=== PATIENT | male | born 1945 | race Two or more races ===

== ENCOUNTER 2020-02-05 08:21 | Outpatient (REF) | payer MEDICARE, OTHER, SELFPAY ==
[2020-02-05 09:44] LABS: Hematocrit 40.6 % (42-52); Hemoglobin 13.6 g/dl (14.0-18.0); Mean Corpuscular HGB Conc 33.5 g/dl (31.0-36.0); Mean Corpuscular Hemoglobin 31.3 pg (27.0-33.0); Mean Corpuscular Volume 93.5 fL (80-98); Mean Platelet Volume 10.9 fL (9.4-12.4); Platelet Count 282 X10*3/uL (160-400); Red Blood Count 4.34 X10*6/uL (4.60-5.80); Red Cell Distribution Width 12.1 % (11.0-16.0); White Blood Count 7.9 X10*3/uL (4.8-10.8)
[2020-02-05 09:47] LABS: INTERNATIONAL NORM RATIO 1.2 (0.9-1.1); Prothrombin Time 14.8 SEC (10.8-13.0)
[2020-02-05 11:02] LABS: Anion Gap 13 (12-20); Blood Urea Nitrogen 17 mg/dL (9-16); Carbon Dioxide 27 mmol/L (22-29); Chloride 103 mmol/L (96-108); Estimated Glomerular Filt Rate > 60; Potassium 4.9 mmol/l (3.3-5.1); Sodium 138 mmol/L (135-145)
== END 2020-02-05 08:22 | disposition home or self-care (01) ==
LOC: HO.10HDL 08:21
PROVIDERS: PCP Physician Assistant; Visit Provider Surgery Vascular Surgery
DX: I73.9 Peripheral vascular disease, unspecified (principal)
CPT/HCPCS: 36415; 80051; 82565; 84520; 85027; 85610

== ENCOUNTER 2020-02-16 11:01 | Inpatient (IN) | payer OTHER, SELFPAY ==
[2020-02-16] VITALS (10 sets, daily range): BP systolic 92–145; BP diastolic 54–69; PULSE 69–94; RESP 18–20; TEMP 36.4–36.8; O2SAT 97–98; BMI 23.3
--- NOTE | 2020-02-16 11:37 | ECG_ITS ---
Test Reason : EKGCHANGES Blood Pressure : / mmHG Vent. Rate : 099 BPM Atrial Rate : 129 BPM P-R Int : 000 ms QRS Dur : 112 ms QT Int : 324 ms P-R-T Axes : 000 076 049 degrees QTc Int : 415 ms Atrial fibrillation Abnormal ECG When compared with ECG of 09-APR-2019 13:49, No significant change was found Referred By: Rama Schmid Electronically Signed By:AMANDA CALI MD
--- NOTE | 2020-02-16 11:37 | XR_ITS ---
EXAMINATION: XR CHEST CLINICAL INFORMATION: Dizziness, low blood pressure COMPARISON: 09/20/2017 TECHNIQUE: 2 frontal and 2 lateral views of the chest were obtained. FINDINGS: The cardiomediastinal silhouette is within normal limits. The lungs are well expanded. There is no focal consolidation, edema, or effusion. No pneumothorax. Degenerative spine disease with the appearance of DISH. IMPRESSION: No evidence of acute pulmonary process..
--- NOTE | 2020-02-16 11:38 | XR_ITS ---
EXAMINATION: XR FOOT, RIGHT CLINICAL INFORMATION: Wound great toe. Evaluate for osteomyelitis. COMPARISON: MRI 01/22/2020 TECHNIQUE: AP, lateral, and oblique views of the right foot. FINDINGS: There is cortical irregularity of the tuft of the 1st distal phalanx. This raises concern for osteomyelitis. 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 Arthritis at the hallux sesamoid articulation. Mild degenerative changes in the midfoot, as seen on the lateral projection. Moderate plantar calcaneal spur. Small Achilles tendon insertional spurring. IMPRESSION: Cortical irregularity of the tuft of the 1st distal phalanx raises concern for possible osteomyelitis. This can be further evaluated with MRI as clinically warranted.
--- NOTE | 2020-02-16 11:41 | ED_ITS ---
HPI - General Adult General Chief complaint: General Medical Stated complaint: low blood pressure Time Seen by Provider: 02/16/20 11:36 Source: patient Mode of arrival: ambulatory Limitations: no limitations History of Present Illness HPI narrative: 74-year-old male with a past medical history of insulin- dependent diabetes, AFib on Eliquis, hypertension, high cholesterol, GERD, Parkinson's, right great toe wound here with episodes of low blood pressure. Per the patient had some lightheadedness this morning. She checked his blood pressure and was noted to be 80 systolic. She re-checked it a few addit ional times and continued to be low. He tells me he feels lightheaded when he changes positions. He denies any other associated chest pain, shortness of breath, abdominal pain, headache. no recent changes in medication. Of note, he has a wound on the right great toe and is currently on doxycycline for presumed infection. He has an appointment with vascular and [facility] and a few weeks for an RLE angiogram. He had an MRI 1 month ago (01/21) which ruled out osteomyelitis with admission with IV antibiotics for RLE cellulitis at that time. He does have acute on chronic pain in the right foot and in the calf which is worsened within the dependent position and he is taking gabapentin for this. Onset (ago): day(s) ( Today) Related Data Allergies Allergy/AdvReac Type Severity Reaction Status Date / Time No Known Drug Allergies Allergy Unknown UNKNOWN Verified 02/16/20 11:21 grass, weeds, dirt, dust Allergy Unknown Unknown Uncoded 02/16/20 11:21 mites Review of Systems Review of Systems: Yes all other systems are reviewed and are negative Constitutional: Constitutional: Reports no additional constitutional com plaints, Denies body ache(s), Denies chills, Denies fever(s), Denies headache(s) and Denies weakness Eyes: Eyes: Reports no additional eye complaints and Denies change in vision ENT: Reports system reviewed and no additional complaints, except as documented, Reports dizziness ( lightheaded), Denies headache(s), Denies nasal congestion, Denies nasal discharge and Denies neck pain Cardiovascular: Cardiovascular: Reports no additional cardiovascular complaints, Denies chest pain, Denies leg edema and Denies dyspnea Respiratory: Respiratory: Reports no additional respiratory complaints, Denies cough and Denies dyspnea Gastrointestinal: Gastrointestinal: Reports no additional gastrointestinal complaints, Denies abdominal pain, Denies diarrhea, Denies nausea and Denies vomiting Genitourinary: Genitourinary: Denies urinary incontinence Musculoskeletal: Musculoskeletal: Reports no additional musculoskeletal complaints, Denies back pain, Reports arthralgias, Denies joint swelling, Denies neck pain, Denies numbness and Denies tingling Integumentary/Breasts: Skin/Breast: Reports system reviewed and no additional complaints, except as docu and Denies rash Comments: wound right great toe. Neurologic: Reports system reviewed and no additional complaints, except as documented, Denies Abnormal speech present, Reports dizziness ( lightheaded), Denies headache(s), Denies numbness, Denies tingling and Denies weakness PMFSH Past Medical History Attestation statement: The following information was validated with the patient. Source: obtained from family Medical History A-fib Diabetes GERD (gastroesophageal reflux disease) High cholesterol Hypertension Parkinson disease Toe avulsion Vocal cord anomaly Social History Social History Alcohol intake: current Alcohol intake frequency: 0-2 drinks per day Alcohol type: hard liquor Smoking Status: Current some day smoker Smoked in Last 30 Days: Yes Use of substances other than those prescribed or required for medical reasons: No Advance Directives: No Advance Directives Information Provided: Yes Physical Exam Vital Signs: Vital Signs: Vital Signs Temp Pulse Pulse Resp BP Pulse Ox 02/16/20 12:45 85 02/16/20 12:40 94 94/54 L 02/16/20 12:36 85 92/58 L 02/16/20 12:34 83 110/69 02/16/20 12:33 79 99/57 L 98 02/16/20 12:07 85 18 105/61 97 02/16/20 11:44 91 18 109/58 L 97 02/16/20 11:28 97.6 F 91 18 114/60 98 Body Mass Index 23.3 Const: General: cooperative, healthy appearing, comfortable and no acute distress Orientation/consciousness: patient oriented x3 Limitations: no limitations HENMT: Head: Yes normal to inspection Ears: hearing grossly normal bilaterally General nose exam: Normal external nose present Face and sinus: Yes normal facial exam Mouth: Normal oral and palatal mucosa present Throat: Yes posterior oropharynx normal Eyes: General: appearance normal, both eyes and all related structures Pupils: Equal, round and reactive pupils present Neck: Neck: Yes normal visual inspection Chest: Chest palpation & inspection: normal inspection of the chest Resp: Effort & Inspection: normal respiratory effort Auscultation: clear to auscultation bilaterally Cardio: Rate: regular rate Rhythm: regular rhythm Peripheral pulses: Peripheral pulses 2+ throughout GI: Inspection: Yes normal to inspection Palpation (GI): Soft to palpation and nontender Auscultation: normal bowel sounds Back/Spine/Pelvis: Thoracic/Lumbar Spine: thoracic and lumbar spine normal to inspection Skin: General skin exam: no rashes or lesions noted Neuro: General: patient oriented x3, no focal motor deficits and normal sensation to monofilament Cranial nerves: Yes CN's II-XII intact bilaterally and Yes Equal, round and reactive pupils present Cognition (Neuro): normal cognition Speech: No Abnormal speech present Gait exam (Neuro): Normal gait present Motor exam (neuro): 5/5 motor strength present throughout Sensory Exam: Normal double simultaneous stimulation for sensation Coordination: [id number] test normal Extrem: Other: To the dorsal aspect of the distal right great toe there is a wound involving the nail bed. There is some mild erythema extending to the base of the toe with some tenderness. The wound bed is covered in eschar and is unable to visualize will need this. Posterior tibial pulse is present on palpation. Right foot is normal in color. There is some mild coolness noted. Sensation intact. Patient is able to plantar and dorsiflex the foot. General: Yes normal to inspection Course Course Course Narrative: 74-year-old male with a past medical history of insulin- dependent diabetes, AFib on Eliquis, hypertension, high cholesterol, GERD, Parkinson's, chronic right great toe wound here with episodes of dizziness/weakness this morning with episode of hypotension this morning noted by family. On arrival normotensive, alert and oriented with no focal neurologic deficits. Also has known right diabetic ulcer on great toe and is currently on doxycyline. Some increase in pain since, recent MRI negative for osteo. On exam mild erythema around site with no circumferential cellulitis s/s sepsis. Will need labs including troponin, EKG, CXR, orthostatics, foot x-ray. 1300- foot x-ray today is concerning for osteomyelitis. Labs are unremarkable with the exception of a mildly elevated troponin. No chest pain or EKG changes. Plan for repeat 3 hour troponin. Magnesium slightly low will be repleted. Positive orthostatics. Patient given 1 L normal saline bolus with improvement. Blood cultures and lactic acid ordered as at this time infection is suspected. Antibiotics ordered. Discussed with hospitalist Ester XIAO who accepted admission of patient. Medical Decision Making MDM Narrative Medical decision making narrative: Considered ACS, orthostatic hypotension, electrolyte abnormality, anemia, dehydration, right foot diabetic ulcer versus osteomyelitis versus cellulitis versus arterial disease. Less likely ACS with indeterminate and troponin with no complaints of chest pain or EKG changes. Plan for repeat 3 hour troponin. +orthostasis which is likely contributing to patient's symptoms. Foot x-ray consistent with osteomyelitis. Low concern for arterial occlusion with palpable PT pulses. Lab Data Result diagrams: 02/16/20 11:43 02/16/20 11:43 Labs: Lab Results 02/16/20 02/16/20 02/16/20 Range/Units 11:43 11:43 11:43 WBC 10.1 (4.8-10.8) X10*3/uL RBC 4.56 L (4.60-5.80) X10*6/uL Hgb 14.5 (14.0-18.0) g/dl Hct 43.4 (42-52) % MCV 95.2 (80-98) fL MCH 31.8 (27.0-33.0) pg MCHC 33.4 (31.0-36.0) g/dl RDW 12.2 (11.0-16.0) % Plt Count 286 (160-400) X10*3/uL MPV 10.6 (9.4-12.4) fL Immature Gran % (Auto) 0.3 (0.0-0.4) % Neut % (Auto) 69.7 (45-73) % Lymph % (Auto) 21.3 (20-40) % [place] % (Auto) 7.0 (2-11) % Eos % (Auto) 1.2 (0-4) % Baso % (Auto) 0.5 (0-2) % Lymph # (Auto) 2.2 (1.2-4.9) X10*3/uL [place] # (Auto) 0.7 (0.1-1.2) X10*3/uL Eos # (Auto) 0.1 (0.0-0.4) X10*3/uL Baso # (Auto) 0.1 (0.0-0.2) X10*3/uL Abs Immat Gran (auto) 0.03 (0.00-0.03) X10*3/uL Absolute Neuts (auto) 7.0 (2.0-8.3) X10*3/uL Absolute Nucleated RBC 0.000 (0.0-0.012) X10*3/uL Nucleated RBC % (auto) 0.0 (0.0-0.2) /100WBC PT 17.4 H (10.8-13.0) SEC INR 1.5 H (0.9-1.1) Hold Blue Top SEE NOTE Sodium 140 (135-145) mmol/L Potassium 5.5 H (3.3-5.1) mmol/l Chloride 103 (96-108) mmol/L Carbon Dioxide 27 (22-29) mmol/L Anion Gap 16 (12-20) BUN 23 H (9-16) mg/dL Creatinine 1.29 (0.5-1.4) mg/dL Estim Creat Clear Calc 62.6 Estimated GFR 55 POC Glucose (60-115) mg/dL Random Glucose 181 H (60-115) mg/dL Calcium 9.7 (8.4-10.2) mg/dL Magnesium 1.5 L (1.6-2.6) mg/dL Total Bilirubin 0.6 (0.0-1.0) mg/dL Direct Bilirubin 0.3 (0.0-0.5) mg/dL AST 18 (5-37) U/L ALT 7 (0-40) U/L Alkaline Phosphatase 107 (39-117) U/L Troponin I High Sens (<3.5-35.0) ng/L Total Protein 7.2 (6.5-8.0) g/dL Albumin 4.4 (3.5-5.0) g/dL 02/16/20 02/16/20 Range/Units 11:43 12:26 WBC (4.8-10.8) X10*3/uL RBC (4.60-5.80) X10*6/uL Hgb (14.0-18.0) g/dl Hct (42-52) % MCV (80-98) fL MCH (27.0-33.0) pg MCHC (31.0-36.0) g/dl RDW (11.0-16.0) % Plt Count (160-400) X10*3/uL MPV (9.4-12.4) fL Immature Gran % (Auto) (0.0-0.4) % Neut % (Auto) (45-73) % Lymph % (Auto) (20-40) % [place] % (Auto) (2-11) % Eos % (Auto) (0-4) % Baso % (Auto) (0-2) % Lymph # (Auto) (1.2-4.9) X10*3/uL [place] # (Auto) (0.1-1.2) X10*3/uL Eos # (Auto) (0.0-0.4) X10*3/uL Baso # (Auto) (0.0-0.2) X10*3/uL Abs Immat Gran (auto) (0.00-0.03) X10*3/uL Absolute Neuts (auto) (2.0-8.3) X10*3/uL Absolute Nucleated RBC (0.0-0.012) X10*3/uL Nucleated RBC % (auto) (0.0-0.2) /100WBC PT (10.8-13.0) SEC INR (0.9-1.1) Hold Blue Top Sodium (135-145) mmol/L Potassium (3.3-5.1) mmol/l Chloride (96-108) mmol/L Carbon Dioxide (22-29) mmol/L Anion Gap (12-20) BUN (9-16) mg/dL Creatinine (0.5-1.4) mg/dL Estim Creat Clear Calc Estimated GFR POC Glucose 138 H (60-115) mg/dL Random Glucose (60-115) mg/dL Calcium (8.4-10.2) mg/dL Magnesium (1.6-2.6) mg/dL Total Bilirubin (0.0-1.0) mg/dL Direct Bilirubin (0.0-0.5) mg/dL AST (5-37) U/L ALT (0-40) U/L Alkaline Phosphatase (39-117) U/L Troponin I High Sens 6.7 (<3.5-35.0) ng/L Total Protein (6.5-8.0) g/dL Albumin (3.5-5.0) g/dL ECG Data Attestation: I personally reviewed and interpreted this ECG as follows: Prior ECG tracings: available for review Interpretation: AFib with a rate of 99. Normal QRS. Normal QT. No ST changes. Discharge Plan Discharge Clinical Impression: Orthostatic hypotension Osteomyelitis Qualifiers: Osteomyelitis location: foot Laterality: right Patient Disposition: Admitted As Inpatient
[2020-02-16 11:52] LABS: MANUAL DIFF FLAG NO
[2020-02-16 11:57] LABS: Basophils Absolute Auto 0.1 X10*3/uL (0.0-0.2); Basophils Percent Auto 0.5 % (0-2); Eosinophils Absolute Auto 0.1 X10*3/uL (0.0-0.4); Eosinophils Percent Auto 1.2 % (0-4); Hematocrit 43.4 % (42-52); Hemoglobin 14.5 g/dl (14.0-18.0); Imm Gran Abs Auto 0.03 X10*3/uL (0.00-0.03); Imm Gran Pct Auto 0.3 % (0.0-0.4); Lymphocytes Absolute Auto 2.2 X10*3/uL (1.2-4.9); Lymphocytes Percent Auto 21.3 % (20-40); Mean Corpuscular HGB Conc 33.4 g/dl (31.0-36.0); Mean Corpuscular Hemoglobin 31.8 pg (27.0-33.0); Mean Corpuscular Volume 95.2 fL (80-98); Mean Platelet Volume 10.6 fL (9.4-12.4); Monocytes Absolute Auto 0.7 X10*3/uL (0.1-1.2); Neutrophils Percent Auto 69.7 % (45-73); Platelet Count 286 X10*3/uL (160-400); Red Blood Count 4.56 X10*6/uL (4.60-5.80); Red Cell Distribution Width 12.2 % (11.0-16.0); White Blood Count 10.1 X10*3/uL (4.8-10.8)
[2020-02-16 11:59] LABS: INTERNATIONAL NORM RATIO 1.5 (0.9-1.1); Prothrombin Time 17.4 SEC (10.8-13.0)
[2020-02-16 12:20] LABS: Alanine Aminotransferase 7 U/L (0-40); Albumin Level 4.4 g/dL (3.5-5.0); Alkaline Phosphatase 107 U/L (39-117); Anion Gap 16 (12-20); Aspartate Amino Transferase 18 U/L (5-37); Bilirubin Direct 0.3 mg/dL (0.0-0.5); Bilirubin Total 0.6 mg/dL (0.0-1.0); Blood Urea Nitrogen 23 mg/dL (9-16); Calcium 9.7 mg/dL (8.4-10.2); Carbon Dioxide 27 mmol/L (22-29); Chloride 103 mmol/L (96-108); Creatinine Clr Calc Pharmacy 62.6; Estimated Glomerular Filt Rate 55; Glucose Random 181 mg/dL (60-115); Magnesium 1.5 mg/dL (1.6-2.6); Potassium 5.5 mmol/l (3.3-5.1); Sodium 140 mmol/L (135-145); Total Protein 7.2 g/dL (6.5-8.0)
[2020-02-16 12:24] LABS: Troponin-I High Sensitivity 6.7 ng/L (<3.5-35.0)
[2020-02-16 12:31] LABS: Glucose, Whole Blood 138 mg/dL (60-115)
[2020-02-16] MEDS: Magnesium Sulfate/D5W 1 GM/100 ML PIGGYBACK IV (14:29)
[2020-02-16] MEDS: vancomycin HCL 1,000 MG in 0.9 % Sodium Chloride 250 ML 270 MG IV (14:39)
--- NOTE | 2020-02-16 14:51 | PC.NURSE ---
unable to scan in 1l bolus. spoke with hoisting engine operator, states she wants 1l ns. hung at this time.
--- NOTE | 2020-02-16 14:52 | PC.NURSE ---
called to s3 for report
[2020-02-16 15:07] LABS: Lactic Acid 1.4 mmol/L (0.5-2.0)
[2020-02-16 15:16] LABS: Troponin-I High Sensitivity 4.5 ng/L (<3.5-35.0)
[2020-02-16 15:56] LABS: Glucose Urine UA NEG (NEG); Leukocyte Esterase Urine NEG (NEG); Nitrite Urine NEG (NEG); Specific Gravity - Urine 1.015 (1.005-1.025); Urine Blood NEG (NEG); Urine Ketones NEG (NEG); Urine Protein NEG (NEG-TRACE)
--- NOTE | 2020-02-16 15:59 | HP_ITS ---
DATE OF SERVICE: 02/16/2020 CHIEF COMPLAINT: Toe pain. HISTORY OF PRESENT ILLNESS: A 74-year-old man, presenting to the ER with right great toe pain. He was last admitted in January of 2020 with a diabetic foot wound. At that time, he was noted to have a cellulitis with concern for osteomyelitis to the right great toe. He was started on vancomycin and Zosyn. MRI was obtained, which showed no osteomyelitis. The wound made a marked improvement over 48 hours and he was discharged on oral Augmentin and doxycycline. According to the patient's , they had recently cut his toenails and that seemed to be getting worse. The top of the right great toe was black and dry and he had increased pain to the plantar aspect of his foot. In the ER, the foot x-ray showed irregularities concerning for possible osteomyelitis. He was not noted to have fever or leukocytosis; however, his reported that his blood pressure at home was 70 systolic and he had some dizziness. She decided to bring him in to be evaluated. He had no other signs of infection and chest x-ray was negative. The patient denied any fever, chills, nausea, vomiting, or diarrhea. He was given a dose of vancomycin in the ER. He will be admitted for further management and treatment of possible osteomyelitis to right great toe. PAST MEDICAL HISTORY: 1. Atrial fibrillation, on Eliquis. 2. Diabetes mellitus. 3. GERD. 4. Hyperlipidemia. 5. Hypertension. 6. Parkinson disease. 7. Diabetic foot ulcer. 8. Vocal cord anomaly. PAST SURGICAL HISTORY: Trigger finger release. SOCIAL HISTORY: Lives with his . Denies any alcohol, tobacco, or illicit drug use. Uses a cane for ambulation. FAMILY HISTORY: Mother of a fatal [place]. She also had a stroke. His father at age of 79 of myocardial infarction. Sister had breast cancer at age of 30. REVIEW OF SYSTEMS: CONSTITUTIONAL: Denies any recent fever, chills, or decrease in appetite. RESPIRATORY: Denies any shortness of breath, cough, or sputum production. CARDIOVASCULAR: Denies any chest pain, orthopnea, PND, or edema. GASTROINTESTINAL: Denies any dysphagia, abdominal pain, nausea, vomiting, or diarrhea. GENITOURINARY: Denies any dysuria, frequency, or hematuria. MUSCULOSKELETAL: Denies any joint pain or swelling. NEUROPSYCH: Denies any weakness or seizures. All other systems are reviewed and are negative. PHYSICAL EXAMINATION: CONSTITUTIONAL: Resting in bed, appearing in no acute distress. VITAL SIGNS: 97.6, 91, 18, 114/60, 98% on room air. SKIN: Right great toe with large area of black eschar. No drainage. HEENT: Head is normocephalic, atraumatic. Eyes, pupils are PERRLA. Sclerae are anicteric. Mouth and throat: Mucous membranes are intact and moist. NECK: Supple. No lymphadenopathy. No JVD noted. CHEST: Clear to auscultation without wheezes, rhonchi, or rales. HEART: Regular rate and rhythm. Clear S1, S2. No murmurs, rubs, or gallops. ABDOMEN: Positive bowel sounds. Abdomen is soft, nontender. No hepatomegaly or splenomegaly noted. NEURO: The patient is alert and oriented x3. Cranial nerves II through XII are grossly intact without focal deficits. LABORATORY DATA: WBC 10.1, hemoglobin 14.5, hematocrit 42.4, and platelets 286. Sodium is 140, potassium is 5.5, chloride is 103, bicarb is 27, BUN is 22, creatinine is 1.29, glucose is 138, magnesium is 1.5. ASSESSMENT AND PLAN: A 74-year-old man, who is being admitted with right diabetic toe infection, possibly with osteomyelitis. 1. Diabetic toe infection/osteomyelitis. We will continue vancomycin and Zosyn, ID consultation, General Surgery for debridement, MRI, pain medication as needed. 2. Hyperkalemia. We will give 1 dose of Kayexalate. 3. Hypomagnesemia. Received 1 dose of magnesium in the ER. Recheck magnesium tomorrow. 4. Atrial fibrillation. Regular rhythm. Continue Eliquis and metoprolol. 5. Hypotension. Seems to have resolved. Follow blood pressure closely. We will give gentle IV fluid hydration, may be related to mild dehydration. Hold enalapril. 6. Diabetes. Sliding scale, lantus and metformin. 7. Parkinsons disease. Continue Sinemet. 8. Deep vein thrombosis prophylaxis with Eliquis. Case discussed with Dr. Alexis. Full code. JESSICA Viramontes MD JR/VAISHNAVI / [id number] ARMANDO
[2020-02-16 16:00] LABS: Appearance Urine CLEAR; Color Urine YELLOW
--- NOTE | 2020-02-16 16:08 | PM.EVENT ---
Event Note Event Note: Date of Service: February 16, 2020 Addendum to H and by Mid level Provider I saw and examined the patient and participated in the [place] portion of the E/M service. I agree with the history and exam as documented by KILN SETTER. He presents with pain in the left foot, low blood pressure. Xray raise concern for osteo. BP is now better, I don't think he is septic. Exam: dry gangrene of left big toe. Patient likely has med related low BP, and will rule out osteomylitis. Will admit for Empiric Abx and work up with repeat MRI of the foot. Otherwise, I agree with assessment and plan as outlined in the H and P.
--- NOTE | 2020-02-16 16:22 | MR_ITS ---
EXAMINATION: MRI RIGHT FOOT WITHOUT AND WITH CONTRAST CLINICAL INFORMATION: Infection of right great toe. Possible osteomyelitis. COMPARISON: Radiographs of the foot from 02/16/2020. MRI of the foot from 01/22/2020. TECHNIQUE: MR imaging of the right foot was performed using standard sequences on a high-field 1.5 [place] magnet without and with intravenous administration of 10 mL of Gadavist. FINDINGS: Bones have normal alignment throughout the visualized foot, including the Lisfranc joint. 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 Bones of the forefoot are intact. There is no evidence of fracture, focal cortical bone erosion or periostitis. On the fat-suppressed fluid sensitive sequences, there is minimal periarticular marrow edema at several joints, including second and fifth metatarsophalangeal joints. Also, these images demonstrate minimal edema-like signal within the distal phalanx of the fifth toe and distal phalanx of the first toe. On the T1-weighted images, the fatty marrow signal of these bones is well-preserved, which strongly argues against presence of osteomyelitis. On the fat-suppressed T1-weighted images acquired after intravenous contrast, there is no significant bone marrow enhancement to suggest osteomyelitis. No soft tissue abscess. There is diffuse edema-like signal and atrophy of muscles of the foot, consistent with diabetic neuropathy. No evidence of tendon tear or tenosynovitis. The visualized plantar aponeurosis is intact. IMPRESSION: * The T1-weighted images and contrast enhanced images show no evidence of osteomyelitis within the right forefoot. * Minimal bone marrow edema is noted in several locations, including around some of the metatarsophalangeal joints and within distal phalanges of the first and fifth toes. The bone marrow edema is likely reactive in nature. * The chronic atrophy and edema-like signal intensity of muscles is consistent with diabetic associated neuropathic changes affecting muscles. 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
[2020-02-16 16:49] LABS: Glucose, Whole Blood 105 mg/dL (60-115)
--- NOTE | 2020-02-16 17:30 | P.CONGS_ITS ---
History of Present Illness Consult details Consult date: 02/16/20 Reason for consult: wound care Requesting physician: Ester Abbott Narrative: This is a 74 y/o Male who presented to the emergency department today with complaints of dizziness and lightheadedness. Systolic pressure had been low at home. He recently was admitted to [facility] for treatment of cellulitis involving the right great toe. The problem began after he had his toenails trimmed at the [facility]. he improved and was discharged on oral ant ibiotics. He reports that he developed dark spot at the tip of his toe. He has been evaluated by a vascular surgeon at [facility] and is scheduled to have a dye study performed at [facility] next week. Review of Systems Constitutional: Constitutional: Denies headache(s) and Denies weakness ENT: Reports dizziness ( lightheaded) and Denies headache(s) Musculoskeletal: Musculoskeletal: Denies numbness and Denies tingling Comments: Reports cramping right thigh after walking about 40 yd and while climbing stairs Neurologic: Reports system reviewed and no additional complaints, except as documented, Denies Abnormal speech present, Reports dizziness ( lightheaded), Denies headache(s), Denies numbness, Denies tingling and Denies weakness PMFSH Past Medical History Medical History A-fib Diabetes GERD (gastroesophageal reflux disease) High cholesterol Hypertension Parkinson disease Toe avulsion Vocal cord anomaly Social History Social History Household Members: Spouse Housing: House Do you presently have visiting nurse or other home services: No Alcohol intake: current Alcohol intake frequency: 0-2 drinks per day Alcohol type: hard liquor Smoking Status: Current some day smoker Tobacco Type: Cigar Years Smoked: 8 Smoked in Last 30 Days: Yes Patient Interested in Nicotine Replacement: No Patient Given Instructions on How to Stop Smoking: No Second Hand Smoke Exposure: No Use of substances other than those prescribed or required for medical reasons: No Currently Displaying Signs/Symptoms of Drug Intoxication Withdrawal: No Any prior treatment program specific to substance use: No Have you been hit, kicked, punched, or otherwise hurt by someone within the past year? If so, by whom?: No Do you feel safe in your current relationship?: No Is there a partner from a previous relationship who is making you feel unsafe now?: No Are you made to feel afraid or neglected: No Advance Directives: Yes Advance Directives Information Provided: Yes Advance Directives on File: No Advance Directives Date on File: 02/16/20 Do you have thoughts of harming others: None Do you have a plan to hurt others: No Plan Recently lost weight without trying: Yes service: No Current occupational status: retired Meds Allergies Allergy/AdvReac Type Severity Reaction Status Date / Time No Known Drug Allergies Allergy Unknown UNKNOWN Verified 02/16/20 11:21 grass, weeds, dirt, dust Allergy Unknown Unknown Uncoded 02/16/20 11:21 mites Home Medications Medication Instructions Recorded Confirmed Type apixaban [Eliquis] 5 mg PO BID 02/16/20 02/16/20 History carbidopa-levodopa 1 tab PO TID 02/16/20 02/16/20 History enalapril maleate 20 mg PO DAILY 02/16/20 02/16/20 History gabapentin 900 mg PO TID 02/16/20 02/16/20 History insulin glargine [Lantus U-100 14 unit SUBCUT QAM 02/16/20 02/16/20 History Insulin] insulin lispro [Humalog U-100 6 unit SUBCUT QPM 02/16/20 02/16/20 History Insulin] magnesium oxide 420 mg PO DAILY 02/16/20 02/16/20 History metformin 500 mg PO QPM 02/16/20 02/16/20 History metoprolol succinate 25 mg PO DAILY 02/16/20 02/16/20 History omeprazole 20 mg PO DAILY 02/16/20 02/16/20 History simvastatin 20 mg PO BEDTIME 02/16/20 02/16/20 History tamsulosin 0.4 mg PO DAILY 02/16/20 02/16/20 History Physical Exam Vital Signs: Vital Signs: Vital Signs Temp Pulse Pulse Resp BP Pulse Ox 02/16/20 15:35 80 18 145/66 H 02/16/20 12:45 85 02/16/20 12:40 94 94/54 L 02/16/20 12:36 85 92/58 L 02/16/20 12:34 83 110/69 02/16/20 12:33 79 99/57 L 98 02/16/20 12:07 85 18 105/61 97 02/16/20 11:44 91 18 109/58 L 97 02/16/20 11:28 97.6 F 91 18 114/60 98 Body Mass Index 23.3 Const: Other: Alert, healthy appearing elderly male in no apparent distress HENMT: Head: Yes normal to inspection Ears: hearing grossly normal bilaterally Eyes: Conjunctivae: conjunctivae normal EOM: EOMs intact bilaterally Neck: Neck: Yes normal visual inspection Resp: Other: clear to auscultation Cardio: Other: regular rate and rhythm Neuro: Speech: No Abnormal speech present Extrem: Other: the right foot demonstrates dependent rubor. There is an eschar present along the medial aspect of the tip of the right great toe. Dorsalis pedis, posterior tibial and popliteal pulses are not palpable on the right. Posterior tibial pulses palpable on the left Psych: Affect: normal affect Insight: Good insight present (Psych) Judgement: Good judgement present (Psych) Results Labs Result diagrams: 02/17/20 06:01 02/17/20 06:01 Labs: Abnormal lab results 02/16/20 02/16/20 02/16/20 Range/Units 11:43 11:43 11:43 RBC 4.56 L (4.60-5.80) X10*6/uL PT 17.4 H (10.8-13.0) SEC INR 1.5 H (0.9-1.1) Potassium 5.5 H (3.3-5.1) mmol/l BUN 23 H (9-16) mg/dL POC Glucose (60-115) mg/dL Random Glucose 181 H (60-115) mg/dL Magnesium 1.5 L (1.6-2.6) mg/dL 02/16/20 Range/Units 12:26 RBC (4.60-5.80) X10*6/uL PT (10.8-13.0) SEC INR (0.9-1.1) Potassium (3.3-5.1) mmol/l BUN (9-16) mg/dL POC Glucose 138 H (60-115) mg/dL Random Glucose (60-115) mg/dL Magnesium (1.6-2.6) mg/dL Short CBC 02/16/20 Range/Units 11:43 WBC 10.1 (4.8-10.8) X10*3/uL Hgb 14.5 (14.0-18.0) g/dl Hct 43.4 (42-52) % Plt Count 286 (160-400) X10*3/uL BMP 02/16/20 11:43 Sodium 140 Potassium 5.5 H Chloride 103 Carbon Dioxide 27 BUN 23 H Creatinine 1.29 Calcium 9.7 Liver Function 02/16/20 Range/Units 11:43 Total Bilirubin 0.6 (0.0-1.0) mg/dL Direct Bilirubin 0.3 (0.0-0.5) mg/dL AST 18 (5-37) U/L ALT 7 (0-40) U/L Alkaline Phosphatase 107 (39-117) U/L Albumin 4.4 (3.5-5.0) g/dL Urine 02/16/20 Range/Units 15:38 Urine Color YELLOW Urine Appearance CLEAR Urine pH 6.0 (5.0-8.0) Ur Specific [place] 1.015 (1.005-1.025) Urine Protein NEG (NEG-TRACE) MG/DL Urine Glucose (UA) NEG (NEG) MG/DL All other labs normal. Assessment and Plan (1) Peripheral arterial disease: Problem details: This is a 74-year-old gentleman with peripheral arterial disease and significant ischemia involving the right lower extremity. He has small eschars involving the medial aspect of the tip of his right 1st toe and also all along the plantar aspect of the 1st metatarsal head. He has been seen by a vascular surgeon at [facility] and is scheduled for Arteriography and possible stenting on 02/23/2020. Would hold off on any debridement until revascularization is complete. There is no evidence of osteomyelitis by MRI and no suggestion of active cellulitis at this time. It does not appear that continued antibiotic therapy is needed. Thank for the courtesy of this consultation. Status: Acute Proceed with planned arteriography and vascular stenting as scheduled at [facility] next week. Once this is completed, local treatment for as scars right foot can be undertaken. Would limit ambulation until intervention is complete based upon presence of eschar on plantar aspect of right foot.
[2020-02-16] MEDS: metFORMIN HCl 500 MG TABLET PO (18:28)
[2020-02-16] MEDS: Carbidopa/Levodopa 25/100 TABLET 1 TAB PO ×2 (18:28→21:45)
[2020-02-16] MEDS: Sodium Polystyrene Sulfon/Sorb 15 GM/60 ML ORAL.SUSP PO (18:28)
[2020-02-16] MEDS: Piperacillin Sodium/Tazobactam 3.375 GM in 0.9 % Sodium Chloride 50 ML IV (18:29)
[2020-02-16] MEDS: 0.9 % Sodium Chloride 1,000 ML 75 ML IVCONT (18:29)
[2020-02-16] MEDS: Acetaminophen 325 MG TABLET 650 MG PO (18:35)
[2020-02-16 21:20] LABS: Glucose, Whole Blood 200 mg/dL (60-115)
[2020-02-16] MEDS: Docusate Sodium 100 MG CAPSULE PO (21:45)
[2020-02-16] MEDS: Gabapentin 300 MG CAPSULE 900 MG PO (21:45)
[2020-02-16] MEDS: Atorvastatin Calcium 10 MG TABLET PO (21:45)
[2020-02-16] MEDS: Insulin Lispro 100 UNIT/ML 3 ML VIAL SUBCUT (21:45)
[2020-02-16] MEDS: Apixaban 5 MG TABLET PO (21:45)
[2020-02-16] MEDS: Flu Vacc QS2020-21(6mos up)/PF 0.5 ML SYRINGE IM (21:46)
[2020-02-17] MEDS: vancomycin HCL 1,000 MG in 0.9 % Sodium Chloride 250 ML 180 MG IV (00:41)
[2020-02-17] MEDS: Piperacillin Sodium/Tazobactam 3.375 GM in 0.9 % Sodium Chloride 50 ML IV ×2 (02:02→08:57)
[2020-02-17] MEDS: oxyCODONE HCl Immed Release 5 MG TABLET PO ×2 (03:13→13:45)
[2020-02-17 03:51] VITALS: BP 143/64; PULSE 70; RESP 20; TEMP 36.7; O2SAT 98
[2020-02-17] MEDS: Omeprazole 20 MG CAPSULE.DR PO (05:16)
[2020-02-17 07:00] LABS: MANUAL DIFF FLAG NO
[2020-02-17 07:09] LABS: Basophils Absolute Auto 0.1 X10*3/uL (0.0-0.2); Basophils Percent Auto 0.6 % (0-2); Eosinophils Absolute Auto 0.3 X10*3/uL (0.0-0.4); Eosinophils Percent Auto 3.8 % (0-4); Hematocrit 40.3 % (42-52); Hemoglobin 13.7 g/dl (14.0-18.0); Imm Gran Abs Auto 0.02 X10*3/uL (0.00-0.03); Imm Gran Pct Auto 0.2 % (0.0-0.4); Lymphocytes Absolute Auto 2.4 X10*3/uL (1.2-4.9); Lymphocytes Percent Auto 29.5 % (20-40); Mean Corpuscular Hemoglobin 32.2 pg (27.0-33.0); Mean Corpuscular Volume 94.6 fL (80-98); Mean Platelet Volume 10.9 fL (9.4-12.4); Monocytes Absolute Auto 0.7 X10*3/uL (0.1-1.2); Monocytes Percent Auto 8.3 % (2-11); Neutrophils Absolute Auto 4.7 X10*3/uL (2.0-8.3); Neutrophils Percent Auto 57.6 % (45-73); Platelet Count 265 X10*3/uL (160-400); Red Blood Count 4.26 X10*6/uL (4.60-5.80); Red Cell Distribution Width 12.3 % (11.0-16.0); White Blood Count 8.2 X10*3/uL (4.8-10.8)
[2020-02-17 07:34] LABS: Anion Gap 12 (12-20); Blood Urea Nitrogen 14 mg/dL (9-16); Calcium 8.9 mg/dL (8.4-10.2); Carbon Dioxide 30 mmol/L (22-29); Chloride 104 mmol/L (96-108); Creatinine Clr Calc Pharmacy 89.7; Estimated Glomerular Filt Rate > 60; Glucose Random 102 mg/dL (60-115); Magnesium 1.5 mg/dL (1.6-2.6); Potassium 4.9 mmol/l (3.3-5.1); Sodium 141 mmol/L (135-145)
[2020-02-17 07:41] VITALS: BP 138/71; PULSE 78; RESP 18; TEMP 36; O2SAT 98
[2020-02-17 08:06] LABS: Glucose, Whole Blood 86 mg/dL (60-115)
[2020-02-17] MEDS: Apixaban 5 MG TABLET PO (08:58)
[2020-02-17] MEDS: Carbidopa/Levodopa 25/100 TABLET 1 TAB PO ×2 (08:58→13:45)
[2020-02-17] MEDS: Metoprolol Succinate ER 25 MG TAB.ER.24H PO (08:58)
[2020-02-17] MEDS: Magnesium Oxide 400 MG TABLET PO (08:58)
[2020-02-17] MEDS: Insulin Glargine,Hum.rec.anlog 100 UNIT/ML 10 ML VIAL 14 UNIT SUBCUT (08:59)
[2020-02-17] MEDS: Docusate Sodium 100 MG CAPSULE PO (08:59)
[2020-02-17] MEDS: 0.9 % Sodium Chloride 1,000 ML 75 ML IVCONT (08:59)
[2020-02-17] MEDS: Tamsulosin HCL 0.4 MG CAPSULE PO (08:59)
[2020-02-17] MEDS: Gabapentin 300 MG CAPSULE 900 MG PO ×2 (08:59→13:45)
--- NOTE | 2020-02-17 09:08 | MHC.CM.PN ---
PATIENT IS FULLY INDEPENDENT HE HAS A CANE THAT HE SUES ON OCCASION. LIVES WITH . NO VNA OR ELDER SERVICES. HE WOULD LIKE TO RETURN HOME WITH NO SERVICES. CASE MANAGEMENT FOLLOWING FOR DISCHARGE PLAN. IMM 02/16 IN CHART.
--- NOTE | 2020-02-17 10:21 | PM.DS ---
DS: Providers Provider Date of admission: 02/16/20 14:11 Primary care physician: CALEB Tapia Consults: 02/16/20 16:22 Consult to Physician Routine Consulting Provider: [facility] [place] [place] General Surgeons Reason for consultation: right great toe diabetic foot infection vs dry gangrene. needs debridement Has provider been notified: yes DS: Diagnosis Discharge Diagnosis (1) Peripheral arterial disease: Status: Acute Problem details: (2) Orthostatic hypotension: Status: Acute (3) Diabetes mellitus with foot ulcer: Status: Acute Problem details: foot scabbing Area clean and dry,nonhealing (4) A-fib: Status: Acute DS: Summary Hospital Course Hospital Course: Patient was brought to ED by who has noted low blood pressure and foot pain from a previous diabetic foot ulcer. Even though the ulcer looked better an Xray was done and reported as possible osteomylitis and he was given IV Vancomycin and admitted. There was no evidence sepsis. Low BP unclear etiology but definately not due to sepsis, probably dehydration and possible too much BP meds. Was given IVF and BP meds on hold. Will reduce Enalapril to 10 from 20 and continue Metoprolol for AFIB. BP has been within normal overnight. Diabetic foot ulcer--he has recently completed outpatient antibitics. MRI shows no evidence of osteomylitis. Will dc IV Vanco. ID to comment on this. He was seen by Dr. Marques from general surgery and note that he has a Proceed with planned arteriography and vascular stenting as scheduled at [facility] next week. Once this is completed, local treatment for as scars right foot can be undertaken. Would limit ambulation until intervention is complete based upon presence of eschar on plantar aspect of right foot AFIB rate controlled. Continue Eliquis and Metoprolol Time Spent with Patient Time attestation: Total time spent providing and/or coordinating discharge services: Physical Exam Vital Signs: Vital Signs: Vital Signs Temp Pulse Pulse Resp BP Pulse Ox 02/17/20 07:41 96.8 F 78 18 138/71 98 02/17/20 03:51 98.0 F 70 20 143/64 H 98 02/16/20 23:23 98.2 F 69 20 133/60 98 02/16/20 15:35 80 18 145/66 H 02/16/20 12:45 85 02/16/20 12:40 94 94/54 L 02/16/20 12:36 85 92/58 L 02/16/20 12:34 83 110/69 02/16/20 12:33 79 99/57 L 98 02/16/20 12:07 85 18 105/61 97 02/16/20 11:44 91 18 109/58 L 97 02/16/20 11:28 97.6 F 91 18 114/60 98 Body Mass Index 23.3 Constitutional Awake and Alert, No apparent distress Neck Supple, No lymphadenopathy Cardiovascular RRR, No M/R/G, S1 S2, No S3 S4, No pedal edema Respiratory Lungs clear, No respiratory distress Gastrointestinal Non tender, Non-distended Skin No rash, he right foot demonstrates dependent rubor. There is an eschar present along the medial aspect of the tip of the right great toe. Dorsalis pedis, posterior tibial and popliteal pulses are not palpable on the right. Posterior tibial pulses palpable on the left Neurological Alert & oriented x3 Psychological Appropriate affect Discharge Plan Discharge Patient Disposition: Home, Self-Care Referrals: Calvin Keen PA [Primary Care Provider] - 1 Week (Please call and schedule a follow up appointment within 1 week.) Discharge Medications: Continued metformin 500 mg Tablet 500 mg PO QPM RF: 0 magnesium oxide 420 mg Tablet 420 mg PO DAILY RF: 0 Lantus U-100 Insulin 100 unit/mL Solution 14 unit SUBCUT QAM RF: 0 tamsulosin 0.4 mg Capsule 0.4 mg PO DAILY RF: 0 simvastatin 20 mg Tablet 20 mg PO BEDTIME RF: 0 omeprazole 20 mg Capsule,Delayed Release(Dr/Ec) 20 mg PO DAILY RF: 0 metoprolol succinate 25 mg Tablet Extended Release 24 Hr 25 mg PO DAILY RF: 0 insulin lispro [Humalog U-100 Insulin] 100 unit/mL Solution 6 unit SUBCUT QPM RF: 0 carbidopa-levodopa 25-100 mg Tablet 1 tab PO TID RF: 0 gabapentin 300 mg Tablet 900 mg PO TID RF: 0 Eliquis 5 mg Tablet 5 mg PO BID RF: 0 Changed enalapril maleate 20 mg Tablet 10 mg PO DAILY Qty: 0 RF: 0 Discharge Orders: Discharge Order (Routine); Ordered 02/17/20 Ordered By: Toby Alexis Activity on Discharge: see below Discharge Date/Time: 02/17/20 15:23 Visit Report Forms: Patient Portal Discharge page Care Plan Goals: Proceed with arteriogram as scheduled at [facility], Limit ambulation on the foot for now Health Concerns: Peripheral vascular disease with diabetic foot ulcer, Low blood pressure Plan of Treatment: Arteriogram as above. Note that your blood pressure medication Enalapril has been reduced to 10 from 20 due to low blood pressure
--- NOTE | 2020-02-17 11:26 | MHC.CM.PN ---
PATIENT IS DISCHARGED HOME WITH NO NEED FOR SERVICES. RN AWARE OF PLAN
[2020-02-17 11:56] LABS: Glucose, Whole Blood 263 mg/dL (60-115)
[2020-02-17] MEDS: Insulin Lispro 100 UNIT/ML 3 ML VIAL SUBCUT (12:38)
--- NOTE | 2020-02-17 14:06 | W.PM.IDCN ---
History of Present Illness Data of Consult Service Date: 02/17/20 Requesting physician: Toby Alexis Primary Care Provider: CALEB Tapia Reason for consult: right great toe possible diabetic infection He presents with some weakness,hypotension He has dry ulcer right great toe,no purulence He has no fever or chills MRI no osteomyelitis Review of Systems Constitutional: Constitutional: Denies headache(s) and Denies weakness ENT: Reports dizziness ( lightheaded) and Denies headache(s) Musculoskeletal: Musculoskeletal: Denies numbness and Denies tingling Neurologic: Reports system reviewed and no additional complaints, except as documented, Denies Abnormal speech present, Reports dizziness ( lightheaded), Denies headache(s), Denies numbness, Denies tingling and Denies weakness PMFSH Past Medical History Medical History A-fib Diabetes GERD (gastroesophageal reflux disease) High cholesterol Hypertension Parkinson disease Peripheral arterial disease Toe avulsion Vocal cord anomaly Social History Social History Household Members: Spouse Housing: House Do you presently have visiting nurse or other home services: No Alcohol intake: current Alcohol intake frequency: 0-2 drinks per day Alcohol type: hard liquor Smoking Status: Current some day smoker Tobacco Type: Cigar Years Smoked: 8 Smoked in Last 30 Days: Yes Patient Interested in Nicotine Replacement: No Patient Given Instructions on How to Stop Smoking: No Second Hand Smoke Exposure: No Use of substances other than those prescribed or required for medical reasons: No Currently Displaying Signs/Symptoms of Drug Intoxication Withdrawal: No Any prior treatment program specific to substance use: No Have you been hit, kicked, punched, or otherwise hurt by someone within the past year? If so, by whom?: No Do you feel safe in your current relationship?: No Is there a partner from a previous relationship who is making you feel unsafe now?: No Are you made to feel afraid or neglected: No Advance Directives: Yes Advance Directives Information Provided: Yes Advance Directives on File: No Advance Directives Date on File: 02/16/20 Do you have thoughts of harming others: None Do you have a plan to hurt others: No Plan Recently lost weight without trying: Yes service: No Current occupational status: retired Meds Allergies Allergy/AdvReac Type Severity Reaction Status Date / Time No Known Drug Allergies Allergy Unknown UNKNOWN Verified 02/16/20 11:21 grass, weeds, dirt, dust Allergy Unknown Unknown Uncoded 02/16/20 11:21 mites Home Medications Medication Instructions Recorded Confirmed Type apixaban [Eliquis] 5 mg PO BID 02/16/20 02/16/20 History carbidopa-levodopa 1 tab PO TID 02/16/20 02/16/20 History enalapril maleate 20 mg PO DAILY 02/16/20 02/16/20 History gabapentin 900 mg PO TID 02/16/20 02/16/20 History insulin glargine [Lantus U-100 14 unit SUBCUT QAM 02/16/20 02/16/20 History Insulin] insulin lispro [Humalog U-100 6 unit SUBCUT QPM 02/16/20 02/16/20 History Insulin] magnesium oxide 420 mg PO DAILY 02/16/20 02/16/20 History metformin 500 mg PO QPM 02/16/20 02/16/20 History metoprolol succinate 25 mg PO DAILY 02/16/20 02/16/20 History omeprazole 20 mg PO DAILY 02/16/20 02/16/20 History simvastatin 20 mg PO BEDTIME 02/16/20 02/16/20 History tamsulosin 0.4 mg PO DAILY 02/16/20 02/16/20 History Physical Exam Vital Signs: Vital Signs: Vital Signs Temp Pulse Resp BP Pulse Ox 02/17/20 07:41 96.8 F 78 18 138/71 98 02/17/20 03:51 98.0 F 70 20 143/64 H 98 02/16/20 23:23 98.2 F 69 20 133/60 98 02/16/20 15:35 80 18 145/66 H Body Mass Index 23.3 Const: General: no acute distress HENMT: Head: Yes normal to inspection Resp: Effort & Inspection: normal respiratory effort Cardio: Rate: regular rate Rhythm: regular rhythm GI: Inspection: Yes normal to inspection Skin: General skin exam: no rashes or lesions noted Neuro: Speech: No Abnormal speech present Extrem: Other: right great toe scab,dry,tiny pinpoint scab under right toe and between 4/5 toes Assessment and Plan (1) Diabetes mellitus with foot ulcer: Start date: 11/04/19 Problem details: foot scabbing Area clean and dry,nonhealing Status: Acute No osteomyelitis on MRI No further antibiotics F/U Vascular (2) A-fib: Status: Acute (3) Peripheral arterial disease: Problem details: Status: Acute (4) Orthostatic hypotension: Status: Acute Results Labs CBC & Chem 7: 02/17/20 06:01 02/17/20 06:01 Labs: Short CBC 02/17/20 Range/Units 06:01 WBC 8.2 (4.8-10.8) X10*3/uL Hgb 13.7 L (14.0-18.0) g/dl Hct 40.3 L (42-52) % Plt Count 265 (160-400) X10*3/uL BMP 02/17/20 06:01 Sodium 141 Potassium 4.9 Chloride 104 Carbon Dioxide 30 H BUN 14 Creatinine 0.90 Calcium 8.9 Urine 02/16/20 Range/Units 15:38 Urine Color YELLOW Urine Appearance CLEAR Urine pH 6.0 (5.0-8.0) Ur Specific [place] 1.015 (1.005-1.025) Urine Protein NEG (NEG-TRACE) MG/DL Urine Glucose (UA) NEG (NEG) MG/DL
== END 2020-02-17 15:23 | disposition home or self-care (01) | DRG 639 ==
LOC: HO.ED 13:40 → HO.S3 14:32
PROVIDERS: Nurse Practitioner Acute Care; Nurse Practitioner Family; Admitting Provider Internal Medicine; Emergency Provider Emergency Medicine; PCP Physician Assistant; Visit Provider Internal Medicine
DX: E11.621 Type 2 diabetes mellitus with foot ulcer (principal); I48.91 Unspecified atrial fibrillation; E78.5 Hyperlipidemia, unspecified; K21.9 Gastro-esophageal reflux disease without esophagitis; G20 Parkinson's disease; L97.519 Non-pressure chronic ulcer of other part of right foot with unspecified severity; E87.5 Hyperkalemia; E11.51 Type 2 diabetes mellitus with diabetic peripheral angiopathy without gangrene; E83.42 Hypomagnesemia; I95.9 Hypotension, unspecified; F17.210 Nicotine dependence, cigarettes, uncomplicated; Z71.6 Tobacco abuse counseling; Z79.4 Long term (current) use of insulin; Z79.01 Long term (current) use of anticoagulants; Z79.899 Other long term (current) drug therapy
CPT/HCPCS: 36415; 71046; 73630; 73720; 80048; 80076; 81003; 82947; 83605; 83735; 84484; 85025; 85610; 87040; 90686; 93005; 96361; 96365; 96375; 99284; J3475

== ENCOUNTER 2020-11-03 06:38 | Emergency (ER) | payer OTHER, MEDICARE, SELFPAY ==
--- NOTE | ~2020-11-03 | CT_ITS ---
EXAMINATION: CT HEAD WITHOUT CONTRAST CLINICAL INFORMATION: Headaches. On Eliquis COMPARISON: None TECHNIQUE: Contiguous axial imaging was performed from the skull base to vertex without intravenous administration of contrast. This CT examination was performed using dose optimization techniques as appropriate, variously including the following: *Automated exposure control *Adjustment of mA and/or kV according to patient size (this includes techniques or standardized protocols for targeted exams where dose is matched to indication/reason for exam; i.e. extremities or head) *Use of iterative reconstruction technique DLP: 809 mGy-cm FINDINGS: There is no evidence of acute intracranial hemorrhage or territorial infarction. No abnormal mass effect or midline shift is seen. Garcia to white matter differentiation is well preserved. No extra-axial fluid collections are identified. The lateral ventricles are symmetrical and enlarged. There is diffuse periventricular hypodensity suggestive of chronic small vessel ischemic changes. There is no edema. The osseous structures and soft tissues are normal. The mastoid air cells and visualized portions of the paranasal sinuses are well aerated. CT/CT head/brain wo con IMPRESSION: No acute intracranial process seen. Age-related cerebral volume loss. No change from CT brain 06/28/2019.
[2020-11-03 07:04] VITALS: BP 142/83; PULSE 67; RESP 22; TEMP 36.9; O2SAT 97; BMI 25.3
--- NOTE | 2020-11-03 08:50 | ECG_ITS ---
Test Reason : AFIB Blood Pressure : / mmHG Vent. Rate : 072 BPM Atrial Rate : 071 BPM P-R Int : 000 ms QRS Dur : 106 ms QT Int : 392 ms P-R-T Axes : 000 091 065 degrees QTc Int : 429 ms Atrial fibrillation Rightward axis Nonspecific ST abnormality Abnormal ECG No previous ECGs available Referred By: Wilman Lauren Electronically Signed By:ADRI STARK MD
--- NOTE | 2020-11-03 08:52 | ED.GENADULT ---
HPI - General Adult General Chief complaint: Nausea/Vomiting/Diarrhea Stated complaint: HBP/dizzy Time Seen by Provider: 11/03/20 08:37 Source: patient and family ( ,[place]) Mode of arrival: ambulatory Limitations: no limitations History of Present Illness HPI narrative: 75-year-old male who presents emergency department for evaluation of headache, nausea and dry heaves. Patient states the woke up at 5:00 a.m. with a headache. He states that the pain was located in his catholic areas bilaterally, the pain is a constant, dull throbbing sensation which was 6/10 at its worst. He did feel lightheaded. The patient states that he gets headaches occasionally however this headache was more severe more persistent than his usual headaches. Patient states he did have some nausea yesterday with no other symptoms. He denied numbness, weakness, chest pain, shortness of breath, dyspnea on exertion, abdominal pain. The patient's took the patient's blood pressure and was elevated at 160 7/101. She states that he has had a TIA in the past and she was concerned that he may be having a stroke therefore she brought him to the emergency department for evaluation. Related Data Home Medications Medication Instructions Recorded Confirmed Eliquis 5 mg PO BID 02/16/20 02/16/20 Lantus U-100 Insulin 14 unit SUBCUT QAM 02/16/20 02/16/20 carbidopa-levodopa 1 tab PO TID 02/16/20 02/16/20 gabapentin 900 mg PO TID 02/16/20 02/16/20 insulin lispro [Humalog U-100 6 unit SUBCUT QPM 02/16/20 02/16/20 Insulin] magnesium oxide 420 mg PO DAILY 02/16/20 02/16/20 metformin 500 mg PO QPM 02/16/20 02/16/20 metoprolol succinate 25 mg PO DAILY 02/16/20 02/16/20 omeprazole 20 mg PO DAILY 02/16/20 02/16/20 simvastatin 20 mg PO BEDTIME 02/16/20 02/16/20 Previous Rx's Medication Instructions Recorded enalapril maleate 10 mg PO DAILY #0 tab 02/17/20 tamsulosin 0.4 mg capsule 0.4 mg PO DAILY #30 cap 05/24/20 Allergies Allergy/AdvReac Type Severity Reaction Status Date / Time No Known Drug Allergies Allergy Unknown UNKNOWN Verified 02/16/20 11:21 grass, weeds, dirt, dust Allergy Unknown Unknown Uncoded 02/16/20 11:21 mites Review of Systems Review of Systems: Yes all other systems are reviewed and are negative COUNT INCLUDES THE [facility] Past Medical History COUNT INCLUDES THE [facility] Narrative: Social history: The patient smokes 3 cigarettes per day for 3 years. He drinks 3 times a week. He denies drug use. Medical History A-fib Diabetes GERD (gastroesophageal reflux disease) High cholesterol Hypertension Parkinson disease Peripheral arterial disease Toe avulsion Vocal cord anomaly Social History Social History Household Members: Spouse Housing: House Do you presently have visiting nurse or other home services: No Alcohol intake: current Alcohol intake frequency: 0-2 drinks per day Alcohol type: hard liquor Years Smoked: 8 Second Hand Smoke Exposure: No Advance Directives: Yes Advance Directives on File: Yes Advance Directives Date on File: 02/16/20 service: No Current occupational status: retired Physical Exam Vital Signs: Vital Signs: Last Vital Signs Temp 98.6 F 11/03/20 09:52 Pulse 68 11/03/20 09:52 Resp 18 11/03/20 09:52 BP 152/80 H 11/03/20 09:52 Pulse Ox 97 11/03/20 09:52 Body Mass Index 25.3 Const: General: cooperative and healthy appearing Orientation/consciousness: oriented to person and oriented to place Limitations: no limitations HENMT: Head: Yes normal to inspection, Yes normocephalic and Yes atraumatic Ears: external ears normal General nose exam: Normal external nose present Face and sinus: Yes normal facial exam Mouth: Normal oral and palatal mucosa present Throat: Yes posterior oropharynx normal Eyes: Periorbital: periorbital findings normal Eyelids: Yes eyelids normal Conjunctivae: conjunctivae normal Sclerae: sclerae normal Corneas: corneas normal Pupils: Equal, round and reactive pupils present Direct Ophthalmoscopy: normal light reflex Neck: Neck: Yes full ROM, Yes no lymphadenopathy, Yes no meningeal signs, Yes trachea midline and Yes supple Chest: Chest palpation & inspection: normal inspection of the chest and normal palpation of entire chest wall Resp: Effort & Inspection: normal respiratory effort and able to speak in complete sentences Auscultation: clear to auscultation bilaterally Cardio: Rate: regular rate Rhythm: regular rhythm Heart sounds: S1 normal heart sound present, S2 normal heart sound present and no murmurs GI: Inspection: Yes normal to inspection Palpation (GI): Soft to palpation, nontender, no guarding, not rigid and No hepatosplenomegaly present : General: Yes no CVA tenderness Back/Spine/Pelvis: Back: no CVA tenderness Cervical Spine: normal cervical lordosis Thoracic/Lumbar Spine: thoracic and lumbar spine normal to inspection Skin: Lesions: no lesions Rashes: no rashes Wounds: no wounds Neuro: General: oriented to person, oriented to place and no meningeal signs Cranial nerves: Yes Equal, round and reactive pupils present Cognition (Neuro): normal cognition Motor exam (neuro): 5/5 motor strength present throughout Extrem: General: Yes normal to inspection and Yes full ROM Psych: Appearance: well kempt Mental Status: mental status grossly normal Speech and movement: Normal speech and movement present Affect: normal affect Attitude: cooperative Thought process: Normal thought process present Thought content: Normal thought content present Course Course Course Narrative: 75-year-old male who presents emergency department for evaluation of headache, nausea and dry heaves which began this morning at 5:00 a.m. when he woke up. He had some similar nausea yesterday without the headache. The patient's did take his blood pressure at home and it was elevated at 160 7/101. The patient states that this headache was unusual for him since it was 6/10 which is more severe than headaches that he has had in the past. Patient does have a history of atrial fibrillation and is on Eliquis. The patient's headache resolved by the time I saw him in the emergency department. Vital signs revealed a slight elevation is blood pressure of 142/83 and tachypnea with a respiratory rate of 22. Physical examination was unremarkable. The differential includes but is not limited to acute coronary syndrome, cerebral bleed, stroke, TIA. I did order laboratory evaluation to include sedimentation rate, EKG and CT scan of the head. 1056: The patient's CT scan of the brain revealed no acute process, no evidence of bleed. Laboratory evaluation did reveal an elevation in his BUN of 28 which could suggest that the patient is dehydrated, lab work was otherwise unremarkable. The patient is feeling significantly better. The patient was given verbal and printed instructions prior to discharge. The patient was advised to follow-up with their PCP in 2 days and to return to the emergency department if their symptoms get worse or if they develop any new symptoms that are concerning to them . Medical Decision Making Lab Data Result diagrams: 11/03/20 08:30 11/03/20 08:30 Labs: Lab Results 11/03/20 11/03/20 11/03/20 Range/Units 08:30 08:30 08:30 WBC 8.0 (4.8-10.8) X10*3/uL RBC 4.97 (4.60-5.80) X10*6/uL Hgb 15.8 (14.0-18.0) g/dl Hct 47.8 (42-52) % MCV 96.2 (80-98) fL MCH 31.8 (27.0-33.0) pg MCHC 33.1 (31.0-36.0) g/dl RDW 13.3 (11.0-16.0) % Plt Count 228 (160-400) X10*3/uL MPV 10.9 (9.4-12.4) fL Immature Gran % (Auto) 0.4 (0.0-0.4) % Neut % (Auto) 69.8 (45-73) % Lymph % (Auto) 20.1 (20-40) % [place] % (Auto) 7.6 (2-11) % Eos % (Auto) 1.6 (0-4) % Baso % (Auto) 0.5 (0-2) % Lymph # (Auto) 1.6 (1.2-4.9) X10*3/uL [place] # (Auto) 0.6 (0.1-1.2) X10*3/uL Eos # (Auto) 0.1 (0.0-0.4) X10*3/uL Baso # (Auto) 0.0 (0.0-0.2) X10*3/uL Abs Immat Gran (auto) 0.03 (0.00-0.03) X10*3/uL Absolute Neuts (auto) 5.6 (2.0-8.3) X10*3/uL Absolute Nucleated RBC 0.000 (0.0-0.012) X10*3/uL Nucleated RBC % (auto) 0.0 (0.0-0.2) /100WBC ESR (0-15) MM/HR PT 11.7 D (10.8-13.0) SEC INR 1.0 (0.9-1.1) APTT 44.1 H (24.1-38.0) SEC Sodium 140 (135-145) mmol/L Potassium 4.7 (3.3-5.1) mmol/L Chloride 106 (96-108) mmol/L Carbon Dioxide 27 (22-29) mmol/L Anion Gap 12 (12-20) BUN 28 H D (9-16) mg/dL Creatinine 1.08 (0.5-1.4) mg/dL Estim Creat Clear Calc 71.7 Estimated GFR > 60 Random Glucose 134 H (60-115) mg/dL Calcium 9.5 D (8.4-10.2) mg/dL Total Bilirubin 0.4 (0.0-1.0) mg/dL AST 20 (5-37) U/L ALT 23 (0-40) U/L Alkaline Phosphatase 122 H (39-117) U/L Troponin I High Sens (<3.5-35.0) ng/L Total Protein 7.0 (6.5-8.0) g/dL Albumin 4.2 (3.5-5.0) g/dL 11/03/20 11/03/20 Range/Units 08:30 08:30 WBC (4.8-10.8) X10*3/uL RBC (4.60-5.80) X10*6/uL Hgb (14.0-18.0) g/dl Hct (42-52) % MCV (80-98) fL MCH (27.0-33.0) pg MCHC (31.0-36.0) g/dl RDW (11.0-16.0) % Plt Count (160-400) X10*3/uL MPV (9.4-12.4) fL Immature Gran % (Auto) (0.0-0.4) % Neut % (Auto) (45-73) % Lymph % (Auto) (20-40) % [place] % (Auto) (2-11) % Eos % (Auto) (0-4) % Baso % (Auto) (0-2) % Lymph # (Auto) (1.2-4.9) X10*3/uL [place] # (Auto) (0.1-1.2) X10*3/uL Eos # (Auto) (0.0-0.4) X10*3/uL Baso # (Auto) (0.0-0.2) X10*3/uL Abs Immat Gran (auto) (0.00-0.03) X10*3/uL Absolute Neuts (auto) (2.0-8.3) X10*3/uL Absolute Nucleated RBC (0.0-0.012) X10*3/uL Nucleated RBC % (auto) (0.0-0.2) /100WBC ESR 9 (0-15) MM/HR PT (10.8-13.0) SEC INR (0.9-1.1) APTT (24.1-38.0) SEC Sodium (135-145) mmol/L Potassium (3.3-5.1) mmol/L Chloride (96-108) mmol/L Carbon Dioxide (22-29) mmol/L Anion Gap (12-20) BUN (9-16) mg/dL Creatinine (0.5-1.4) mg/dL Estim Creat Clear Calc Estimated GFR Random Glucose (60-115) mg/dL Calcium (8.4-10.2) mg/dL Total Bilirubin (0.0-1.0) mg/dL AST (5-37) U/L ALT (0-40) U/L Alkaline Phosphatase (39-117) U/L Troponin I High Sens 6.1 (<3.5-35.0) ng/L Total Protein (6.5-8.0) g/dL Albumin (3.5-5.0) g/dL ECG Data Attestation: I personally reviewed and interpreted this ECG as follows: Interpretation: 0717: Atrial fibrillation with rate of 72, normal QRS duration of 106 milliseconds, normal QTC interval of 429 milliseconds, no ST segment elevation, no ST segment depression, inverted Q-wave in V1, no old EKG for comparison. Discharge Plan Discharge Clinical Impression: Headache, Nausea, Vomiting Patient Disposition: Home, Self-Care Instructions: Acute Headache (ED) Additional Instructions: Your CT scan of your brain revealed no bleeding in the brain, no stroke and no tumors, this is very reassuring. Your blood work was unremarkable except for slight elevation in your BUN which did suggest that your dehydrated. Please go home, stay indoors in the air conditioning and rest and make sure you increase the amount of fluid that you drink today to prevent dehydration.Take Tylenol (acetaminophen) 500 mg pills, 2 pills every 4 to 6 hours as needed for pain. Follow-up with your doctor in 2 days. Please return to the emergency department if your symptoms get worse or if you develop any symptoms that are concerning to you. Prescriptions: No Action tamsulosin 0.4 mg capsule 0.4 mg PO DAILY Qty: 30 RF: 6 metformin 500 mg Tablet 500 mg PO QPM RF: 0 magnesium oxide 420 mg Tablet 420 mg PO DAILY RF: 0 Lantus U-100 Insulin 100 unit/mL Solution 14 unit SUBCUT QAM RF: 0 simvastatin 20 mg Tablet 20 mg PO BEDTIME RF: 0 omeprazole 20 mg Capsule,Delayed Release(Dr/Ec) 20 mg PO DAILY RF: 0 metoprolol succinate 25 mg Tablet Extended Release 24 Hr 25 mg PO DAILY RF: 0 insulin lispro [Humalog U-100 Insulin] 100 unit/mL Solution 6 unit SUBCUT QPM RF: 0 carbidopa-levodopa 25-100 mg Tablet 1 tab PO TID RF: 0 gabapentin 300 mg Tablet 900 mg PO TID RF: 0 Eliquis 5 mg Tablet 5 mg PO BID RF: 0 enalapril maleate 20 mg Tablet 10 mg PO DAILY Qty: 0 RF: 0
[2020-11-03 08:57] LABS: MANUAL DIFF FLAG NO
[2020-11-03 08:59] LABS: Basophils Percent Auto 0.5 % (0-2); Eosinophils Absolute Auto 0.1 X10*3/uL (0.0-0.4); Eosinophils Percent Auto 1.6 % (0-4); Hematocrit 47.8 % (42-52); Hemoglobin 15.8 g/dl (14.0-18.0); Imm Gran Abs Auto 0.03 X10*3/uL (0.00-0.03); Imm Gran Pct Auto 0.4 % (0.0-0.4); Lymphocytes Absolute Auto 1.6 X10*3/uL (1.2-4.9); Lymphocytes Percent Auto 20.1 % (20-40); Mean Corpuscular HGB Conc 33.1 g/dl (31.0-36.0); Mean Corpuscular Hemoglobin 31.8 pg (27.0-33.0); Mean Corpuscular Volume 96.2 fL (80-98); Mean Platelet Volume 10.9 fL (9.4-12.4); Monocytes Absolute Auto 0.6 X10*3/uL (0.1-1.2); Monocytes Percent Auto 7.6 % (2-11); Neutrophils Absolute Auto 5.6 X10*3/uL (2.0-8.3); Neutrophils Percent Auto 69.8 % (45-73); Platelet Count 228 X10*3/uL (160-400); Prothrombin Time 11.7 SEC (10.8-13.0); Red Blood Count 4.97 X10*6/uL (4.60-5.80); Red Cell Distribution Width 13.3 % (11.0-16.0)
[2020-11-03 09:02] LABS: Partial Thromboplastin Time 44.1 SEC (24.1-38.0)
[2020-11-03 09:09] LABS: Alanine Aminotransferase 23 U/L (0-40); Albumin Level 4.2 g/dL (3.5-5.0); Alkaline Phosphatase 122 U/L (39-117); Anion Gap 12 (12-20); Aspartate Amino Transferase 20 U/L (5-37); Bilirubin Total 0.4 mg/dL (0.0-1.0); Blood Urea Nitrogen 28 mg/dL (9-16); Calcium 9.5 mg/dL (8.4-10.2); Carbon Dioxide 27 mmol/L (22-29); Chloride 106 mmol/L (96-108); Creatinine Clr Calc Pharmacy 71.7; Estimated Glomerular Filt Rate > 60; Glucose Random 134 mg/dL (60-115); Potassium 4.7 mmol/L (3.3-5.1); Sodium 140 mmol/L (135-145)
[2020-11-03 09:40] LABS: Troponin-I High Sensitivity 6.1 ng/L (<3.5-35.0)
[2020-11-03 09:52] VITALS: BP 152/80; PULSE 68; RESP 18; TEMP 37; O2SAT 97
[2020-11-03 10:39] LABS: Erythrocyte Sedimentation Rate 9 MM/HR (0-15)
== END 2020-11-03 11:20 | disposition home or self-care (01) ==
PROVIDERS: Emergency Provider Emergency Medicine Emergency Medical Services; PCP Physician Assistant
DX: R51.9 Headache, unspecified (principal); R11.2 Nausea with vomiting, unspecified; I48.91 Unspecified atrial fibrillation; E11.9 Type 2 diabetes mellitus without complications; I10 Essential (primary) hypertension; G20 Parkinson's disease; Z79.01 Long term (current) use of anticoagulants; Z79.4 Long term (current) use of insulin; Z79.899 Other long term (current) drug therapy
CPT/HCPCS: 36415; 70450; 80053; 84484; 85025; 85610; 85652; 85730; 93005; 99284; 99285

== ENCOUNTER → 2020-12-22 09:56 | Outpatient (BNVA) | payer MEDICARE, SELFPAY | PROVIDERS: PCP Physician Assistant; Visit Provider Urology | DX: N40.1 Benign prostatic hyperplasia with lower urinary tract symptoms (principal); R33.9 Retention of urine, unspecified; E11.40 Type 2 diabetes mellitus with diabetic neuropathy, unspecified | CPT/HCPCS: 51798; 99212 ==

== ENCOUNTER 2021-01-10 10:09 | Emergency (ER) | payer OTHER, MEDICARE, SELFPAY ==
--- NOTE | ~2021-01-10 | US_ITS ---
EXAMINATION: US VENOUS ULTRASOUND WITH DOPPLER LOWER EXTREMITY, RIGHT CLINICAL INFORMATION: Swelling COMPARISON: None TECHNIQUE: Ultrasound of the deep veins is performed from the hip to the calf with compression sonography and color and pulse Doppler assessment. Spectral analysis with color-flow imaging is performed. FINDINGS: There is normal venous compression and respiratory variation and augmented flow. The visualized common femoral vein, superficial femoral vein, profunda femoral vein, popliteal vein, and posterior tibial vein no evidence of deep venous thrombosis. The peroneal vein is not well visualized. There is no significant popliteal fossa cyst. US/US venous duplex LE RT IMPRESSION: No DVT demonstrated in the right lower extremity. The peroneal vein is not well visualized.
--- NOTE | ~2021-01-10 | CT_ITS ---
EXAMINATION: CT RIGHT LOWER LEG. CLINICAL INFORMATION: Rule out expanding hematoma. Right lower leg pain. COMPARISON: None TECHNIQUE: 3 mm thin axial and reformatted 1 mm thin sagittal and coronal images of right lower leg were obtained. DLP 346 mGy/cm. FINDINGS: There is mild haziness in the subcutaneous soft tissues anterior patellar likely soft tissue contusion or edema. Similar haziness is seen in the lateral proximal leg subcutaneous the soft tissues but no evidence of hematoma. Minimal posterior medial subcutaneous soft tissue edema seen as well. The superficial and deep muscular compartments in the calf region as well as the anterior lower leg appears unremarkable. There is no suggestion for hematoma. Bone windows reveal no cortical abnormality. No fracture no lytic process seen. CT/CT lower leg RT w con IMPRESSION: Subcutaneous soft tissue edema or contusion along the proximal anterior and lateral aspects of the lower leg and minimal soft tissue edema superficial posterior medial aspect of the calf region. There is no visualization of hematoma or mass in muscular compartments of the calf or the anterior lower leg area.
[2021-01-10 11:30] VITALS: BP 104/60; PULSE 69; RESP 16; TEMP 36.4; O2SAT 95; BMI 33.7
[2021-01-10 13:33] VITALS: BP 113/64; PULSE 87; RESP 18; O2SAT 97
[2021-01-10 13:38] LABS: MANUAL DIFF FLAG NO
[2021-01-10 13:39] LABS: Basophils Percent Auto 0.4 % (0-2); Eosinophils Absolute Auto 0.4 X10*3/uL (0.0-0.4); Eosinophils Percent Auto 3.3 % (0-4); Hematocrit 42.8 % (42-52); Hemoglobin 14.3 g/dl (14.0-18.0); Imm Gran Abs Auto 0.05 X10*3/uL (0.00-0.03); Imm Gran Pct Auto 0.5 % (0.0-0.4); Lymphocytes Absolute Auto 1.6 X10*3/uL (1.2-4.9); Lymphocytes Percent Auto 14.9 % (20-40); Mean Corpuscular HGB Conc 33.4 g/dl (31.0-36.0); Mean Corpuscular Hemoglobin 31.4 pg (27.0-33.0); Mean Corpuscular Volume 94.1 fL (80-98); Monocytes Absolute Auto 0.7 X10*3/uL (0.1-1.2); Monocytes Percent Auto 6.4 % (2-11); Neutrophils Percent Auto 74.5 % (45-73); Platelet Count 304 X10*3/uL (160-400); Red Blood Count 4.55 X10*6/uL (4.60-5.80); Red Cell Distribution Width 13.3 % (11.0-16.0); White Blood Count 10.7 X10*3/uL (4.8-10.8)
[2021-01-10 13:50] LABS: INTERNATIONAL NORM RATIO 1.4 (0.9-1.1); Prothrombin Time 16.1 SEC (9.9-13.0)
[2021-01-10 13:53] LABS: Partial Thromboplastin Time 47.3 SEC (24.1-38.0)
[2021-01-10 13:54] LABS: Anion Gap 13 (12-20); Blood Urea Nitrogen 21 mg/dL (9-16); Calcium 9.1 mg/dL (8.4-10.2); Carbon Dioxide 23 mmol/L (22-29); Chloride 108 mmol/L (96-108); Creatinine Clr Calc Pharmacy 71.3; Estimated Glomerular Filt Rate 55; Glucose Random 148 mg/dL (60-115); Potassium 4.4 mmol/L (3.3-5.1); Sodium 140 mmol/L (135-145)
--- NOTE | 2021-01-10 14:51 | ED.LOWEXIN ---
HPI - Extremity Injury (Lower) General Chief Complaint: Extremity Injury, Lower <CALEB Martin - Last Filed: 01/10/21 18:43> Stated Complaint: calf pain <CALEB Martin Last Filed: 01/10/21 18:43> Time Seen by Provider: 01/10/21 10:33 <CALEB Martin - Last Filed: 01/10/21 18:43> Source: patient <CALEB Martin - Last Filed: 01/10/21 18:43> Mode of arrival: ambulatory <CALEB Martin - Last Filed: 01/10/21 18:43> History of Present Illness HPI Narrative: 75-year-old male with a past medical history of AFib, diabetes, GERD, HLD, HTN, Parkinson's, PAD s/p peripheral stent placement in RLE, urinary incontinence, on Eliquis and ASA, presenting to the ED complaining of RLE/cap increasing pain, swelling, ecchymosis times 12 days s/p falling forward into cement retaining wall. Denies head trauma or LOC. Initially thought injured knee however now with increasing swelling to calf/ankle with ecchymosis. Reports pain ambulation. Denies fever, chills, numbness, tingling, SOB <CALEB Martin - Last Filed: 01/10/21 18:43> Related Data Home Medications: Home Medications Medication Instructions Recorded Confirmed apixaban 5 mg tablet (Eliquis) 5 mg PO BID 02/16/20 02/16/20 carbidopa 25 mg-levodopa 100 mg 1 tab PO TID 02/16/20 02/16/20 tablet gabapentin 300 mg tablet 900 mg PO TID 02/16/20 02/16/20 insulin glargine 100 unit/mL 14 unit SUBCUT QAM 02/16/20 02/16/20 subcutaneous solution (Lantus U-100 Insulin) insulin lispro 100 unit/mL 6 unit SUBCUT QPM 02/16/20 02/16/20 subcutaneous solution (Humalog U-100 Insulin) magnesium oxide 420 mg tablet 420 mg PO DAILY 02/16/20 02/16/20 metformin 500 mg tablet 500 mg PO QPM 02/16/20 02/16/20 metoprolol succinate 25 mg 25 mg PO DAILY 02/16/20 02/16/20 tablet,extended release 24 hr omeprazole 20 mg capsule,delayed 20 mg PO DAILY 02/16/20 02/16/20 release simvastatin 20 mg tablet 20 mg PO BEDTIME 02/16/20 02/16/20 Previous Rx's Medication Instructions Recorded enalapril maleate 20 mg tablet 10 mg PO DAILY #0 tab 02/17/20 tamsulosin 0.4 mg capsule 0.4 mg PO DAILY #30 cap 05/24/20 bethanechol chloride 50 mg tablet 50 mg PO BID 90 Days #180 tab 12/22/20 oxycodone-acetaminophen 5 mg-325 1 tab PO Q8H PRN 3 Days #9 tab 01/10/21 mg tablet (Percocet) <CALEB Martin Last Filed: 01/10/21 18:43> Allergies/Adverse Reactions: Allergies Allergy/AdvReac Type Severity Reaction Status Date / Time No Known Drug Allergies Allergy Unknown UNKNOWN Verified 12/22/20 10:16 grass, weeds, dirt, dust Allergy Unknown Unknown Uncoded 02/16/20 11:21 mites <CALEB Martin Last Filed: 01/10/21 18:43> Review of Systems Review of Systems: Constitutional: No Fever, No Chills, No Fatigue, No Malaise ENT/Mouth: No Ear Pain, No Nasal Congestion, No sore throat, No Rhinorrhea, No Swallowing Difficulty Eyes: No Eye Pain, No Swelling, No Redness, No Vision Changes Cardiovascular: No Chest Pain, No SOB, +Edema, No Palpitations Respiratory: No Cough, No Sputum, No Dyspnea Gastrointestinal: No Nausea, No Vomiting, No Diarrhea, No Constipation, No Abdominal pain Genitourinary: No Dysuria, No Urinary Frequency, No Hematuria Musculoskeletal: + joint pain, No Myalgias, + Joint Swelling Skin: + Skin Lesions, No rash Neuro: No Weakness, No Numbness, No Paresthesias, No Loss of Consciousness, No Dizziness, No Headache <CALEB Martin Last Filed: 01/10/21 18:43> Yes all other systems are reviewed and are negative <CALEB Martin Last Filed: 01/10/21 18:43> Neurologic: Denies Sensory deficit (Neuro) <CALEB Martin Last Filed: 01/10/21 18:43> [facility] Past Medical History Attestation statement: The following information was validated with the patient. <CALEB Martin - Last Filed: 01/10/21 18:43> Medical History: Medical History (Updated 01/10/21 @ 16:34 by CALEB Martin) A-fib Diabetes GERD (gastroesophageal reflux disease) High cholesterol Hypertension Male erectile dysfunction, unspecified Parkinson disease Peripheral arterial disease Toe avulsion Urge incontinence Vocal cord anomaly <CALEB Martin - Last Filed: 01/10/21 18:43> Social History Social History: Social History Household Members: Spouse Housing: House Do you presently have visiting nurse or other home services: No Alcohol intake: current Alcohol intake frequency: 0-2 drinks per day Alcohol type: hard liquor Years Smoked: 8 Second Hand Smoke Exposure: No Advance Directives: Yes Advance Directives on File: Yes Advance Directives Date on File: 02/16/20 service: No Current occupational status: retired <CALEB Martin - Last Filed: 01/10/21 18:43> Physical Exam Vital Signs: Vital Signs: Last Vital Signs Temp 97.5 F 01/10/21 11:30 Pulse 87 01/10/21 13:33 Resp 18 01/10/21 13:33 BP 113/64 01/10/21 13:33 Pulse Ox 97 01/10/21 13:33 Body Mass Index 33.7 <CALEB Martin - Last Filed: 01/10/21 18:43> Vital Signs: Last Vital Signs Temp 97.5 F 01/10/21 11:30 Pulse 87 01/10/21 13:33 Resp 18 01/10/21 13:33 BP 113/64 01/10/21 13:33 Pulse Ox 97 01/10/21 13:33 Body Mass Index 33.7 <Gian Weaver MD - Last Filed: 01/10/21 16:44> Const: General: cooperative, healthy appearing and no acute distress <CALEB Martin - Last Filed: 01/10/21 18:43> Orientation/consciousness: patient oriented x3 <CALEB Martin - Last Filed: 01/10/21 18:43> Limitations: no limitations <Georgia Iman [facility] Last Filed: 01/10/21 18:43> HENMT: Head: Yes normal to inspection <Georgiacecile Valerio MA - Last Filed: 01/10/21 18:43> Ears: hearing grossly normal bilaterally <Georgia Iman MA - Last Filed: 01/10/21 18:43> General nose exam: Normal external nose present <Georgia Valerio MA - Last Filed: 01/10/21 18:43> Face and sinus: Yes normal facial exam <Georgia Valerio MA - Last Filed: 01/10/21 18:43> Eyes: General: appearance normal, both eyes and all related structures <Georgia Valerio MA - Last Filed: 01/10/21 18:43> EOM: EOMs intact bilaterally <Georgia Iman MA - Last Filed: 01/10/21 18:43> Neck: Neck: Yes normal visual inspection and Yes no meningeal signs <Georgia Valerio MA - Last Filed: 01/10/21 18:43> Resp: Effort & Inspection: normal respiratory effort and no respiratory distress <Georgia Iman MA - Last Filed: 01/10/21 18:43> Cardio: Rate: regular rate <Georgia Valerio MA - Last Filed: 01/10/21 18:43> Peripheral pulses: dorsalis pedis present <Georgia Iman [facility] Last Filed: 01/10/21 18:43> Skin: Rashes: no rashes <Georgia Valerio MA - Last Filed: 01/10/21 18:43> Wounds: no wounds <Georgia Iman MA - Last Filed: 01/10/21 18:43> Neuro: General: patient oriented x3, tone normal and no meningeal signs <Georgia Valerio MA - Last Filed: 01/10/21 18:43> Sensory Exam: No Sensory deficit (Neuro) <Georgia Valerio MA - Last Filed: 01/10/21 18:43> Extrem: Other: Right knee with notable swelling mild tenderness. RLE with + swelling/edema and healing ecchymosis. Diffusely tender to palpation, +calf ttp, compartments soft. Achilles tendon nontender. NV intact distally Ankle swollen with minimal ttp & ecchymosis to heel. R foot nontender <CALEB Martin - Last Filed: 01/10/21 18:43> Course Course Course Narrative: US venous duplex LE RT IMPRESSION: No DVT demonstrated in the right lower extremity. The peroneal vein is not well visualized. -1509--no leukocytosis. H&H is stable. Labs otherwise unremarkable. CPK WNL 1632--CT lower leg RT w con IMPRESSION: Subcutaneous soft tissue edema or contusion along the proximal anterior and lateral aspects of the lower leg and minimal soft tissue edema superficial posterior medial aspect of the calf region. There is no visualization of hematoma or mass in muscular compartments of the calf or the anterior lower leg area.? > case discussed with Dr. Weaver who also evaluated patient, suspicion for plantaris muscle rupture. Will have patient follow-up with Orthopedics <CALEB Martin - Last Filed: 01/10/21 18:43> Reevaluation(s) Reevaluation #1: history and physical most consistent with plantaris rupture <Gian Weaver MD - Last Filed: 01/10/21 16:44> Time: 16:44 <Gian Weaver MD - Last Filed: 01/10/21 16:44> MDM - Extremity Injury (Lower) MDM Narrative Medical decision making narrative: 75-year-old male with a past medical history of AFib, diabetes, GERD, HLD, HTN, Parkinson's, PAD s/p peripheral stent placement in RLE, urinary incontinence, on Eliquis and ASA, presenting to the ED complaining of RLE/cap increasing pain, swelling, ecchymosis times 12 days s/p falling forward into cement retaining wall. On exam VSS, NAD, physical exam as above. Concern for DVT vs expanding hematoma vs tendon/ligamental injury/tear. Low suspicion for Achilles tendon rupture. Lower concern for compartment syndrome as compartments are soft. No evidence of active cellulitis. Plan: Previous duplex ultrasound, labs, CT with contrast <CALEB Martin - Last Filed: 01/10/21 18:43> Medical Records Attestation: I reviewed the patient's medical records. <CALEB Martin - Last Filed: 01/10/21 18:43> Lab Data Attestation: I reviewed the patient's lab results. <CALEB Martin - Last Filed: 01/10/21 18:43> Result diagrams: : 01/10/21 13:31 01/10/21 13:31 <CALEB Martin - Last Filed: 01/10/21 18:43> Labs: Lab Results 01/10/21 01/10/21 01/10/21 Range/Units 13:31 13:31 13:31 WBC 10.7 (4.8-10.8) X10*3/uL RBC 4.55 L (4.60-5.80) X10*6/uL Hgb 14.3 (14.0-18.0) g/dl Hct 42.8 (42-52) % MCV 94.1 (80-98) fL MCH 31.4 (27.0-33.0) pg MCHC 33.4 (31.0-36.0) g/dl RDW 13.3 (11.0-16.0) % Plt Count 304 D (160-400) X10*3/uL MPV 10.0 (9.4-12.4) fL Immature Gran % (Auto) 0.5 H (0.0-0.4) % Neut % (Auto) 74.5 H (45-73) % Lymph % (Auto) 14.9 L (20-40) % Dickey % (Auto) 6.4 (2-11) % Eos % (Auto) 3.3 (0-4) % Baso % (Auto) 0.4 (0-2) % Lymph # (Auto) 1.6 (1.2-4.9) X10*3/uL Dickey # (Auto) 0.7 (0.1-1.2) X10*3/uL Eos # (Auto) 0.4 (0.0-0.4) X10*3/uL Baso # (Auto) 0.0 (0.0-0.2) X10*3/uL Abs Immat Gran (auto) 0.05 H (0.00-0.03) X10*3/uL Absolute Neuts (auto) 8.0 (2.0-8.3) X10*3/uL Absolute Nucleated RBC 0.000 (0.0-0.012) X10*3/uL Nucleated RBC % (auto) 0.0 (0.0-0.2) /100WBC PT 16.1 H (9.9-13.0) SEC INR 1.4 H (0.9-1.1) APTT (24.1-38.0) SEC Sodium 140 (135-145) mmol/L Potassium 4.4 (3.3-5.1) mmol/L Chloride 108 (96-108) mmol/L Carbon Dioxide 23 (22-29) mmol/L Anion Gap 13 (12-20) BUN 21 H (9-16) mg/dL Creatinine 1.28 (0.5-1.4) mg/dL Estim Creat Clear Calc 71.3 Estimated GFR 55 Random Glucose 148 H (60-115) mg/dL Calcium 9.1 (8.4-10.2) mg/dL Total Creatine Kinase (38-174) U/L 01/10/21 01/10/21 Range/Units 13:31 13:32 WBC (4.8-10.8) X10*3/uL RBC (4.60-5.80) X10*6/uL Hgb (14.0-18.0) g/dl Hct (42-52) % MCV (80-98) fL MCH (27.0-33.0) pg MCHC (31.0-36.0) g/dl RDW (11.0-16.0) % Plt Count (160-400) X10*3/uL MPV (9.4-12.4) fL Immature Gran % (Auto) (0.0-0.4) % Neut % (Auto) (45-73) % Lymph % (Auto) (20-40) % Dickey % (Auto) (2-11) % Eos % (Auto) (0-4) % Baso % (Auto) (0-2) % Lymph # (Auto) (1.2-4.9) X10*3/uL Dickey # (Auto) (0.1-1.2) X10*3/uL Eos # (Auto) (0.0-0.4) X10*3/uL Baso # (Auto) (0.0-0.2) X10*3/uL Abs Immat Gran (auto) (0.00-0.03) X10*3/uL Absolute Neuts (auto) (2.0-8.3) X10*3/uL Absolute Nucleated RBC (0.0-0.012) X10*3/uL Nucleated RBC % (auto) (0.0-0.2) /100WBC PT (9.9-13.0) SEC INR (0.9-1.1) APTT 47.3 H (24.1-38.0) SEC Sodium (135-145) mmol/L Potassium (3.3-5.1) mmol/L Chloride (96-108) mmol/L Carbon Dioxide (22-29) mmol/L Anion Gap (12-20) BUN (9-16) mg/dL Creatinine (0.5-1.4) mg/dL Estim Creat Clear Calc Estimated GFR Random Glucose (60-115) mg/dL Calcium (8.4-10.2) mg/dL Total Creatine Kinase 42 (38-174) U/L <CALEB Martin - Last Filed: 01/10/21 18:43> Lab Results 01/10/21 01/10/21 01/10/21 Range/Units 13:31 13:31 13:31 WBC 10.7 (4.8-10.8) X10*3/uL RBC 4.55 L (4.60-5.80) X10*6/uL Hgb 14.3 (14.0-18.0) g/dl Hct 42.8 (42-52) % MCV 94.1 (80-98) fL MCH 31.4 (27.0-33.0) pg MCHC 33.4 (31.0-36.0) g/dl RDW 13.3 (11.0-16.0) % Plt Count 304 D (160-400) X10*3/uL MPV 10.0 (9.4-12.4) fL Immature Gran % (Auto) 0.5 H (0.0-0.4) % Neut % (Auto) 74.5 H (45-73) % Lymph % (Auto) 14.9 L (20-40) % Dickey % (Auto) 6.4 (2-11) % Eos % (Auto) 3.3 (0-4) % Baso % (Auto) 0.4 (0-2) % Lymph # (Auto) 1.6 (1.2-4.9) X10*3/uL Dickey # (Auto) 0.7 (0.1-1.2) X10*3/uL Eos # (Auto) 0.4 (0.0-0.4) X10*3/uL Baso # (Auto) 0.0 (0.0-0.2) X10*3/uL Abs Immat Gran (auto) 0.05 H (0.00-0.03) X10*3/uL Absolute Neuts (auto) 8.0 (2.0-8.3) X10*3/uL Absolute Nucleated RBC 0.000 (0.0-0.012) X10*3/uL Nucleated RBC % (auto) 0.0 (0.0-0.2) /100WBC PT 16.1 H (9.9-13.0) SEC INR 1.4 H (0.9-1.1) APTT (24.1-38.0) SEC Sodium 140 (135-145) mmol/L Potassium 4.4 (3.3-5.1) mmol/L Chloride 108 (96-108) mmol/L Carbon Dioxide 23 (22-29) mmol/L Anion Gap 13 (12-20) BUN 21 H (9-16) mg/dL Creatinine 1.28 (0.5-1.4) mg/dL Estim Creat Clear Calc 71.3 Estimated GFR 55 Random Glucose 148 H (60-115) mg/dL Calcium 9.1 (8.4-10.2) mg/dL Total Creatine Kinase (38-174) U/L 01/10/21 01/10/21 Range/Units 13:31 13:32 WBC (4.8-10.8) X10*3/uL RBC (4.60-5.80) X10*6/uL Hgb (14.0-18.0) g/dl Hct (42-52) % MCV (80-98) fL MCH (27.0-33.0) pg MCHC (31.0-36.0) g/dl RDW (11.0-16.0) % Plt Count (160-400) X10*3/uL MPV (9.4-12.4) fL Immature Gran % (Auto) (0.0-0.4) % Neut % (Auto) (45-73) % Lymph % (Auto) (20-40) % Dickey % (Auto) (2-11) % Eos % (Auto) (0-4) % Baso % (Auto) (0-2) % Lymph # (Auto) (1.2-4.9) X10*3/uL Dickey # (Auto) (0.1-1.2) X10*3/uL Eos # (Auto) (0.0-0.4) X10*3/uL Baso # (Auto) (0.0-0.2) X10*3/uL Abs Immat Gran (auto) (0.00-0.03) X10*3/uL Absolute Neuts (auto) (2.0-8.3) X10*3/uL Absolute Nucleated RBC (0.0-0.012) X10*3/uL Nucleated RBC % (auto) (0.0-0.2) /100WBC PT (9.9-13.0) SEC INR (0.9-1.1) APTT 47.3 H (24.1-38.0) SEC Sodium (135-145) mmol/L Potassium (3.3-5.1) mmol/L Chloride (96-108) mmol/L Carbon Dioxide (22-29) mmol/L Anion Gap (12-20) BUN (9-16) mg/dL Creatinine (0.5-1.4) mg/dL Estim Creat Clear Calc Estimated GFR Random Glucose (60-115) mg/dL Calcium (8.4-10.2) mg/dL Total Creatine Kinase 42 (38-174) U/L <Gian Weaver MD - Last Filed: 01/10/21 16:44> Discharge Plan Discharge Clinical Impression: Traumatic rupture of right plantaris muscle Qualifiers: Encounter type: initial encounter Qualified Code(s): S86.111A - Strain of other muscle(s) and tendon(s) of posterior muscle group at lower leg level, right leg, initial encounter <CALEB Martin - Last Filed: 01/10/21 18:43> Patient Disposition: Home, Self-Care <CALEB Martin - Last Filed: 01/10/21 18:43> Instructions: Muscle Strain (ED), R.I.C.E. Treatment (ED) <CALEB Martin - Last Filed: 01/10/21 18:43> Additional Instructions: You likely tore your plantaris muscle. Your ultrasound was negative for any blood clot A lot of soft tissue swelling/bruising however no evidence of hematoma/blood or mass Rest, elevate your leg, take Tylenol, ice, stay off your right leg as much as possible Percocet is an opiate pain medication, take only when pain is severe for the next 3 days please follow-up with orthopedics If pain persist or worsen/becomes unbearable, you have shortness of breath, or leg begins to look infected please return to the ED <CALEB Martin - Last Filed: 01/10/21 18:43> Prescriptions: New oxycodone-acetaminophen [Percocet] 5-325 mg tablet 1 tab PO Q8H PRN (Reason: pain, severe) 3 Days Qty: 9 RF: 0 No Action tamsulosin 0.4 mg capsule 0.4 mg PO DAILY Qty: 30 RF: 6 metformin 500 mg Tablet 500 mg PO QPM RF: 0 magnesium oxide 420 mg Tablet 420 mg PO DAILY RF: 0 Lantus U-100 Insulin 100 unit/mL Solution 14 unit SUBCUT QAM RF: 0 simvastatin 20 mg Tablet 20 mg PO BEDTIME RF: 0 omeprazole 20 mg Capsule,Delayed Release(Dr/Ec) 20 mg PO DAILY RF: 0 metoprolol succinate 25 mg Tablet Extended Release 24 Hr 25 mg PO DAILY RF: 0 insulin lispro [Humalog U-100 Insulin] 100 unit/mL Solution 6 unit SUBCUT QPM RF: 0 carbidopa-levodopa 25-100 mg Tablet 1 tab PO TID RF: 0 gabapentin 300 mg Tablet 900 mg PO TID RF: 0 Eliquis 5 mg Tablet 5 mg PO BID RF: 0 enalapril maleate 20 mg Tablet 10 mg PO DAILY Qty: 0 RF: 0 bethanechol chloride 50 mg tablet 50 mg PO BID 90 Days Qty: 180 RF: 1 <CALEB Martin - Last Filed: 01/10/21 18:43> Referrals: Justin Mendez MD [Physician] - 5 days <CALEB Martin - Last Filed: 01/10/21 18:43> Interventions: ED Discharge Assessment Last Done: 01/10/21 16:51 <CALEB Martin - Last Filed: 01/10/21 18:43> Discharge Date/Time: 01/10/21 16:51 <CALEB Martin - Last Filed: 01/10/21 18:43>
[2021-01-10] MEDS: iohexoL 350 MG/ML 100 ML INFUS..BTL IV (15:12)
[2021-01-10] MEDS: oxyCODONE HCl Immed Release 5 MG TABLET PO (16:47)
== END 2021-01-10 16:51 | disposition home or self-care (01) ==
PROVIDERS: Physician Assistant; Emergency Provider Emergency Medicine; PCP Physician Assistant
DX: S86.111A Strain of other muscle(s) and tendon(s) of posterior muscle group at lower leg level, right leg, initial encounter (principal); W17.89XA Other fall from one level to another, initial encounter; M79.89 Other specified soft tissue disorders; M79.661 Pain in right lower leg; E11.9 Type 2 diabetes mellitus without complications; I10 Essential (primary) hypertension; I48.91 Unspecified atrial fibrillation; E78.5 Hyperlipidemia, unspecified; G20 Parkinson's disease; Z79.01 Long term (current) use of anticoagulants; Z79.4 Long term (current) use of insulin; Z79.02 Long term (current) use of antithrombotics/antiplatelets; Z79.899 Other long term (current) drug therapy; Y93.9 Activity, unspecified; Y92.9 Unspecified place or not applicable; Y99.9 Unspecified external cause status
CPT/HCPCS: 36415; 73701; 80048; 82550; 85025; 85610; 85730; 93971; 99284; Q9967

== ENCOUNTER → 2021-01-12 09:34 | Outpatient (BNVA) | payer OTHER, MEDICARE, SELFPAY | PROVIDERS: PCP Physician Assistant; Visit Provider Physician Assistant | DX: S86.111A Strain of other muscle(s) and tendon(s) of posterior muscle group at lower leg level, right leg, initial encounter (principal) | CPT/HCPCS: 99202 ==

== ENCOUNTER → 2021-02-17 12:49 | Outpatient (BNVA) | payer MEDICARE, SELFPAY | PROVIDERS: Visit Provider Physician Assistant | DX: S85.1 Injury of tibial artery (principal) | CPT/HCPCS: 99212 ==

== ENCOUNTER → 2021-06-16 08:09 | Outpatient (BNVA) | payer MEDICARE, SELFPAY | PROVIDERS: Visit Provider Urology | DX: N40.1 Benign prostatic hyperplasia with lower urinary tract symptoms (principal); R33.9 Retention of urine, unspecified | CPT/HCPCS: 51798; 99212 ==

== ENCOUNTER 2021-08-02 09:15 | Outpatient (REF) | payer MEDICARE, SELFPAY ==
--- NOTE | ~2021-08-02 | XR_ITS ---
EXAMINATION: XR TOES, RIGHT CLINICAL INFORMATION: Pain right 2nd toe. COMPARISON: MRI foot 02/16/2020 TECHNIQUE: 3 views of the right toes were obtained. FINDINGS: There is partial amputation of the distal 1st digit beyond the proximal end proximal phalanx. The stump appears unremarkable. There is mild loss of the PIP and DIP joint spaces of the 2nd through 5th digits but no bony erosive changes or loose bodies. There is minimal soft tissue swelling of the distal 2nd digit but no gas visualized. There is no bony erosive changes. Mild atherosclerotic calcifications of the arteries of the right foot are seen. XR/XR toe RT min 2V IMPRESSION: Partial amputation of the 1st digit with unremarkable stump. Minimal degenerative changes of the PIP and DIP joints. No visible acute fracture or dislocation seen.
== END 2021-08-02 09:16 | disposition home or self-care (01) ==
LOC: HO.XRAY 09:15
PROVIDERS: PCP Physician Assistant; Visit Provider Nurse Practitioner Adult Health
DX: M79.674 Pain in right toe(s) (principal)
CPT/HCPCS: 73660

== ENCOUNTER 2021-09-08 07:37 | Outpatient (REF) | payer MEDICARE, SELFPAY ==
[2021-09-08 08:19] LABS: Hematocrit 48.9 % (42.0-52.0); Hemoglobin 16.3 g/dl (14.0-18.0); Mean Corpuscular HGB Conc 33.3 g/dl (31.0-36.0); Mean Corpuscular Hemoglobin 32.3 pg (27.0-33.0); Mean Platelet Volume 10.5 fL (9.4-12.4); Platelet Count 225 X10*3/uL (160-400); Red Blood Count 5.04 X10*6/uL (4.60-5.80); Red Cell Distribution Width 14.2 % (11.0-16.0); White Blood Count 6.5 X10*3/uL (4.8-10.8)
[2021-09-08 08:23] LABS: INTERNATIONAL NORM RATIO 1.1 (0.9-1.1); Prothrombin Time 12.9 SEC (9.9-13.0)
[2021-09-08 08:35] LABS: Anion Gap 17 (12-20); Blood Urea Nitrogen 17 mg/dL (9-16); Carbon Dioxide 22 mmol/L (22-29); Chloride 106 mmol/L (96-108); Estimated Glomerular Filt Rate > 60; Potassium 4.9 mmol/L (3.3-5.1); Sodium 140 mmol/L (135-145)
== END 2021-09-08 07:38 | disposition home or self-care (01) ==
LOC: HO.LAB 07:37
PROVIDERS: PCP Physician Assistant; Visit Provider Surgery Vascular Surgery
DX: I70.611 Atherosclerosis of nonbiological bypass graft(s) of the extremities with intermittent claudication, right leg (principal)
CPT/HCPCS: 36415; 80051; 82565; 84520; 85027; 85610

== ENCOUNTER 2021-11-30 12:39 | Emergency (ER) | payer MEDICARE, SELFPAY ==
--- NOTE | ~2021-11-30 | XR_ITS ---
EXAMINATION: XR CHEST CLINICAL INFORMATION: Chest pain. COMPARISON: 02/16/2020 chest radiographs. TECHNIQUE: Frontal view of the chest was obtained. FINDINGS: No significant abnormality is noted involving the heart, lungs, mediastinum, bony thorax or soft tissues. XR/XR chest 1V IMPRESSION: No acute cardiopulmonary process.
[2021-11-30 12:42] VITALS: BP 98/51; PULSE 87; RESP 17; TEMP 36.2; O2SAT 99; BMI 23.1
--- NOTE | 2021-11-30 12:42 | ECG_ITS ---
Test Reason : CHEST PAIN Blood Pressure : / mmHG Vent. Rate : 087 BPM Atrial Rate : 000 BPM P-R Int : 000 ms QRS Dur : 102 ms QT Int : 360 ms P-R-T Axes : 000 004 036 degrees QTc Int : 433 ms Atrial fibrillation with premature ventricular or aberrantly conducted complexes Low voltage QRS Cannot rule out Inferior infarct , age undetermined Abnormal ECG When compared with ECG of 03-NOV-2020 07:17, Minimal criteria for Inferior infarct are now Present Referred By: Generic ED Physician Electronically Signed By:THUAN ALLEN
[2021-11-30 13:07] VITALS: BP 148/83; PULSE 96; RESP 13; TEMP 36.6; O2SAT 94
[2021-11-30 13:10] LABS: Basophils Absolute Auto 0.1 X10*3/uL (0.0-0.2); Basophils Percent Auto 0.6 % (0-2); Eosinophils Absolute Auto 0.2 X10*3/uL (0.0-0.4); Hematocrit 46.2 % (42.0-52.0); Hemoglobin 15.3 g/dl (14.0-18.0); Imm Gran Abs Auto 0.02 X10*3/uL (0.00-0.03); Imm Gran Pct Auto 0.3 % (0.0-0.4); Lymphocytes Absolute Auto 1.8 X10*3/uL (1.2-4.9); Lymphocytes Percent Auto 22.9 % (20-40); MANUAL DIFF FLAG SCAN; Mean Corpuscular HGB Conc 33.1 g/dl (31.0-36.0); Mean Corpuscular Hemoglobin 31.6 pg (27.0-33.0); Mean Corpuscular Volume 95.5 fL (80.0-98.0); Mean Platelet Volume 10.4 fL (9.4-12.4); Monocytes Absolute Auto 0.6 X10*3/uL (0.1-1.2); Monocytes Percent Auto 6.9 % (2-11); Neutrophils Absolute Auto 5.4 x10*3/uL (2.0-8.3); Neutrophils Percent Auto 67.3 % (45-73); PLT CLUMP 1; Red Blood Count 4.84 X10*6/uL (4.60-5.80); Red Cell Distribution Width 13.7 % (11.0-16.0); SCAN SMEAR FLAG 1
[2021-11-30 13:26] LABS: Anion Gap 16 (12-20); Blood Urea Nitrogen 18 mg/dL (9-16); Calcium 9.2 mg/dL (8.4-10.2); Carbon Dioxide 23 mmol/L (22-29); Chloride 101 mmol/L (96-108); Estimated Glomerular Filt Rate > 60; Glucose Random 231 mg/dL (60-115); Platelet Count 215 X10*3/uL (160-400); Potassium 5.2 mmol/L (3.3-5.1); Sodium 135 mmol/L (135-145)
[2021-11-30 13:27] LABS: SLIDE REVIEW VERIFIED
--- NOTE | 2021-11-30 13:28 | ED.CHESTPAIN ---
HPI - Chest Pain General Chief Complaint: Chest Pain Stated Complaint: chest pain Time Seen by Provider: 11/30/21 13:13 Source: patient Mode of arrival: ambulatory History of Present Illness HPI narrative: 76-year-old male with a past medical history of AFib on Eliquis, diabetes, GERD, HLD, HTN, Parkinson's disease, presenting to the ED complaining sudden onset substernal chest tightness while on the table receiving CT chest/abdomen/ pelvis with p.o. and IV contrast at the OR around 10:00. Admits symptoms resolved, patient was home eating lunch when symptoms recurred with substernal chest tightness radiating to back. denies fever, chills, cough, SOB, abdominal pain, nausea/vomiting, headache, lightheadedness, pedal edema of note family at bedside reports patient was obtaining CTs due to unexplained 40 lb weight loss over the past 11 months. MD complaint: chest pain Onset (ago): hour(s) Related Data Home Medications Medication Instructions Recorded Confirmed apixaban 5 mg tablet (Eliquis) 5 mg PO BID 02/16/20 02/16/20 carbidopa 25 mg-levodopa 100 mg 1 tab PO TID 02/16/20 02/16/20 tablet gabapentin 300 mg tablet 900 mg PO TID 02/16/20 02/16/20 insulin glargine 100 unit/mL 14 unit subcut QAM 02/16/20 02/16/20 subcutaneous solution (Lantus U-100 Insulin) insulin lispro 100 unit/mL 6 unit subcut QPM 02/16/20 02/16/20 subcutaneous solution (Humalog U-100 Insulin) magnesium oxide 420 mg tablet 420 mg PO DAILY 02/16/20 02/16/20 metformin 500 mg tablet 500 mg PO QPM 02/16/20 02/16/20 metoprolol succinate 25 mg 25 mg PO DAILY 02/16/20 02/16/20 tablet,extended release 24 hr omeprazole 20 mg capsule,delayed 20 mg PO DAILY 02/16/20 02/16/20 release simvastatin 20 mg tablet 20 mg PO BEDTIME 02/16/20 02/16/20 Previous Rx's Medication Instructions Recorded enalapril maleate 20 mg tablet 10 mg PO DAILY #0 tabs 02/17/20 tamsulosin 0.4 mg capsule 0.4 mg PO DAILY #30 caps 05/24/20 bethanechol chloride 50 mg tablet 50 mg PO BID 90 days #180 tabs 12/22/20 oxycodone-acetaminophen 5 mg-325 1 tab PO Q8H PRN pain, severe 3 01/10/21 mg tablet (Percocet) days #9 tabs finasteride 5 mg tablet 5 mg PO DAILY 90 days #90 tabs 06/16/21 lidocaine 5 % topical patch 1 patch topical DAILY PRN pain #30 11/30/21 (Lidoderm) ea Allergies Allergy/AdvReac Type Severity Reaction Status Date / Time No Known Drug Allergies Allergy Unknown UNKNOWN Verified 06/16/21 08:36 grass, weeds, dirt, dust Allergy Unknown Unknown Uncoded 02/16/20 11:21 mites Review of Systems Review of Systems: Constitutional: No Fever, No Chills, + Weight loss, No Fatigue, No Malaise ENT/Mouth: No Ear Pain, No Nasal Congestion, No Hoarseness, No sore throat, No Rhinorrhea, No Swallowing Difficulty Eyes: No Eye Pain, No Swelling, No Redness, No Vision Changes Cardiovascular: + Chest Pain, No SOB, No Dyspnea on Exertion, No Orthopnea, No Edema, No Palpitations Respiratory: No Cough, No Sputum, No Wheezing, No Dyspnea Gastrointestinal: No Nausea, No Vomiting, No Diarrhea, No Constipation, No Abdominal pain Genitourinary: No Dysuria, No Urinary Frequency, No Hematuria, No Flank Pain Musculoskeletal: No joint pain, No Myalgias, No Joint Swelling Skin: No Skin Lesions, No rash Neuro: No Weakness, No Numbness, No Paresthesias, No Loss of Consciousness, No Dizziness, No Headache Yes all other systems are reviewed and are negative Constitutional: Constitutional: Reports as per [facility] Past Medical History Attestation statement: The following information was validated with the patient. Medical History A-fib Diabetes GERD (gastroesophageal reflux disease) High cholesterol Hypertension Male erectile dysfunction, unspecified Parkinson disease Peripheral arterial disease Toe avulsion Urge incontinence Vocal cord anomaly Social History Social History Household Members: Spouse Housing: House Do you presently have visiting nurse or other home services: No Alcohol intake: never Patient Tobacco Use Status: Current everyday Tobacco user Years Smoked: 8 Second Hand Smoke Exposure: No Use of substances other than those prescribed or required for medical reasons: No Advance Directives: Yes Advance Directives on File: Yes Advance Directives Date on File: 02/16/20 service: No Current occupational status: retired Physical Exam Vital Signs: Vital Signs: Last Vital Signs Temp 97.7 F 11/30/21 14:20 Pulse 83 11/30/21 15:30 Resp 18 11/30/21 15:30 BP 130/69 11/30/21 15:30 Pulse Ox 98 11/30/21 15:30 O2 Del Method 11/30/21 15:30 BMI result Body Mass Index 23.1 Const: Other: In pain General: cooperative Orientation/consciousness: patient oriented x3 Limitations: no limitations HEENT: Head: Yes normal to inspection and Yes atraumatic Ears: hearing grossly normal bilaterally General nose exam: Normal external nose present Face and sinus: Yes normal facial exam Eyes: General: appearance normal, both eyes and all related structures EOM: EOMs intact bilaterally Neck: Neck: Yes normal visual inspection and Yes no meningeal signs Chest: Other: + reproducible substernal chest pain Chest palpation & inspection: no crepitus Resp: Effort & Inspection: normal respiratory effort and no respiratory distress Auscultation: clear to auscultation bilaterally, no crackles, no rales, no rhonchi and no wheezes Cardio: Rate: regular rate Heart sounds: S1 normal heart sound present and S2 normal heart sound present GI: Inspection: Yes normal to inspection Palpation (GI): Soft to palpation, nontender, no guarding and not rigid Skin: Rashes: no rashes Wounds: no wounds Neuro: General: patient oriented x3, tone normal and no meningeal signs Extrem: General: Yes normal to inspection and Yes no pedal edema Course Course Course Narrative: -1600-- no leukocytosis. Potassium mildly elevated to 5.2, BUN chronically elevated. initial troponin 7.7 > will obtain 3 hour repeat XR chest 1V IMPRESSION: No acute cardiopulmonary process. 1625-- [facility], abdomen and pelvis with contrast from today showed no acute intrathoracic or intra-abdominal process on re-evaluation patient reports symptomatic improvement -1658-- repeat troponin without 50% rise, mi unlikely. Results were discussed with patient and at bedside including worrisome signs and symptoms and strict return precautions and need close follow-up with his doctor. They verbalized understanding of feel safe for discharge home at this time MDM - Chest Pain MDM Narrative Medical decision making narrative: 76-year-old male with a past medical history of AFib on Eliquis, diabetes, GERD, HLD, HTN, Parkinson's disease, presenting to the ED complaining sudden onset substernal chest tightness while on the table receiving CT chest/abdomen/ pelvis with p.o. and IV contrast at the OR around 10:00. Admits symptoms resolved, patient was home eating lunch when symptoms recurred with substernal chest tightness radiating to back. on exam initially hypotensive on arrival, vital signs stable at present, appears in pain, chest pain is reproducible, CTA, no pedal edema. Concern for ACS vs esophagitis/gastritis or GERD vs allergic reaction although lower suspicion. Dissection lower on differential due to intermittent symptoms. Unlikely PE as patient is anticoagulated plan: EKG, labs, CXR, ASA, morphine, GI cocktail, re-evaluation Differential Diagnosis Differential diagnosis: Likely unstable angina pectoris, atypical chest pain, st elevation myocardial infarction, costochondritis and chest pain Medical Records Data Attestation: I reviewed the patient's medical records. Lab Data Attestation: I reviewed the patient's lab results. Result diagrams: 11/30/21 12:59 11/30/21 12:59 Labs: Lab Results 11/30/21 11/30/21 11/30/21 Range/Units 12:59 12:59 12:59 WBC 8.0 (4.8-10.8) X10*3/uL RBC 4.84 (4.60-5.80) X10*6/uL Hgb 15.3 (14.0-18.0) g/dl Hct 46.2 (42.0-52.0) % MCV 95.5 (80.0-98.0) fL MCH 31.6 (27.0-33.0) pg MCHC 33.1 (31.0-36.0) g/dl RDW 13.7 (11.0-16.0) % Plt Count 215 (160-400) X10*3/uL MPV 10.4 (9.4-12.4) fL Immature Gran % (Auto) 0.3 (0.0-0.4) % Neut % (Auto) 67.3 (45-73) % Lymph % (Auto) 22.9 (20-40) % [place] % (Auto) 6.9 (2-11) % Eos % (Auto) 2.0 (0-4) % Baso % (Auto) 0.6 (0-2) % Lymph # (Auto) 1.8 (1.2-4.9) X10*3/uL [place] # (Auto) 0.6 (0.1-1.2) X10*3/uL Eos # (Auto) 0.2 (0.0-0.4) X10*3/uL Baso # (Auto) 0.1 (0.0-0.2) X10*3/uL Abs Immat Gran (auto) 0.02 (0.00-0.03) X10*3/uL Absolute Neuts (auto) 5.4 (2.0-8.3) x10*3/uL Absolute Nucleated RBC 0.000 (0.0-0.012) X10*3/uL Nucleated RBC % (auto) 0.0 (0.0-0.2) /100WBC Smear Tech's Comments VERIFIED PT (10.0-13.1) SEC INR (0.9-1.1) Sodium 135 (135-145) mmol/L Potassium 5.2 H (3.3-5.1) mmol/L Chloride 101 (96-108) mmol/L Carbon Dioxide 23 (22-29) mmol/L Anion Gap 16 (12-20) BUN 18 H (9-16) mg/dL Creatinine 1.01 (0.5-1.4) mg/dL Estim Creat Clear Calc 75.0 Estimated GFR > 60 Random Glucose 231 H D (60-115) mg/dL Calcium 9.2 (8.4-10.2) mg/dL Magnesium 1.9 (1.6-2.6) mg/dL Total Bilirubin 0.5 (0.0-1.0) mg/dL Direct Bilirubin 0.2 (0.0-0.5) mg/dL AST 13 (5-37) U/L ALT 6 (0-40) U/L Alkaline Phosphatase 111 (39-117) U/L Troponin I High Sens 7.7 (<3.5-35.0) ng/L B-Natriuretic Peptide 97 (<100) pg/mL Total Protein 7.3 (6.5-8.0) g/dL Albumin 4.2 (3.5-5.0) g/dL Lipase 46 (8-78) U/L 11/30/21 11/30/21 Range/Units 13:37 16:20 WBC (4.8-10.8) X10*3/uL RBC (4.60-5.80) X10*6/uL Hgb (14.0-18.0) g/dl Hct (42.0-52.0) % MCV (80.0-98.0) fL MCH (27.0-33.0) pg MCHC (31.0-36.0) g/dl RDW (11.0-16.0) % Plt Count (160-400) X10*3/uL MPV (9.4-12.4) fL Immature Gran % (Auto) (0.0-0.4) % Neut % (Auto) (45-73) % Lymph % (Auto) (20-40) % [place] % (Auto) (2-11) % Eos % (Auto) (0-4) % Baso % (Auto) (0-2) % Lymph # (Auto) (1.2-4.9) X10*3/uL [place] # (Auto) (0.1-1.2) X10*3/uL Eos # (Auto) (0.0-0.4) X10*3/uL Baso # (Auto) (0.0-0.2) X10*3/uL Abs Immat Gran (auto) (0.00-0.03) X10*3/uL Absolute Neuts (auto) (2.0-8.3) x10*3/uL Absolute Nucleated RBC (0.0-0.012) X10*3/uL Nucleated RBC % (auto) (0.0-0.2) /100WBC Smear Tech's Comments PT 13.6 H (10.0-13.1) SEC INR 1.2 H (0.9-1.1) Sodium (135-145) mmol/L Potassium (3.3-5.1) mmol/L Chloride (96-108) mmol/L Carbon Dioxide (22-29) mmol/L Anion Gap (12-20) BUN (9-16) mg/dL Creatinine (0.5-1.4) mg/dL Estim Creat Clear Calc Estimated GFR Random Glucose (60-115) mg/dL Calcium (8.4-10.2) mg/dL Magnesium (1.6-2.6) mg/dL Total Bilirubin (0.0-1.0) mg/dL Direct Bilirubin (0.0-0.5) mg/dL AST (5-37) U/L ALT (0-40) U/L Alkaline Phosphatase (39-117) U/L Troponin I High Sens 8.6 (<3.5-35.0) ng/L B-Natriuretic Peptide (<100) pg/mL Total Protein (6.5-8.0) g/dL Albumin (3.5-5.0) g/dL Lipase (8-78) U/L ECG Data ECG #1: Attestation: I personally reviewed and interpreted this ECG as follows: ECG interpretation date: 11/30/21 ECG interpretation time: 12:44 Interpretation: EKG showing AFib with premature ventricular complexes at a rate of 87. QTC 433. When compared to prior EKGs minimal criteria for inferior infarct is now present. No STEMI. Discharge Plan Discharge Clinical Impression: Atypical chest pain Patient Disposition: Home, Self-Care Instructions: Chest Pain (ED) Additional Instructions: your blood work and chest x-ray were reassuring today in the emergency department. [facility]remarkable today. It is very important to follow-up with her doctors closely, call tomorrow to make an appointment. Take Tylenol and use Lidoderm patches as needed. If symptoms persist or worsen, chest pain becomes constant you have shortness breath or fever please return to the emergency department Prescriptions: New lidocaine [Lidoderm] 5 % adhesive patch,medicated 1 patch topical DAILY MDD remove after 12 hours PRN (Reason: pain) Qty: 30 0RF Rx Instructions: leave on most painful area for up to 12 hrs No Action tamsulosin 0.4 mg capsule 0.4 mg PO DAILY Qty: 30 6RF metformin 500 mg Tablet 500 mg PO QPM magnesium oxide 420 mg Tablet 420 mg PO DAILY Lantus U-100 Insulin 100 unit/mL Solution 14 unit SUBCUT QAM simvastatin 20 mg Tablet 20 mg PO BEDTIME omeprazole 20 mg Capsule,Delayed Release(Dr/Ec) 20 mg PO DAILY metoprolol succinate 25 mg Tablet Extended Release 24 Hr 25 mg PO DAILY insulin lispro [Humalog U-100 Insulin] 100 unit/mL Solution 6 unit SUBCUT QPM carbidopa-levodopa 25-100 mg Tablet 1 tab PO TID gabapentin 300 mg Tablet 900 mg PO TID Eliquis 5 mg Tablet 5 mg PO BID enalapril maleate 20 mg Tablet 10 mg PO DAILY Qty: 0 0RF oxycodone-acetaminophen [Percocet] 5-325 mg tablet 1 tab PO Q8H PRN (Reason: pain, severe) 3 Days Qty: 9 0RF bethanechol chloride 50 mg tablet 50 mg PO BID 90 Days Qty: 180 1RF finasteride 5 mg tablet 5 mg PO DAILY 90 Days Qty: 90 1RF Referrals: Calvin Keen PA [Primary Care Provider] - 2 days
[2021-11-30 13:34] LABS: Troponin-I High Sensitivity 7.7 ng/L (<3.5-35.0)
[2021-11-30 13:46] LABS: Alanine Aminotransferase 6 U/L (0-40); Albumin Level 4.2 g/dL (3.5-5.0); Alkaline Phosphatase 111 U/L (39-117); Aspartate Amino Transferase 13 U/L (5-37); Bilirubin Direct 0.2 mg/dL (0.0-0.5); Bilirubin Total 0.5 mg/dL (0.0-1.0); Lipase 46 U/L (8-78); Magnesium 1.9 mg/dL (1.6-2.6); Total Protein 7.3 g/dL (6.5-8.0)
[2021-11-30 13:49] VITALS: BP 119/56; PULSE 78; RESP 14; O2SAT 98
[2021-11-30 13:51] LABS: INTERNATIONAL NORM RATIO 1.2 (0.9-1.1); Prothrombin Time 13.6 SEC (10.0-13.1)
--- NOTE | 2021-11-30 13:51 | PC.NURSE ---
Provider made awar of patients fluctuation in respirations. Decreased dose of morphine.
[2021-11-30] MEDS: Morphine Sulfate 2 MG/ML CARTRIDGE 1 MG IVPUSH (13:52)
[2021-11-30] MEDS: Magnesium Hydrox/Alum Hydrox 30 ML ORAL.SUSP PO (13:53)
[2021-11-30] MEDS: Aspirin Enteric Coated 325 MG TABLET.DR PO (13:53)
[2021-11-30] MEDS: Famotidine/PF 20 MG/2 ML VIAL IVPUSH (13:53)
[2021-11-30 14:02] LABS: B Type Natriuretic Peptide 97 pg/mL (<100)
[2021-11-30 14:20] VITALS: BP 135/70; PULSE 77; RESP 18; TEMP 36.5; O2SAT 96
[2021-11-30 15:30] VITALS: BP 130/69; PULSE 83; RESP 18; O2SAT 98
[2021-11-30] MEDS: Acetaminophen 325 MG TABLET 650 MG PO (15:45)
[2021-11-30 16:56] LABS: Troponin-I High Sensitivity 8.6 ng/L (<3.5-35.0)
[2021-11-30 17:13] VITALS: BP 134/74; PULSE 87; RESP 17; O2SAT 98
[2021-11-30] MEDS: Sodium Polystyrene Sulfon/Sorb 15 GM/60 ML ORAL.SUSP PO (17:14)
== END 2021-11-30 17:52 | disposition home or self-care (01) ==
PROVIDERS: Physician Assistant; Emergency Provider Student in an Organized Health Care Education/Training Program; PCP Physician Assistant
DX: R07.89 Other chest pain (principal); R06.02 Shortness of breath; F17.200 Nicotine dependence, unspecified, uncomplicated; Z79.899 Other long term (current) drug therapy; Z79.4 Long term (current) use of insulin; Z71.6 Tobacco abuse counseling
CPT/HCPCS: 36415; 71045; 80048; 80076; 83690; 83735; 83880; 84484; 85025; 85610; 93005; 96374; 96375; 99284; 99285; J2270

== ENCOUNTER → 2021-12-15 13:47 | Outpatient (BNVA) | payer MEDICARE, SELFPAY | PROVIDERS: PCP Physician Assistant; Visit Provider Urology | DX: R33.9 Retention of urine, unspecified (principal); N40.1 Benign prostatic hyperplasia with lower urinary tract symptoms | CPT/HCPCS: 51798; 99212 ==

== ENCOUNTER → 2022-04-05 10:56 | Outpatient (BNVA) | payer MEDICARE, SELFPAY | PROVIDERS: PCP Physician Assistant; Visit Provider Urology | DX: R33.9 Retention of urine, unspecified (principal); E11.40 Type 2 diabetes mellitus with diabetic neuropathy, unspecified; E11.49 Type 2 diabetes mellitus with other diabetic neurological complication | CPT/HCPCS: 99212 ==

== ENCOUNTER → 2022-08-03 20:30 | Outpatient (REF) | payer OTHER, MEDICARE, SELFPAY | LOC: HO.SL 20:30 | PROVIDERS: PCP Physician Assistant; Visit Provider Physician Assistant | DX: G47.30 Sleep apnea, unspecified (principal) | CPT/HCPCS: 95811 ==

== ENCOUNTER → 2022-10-12 11:39 | Outpatient (BNVA) | payer MEDICARE, SELFPAY | PROVIDERS: PCP Physician Assistant; Visit Provider Urology | DX: N40.1 Benign prostatic hyperplasia with lower urinary tract symptoms (principal); R33.9 Retention of urine, unspecified; N39.41 Urge incontinence | CPT/HCPCS: 51798; 99212 ==

== ENCOUNTER 2023-04-09 10:19 | Outpatient (AMB) | payer MEDICARE, SELFPAY ==
--- NOTE | 2023-04-09 10:37 | MHC.OFFVIS ---
Intake Intake Visit Reasons: 6M PVR Intake Note: Patient is Present for Follow Up Urology Medication: Finasteride, Methenamine Antibiotic Allergies: None Blood Thinners: Eliquis PVR: 338ml Allergies No Known Drug Allergies Allergy (Unknown, Verified 10/12/22 11:47) UNKNOWN grass, weeds, dirt, dust mites Allergy (Unknown, Uncoded 10/12/22 11:47) Unknown Medication List - Last Reconciled 04/09/23 by Martin Silva MD apixaban (Eliquis) 5 mg PO BID ascorbic acid (vitamin C) 1 g PO DAILY 90 days carbidopa-levodopa 25-100 mg 1 tab PO TID enalapril maleate 10 mg (1/2 x 20 mg) PO DAILY finasteride 5 mg PO DAILY 90 days gabapentin 900 mg PO TID insulin glargine (Lantus U-100 Insulin) 14 units subcut QAM insulin lispro (Humalog U-100 Insulin) 6 units subcut QPM lidocaine 5% (Lidoderm) 1 patch topical DAILY PRN MDD remove after 12 hours magnesium oxide 420 mg PO DAILY metformin 500 mg PO QPM methenamine hippurate 1 g PO DAILY 90 days metoprolol succinate ER 25 mg PO DAILY omeprazole 20 mg PO DAILY simvastatin 20 mg PO BEDTIME HPI HPI Comments History of Present Illness Details Denilson is a pleasant male. He is seen for the following urologic condition - lower urinary tract symptoms - neurogenic bladder diabetic - insulin-dependent Has overflow incontinence Were unable to increase CIC from 2 to 4 times a day Has been in diaper with overflow incontinence Reinstate CIC 2 times a day We expect this to continue to be ongoing into the foreseeable future. Remain on finasteride, bethanechol, methenamine and vitamin-C UA today with 3+ glucose known diabetes - averaging over 200 Lower urinary tract symptoms - detrusor hyperactivity impaired contractility Persistent high postvoid residual Mild urge incontinence Background of diabetes with Parkinson's - levodopa carbidopa Current medications alpha-brenton - tamsulosin High PVR in range approximately 200 cc PSA - 11/22 1.0 6 month follow-up PVR Erectile dysfunction - secondary to diabetes No longer a priority for treatment PFSH Medical History Urge incontinence Male erectile dysfunction, unspecified Peripheral arterial disease GERD (gastroesophageal reflux disease) Parkinson disease Hypertension Toe avulsion Vocal cord anomaly A-fib High cholesterol Diabetes Social History Household Members: Spouse Housing: House Do you presently have visiting nurse or other home services: No Alcohol intake: never Comment: sleeping Patient Tobacco Use Status: Current everyday Tobacco user Years Smoked: 8 Second Hand Smoke Exposure: No Advance Directives Date on File: 02/16/20 service: No Current occupational status: retired Review of Systems Const Denies chills and Denies fever(s) Card Reports no additional complaints and Denies syncope Resp Denies cough GI Denies abdominal pain and Denies heartburn Reports as per HPI and Denies change in libido Neuro Denies syncope Psych Denies change in libido Endo Denies change in libido Physical Exam Const General: cooperative, healthy appearing, comfortable and no acute distress Orientation/consciousness: patient oriented x3 HEENT Face and sinus: Yes normal facial exam Mouth: moist mucous membranes Neck Neck: Yes normal visual inspection, Yes full ROM and Yes trachea midline Chest Chest palpation & inspection: normal inspection of the chest Resp Effort & Inspection: normal respiratory effort, able to speak in complete sentences and no respiratory distress GI Inspection: Yes normal to inspection Back/Spine/Pelvis Cervical Spine: normal cervical lordosis Thoracic/Lumbar Spine: thoracic and lumbar spine normal to inspection Skin General skin exam: no rashes or lesions noted Neuro General: patient oriented x3, gait normal, tone normal and moves all extremities Extrem General: Yes normal to inspection and Yes capillary refill normal Office Procedures Post Void Residual Post Residual Void Post Void Residual (PVR): 338 [id number] Void Residual by ultrasound Results AMB Urinalysis, Automated UA Leukoctes 0 Claribel/uL Last Edit by MARISSA Mathews on 04/09/23 10:47 UA Nitrite Negative Last Edit by MARISSA Mathews on 04/09/23 10:47 UA Urobilinogen 0.2 mg/dL Last Edit by MARISSA Mathews on 04/09/23 10:47 UA Protein 0 mg/dL Last Edit by MARISSA Mathews on 04/09/23 10:47 UA pH 5.5 Last Edit by MARISSA Mathews on 04/09/23 10:47 UA Blood 0 Yash/uL Last Edit by Jennifer Hodge A on 04/09/23 10:47 UA Specific [place] 1.010 Last Edit by Jennifer Hodge A on 04/09/23 10:47 UA Ketone Negative Last Edit by Jennifer Hodge A on 04/09/23 10:47 UA Bilirubin 0 mg/dL Last Edit by Jennifer Hodge A on 04/09/23 10:47 UA Glucose 1000 mg/dL Last Edit by Jennifer Hodge A on 04/09/23 10:47 Results Reviewed Results Reviewed: Laboratory Last Values Urine pH (Auto) 5.5 04/09/23 10:40 Specific [place] (Auto) 1.010 04/09/23 10:40 Urine Protein (Auto) 0 mg/dL 04/09/23 10:40 Glucose (UA)(Auto) 1000 mg/dL 04/09/23 10:40 Urine Ketones (Auto) Negative 04/09/23 10:40 Urine Blood (Auto) 0 Yash/uL 04/09/23 10:40 Urine Nitrite (Auto) Negative 04/09/23 10:40 Urine Bilirubin (Auto) 0 mg/dL 04/09/23 10:40 Urine Urobilinogen (Auto) 0.2 mg/dL 04/09/23 10:40 Leukocyte Esterase (Auto) 0 Claribel/uL 04/09/23 10:40 Assessment & Plan Assessment & Plan (1) Urinary retention: Code(s): R33.9 - Retention of urine, unspecified (2) Diabetic neuropathy with neurologic complication: Code(s): E11.40 - Type 2 diabetes mellitus with diabetic neuropathy, unspecified; E11.49 - Type 2 diabetes mellitus with other diabetic neurological complication Plan Six month follow-up PVR Orders: Orders AMB Urinalysis Automated Today Z13.9 - Encounter for screening, unspecified AMB Post Void Residual by ultrasound Today R33.9 - Retention of urine, unspecified Medications: Refilled ascorbic acid (vitamin C) 1 g PO DAILY 90 caps 1RF 90 days finasteride 5 mg PO DAILY 90 tabs 1RF 90 days N13.8 - Other obstructive and reflux uropathy, N40.1 - Benign prostatic hyperplasia with lower urinary tract symptoms, R33.9 - Retention of urine, unspecified methenamine hippurate 1 g PO DAILY 90 tabs 1RF 90 days Patient Instructions: Imaging studies, laboratory and physical exam results were discussed and reviewed in detail. No major barriers to patient understanding were identified. An opportunity to ask questions regarding the treatment plan was provided. All questions were answered. The patient expressed understanding and agreement with the above treatment plan. The patient is aware they should contact our office by phone for worsening of their current condition or the appearance of new urologic symptoms. Compliance is encouraged with any medications and followup testing that is ordered. It is a privilege to participate in the urologic care of your patient. If you have any questions or concerns regarding treatment for the above conditions, or other urologic issues, please do not hesitate to contact me. The office telephone contact is [phone]. This note is constructed using voice recognition software. While every effort has been made to ensure accuracy direct mail coordinator errors may have been included. Yours sincerely, Dr Martin Silva MD, DINO [facility] - Urology Providers of Expert, Compassionate Care for the Genitourinary System Coding Level of Care Code Est Pt Level 3 (79736) Diagnoses Urinary retention R33.9 Diabetic neuropathy with neurologic complication E11.40; E11.49 CPT Codes Post Residual Void - PVR CPT Code: 13572-Doog Void Residual by ultrasound ([id number])
== END 2023-04-09 11:24 | disposition home or self-care (01) ==
PROVIDERS: PCP Physician Assistant; Visit Provider Urology
DX: R33.9 Retention of urine, unspecified (principal); E11.40 Type 2 diabetes mellitus with diabetic neuropathy, unspecified; E11.49 Type 2 diabetes mellitus with other diabetic neurological complication; Z13.9 Encounter for screening, unspecified
CPT/HCPCS: 99213

== ENCOUNTER → 2023-04-09 10:19 | Outpatient (BNVA) | payer MEDICARE, SELFPAY | PROVIDERS: PCP Physician Assistant; Visit Provider Urology | DX: N40.1 Benign prostatic hyperplasia with lower urinary tract symptoms (principal); R33.9 Retention of urine, unspecified; N13.8 Other obstructive and reflux uropathy; E11.40 Type 2 diabetes mellitus with diabetic neuropathy, unspecified; E11.49 Type 2 diabetes mellitus with other diabetic neurological complication; Z79.4 Long term (current) use of insulin; Z79.84 Long term (current) use of oral hypoglycemic drugs | CPT/HCPCS: 51798; 81003; 99212 ==

== ENCOUNTER 2023-07-07 16:11 | Emergency (ER) | payer MEDICARE, SELFPAY ==
--- NOTE | ~2023-07-07 | CT_ITS ---
EXAMINATION: CT HEAD WITHOUT CONTRAST CLINICAL INFORMATION: Weakness COMPARISON: CT head 11/03/2020 TECHNIQUE: Contiguous axial imaging was performed from the skull base to vertex without intravenous administration of contrast. This CT examination was performed using dose optimization techniques as appropriate, variously including the following: *Automated exposure control *Adjustment of mA and/or kV according to patient size (this includes techniques or standardized protocols for targeted exams where dose is matched to indication/reason for exam; i.e. extremities or head) *Use of iterative reconstruction technique DLP: 916 mGy-cm FINDINGS: There is no evidence of acute intracranial hemorrhage or edematous territorial infarction. No abnormal mass effect or midline shift is seen. Garcia to white matter differentiation is well preserved. No abnormal extra-axial fluid collections are identified. Commensurate prominence of the ventricles and sulci is compatible with generalized parenchymal volume loss. Moderate periventricular and subcortical white matter hypoattenuation, most likely representing microangiopathic disease. No acute calvarial fracture.. Bilateral lens extraction. Paranasal sinuses and mastoid air cells are well-aerated. CT/CT head/brain wo IV con IMPRESSION: No CT evidence of acute intracranial hemorrhage or edematous territorial infarction. Chronic changes as above.
[2023-07-07 16:17] VITALS: BP 95/62; PULSE 80; RESP 20; O2SAT 96; BMI 23.1
--- NOTE | 2023-07-07 16:26 | ECG_ITS ---
Test Reason : AMS Blood Pressure : / mmHG Vent. Rate : 073 BPM Atrial Rate : 000 BPM P-R Int : 000 ms QRS Dur : 154 ms QT Int : 434 ms P-R-T Axes : 000 -83 -09 degrees QTc Int : 478 ms Atrial fibrillation with premature ventricular or aberrantly conducted complexes Right bundle branch block Left anterior fascicular block Bifascicular block Inferior infarct (cited on or before 30-NOV-2021) Abnormal ECG When compared with ECG of 30-NOV-2021 12:44, (RBBB and left anterior fascicular block) is now Present Referred By: Sean Jonas Electronically Signed By:Leonel Reese
--- NOTE | 2023-07-07 16:28 | ED_ITS ---
HPI - General Adult General Chief complaint: Altered Mental Status Stated complaint: change in med status, unable to walk- 2 hrs ago Time Seen by Provider: 07/07/23 16:31 Source: patient and family Mode of arrival: ambulatory Limitations: no limitations History of Present Illness HPI narrative: Patient diabetic Parkinson's disease AFib on Eliquis with recent left toe amputation for diabetic 3 days ago was doing get his usual health earlier today dropped him to his sister's house in a.m. at 13:30 family noted that patient is very weak unable to ambulate without any focal deficit patient did not have glucometer at home but was given p.o. glucose fruits patient improved slightly a little bit confused no seizures no focal weakness noticed left facial droop also patient complaining of headache who which he does not get usually localized to the left side of the head no fever no cough on arrival patient's glucose was 168 Related Data Home Medications Medication Instructions Recorded Confirmed apixaban 5 mg tablet (Eliquis) 5 mg PO BID 02/16/20 04/09/23 carbidopa 25 mg-levodopa 100 mg 1 tab PO TID 02/16/20 04/09/23 tablet gabapentin 300 mg tablet 900 mg PO TID 02/16/20 04/09/23 insulin glargine 100 unit/mL 14 unit subcut QAM 02/16/20 04/09/23 subcutaneous solution (Lantus U-100 Insulin) insulin lispro 100 unit/mL 6 unit subcut QPM 02/16/20 04/09/23 subcutaneous solution (Humalog U-100 Insulin) magnesium oxide 420 mg tablet 420 mg PO DAILY 02/16/20 04/09/23 metformin 500 mg tablet 500 mg PO QPM 02/16/20 04/09/23 metoprolol succinate 25 mg 25 mg PO DAILY 02/16/20 04/09/23 tablet,extended release 24 hr omeprazole 20 mg capsule,delayed 20 mg PO DAILY 02/16/20 04/09/23 release simvastatin 20 mg tablet 20 mg PO BEDTIME 02/16/20 04/09/23 Previous Rx's Medication Instructions Recorded enalapril maleate 20 mg tablet 10 mg (1/2 x 20 mg) PO DAILY #0 02/17/20 tabs lidocaine 5 % topical patch 1 patch topical DAILY PRN pain #30 11/30/21 (Lidoderm) ea ascorbic acid (vitamin C) 1,000 mg 1 g PO DAILY 90 days #90 caps 04/09/23 capsule finasteride 5 mg tablet 5 mg PO DAILY 90 days #90 tabs 04/09/23 methenamine hippurate 1 gram tablet 1 g PO DAILY 90 days #90 tabs 04/09/23 Allergies Allergy/AdvReac Type Severity Reaction Status Date / Time No Known Drug Allergies Allergy Unknown UNKNOWN Verified 10/12/22 11:47 grass, weeds, dirt, dust Allergy Unknown Unknown Uncoded 10/12/22 11:47 mites Review of Systems 2 Review of Systems: Yes all other systems are reviewed and are negative [facility] Past Medical History Medical History Urge incontinence Male erectile dysfunction, unspecified Peripheral arterial disease GERD (gastroesophageal reflux disease) Parkinson disease Hypertension Toe avulsion Vocal cord anomaly A-fib High cholesterol Diabetes Social History Social History Household Members: Spouse Housing: House Do you presently have visiting nurse or other home services: No Alcohol intake: never Comment: sleeping Patient Tobacco Use Status: Current everyday Tobacco user Years Smoked: 8 Second Hand Smoke Exposure: No Advance Directives: Yes Advance Directives Information Provided: No Advance Directives on File: No Advance Directives Date on File: 02/16/20 service: No Current occupational status: retired Physical Exam ED Vital Signs: Vital Signs - 24 hr 07/07/23 16:17 07/07/23 18:32 Temperature 98.7 F Pulse Rate 80 75 Respiratory Rate 20 16 Blood Pressure 95/62 128/84 Pulse Oximetry 96 98 Oxygen Delivery Method Room Air Room Air BMI result Body Mass Index 23.1 Appearance: Alert. Oriented X3. No acute distress. Eyes: PERRLA, No Nystagmus ENT: Pharynx normal. Oral Mucosa moist Neck: Normal inspection. Neck supple. CVS: Normal heart rate and rhythm. Pulses normal. Respiratory: No respiratory distress. Equal air entry bilateral, no wheezing/rales/rhonchi Abdomen: Soft and nontender. Bowel sounds are present, no mass palpable, no CVA tenderness Skin: Skin warm and dry. Normal skin color. Normal skin turgor. Extremities: No lower extremity edema. No calf tenderness Neuro: Oriented X 3. No motor deficit. No sensory deficit.No cerebellar signs , cranial nerves II-XII intact? Left facial droop NIH Stroke Scale Internal: Initial- Upon Arrival Level of Consciousness: Alert Level of Consciousness Questions: Answers both questions correctly Level of Consciousness Commands: Performs both tasks correctly Best Gaze: Normal Visual: No visual loss Facial Palsy: Minor paralyis Motor Arm (Right): No drift Motor Arm (Left): No drift Motor Leg (Right): No drift Motor Leg (Left): No drift Limb Ataxia: Absent Sensory: Normal Best Language: No aphasia Dysarthia: Normal Extinction and Inattention: No abnormality Score: 1 Course Course Course Narrative: RME- 78 year old male presents for evaluation of generalized weakness over the last 2 hours. He was brought back to room 5. Plan for labs, EKG, ct brain. He appears to have generalized weakness, no focal weakness, no asymmetry of the face. No slurred speech Medical Decision Making Medical Decision Making [facility] Narrative: Patient had transient hypoglycemia likely the cause for continued weakness might have subclinical seizure but no witnessed seizures noticed patient's CT scan of the head was negative for any acute patient already on Eliquis no focal deficit at this time patient feel more awake ambulated in the ER discharge patient home Differential Diagnosis Differential Diagnoses: The differential diagnosis associated with the presentation includes CVA/TIA/hypoglycemic seizure/metabolic encephalopathy Admission/Observation Consideration of admission/observation: Escalation of care including admission/observation considered Lab Data [facility] Lab Attestation statement: I reviewed the patient's lab results. 07/07/23 16:42 07/07/23 16:42 Labs: Lab Results 07/07/23 07/07/23 07/07/23 Range/Units 16:42 18:36 18:38 WBC 8.0 (4.8-10.8) X10*3/uL RBC 5.00 (4.60-5.80) X10*6/uL Hgb 15.4 (14.0-18.0) g/dl Hct 47.1 (42.0-52.0) % MCV 94.2 (80.0-98.0) fL MCH 30.8 (27.0-33.0) pg MCHC 32.7 (31.0-36.0) g/dl RDW 13.9 (11.0-16.0) % Plt Count 239 (160-400) X10*3/uL MPV 10.6 (9.4-12.4) fL Immature Gran % (Auto) 0.4 (0.0-0.4) % Neut % (Auto) 60.0 (45-73) % Lymph % (Auto) 27.5 (20-40) % Gem % (Auto) 9.7 (2-11) % Eos % (Auto) 2.0 (0-4) % Baso % (Auto) 0.4 (0-2) % Lymph # (Auto) 2.2 (1.2-4.9) X10*3/uL Gem # (Auto) 0.8 (0.1-1.2) X10*3/uL Eos # (Auto) 0.2 (0.0-0.4) X10*3/uL Baso # (Auto) 0.0 (0.0-0.2) X10*3/uL Abs Immat Gran (auto) 0.03 (0.00-0.03) X10*3/uL Absolute Neuts (auto) 4.8 (2.0-8.3) x10*3/uL Absolute Nucleated RBC 0.000 (0.0-0.012) X10*3/uL Nucleated RBC % (auto) 0.0 (0.0-0.2) /100WBC PT 15.4 H (11.1-13.3) SEC INR 1.3 H (0.9-1.1) Sodium 138 (135-145) mmol/L Potassium 4.9 (3.3-5.1) mmol/L Chloride 106 (96-108) mmol/L Carbon Dioxide 20 L (22-29) mmol/L Anion Gap 17 (12-20) BUN 29 H (9-16) mg/dL Creatinine 1.19 (0.5-1.4) mg/dL Estim Creat Clear Calc 61.7 Estimated GFR 59 Random Glucose 160 H (60-115) mg/dL Calcium 9.5 (8.4-10.2) mg/dL Total Bilirubin 0.3 (0.0-1.0) mg/dL AST 24 (5-37) U/L ALT 8 (0-40) U/L Alkaline Phosphatase 105 (39-117) U/L Troponin I High Sens 16.9 (<3.5-35.0) ng/L Total Protein 7.6 (6.5-8.0) g/dL Albumin 3.8 (3.5-5.0) g/dL Lipase 15 (8-78) U/L Urine Color Yellow Urine Appearance Clear Urine pH 5.5 (5.0-9.0) Ur Specific [place] >= 1.030 H (1.005-1.025) Urine Protein Negative (Neg-Trace) mg/dL Urine Glucose (UA) >=1000 H (Negative) mg/dL Urine Ketones Negative (Negative) mg/dL Urine Blood Negative (Negative) Urine Nitrite Negative (Negative) Ur Leukocyte Esterase Negative (Negative) Urine RBC 0-2 (0-2) /HPF Urine WBC 0-5 (0-5) /HPF Ur Squamous Epith Cells 0-2 (0-2) /HPF Urine Bacteria None Seen (None Seen) Hyaline Casts 0-2 (0-2) /LPF Influenza Type A (PCR) NEGATIVE (Negative) Influenza Type B (PCR) NEGATIVE (Negative) RSV RNA Qual (PCR) NEGATIVE (Negative) SARS-CoV-2 RNA (RT-PCR) NEGATIVE (Negative) Independent Interpretation I performed an independent interpretation of an: EKG and CT Scan Interpretation: Atrial fibrillation with heart rate of 73 beats per minute left anterior fascicular block and bundle-branch block no acute STT wave changes no acute ischemia Radiology Impression Discussion of test interpretation with radiology: I have reviewed the radiologist's reading. Discharge Plan Discharge Clinical Impression: Hypoglycemia, Weakness Patient Disposition: Home, Self-Care Instructions: Hypoglycemia in a Person with Diabetes (ED), Weakness (ED) Additional Instructions: Drink plenty of fluid Do not miss your meals Follow-up with your PCP weakness is likely from transient hypoglycemia Your CT scan and labs are stable Prescriptions: No Action metformin 500 mg Tablet 500 mg PO QPM magnesium oxide 420 mg Tablet 420 mg PO DAILY Lantus U-100 Insulin 100 unit/mL Solution 14 unit SUBCUT QAM simvastatin 20 mg Tablet 20 mg PO BEDTIME omeprazole 20 mg Capsule,Delayed Release(Dr/Ec) 20 mg PO DAILY metoprolol succinate 25 mg Tablet Extended Release 24 Hr 25 mg PO DAILY insulin lispro [Humalog U-100 Insulin] 100 unit/mL Solution 6 unit SUBCUT QPM carbidopa-levodopa 25-100 mg Tablet 1 tab PO TID gabapentin 300 mg Tablet 900 mg PO TID Eliquis 5 mg Tablet 5 mg PO BID enalapril maleate 20 mg Tablet 10 mg PO DAILY Qty: 0 0RF lidocaine [Lidoderm] 5 % adhesive patch,medicated 1 patch topical DAILY MDD remove after 12 hours PRN (Reason: pain) Qty: 30 0RF Rx Instructions: leave on most painful area for up to 12 hrs methenamine hippurate 1 gram tablet 1 g PO DAILY 90 Days Qty: 90 1RF ascorbic acid (vitamin C) 1,000 mg capsule 1 g PO DAILY 90 Days Qty: 90 1RF finasteride 5 mg tablet 5 mg PO DAILY 90 Days Qty: 90 1RF
[2023-07-07 16:46] LABS: MANUAL DIFF FLAG NO
[2023-07-07 16:47] LABS: Basophils Percent Auto 0.4 % (0-2); Eosinophils Absolute Auto 0.2 X10*3/uL (0.0-0.4); Hematocrit 47.1 % (42.0-52.0); Hemoglobin 15.4 g/dl (14.0-18.0); Imm Gran Abs Auto 0.03 X10*3/uL (0.00-0.03); Imm Gran Pct Auto 0.4 % (0.0-0.4); Lymphocytes Absolute Auto 2.2 X10*3/uL (1.2-4.9); Lymphocytes Percent Auto 27.5 % (20-40); Mean Corpuscular HGB Conc 32.7 g/dl (31.0-36.0); Mean Corpuscular Hemoglobin 30.8 pg (27.0-33.0); Mean Corpuscular Volume 94.2 fL (80.0-98.0); Mean Platelet Volume 10.6 fL (9.4-12.4); Monocytes Absolute Auto 0.8 X10*3/uL (0.1-1.2); Monocytes Percent Auto 9.7 % (2-11); Neutrophils Absolute Auto 4.8 x10*3/uL (2.0-8.3); Platelet Count 239 X10*3/uL (160-400); Red Cell Distribution Width 13.9 % (11.0-16.0)
[2023-07-07 16:52] LABS: INTERNATIONAL NORM RATIO 1.3 (0.9-1.1); Prothrombin Time 15.4 SEC (11.1-13.3)
[2023-07-07 17:32] LABS: Troponin-I High Sensitivity 16.9 ng/L (<3.5-35.0)
[2023-07-07 17:41] LABS: Alanine Aminotransferase 8 U/L (0-40); Albumin Level 3.8 g/dL (3.5-5.0); Alkaline Phosphatase 105 U/L (39-117); Anion Gap 17 (12-20); Aspartate Amino Transferase 24 U/L (5-37); Bilirubin Total 0.3 mg/dL (0.0-1.0); Blood Urea Nitrogen 29 mg/dL (9-16); Calcium 9.5 mg/dL (8.4-10.2); Carbon Dioxide 20 mmol/L (22-29); Chloride 106 mmol/L (96-108); Creatinine Clr Calc Pharmacy 61.7; Estimated Glomerular Filt Rate 59; Glucose Random 160 mg/dL (60-115); Lipase 15 U/L (8-78); Potassium 4.9 mmol/L (3.3-5.1); Sodium 138 mmol/L (135-145); Total Protein 7.6 g/dL (6.5-8.0)
[2023-07-07 18:32] VITALS: BP 128/84; PULSE 75; RESP 16; TEMP 37.1; O2SAT 98
[2023-07-07 18:44] LABS: Appearance Urine Clear; Color Urine Yellow; Glucose Urine UA >=1000 mg/dL (Negative); Leukocyte Esterase Urine Negative (Negative); Nitrite Urine Negative (Negative); PH 5.5 (5.0-9.0); Specific Gravity - Urine >= 1.030 (1.005-1.025); UMIC TRIGGER UACC YES; Urine Blood Negative (Negative); Urine Ketones Negative (Negative); Urine Protein Negative (Neg-Trace)
[2023-07-07 18:49] LABS: Bacteria Urine None Seen (None Seen); Hyaline Casts Urine 0-2 /LPF (0-2); RBC Urine 0-2 /HPF (0-2); Squamous Epithelial Cell Urine 0-2 /HPF (0-2); WBC Urine 0-5 /HPF (0-5)
[2023-07-07 19:18] LABS: Influenza A PCR NEGATIVE (Negative); Influenza B PCR NEGATIVE (Negative); Resp Syncy Virus RNA Qual PCR NEGATIVE (Negative); SARS COV2 PCR INHOUSE NEGATIVE (Negative)
--- NOTE | 2023-07-07 20:14 | PC.NURSE ---
Dressing change provided as pt has amputation of left great toe. Stitches in place. Wound is clean, dry, and intact. No drainage or dehiscence noted. Pt took 15-20 feet at the bedside requiring assistance as pts gait is unsteady. Denies feeling dizzy. at bedside report he is almost at his baseline . Reports pt ambulates independently at home. made aware.
[2023-07-07 20:22] VITALS: BP 126/74; PULSE 90; RESP 14; TEMP 36.6; O2SAT 98
[2023-07-07 22:46] LABS: Glucose, Whole Blood 168 mg/dL (60-115)
== END 2023-07-07 20:31 | disposition home or self-care (01) ==
PROVIDERS: Physician Assistant; Emergency Provider Internal Medicine; PCP Physician Assistant
DX: E11.649 Type 2 diabetes mellitus with hypoglycemia without coma (principal); R41.82 Altered mental status, unspecified; I48.91 Unspecified atrial fibrillation; I45.10 Unspecified right bundle-branch block; R94.31 Abnormal electrocardiogram [ECG] [EKG]; E11.9 Type 2 diabetes mellitus without complications; R53.1 Weakness; R26.2 Difficulty in walking, not elsewhere classified; Z79.899 Other long term (current) drug therapy; Z79.01 Long term (current) use of anticoagulants; Z79.4 Long term (current) use of insulin; Z11.52 Encounter for screening for COVID-19; Z20.828 Contact with and (suspected) exposure to other viral communicable diseases
CPT/HCPCS: 0241U; 36415; 70450; 80053; 81001; 82947; 83690; 84484; 85025; 85610; 93005; 99283; 99284; 99285

== ENCOUNTER → 2023-07-07 16:26 | Outpatient (BNV) | payer MEDICARE, SELFPAY | PROVIDERS: Emergency Provider Internal Medicine; PCP Physician Assistant; Visit Provider Internal Medicine Cardiovascular Disease | DX: I45.2 Bifascicular block (principal); I48.91 Unspecified atrial fibrillation; R94.31 Abnormal electrocardiogram [ECG] [EKG] | CPT/HCPCS: 93010 ==

== ENCOUNTER 2023-10-11 11:14 | Outpatient (AMB) | payer MEDICARE, SELFPAY ==
--- NOTE | 2023-10-11 11:18 | A.OFFVIS_ITS ---
Intake Visit Reasons: 6m/PVR Intake Note: Patient is Present for PVR/ Urology Med: Finasteride, Methenamine,Vitamin C Antibiotic Allergy: None Blood Thinner:Eliquis Last PVR: 338ml Todays PVR: 108 Allergies No Known Drug Allergies Allergy (Unknown, Verified 10/11/23 11:19) UNKNOWN grass, weeds, dirt, dust mites Allergy (Unknown, Uncoded 10/11/23 11:19) Unknown HPI Comments Details: Denilson is a pleasant male. He is seen for the following urologic condition - lower urinary tract symptoms - neurogenic bladder diabetic - insulin-dependent CIC 2 times a day for overflow incontinence Bladder stabilization We expect this to continue to be ongoing into the foreseeable future. 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 Persistent high postvoid residual Mild urge incontinence Background of diabetes with Parkinson's - levodopa carbidopa Current medications alpha-brenton - tamsulosin High PVR in range approximately 200 cc PSA - 11/22 1.0 6 month follow-up PVR Erectile dysfunction - secondary to diabetes No longer a priority for treatment PFS Medical History Urge incontinence Male erectile dysfunction, unspecified Peripheral arterial disease GERD (gastroesophageal reflux disease) Parkinson disease Hypertension Toe avulsion Vocal cord anomaly A-fib High cholesterol Diabetes Social History Household Members: Spouse Housing: House Do you presently have visiting nurse or other home services: No Alcohol intake: never Comment: sleeping Patient Tobacco Use Status: Current everyday Tobacco user Years Smoked: 8 Second Hand Smoke Exposure: No Advance Directives Date on File: 02/16/20 service: No Current occupational status: retired Office Procedures Post Void Residual Post Residual Void Post Void Residual (PVR): [id number] Void Residual by ultrasound Assessment & Plan Assessment & Plan (1) Urinary retention: Code(s): R33.9 - Retention of urine, unspecified Category: Medical (2) Urge incontinence: Code(s): N39.41 - Urge incontinence Category: Medical (3) Incomplete emptying of bladder due to benign prostatic hyperplasia: Code(s): N40.1 - Benign prostatic hyperplasia with lower urinary tract symptoms; R33.9 - Retention of urine, unspecified Category: Medical Plan Refill medications Six-month follow-up Orders: Orders AMB Post Void Residual by ultrasound Today R33.9 - Retention of urine, unspecified Medications: Refilled methenamine hippurate 1 g PO DAILY 90 days 90 tabs 1RF finasteride 5 mg PO DAILY 90 days 90 tabs 1RF N13.8 - Other obstructive and reflux uropathy, N40.1 - Benign prostatic hyperplasia with lower urinary tract symptoms, R33.9 - Retention of urine, unspecified ascorbic acid (vitamin C) 1 g PO DAILY 90 days 90 caps 1RF Patient Instructions: Imaging studies, laboratory and physical exam results were discussed and reviewed in detail. No major barriers to patient understanding were identified. An opportunity to ask questions regarding the treatment plan was provided. All questions were answered. The patient expressed understanding and agreement with the above treatment plan. The patient is aware they should contact our office by phone for worsening of their current condition or the appearance of new urologic symptoms. Compliance is encouraged with any medications and followup testing that is ordered. It is a privilege to participate in the urologic care of your patient. If you have any questions or concerns regarding treatment for the above conditions, or other urologic issues, please do not hesitate to contact me. The office telephone contact is [phone]. This note is constructed using voice recognition software. While every effort has been made to ensure accuracy banking paralegal errors may have been included. Yours sincerely, Dr Martin Silva MD, DINO [facility] - Urology Providers of Expert, Compassionate Care for the Genitourinary System Coding Level of Care Code Est Pt Level 3 (66378) Complex EM visit Add On G2211 Diagnoses Urinary retention R33.9 Urge incontinence N39.41 Incomplete emptying of bladder due to benign prostatic hyperplasia N40.1; R33.9 CPT Codes Post Residual Void - PVR CPT Code: 67985-[id number] Void Residual by ultrasound ([id number])
== END 2023-10-11 11:43 | disposition home or self-care (01) ==
LOC: HO.HUSH 11:14
PROVIDERS: PCP Physician Assistant; Visit Provider Urology
DX: R33.9 Retention of urine, unspecified (principal); N39.41 Urge incontinence; N40.1 Benign prostatic hyperplasia with lower urinary tract symptoms
CPT/HCPCS: 99213; G2211

== ENCOUNTER → 2023-10-11 11:14 | Outpatient (BNVA) | payer MEDICARE, SELFPAY | PROVIDERS: PCP Physician Assistant; Visit Provider Urology | DX: N40.1 Benign prostatic hyperplasia with lower urinary tract symptoms (principal); N39.41 Urge incontinence; R33.9 Retention of urine, unspecified | CPT/HCPCS: 51798; 99212 ==

== ENCOUNTER 2023-12-14 10:40 | Emergency (ER) | payer MEDICARE, SELFPAY ==
--- NOTE | ~2023-12-14 | XR_ITS ---
EXAMINATION: XR CHEST CLINICAL INFORMATION: Weakness COMPARISON: 11/30/2021 TECHNIQUE: Frontal view of the chest was obtained. FINDINGS: Lungs are clear. No consolidation, pneumothorax, or pleural effusion. Cardiac and mediastinal contours are normal. Degenerative spondylosis is present in the thoracic spine. 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 XR/XR chest 1V IMPRESSION: No acute pulmonary disease.
--- NOTE | ~2023-12-14 | CT_ITS ---
EXAMINATION: CT HEAD WITHOUT CONTRAST CLINICAL INFORMATION: Change in mental status. COMPARISON: 07/07/2023 TECHNIQUE: Multidetector volumetric imaging of the head was performed without intravenous contrast material. This CT examination was performed using dose optimization techniques as appropriate, variously including the following: *Automated exposure control *Adjustment of mA and/or kV according to patient size (this includes techniques or standardized protocols for targeted exams where dose is matched to indication/reason for exam; i.e. extremities or head) *Use of iterative reconstruction technique Dose: 834 mGy-cm FINDINGS: There is no evidence of acute intracranial hemorrhage or territorial infarction. No abnormal mass-effect or midline shift is seen. Garcia to white matter differentiation is well preserved. No extra axial fluid collections. There is commensurate enlargement of the ventricles and extraaxial CSF spaces consistent with mild volume loss. Moderate enlargement of the ventricles, sulci, and extra-axial CSF spaces is indicative of parenchymal volume loss. Chronic lacunar infarction left basal ganglia. Calcific atherosclerosis is present within the cavernous segments of the internal carotid arteries. The soft tissues and osseous structures are normal. The sinuses and mastoid air cells are clear. CT/CT head/brain wo IV con IMPRESSION: No acute intracranial pathology. Cerebral volume loss and chronic microangiopathy and multiple left basal ganglia lacunar infarcts, unchanged.
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
[2023-12-14 10:49] VITALS: BP 113/70; PULSE 60; O2SAT 98
--- NOTE | 2023-12-14 10:53 | ECG_ITS ---
Test Reason : weakness Blood Pressure : / mmHG Vent. Rate : 077 BPM Atrial Rate : 000 BPM P-R Int : 000 ms QRS Dur : 156 ms QT Int : 408 ms P-R-T Axes : 000 189 -46 degrees QTc Int : 461 ms Atrial fibrillation Right bundle branch block T wave abnormality, consider lateral ischemia Abnormal ECG When compared with ECG of 07-JUL-2023 16:58, Questionable change in QRS axis Inverted T waves have replaced nonspecific T wave abnormality in Lateral leads Referred By: Allie Douglas Electronically Signed By:ADRI STARK MD
[2023-12-14 10:57] VITALS: BP 131/65; PULSE 94; RESP 18; TEMP 36.5; O2SAT 95; BMI 22.9
[2023-12-14 11:12] LABS: MANUAL DIFF FLAG NO
[2023-12-14 11:13] LABS: Basophils Percent Auto 0.5 % (0-2); Eosinophils Absolute Auto 0.1 X10*3/uL (0.0-0.4); Eosinophils Percent Auto 1.4 % (0-4); Hematocrit 47.8 % (42.0-52.0); Hemoglobin 16.7 g/dl (14.0-18.0); Imm Gran Abs Auto 0.02 X10*3/uL (0.00-0.03); Imm Gran Pct Auto 0.3 % (0.0-0.4); Lymphocytes Absolute Auto 1.7 X10*3/uL (1.2-4.9); Lymphocytes Percent Auto 22.2 % (20-40); Mean Corpuscular HGB Conc 34.9 g/dl (31.0-36.0); Mean Corpuscular Volume 94.5 fL (80.0-98.0); Mean Platelet Volume 9.9 fL (9.4-12.4); Monocytes Absolute Auto 0.6 X10*3/uL (0.1-1.2); Monocytes Percent Auto 7.2 % (2-11); Neutrophils Absolute Auto 5.4 x10*3/uL (2.0-8.3); Neutrophils Percent Auto 68.4 % (45-73); Platelet Count 238 X10*3/uL (160-400); Red Blood Count 5.06 X10*6/uL (4.60-5.80); Red Cell Distribution Width 13.9 % (11.0-16.0); White Blood Count 7.8 X10*3/uL (4.8-10.8)
[2023-12-14 11:15] LABS: Venous Blood Gas Refer to POC result
[2023-12-14 11:15] LABS: VBG Base Excess 0.2 mmol/L; VBG HCO3 26 mmol/L (22-26); VBG pCO2 45 mmHg; VBG pH 7.36 (7.32-7.43); VBG pO2 39 mmHg
[2023-12-14 11:17] LABS: Glucose, Whole Blood 210 mg/dL (60-115)
[2023-12-14 11:30] LABS: Alanine Aminotransferase < 5 U/L (0-40); Albumin Level 4.1 g/dL (3.5-5.0); Alkaline Phosphatase 85 U/L (39-117); Anion Gap 13 (12-20); Aspartate Amino Transferase 14 U/L (5-37); Bilirubin Direct 0.2 mg/dL (0.0-0.5); Bilirubin Total 0.5 mg/dL (0.0-1.0); Blood Urea Nitrogen 18 mg/dL (9-16); C Reactive Protein 0.23 mg/dL (< or = 0.50); Calcium 9.4 mg/dL (8.4-10.2); Carbon Dioxide 25 mmol/L (22-29); Chloride 105 mmol/L (96-108); Creatinine Clr Calc Pharmacy 80.7; Estimated Glomerular Filt Rate > 60; Glucose Random 202 mg/dL (60-115); Lipase 18 U/L (8-78); Potassium 4.1 mmol/L (3.3-5.1); Sodium 139 mmol/L (135-145); Total Protein 7.1 g/dL (6.5-8.0)
[2023-12-14 11:36] LABS: Troponin-I High Sensitivity 25.6 ng/L (<3.5-35.0)
[2023-12-14 11:48] LABS: TSH reflex Free T4 1.21 uIU/mL (0.32-4.0)
[2023-12-14 11:50] LABS: Influenza A PCR NEGATIVE (Negative); Influenza B PCR NEGATIVE (Negative); Resp Syncy Virus RNA Qual PCR NEGATIVE (Negative); SARS COV2 PCR INHOUSE NEGATIVE (Negative)
[2023-12-14 13:54] LABS: Troponin-I High Sensitivity 27.8 ng/L (<3.5-35.0)
[2023-12-14 14:02] LABS: Appearance Urine Clear; Color Urine Yellow; Glucose Urine UA >=1000 mg/dL (Negative); Leukocyte Esterase Urine Negative (Negative); Nitrite Urine Negative (Negative); Specific Gravity - Urine >= 1.030 (1.005-1.025); UMIC TRIGGER UACC YES; Urine Blood Negative (Negative); Urine Ketones Trace mg/dL (Negative); Urine Protein Negative (Neg-Trace)
[2023-12-14 14:07] LABS: Bacteria Urine None Seen (None Seen); Hyaline Casts Urine 0-2 /LPF (0-2); RBC Urine 0-2 /HPF (0-2); Squamous Epithelial Cell Urine 0-2 /HPF (0-2); WBC Urine 0-5 /HPF (0-5)
[2023-12-14 14:57] VITALS: BP 108/65; PULSE 90; RESP 18; TEMP 36.6; O2SAT 98
== END 2023-12-14 14:57 | disposition home or self-care (01) ==
PROVIDERS: Emergency Provider Emergency Medicine; PCP Physician Assistant
DX: Z04.1 Encounter for examination and observation following transport accident (principal); R41.0 Disorientation, unspecified; Z03.818 Encounter for observation for suspected exposure to other biological agents ruled out; E11.9 Type 2 diabetes mellitus without complications; I10 Essential (primary) hypertension; E78.5 Hyperlipidemia, unspecified; G20.A1 Parkinson's disease without dyskinesia, without mention of fluctuations; I48.91 Unspecified atrial fibrillation; F17.210 Nicotine dependence, cigarettes, uncomplicated; Z79.01 Long term (current) use of anticoagulants; Z79.4 Long term (current) use of insulin; Z79.84 Long term (current) use of oral hypoglycemic drugs; Z79.02 Long term (current) use of antithrombotics/antiplatelets; Z79.899 Other long term (current) drug therapy
CPT/HCPCS: 0241U; 36415; 70450; 71045; 80048; 80076; 81001; 81003; 82803; 82947; 83690; 83735; 84443; 84484; 85025; 86140; 93005; 99284

== ENCOUNTER → 2023-12-14 10:53 | Outpatient (BNV) | payer MEDICARE, SELFPAY | PROVIDERS: Emergency Provider Emergency Medicine; PCP Physician Assistant; Visit Provider Internal Medicine Cardiovascular Disease | DX: R53.1 Weakness (principal); I48.91 Unspecified atrial fibrillation; I45.10 Unspecified right bundle-branch block; R94.31 Abnormal electrocardiogram [ECG] [EKG] | CPT/HCPCS: 93010 ==

== ENCOUNTER 2024-04-14 08:33 | Outpatient (AMB) | payer MEDICARE, SELFPAY ==
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
== END 2024-04-14 09:12 | disposition home or self-care (01) ==
PROVIDERS: PCP Physician Assistant; Visit Provider Urology
DX: N40.1 Benign prostatic hyperplasia with lower urinary tract symptoms (principal); R33.9 Retention of urine, unspecified
CPT/HCPCS: 99213

== ENCOUNTER → 2024-04-14 08:33 | Outpatient (BNVA) | payer MEDICARE, SELFPAY | PROVIDERS: PCP Physician Assistant; Visit Provider Urology | DX: N40.1 Benign prostatic hyperplasia with lower urinary tract symptoms (principal); R33.9 Retention of urine, unspecified | CPT/HCPCS: 51798; 99212 ==

== ENCOUNTER 2024-06-29 11:26 | Day surgery (SDC) | payer OTHER, SELFPAY ==
[2024-06-01 09:53] VITALS: BP 140/62; PULSE 73; RESP 18; O2SAT 100; BMI 21.6
--- NOTE | 2024-06-01 10:16 | P.CONAN_ITS ---
Documented by User: Cindi Garvey NP 06/12/24 14:39 HPI - Anesthesia Eval Consult details Narrative: 79yo M for Upper Endoscopy, 06/29/2024 No recent illness No CP/SOB with minimal activity Vocal cord polyps s/p multiple excision - last ENT eval ~ 5 years ago [facility] cardiology - clearance pending SAVANNA - occasional CPAP use PMFSH Active Problems Active Problems: All Active Problems Urinary retention (Acute) Strain of right gastrocnemius muscle (Acute) Diabetic neuropathy with neurologic complication (Acute) Incomplete emptying of bladder due to benign prostatic hyperplasia (Acute) Diabetes mellitus with foot ulcer (Acute) Urge incontinence (Acute) Male erectile dysfunction, unspecified (Acute) A-fib (Acute) Peripheral arterial disease (Acute) Past Medical History Medical History (Updated 06/01/24 @ 09:36 by Lorrie Downs RN) Skin cancer History of headache History of femoral angiogram Myocardial infarction Vocal cord polyps Hyperlipidemia Tremor Hiatal hernia Diverticulosis Colonic polyp Cataract cortical, senile TIA (transient ischemic attack) Thyroid nodule Lumbar radiculopathy PVD (peripheral vascular disease) On anticoagulant therapy Multinodular non-toxic goiter Moderate protein-calorie malnutrition Peripheral neuropathy Chronic kidney disease (CKD) stage G2/A1, mildly decreased glomerular filtration rate (GFR) between 60-89 mL/min/1.73 square meter and albuminuria creatinine ratio less than 30 mg/g Vascular dementia Exposure to potentially hazardous substance Chronic interstitial cystitis Sleep apnea Urge incontinence Male erectile dysfunction, unspecified Peripheral arterial disease GERD (gastroesophageal reflux disease) Parkinson disease Hypertension Toe avulsion Vocal cord anomaly A-fib High cholesterol Diabetes Family History Family history of problems with anesthesia: No Surgical History Surgical History (Updated 06/01/24 @ 09:39 by Lorrie Downs RN) Hx of exploratory laparotomy S/P thyroid biopsy Hx of cardiac catheterization History of amputation of great toe of both feet History of intravascular stent placement Hx of bilateral cataract extraction History of esophagogastroduodenoscopy (EGD) H/O colonoscopy History of Problems with Anesthesia: No Social History Social History Household Members: Spouse Housing: House Are you a primary healthcare network pricing consultant to a significant other at home: No Do you presently have visiting nurse or other home services: No Alcohol intake: never Comment: sleeping Patient Tobacco Use Status: Current everyday Tobacco user Tobacco use type: Cigar Years Smoked: 8 Second Hand Smoke Exposure: No Use of substances other than those prescribed or required for medical reasons: No Have you been hit, kicked, punched, or otherwise hurt by someone within the past year? If so, by whom?: No Are you DNR?: No Advance Directives: No Advance Directives Information Provided: Yes Advance Directives on File: No Advance Directives Date on File: 02/16/20 How much weight loss: 14-23 pounds Nutrition Risks: Anorexia Poor oral hygiene: Yes (upper partial denture) service: No Current occupational status: retired [employer] Allergies Allergy/AdvReac Type Severity Reaction Status Date / Time No Known Drug Allergies Allergy Unknown UNKNOWN Verified 06/29/24 13:12 grass, weeds, dirt, dust Allergy Unknown Unknown Uncoded 06/29/24 13:12 mites Home Medications ?Medication ?Instructions ?Recorded ?Confirmed ?Last Taken ?Type apixaban 5 mg tablet (Eliquis) 5 mg PO BID 02/16/20 06/01/24 06/26/24 History carbidopa 25 mg-levodopa 100 mg 1 tab PO TID 02/16/20 06/01/24 06/29/24 History tablet insulin glargine 100 unit/mL 4 unit subcut QPM 02/16/20 06/01/24 02/16/20 History subcutaneous solution (Lantus U-100 Insulin) insulin lispro 100 unit/mL 02/16/20 06/01/24 02/15/20 History subcutaneous solution (Humalog U-100 Insulin) magnesium oxide 420 mg tablet 420 mg PO DAILY 02/16/20 06/01/24 02/16/20 History metformin 500 mg tablet 500 mg PO BID 02/16/20 06/01/24 02/15/20 History metoprolol succinate 25 mg 25 mg PO DAILY 02/16/20 06/01/24 06/29/24 History tablet,extended release 24 hr aspirin 81 mg tablet,delayed 81 mg PO DAILY 06/01/24 06/01/24 Unknown History release clotrimazole 1 % topical cream 1 appl topical BID PRN Skin 06/01/24 06/01/24 Unknown History Irritation coenzyme Q10 300 mg capsule (Co 300 mg PO DAILY 06/01/24 06/01/24 Unknown History Q-10) docusate sodium 100 mg capsule 100 mg PO DAILY 06/01/24 06/01/24 Unknown History empagliflozin 25 mg tablet 25 mg PO DAILY 06/01/24 06/01/24 06/26/24 History memantine 5 mg tablet 10 mg PO DAILY 06/01/24 06/01/24 Unknown History thiamine HCl (vitamin B1) 100 mg 200 mg PO DAILY 06/01/24 06/01/24 Unknown History tablet Exam Height,Weight and Vital Signs: Height 6 ft 3 in Weight 78.471 kg Last Vital Signs Pulse 73 06/01/24 09:53 Resp 18 06/01/24 09:53 BP 140/62 H 06/01/24 09:53 Pulse Ox 100 06/01/24 09:53 O2 Del Method Room Air 06/01/24 09:53 Airway Mallampati Class: II TM Dist: >3cm Neck ROM: Full Partial: Upper Heart: RRR Lungs: CTAB Assessment and Plan Assessment Anesthesia Assessment: Anesthesia Plan Discussed and PAT Visit Final Anesthetic Review Family History of Problems with Anesthesia: No History of Problems with Anesthesia: No Documented by User: Aarti Varma MD 06/29/24 14:37 [facility] Past Medical History Medical History (Updated 06/01/24 @ 09:36 by Lorrie Downs RN) Skin cancer History of headache History of femoral angiogram Myocardial infarction Vocal cord polyps Hyperlipidemia Tremor Hiatal hernia Diverticulosis Colonic polyp Cataract cortical, senile TIA (transient ischemic attack) Thyroid nodule Lumbar radiculopathy PVD (peripheral vascular disease) On anticoagulant therapy Multinodular non-toxic goiter Moderate protein-calorie malnutrition Peripheral neuropathy Chronic kidney disease (CKD) stage G2/A1, mildly decreased glomerular filtration rate (GFR) between 60-89 mL/min/1.73 square meter and albuminuria creatinine ratio less than 30 mg/g Vascular dementia Exposure to potentially hazardous substance Chronic interstitial cystitis Sleep apnea Urge incontinence Male erectile dysfunction, unspecified Peripheral arterial disease GERD (gastroesophageal reflux disease) Parkinson disease Hypertension Toe avulsion Vocal cord anomaly A-fib High cholesterol Diabetes Surgical History Surgical History (Updated 06/01/24 @ 09:39 by Lorrie Downs RN) Hx of exploratory laparotomy S/P thyroid biopsy Hx of cardiac catheterization History of amputation of great toe of both feet History of intravascular stent placement Hx of bilateral cataract extraction History of esophagogastroduodenoscopy (EGD) H/O colonoscopy Social History Social History Household Members: Spouse Housing: House Are you a primary healthcare network pricing consultant to a significant other at home: No Do you presently have visiting nurse or other home services: No Alcohol intake: never Comment: sleeping Patient Tobacco Use Status: Current everyday Tobacco user Tobacco use type: Cigar Years Smoked: 8 Second Hand Smoke Exposure: No Use of substances other than those prescribed or required for medical reasons: No Have you been hit, kicked, punched, or otherwise hurt by someone within the past year? If so, by whom?: No Are you DNR?: No Advance Directives: No Advance Directives Information Provided: Yes Advance Directives on File: No Advance Directives Date on File: 02/16/20 How much weight loss: 14-23 pounds Nutrition Risks: Anorexia Poor oral hygiene: Yes (upper partial denture) service: No Current occupational status: retired Meds Allergies Allergy/AdvReac Type Severity Reaction Status Date / Time No Known Drug Allergies Allergy Unknown UNKNOWN Verified 06/29/24 13:12 grass, weeds, dirt, dust Allergy Unknown Unknown Uncoded 06/29/24 13:12 mites Home Medications ?Medication ?Instructions ?Recorded ?Confirmed ?Last Taken ?Type apixaban 5 mg tablet (Eliquis) 5 mg PO BID 02/16/20 06/01/24 06/26/24 History carbidopa 25 mg-levodopa 100 mg 1 tab PO TID 02/16/20 06/01/24 06/29/24 History tablet insulin glargine 100 unit/mL 4 unit subcut QPM 02/16/20 06/01/24 02/16/20 History subcutaneous solution (Lantus U-100 Insulin) insulin lispro 100 unit/mL 02/16/20 06/01/24 02/15/20 History subcutaneous solution (Humalog U-100 Insulin) magnesium oxide 420 mg tablet 420 mg PO DAILY 02/16/20 06/01/24 02/16/20 History metformin 500 mg tablet 500 mg PO BID 02/16/20 06/01/24 02/15/20 History metoprolol succinate 25 mg 25 mg PO DAILY 02/16/20 06/01/24 06/29/24 History tablet,extended release 24 hr aspirin 81 mg tablet,delayed 81 mg PO DAILY 06/01/24 06/01/24 Unknown History release clotrimazole 1 % topical cream 1 appl topical BID PRN Skin 06/01/24 06/01/24 Unknown History Irritation coenzyme Q10 300 mg capsule (Co 300 mg PO DAILY 06/01/24 06/01/24 Unknown History Q-10) docusate sodium 100 mg capsule 100 mg PO DAILY 06/01/24 06/01/24 Unknown History empagliflozin 25 mg tablet 25 mg PO DAILY 06/01/24 06/01/24 06/26/24 History memantine 5 mg tablet 10 mg PO DAILY 06/01/24 06/01/24 Unknown History thiamine HCl (vitamin B1) 100 mg 200 mg PO DAILY 06/01/24 06/01/24 Unknown History tablet Assessment and Plan Final Anesthetic Review NPO: Yes ASA Class: III Final Preanesthetic Review: No Changes in Pt Med Stat, Meds/Allgs Chart Reviewed and Consent Obtained/Reviewed Patient Risk: Intermediate Procedure Risk: Intermediate Anesthetic Plan Anesthetic Plan: MAC: Disposition: Standard PACU
[2024-06-29 13:14] VITALS: BP 127/61; PULSE 54; RESP 16; TEMP 36.4; O2SAT 98
[2024-06-29] MEDS: Lactated Ringers 1,000 ML 100 ML IVCONT (13:26)
[2024-06-29 13:30] LABS: Glucose, Whole Blood 137 mg/dL (60-115)
[2024-06-29 15:05] VITALS: BP 115/56; PULSE 66; RESP 16; TEMP 36.4; O2SAT 99
[2024-06-29 15:20] VITALS: BP 110/71; PULSE 65; RESP 16; O2SAT 98
--- NOTE | 2024-06-29 15:21 | PM.OP ---
Brief Operative Note Date of Service: 06/29/24 Pre-op diagnosis: Anorexia, early satiety Post-op diagnosis: other (Erosive gastritis, GERD) Procedure: EGD with biopsies Surgeon: Víctor Sims MD Anesthesia: MAC Was an Director Operations used for this Procedure?: No Estimated blood loss (mL): 2.0 Pathology: other (A. Gastric antrum B. EG Junction at 42cm) Condition: stable Disposition: PACU
[2024-06-29 15:35] VITALS: BP 113/67; PULSE 65; RESP 16; O2SAT 95
[2024-06-29 15:47] VITALS: BP 128/76; PULSE 65; RESP 16; TEMP 36.5; O2SAT 97
--- NOTE | 2024-06-30 01:36 | OP_ITS ---
DATE OF SERVICE: 06/29/2024 SURGEON: Víctor Sims MD INDICATIONS: The patient presents for evaluation of early satiety, anorexia, and some weight loss. Full consent was obtained from the patient's for this, including risks of bleeding and perforation. PREOPERATIVE DIAGNOSIS: POSTOPERATIVE DIAGNOSIS: PROCEDURE PERFORMED: Esophagogastroduodenoscopy with biopsies. ESTIMATED BLOOD LOSS: COMPLICATIONS: ANESTHESIA: Monitored anesthesia care. ASSISTANTS: SPECIMENS: PREOPERATIVE DIAGNOSES: Anorexia, early satiety, and weight loss. POSTOPERATIVE DIAGNOSES: Anorexia, early satiety, weight loss, reflux esophagitis, rule out Gale esophagus, small hiatal hernia, erosive gastritis. DESCRIPTION OF PROCEDURE: Patient was placed in the left lateral decubitus position. The Olympus video gastroscope was passed in the posterior oropharynx and upper esophagus under direct vision. The scope was passed slowly to the distal esophagus. The gastroesophageal junction appeared at 42 cm. Extending from this were short, less than 1 cm areas of possible Gale's mucosa. There was also some friability, edema, and some nodularity right at the EG junction. There was no stricture and the scope easily entered the stomach. There was a small hiatal hernia. The scope was advanced to the pylorus and the duodenum was cannulated to the descending portion. The duodenum including the bulb appeared normal without mass or ulceration. The scope was withdrawn back in the stomach. The gastric antrum and body had some small, less than 10 mm erosions with surrounding edema. There was erythema, edema, and some friability in the gastric mucosa. There was good peristalsis. There was no ulceration nor mass. The scope was retroflexed, visualizing the proximal stomach carefully, which appeared normal, without any sign of mass or ulceration. The scope was straightened. Biopsies were obtained from the gastric antrum. Scope was withdrawn back in the esophagus. Multiple biopsies were obtained at the EG junction at 42 cm. Again, there was some nodularity right at the EG junction. Proximal to 42 cm, the esophageal mucosa appeared normal. The scope was withdrawn from the patient. He tolerated the procedure well and was returned to the recovery area in stable condition. IMPRESSION: 1. Gastroesophageal reflux, rule out Gale's esophagus. 2. Hiatal hernia. 3. Erosive gastritis, rule out Helicobacter pylori. PLAN: Results of the biopsies will be checked. At this point, he does not appear to be on any medication for acid suppression and I shall send a prescription to start omeprazole 40 mg daily. If H pylori is present in the gastric biopsies, we would want to consider treating that as well. Assuming there is no malignancy at the EG junction, I would then observe him on the omeprazole 40 mg and see if that helps to improve his appetite. He was advised to resume his Eliquis on July 01. He was advised to resume his aspirin tomorrow. He was advised to resume his usual diabetes regimen today. He will be seen in followup. This has been discussed with his . MD JO Bryson/VAISHNAVI / [id number] MTDD
== END 2024-06-29 16:20 | disposition home or self-care (01) ==
PROVIDERS: PCP Physician Assistant; Visit Provider Internal Medicine
PROC: 0DJ08ZZ Inspection of Upper Intestinal Tract, Via Natural or Artificial Opening Endoscopic (ICD-10-PCS; CPT 43235; principal; 2024-06-29 13:20)
DX: R68.81 Early satiety (principal); R63.0 Anorexia; R63.4 Abnormal weight loss; Z68.22 Body mass index [BMI] 22.0-22.9, adult; K29.50 Unspecified chronic gastritis without bleeding; K20.80 Other esophagitis without bleeding; K44.9 Diaphragmatic hernia without obstruction or gangrene; K21.9 Gastro-esophageal reflux disease without esophagitis; G30.9 Alzheimer's disease, unspecified; F02.80 Dementia in other diseases classified elsewhere, unspecified severity, without behavioral disturbance, psychotic disturbance, mood disturbance, and anxiety; G20.A1 Parkinson's disease without dyskinesia, without mention of fluctuations; I10 Essential (primary) hypertension; E78.5 Hyperlipidemia, unspecified; E11.9 Type 2 diabetes mellitus without complications; I73.9 Peripheral vascular disease, unspecified; I48.91 Unspecified atrial fibrillation; I25.2 Old myocardial infarction; Z86.73 Personal history of transient ischemic attack (TIA), and cerebral infarction without residual deficits; Z79.01 Long term (current) use of anticoagulants; Z79.82 Long term (current) use of aspirin; Z79.4 Long term (current) use of insulin; Z79.84 Long term (current) use of oral hypoglycemic drugs; Z79.899 Other long term (current) drug therapy; F17.290 Nicotine dependence, other tobacco product, uncomplicated; Z98.890 Other specified postprocedural states
CPT/HCPCS: 43239; 82947; 88305; 88313; 88342; J2003; J2704

== ENCOUNTER 2024-10-14 08:30 | Outpatient (AMB) | payer MEDICARE, SELFPAY ==
--- OUTSIDE RECORDS SUMMARY | 2024-10-14 08:43 | XMS_ITS | Patient Health Record ---
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 Name Role Phone Calvin Ireland Primary Care Provider Un available Víctor Sims Unavailable [phone] Allergies No Known Allergies Results Component Value Reference Range Notes Glucose, Whole Blood Reviewed date:06/29/2024 05:19:11 PM Interpretation: Performing Lab:[facility], [address] [place] [phone] Notes/Report: Glucose, Whole Blood 137 60-115 mg/dL METER # : [id number] Pathology (Not yet reviewed by provider) Interpretation: Performing Lab:[facility], [address] [place] [phone] Notes/Report: ----- Name: Denilson Laguna Age/Sex: 79/M : 1945 Unit#: [id number] Attend Dr: Víctor Sims MD Re06/29/24 Status : [facility] Location: [facility] Disch: ----- SPEC : [id number] RECD: 06/29/24 STATUS: RICHARD MEYER NUM: [id number] TRIP: 06/29/24-[address] [facility] [address]: Víctor Sims MD ENTERED: 06/29/24- SP TYPE: Surgical OTHR DR: Calvin Keen ORDERED: HE Stain/6, Gross Micro L4/2, IHC, Special st. 2/2, H. pylori, AB/PAS/2 Diagnosis A. Stomach, antrum, biopsy: Antral-type mucosa with mild chronic inactive inflammation; no Helicobacter orga nisms seen. B. EG junction, 42 c m, biopsy: - Cardiac-type mucos a with moderate chronic active/erosive inflammation; no intestinal metaplasia seen. - Active erosive esophagitis. Clinical History Pre-Op Dx: Abnormal weight loss, early satiety Post-Op Dx: Gastriti s, esophagitis Microscopic Description A, B. Microscopic sections examined. No metaplastic changes are seen, supported by AB/PAS stains (A and B); no Helicobacter organisms are seen, supported by H. pylori immunostain (A). Material Received A. Gastric antrum bx's B. EG junction bx's at 42 Gross Description Received in two parts. Part A: Received in formalin labeled ?gastric antrum bx's? are 3 carbone-pink irregular and rectangular tissue fragments ranging from 0.25-0.45 cm, submitted in toto in a cassette labeled A. Part B: Received in formalin labeled ?EG junction bx's at 42? are 5 carbone-pink irregular tissue fragments ran ging 0.25-0.3 cm, submitted in toto in a cassette labeled B. CEDS Special studies orde red and performed: Immunostain for H. pylori on A; AB/PAS stains on A and B CONTINUED ON NEXT PAGE ----- Name: Denilson Laguna Age/Sex: 79/M : 1945 Unit#: [id number] Attend Dr: Víctor Sims MD Re06/29/24 Status : [facility] Location: [facility] Disch: ----- SPEC : [id number] RECD: 06/29/24-1514 STATUS: RICHARD MEYER NUM: [id number] TRIP: 06/29/24-[address] [facility] [address]: Víctor Sims MD ENTERED: 06/29/24 SP TYPE: Surgical OTHR DR: Calvin Keen ORDERED: HE Stain/6, Gross Micro L4/2, IHC, Special st. 2/2, H. pylori, AB/PAS/2 Copies To: Calvin Keen [address] [place] [phone] Víctor Sims MD [address] [place] [address] ----- Signed (signature on file) Wale Valera MD 07/01/24 3249 ----- END OF REPORT Reason For Referral Referring Provider First Name Calvin Referring Provider Last Name Hiam Referring Provider Speciality Internal M edicine Referred Organization [facility] Referred Provider Víctor Sims Referred Address [address] [place] [address],[place] [address],[place], [place],[address], Referred Provider Specialty Gastroentero logy Referral Priority Routine Medications Medication SIG (Take, Route, Frequency, Duration) Notes Start Date End Date Status Omeprazole 40 MG Oral Capsule Delayed Release 07/02/2024 Acti ve Magnesium Active Carbidopa-Levodopa A ctive Memantine HCl 5 MG TAKE 1 TABLET BY CHLOE TH EVERY DAY Oral for 30 Active metFORMIN HCl ER Act manjinder Finasteride 5 MG TAKE 1 TABLET BY CHLOE TH EVERY DAY Oral for 90 Active Insulin Glargine Act manjinder Vitamin C 1000 MG TAKE 1 TABLET BY CHLOE TH EVERY DAY X 90 DAYS Oral for 90 Active Omeprazole 40 MG 1 capsule 1/2 to 1 h our before morning meal Orally Once a day for 90 days 07/12/2024 Active Lantus Active HumaLOG Active Co Q 10 Active Aspirin 81 Active Metoprolol Tartrate Active Vitamin B1 Active Jardiance Active Eliquis Active Problems Problem Type SNOMED Code ICD Code Onset Dates Problem Status W/U Status Risk Notes Problem Anorexia (37462576) Anorexia (R63.0) Active confirmed Problem Early satiety (349055987) Early satiety (R68.81) Active confirmed Problem Erosive esophagitis (73482491) Erosive esophagitis (K22.10) Active confirmed Problem Loss of weight (R63.4) Active confirmed Vital Signs Blood pressure diastolic 00 mm Hg 05/12/2024 Height 73 in 05/12/2024 Blood pressure systolic 00 mm Hg 05/12/2024 Weight 171 lbs 05/12/2024 BMI 22.56 kg/m2 05/12/2024 Encounters Encounter Location Date Provider Diagnosis [facility] Outpatient [address], [place] [phone] 06/29/2024 Víctor Sims Gastro-esophageal reflux disease with esophagitis, without bleeding K21.00 and Hiatal hernia K44.9 [facility] [address] [place] [phone] 05/12/2024 Víctor Sims Early satiety R68.81 ; Loss of weight R63.4 and Anorexia R63.0 [facility] [address] [place] [phone] 05/19/2024 Víctor Sims [facility] [address] [place] [phone] 05/29/2024 Víctor Sims [facility] [address] [place] [phone] 07/02/2024 Víctor Sims Erosive esophagitis K22.10 Assessments Encounter Date Diagnosis (ICD Code) Assessment Notes Treatment Notes Treatment Clinical Notes Section Notes 06/29/2024 Hiatal hernia (ICD-10 - K44.9) 06/29/2024 Gastro-esophage al reflux disease with esophagitis, without bleeding (ICD-10 - K21.00) 05/12/2024 Early satiety (ICD-10 - R68.81) Do not take Jardiance for three days before the endoscopy Do not take Metformin or Aspirin on the morning of the endoscopy Do not take Eliquis for three days before the endoscopy Take only 1/2 the usual Insulin on the morning of the endoscopy Try to get a clearance note from Dr. Carrington Given Danny's clinical history of his upper GI symptoms or early satiety and anorexia with some associated weight loss, I did recommend an upper endoscopy for evaluation to rule out any significant pathology such as peptic ulcer disease or upper GI neoplasm. I did review with Danny and his that his upper GI complaints may also be related to the underlying Parkinson's and Alzheimer's disease, but nonetheless it would be important to exclude any other significant pathology as that would obviously alter his treatment and possibly his prognosis. Full consent was obtained from him and his for the upper endoscopy, including risks of bleeding and perforation. The procedure will be done with monitored anesthesia care. He was given the below instructions regarding adjustment of his medications for the procedure. We did review that while he may theoretically be due for a screening colonoscopy based on his last exam being over 10 years ago, I advised him and his that I do not think he would be a good candidate for a screening colonoscopy given his underlying significant comorbidities, including the reported Alzheimer's disease. Danny and his were both very comfortable with this plan. Thank you again for allowing me to participate in Danny's care. I shall continue to keep you advised of his progress. 05/12/2024 Loss of weight (ICD-10 - R63.4) Given Danny's clinical history of his upper GI symptoms or early satiety and anorexia with some associated weight loss, I did recommend an upper endoscopy for evaluation to rule out any significant pathology such as peptic ulcer disease or upper GI neoplasm. I did review with Danny and his that his upper GI complaints may also be related to the underlying Parkinson's and Alzheimer's disease, but nonetheless it would be important to exclude any other significant pathology as that would obviously alter his treatment and possibly his prognosis. Full consent was obtained from him and his for the upper endoscopy, including risks of bleeding and perforation. The procedure will be done with monitored anesthesia care. He was given the below instructions regarding adjustment of his medications for the procedure. We did review that while he may theoretically be due for a screening colonoscopy based on his last exam being over 10 years ago, I advised him and his that I do not think he would be a good candidate for a screening colonoscopy given his underlying significant comorbidities, including the reported Alzheimer's disease. Danny and his were both very comfortable with this plan. Thank you again for allowing me to participate in Danny's care. I shall continue to keep you advised of his progress. 07/02/2024 Erosive esophagitis (ICD-10 - K22.10) 05/12/2024 Anorexia (ICD-10 - R63.0) Given Danny's clinical history of his upper GI symptoms or early satiety and anorexia with some associated weight loss, I did recommend an upper endoscopy for evaluation to rule out any significant pathology such as peptic ulcer disease or upper GI neoplasm. I did review with Danny and his that his upper GI complaints may also be related to the underlying Parkinson's and Alzheimer's disease, but nonetheless it would be important to exclude any other significant pathology as that would obviously alter his treatment and possibly his prognosis. Full consent was obtained from him and his for the upper endoscopy, including risks of bleeding and perforation. The procedure will be done with monitored anesthesia care. He was given the below instructions regarding adjustment of his medications for the procedure. We did review that while he may theoretically be due for a screening colonoscopy based on his last exam being over 10 years ago, I advised him and his that I do not think he would be a good candidate for a screening colonoscopy given his underlying significant comorbidities, including the reported Alzheimer's disease. Danny and his were both very comfortable with this plan. Thank you again for allowing me to participate in Danny's care. I shall continue to keep you advised of his progress. Plan Of Treatment Pending Test Test Name Order Date Pathology 06/29/2024 Future Test Test Name Order Date COLONOSCOPY 12/15/2013 UPPER GI ENDOSCOPY 05/12/2024 Next Appt Details Provider Name:Víctor Sims , 11/17/2024 10:50:00 AM, [address] [place] [address], [address], [place], [address], Insurance Providers Payer Name Payer Address Payer Phone Subscriber Number Group Number Insured Name Patient Relationship to Insured Coverage Start Date Coverage End Date [facility] [employer] [address] [place] [address] [id number] GEOVANNA DANNY Self - patient is the insured Medical (General) History Medical History History ICD Code Screening Colonoscopy in Oct-hyperplastic polyps, diverticulosis, and internal hemorrhoids IDDM Hypertension Hyperlipidemia Gastroesophageal reflux-uppe r endoscopy in October of 2003 with only a small hiatal hernia-there was no evidence of any esophagitis or Gale's esophagus Denies Lung disease,renal disease TIA Saw Dr. Shikha OCHOA for bladder emptying problem --? urethral stricture-having an office procedure on 12/16/13 Peripheral vascular disease documented on a MRA of his lower extremities in 2010 Parkinson's disease Alzheimers disease [place] --saw Dt. Carrington at [facility] w ith negative w/u Negative screening colonoscopy in 2013 Atrial fibrillation Vascular disease with stent in the RLE Surgical History Surgery Date(Month/Year) Polyp removal from vocal cords Trigger finger Amputations of both great toes [phone]
--- NOTE | 2024-10-14 08:45 | MHC.OFFVIS ---
Intake Visit Reasons: 6M PVR Intake Note: Patient is present for 6M/PVR Urology Medication:VITAMIN C,FINASTERIDE,VITAMIN B1,METHENAMINE HIPPOURATE Antibiotic Allergy:NONE Blood Thinner:ASPIRIN,APIXABAN TODAY'S PVR:480ML'S Pump And Blower Operator Required: No Allergies No Known Drug Allergies Allergy (Unknown, Verified 10/14/24 08:46) UNKNOWN grass, weeds, dirt, dust mites Allergy (Unknown, Uncoded 10/14/24 08:46) Unknown HPI Comments Details: Denilson is a pleasant male. He is seen for the following urologic condition - lower urinary tract symptoms - neurogenic bladder diabetic - insulin-dependent Six-month for review UA high glucose - on 25 mg Jardiance CIC 4 times a day for overflow incontinence - performed by Bladder stabilization medications We expect this to continue to be ongoing into the foreseeable future - 14 [place] straight Remain on finasteride to allow CIC, off bethanechol, methenamine and vitamin-C Gets [facility] Lower urinary tract symptoms - detrusor hyperactivity impaired contractility Persistent high postvoid residual Mild urge incontinence Background of diabetes with Parkinson's - levodopa carbidopa Current medications alpha-brenton - tamsulosin High PVR in range approximately 200 cc PSA - 11/22 1.0 6 month follow-up PVR Erectile dysfunction - secondary to diabetes No longer a priority for treatment [facility] Medical History (Updated 06/01/24 @ 09:36 by Lorrie Downs RN) Skin cancer History of headache History of femoral angiogram Myocardial infarction Vocal cord polyps Hyperlipidemia Tremor Hiatal hernia Diverticulosis Colonic polyp Cataract cortical, senile TIA (transient ischemic attack) Thyroid nodule Lumbar radiculopathy PVD (peripheral vascular disease) On anticoagulant therapy Multinodular non-toxic goiter Moderate protein-calorie malnutrition Peripheral neuropathy Chronic kidney disease (CKD) stage G2/A1, mildly decreased glomerular filtration rate (GFR) between 60-89 mL/min/1.73 square meter and albuminuria creatinine ratio less than 30 mg/g Vascular dementia Exposure to potentially hazardous substance Chronic interstitial cystitis Sleep apnea Urge incontinence Male erectile dysfunction, unspecified Peripheral arterial disease GERD (gastroesophageal reflux disease) Parkinson disease Hypertension Toe avulsion Vocal cord anomaly A-fib High cholesterol Diabetes Surgical History (Updated 06/01/24 @ 09:39 by Lorrie Downs RN) Hx of exploratory laparotomy S/P thyroid biopsy Hx of cardiac catheterization History of amputation of great toe of both feet History of intravascular stent placement Hx of bilateral cataract extraction History of esophagogastroduodenoscopy (EGD) H/O colonoscopy Social History Household Members: Spouse Housing: House Are you a primary critical care unit nurse to a significant other at home: No Do you presently have visiting nurse or other home services: No Alcohol intake: never Comment: sleeping Patient Tobacco Use Status: Current everyday Tobacco user Tobacco use type: Cigar Years Smoked: 8 Second Hand Smoke Exposure: No Advance Directives Date on File: 02/16/20 service: No Current occupational status: retired Review of Systems Const Denies chills and Denies fever(s) Card Reports no additional complaints and Denies syncope Resp Denies cough GI Denies abdominal pain and Denies heartburn Reports as per HPI and Denies change in libido Neuro Denies syncope Psych Denies change in libido Endo Denies change in libido Physical Exam Const General: cooperative, healthy appearing, comfortable and no acute distress Orientation/consciousness: patient oriented x3 HEENT Face and sinus: Yes normal facial exam Mouth: moist mucous membranes Neck Neck: Yes normal visual inspection, Yes full ROM and Yes trachea midline Chest Chest palpation & inspection: normal inspection of the chest Resp Effort & Inspection: normal respiratory effort, able to speak in complete sentences and no respiratory distress GI Inspection: Yes normal to inspection Back/Spine/Pelvis Cervical Spine: normal cervical lordosis Thoracic/Lumbar Spine: thoracic and lumbar spine normal to inspection Skin General skin exam: no rashes or lesions noted Neuro General: patient oriented x3, gait normal, tone normal and moves all extremities Extrem General: Yes normal to inspection and Yes capillary refill normal Office Procedures Post Void Residual Post Residual Void Post Void Residual (PVR): 480 [id number] Void Residual by ultrasound Results AMB Urinalysis, Automated UA Leukoctes 0 Claribel/uL Last Edit by LAUREN Mai on 10/14/24 09:02 UA Nitrite Negative Last Edit by LAUREN Mai on 10/14/24 09:02 UA Urobilinogen 0.2 mg/dL Last Edit by LAUREN Mai on 10/14/24 09:02 UA Protein 0 mg/dL Last Edit by LAUREN Mai on 10/14/24 09:02 UA pH 6.0 Last Edit by LAUREN Mai on 10/14/24 09:02 UA Blood 0 Yash/uL Last Edit by LAUREN Mai on 10/14/24 09:02 UA Specific [place] 1.015 Last Edit by LAUREN Mai on 10/14/24 09:02 UA Ketone Negative Last Edit by LAUREN Mai on 10/14/24 09:02 UA Bilirubin 0 mg/dL Last Edit by LAUREN Mai on 10/14/24 09:02 UA Glucose 1000 mg/dL Last Edit by LAUREN Mai on 10/14/24 09:02 Assessment & Plan Assessment & Plan (1) Male erectile dysfunction, unspecified: Code(s): N52.9 - Male erectile dysfunction, unspecified Category: Medical (2) Urge incontinence: Code(s): N39.41 - Urge incontinence Category: Medical (3) Incomplete emptying of bladder due to benign prostatic hyperplasia: Code(s): N40.1 - Benign prostatic hyperplasia with lower urinary tract symptoms; R33.9 - Retention of urine, unspecified Category: Medical Plan Six-month follow-up office Orders: Orders AMB Urinalysis Automated Today Z13.9 - Encounter for screening, unspecified Patient Instructions: This note is constructed using voice recognition software. While every effort has been made to ensure accuracy financial aid counselor errors may have been included. Imaging studies, laboratory and physical exam results were discussed and reviewed in detail. No major barriers to patient understanding were identified. An opportunity to ask questions regarding the treatment plan was provided. All questions were answered. The patient expressed understanding and agreement with the above treatment plan. The patient is aware they should contact our office by phone for worsening of their current condition or the appearance of new urologic symptoms. Compliance is encouraged with any medications and followup testing that is ordered. It is a privilege to participate in the urologic care of your patient. If you have any questions or concerns regarding treatment for the above conditions, or other urologic issues, please do not hesitate to contact me. The office telephone contact is [phone]. Sincerely, Dr Martin Silva MD, DINO [facility] - Urology Compassionate Specialist Care for the Genitourinary System Coding Level of Care Code Est Pt Level 3 (88856) Complex EM visit Add On G2211 Diagnoses Male erectile dysfunction, unspecified N52.9 Urge incontinence N39.41 Incomplete emptying of bladder due to benign prostatic hyperplasia N40.1; R33.9 CPT Codes Post Residual Void - PVR CPT Code: 78362-[id number] Void Residual by ultrasound ([id number])
== END 2024-10-14 09:18 | disposition home or self-care (01) ==
LOC: HO.HUSH 08:30
PROVIDERS: PCP Physician Assistant; Visit Provider Urology
DX: N52.9 Male erectile dysfunction, unspecified (principal); N39.41 Urge incontinence; N40.1 Benign prostatic hyperplasia with lower urinary tract symptoms; R33.9 Retention of urine, unspecified; Z13.9 Encounter for screening, unspecified
CPT/HCPCS: 99213; G2211

== ENCOUNTER → 2024-10-14 08:30 | Outpatient (BNVA) | payer MEDICARE, SELFPAY | PROVIDERS: PCP Physician Assistant; Visit Provider Urology | DX: N40.1 Benign prostatic hyperplasia with lower urinary tract symptoms (principal); N39.41 Urge incontinence; R33.9 Retention of urine, unspecified; N52.9 Male erectile dysfunction, unspecified | CPT/HCPCS: 51798; 81003; 99212 ==

== ENCOUNTER 2024-11-19 11:26 | Emergency (ER) | payer MEDICARE, SELFPAY ==
--- NOTE | ~2024-11-19 | XR_ITS ---
EXAMINATION: XR CHEST 1 VIEW HISTORY: cp COMPARISON: Comparison is made with the prior examination dated 12/14/2023. FINDINGS: Two AP portable views of the chest performed at 12:20 PM are submitted. The lungs are expanded and clear. There is no pleural effusion, pneumothorax, or pulmonary vascular congestion. The heart is normal in size. There is degenerative disc disease of the spine. XR/XR chest 1V IMPRESSION: No acute cardiopulmonary abnormality. Electronically signed by: Víctor Lara MD 11/19/2024 12:37 PM EDT
--- NOTE | 2024-11-19 11:30 | ECG_ITS ---
Test Reason : CP Blood Pressure : */* mmHG Vent. Rate : 61 BPM Atrial Rate : * BPM P-R Int : * ms QRS Dur : 154 ms QT Int : 472 ms P-R-T Axes : * 269 -67 degrees QTcB Int : 475 ms Atrial fibrillation Right bundle branch block Inferior infarct , age undetermined Cannot rule out Anterior infarct , age undetermined T wave abnormality, consider lateral ischemia Abnormal ECG When compared with ECG of 14-Dec-2023 11:38, No significant changes seen Referred By: Generic ED Physician Electronically Signed By: THUAN ALLEN
[2024-11-19 11:38] VITALS: BP 110/68; BP 133/54; PULSE 58; RESP 14; TEMP 36.6; O2SAT 98; O2SAT 99; BMI 20.2
--- NOTE | 2024-11-19 11:43 | ED.CHESTPAIN ---
HPI - Chest Pain General Chief Complaint: Chest Pain Stated Complaint: CHEST PAIN Time Seen by Provider: 11/19/24 11:40 Source: patient and RN notes reviewed Mode of arrival: ambulatory Limitations: no limitations History of Present Illness ED Provider: Sayra Hodge PA-C HPI narrative: This is a 79-year-old male, with a past medical history of atrial fibrillation on Eliquis, hyperlipidemia, hypertension, diabetes, PID, Parkinson's disease, who presents emergency department accompanied by his , with concerns of an episode of chest pain. reports that while he was at a doctor's appointment, patient was found to be rubbing his chest, had inquired as to what was causing him symptoms, inpatient reported that he was having chest pain. This episode lasted for approximately 3 minutes and resolved on its own. Patient reports that he had an episode of chest pain which was a warming sensation throughout his chest, did not radiate, did not caused him any shortness for breath or palpitations. Patient has not had any episodes of chest pain since. He has been in his usual state of health. No recent illness. He denies any headache, dizziness, palpitations, abdominal pain, nausea, vomiting or diarrhea. No changes in bladder or bowel habits. 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 No other complaints or concerns at this time. MD complaint: chest pain Pertinent past history: coronary artery disease and prior ME Timing of current episode: episodic Prior episodes: No Onset: during rest Pain location: substernal Pain radiation: none Quality: other (Warm sensation) Relieving factors: nothing Exacerbating factors: nothing Treatment prior to arrival: none Risk Factors Coronary artery disease risk factors: hyperlipidemia and hypertension Thoracic aortic dissection risk factors: none Related Data Home Medications ?Medication ?Instructions ?Recorded ?Confirmed apixaban 5 mg tablet (Eliquis) 5 mg PO BID 02/16/20 06/01/24 carbidopa 25 mg-levodopa 100 mg 1 tab PO TID 02/16/20 06/01/24 tablet insulin glargine 100 unit/mL 4 unit subcut QPM 02/16/20 06/01/24 subcutaneous solution (Lantus U-100 Insulin) insulin lispro 100 unit/mL 02/16/20 06/01/24 subcutaneous solution (Humalog U-100 Insulin) magnesium oxide 420 mg tablet 420 mg PO DAILY 02/16/20 06/01/24 metformin 500 mg tablet 500 mg PO BID 02/16/20 06/01/24 metoprolol succinate 25 mg 25 mg PO DAILY 02/16/20 06/01/24 tablet,extended release 24 hr aspirin 81 mg tablet,delayed 81 mg PO DAILY 06/01/24 06/01/24 release clotrimazole 1 % topical cream 1 appl topical BID PRN Skin 06/01/24 06/01/24 Irritation coenzyme Q10 300 mg capsule (Co 300 mg PO DAILY 06/01/24 06/01/24 Q-10) docusate sodium 100 mg capsule 100 mg PO DAILY 06/01/24 06/01/24 empagliflozin 25 mg tablet 25 mg PO DAILY 06/01/24 06/01/24 memantine 5 mg tablet 10 mg PO DAILY 06/01/24 06/01/24 thiamine HCl (vitamin B1) 100 mg 200 mg PO DAILY 06/01/24 06/01/24 tablet Previous Rx's ?Medication ?Instructions ?Recorded ascorbic acid (vitamin C) 1,000 mg 1 g PO DAILY 90 days #90 caps 04/14/24 capsule finasteride 5 mg tablet 5 mg PO DAILY 90 days #90 tabs 04/14/24 methenamine hippurate 1 gram tablet 1 g PO DAILY 90 days #90 tabs 04/14/24 Allergies Allergy/AdvReac Type Severity Reaction Status Date / Time No Known Drug Allergies Allergy Unknown UNKNOWN Verified 11/19/24 11:42 grass, weeds, dirt, dust Allergy Unknown Unknown Uncoded 10/14/24 08:46 mites Review of Systems Review of Systems: Yes all other systems are reviewed and are negative Constitutional: Constitutional: Reports as per [facility] Past Medical History Medical History (Updated 11/19/24 @ 14:55 by CALEB Bates) Skin cancer History of headache History of femoral angiogram Myocardial infarction Vocal cord polyps Hyperlipidemia Tremor Hiatal hernia Diverticulosis Colonic polyp Cataract cortical, senile TIA (transient ischemic attack) Thyroid nodule Lumbar radiculopathy PVD (peripheral vascular disease) On anticoagulant therapy Multinodular non-toxic goiter Moderate protein-calorie malnutrition Peripheral neuropathy Chronic kidney disease (CKD) stage G2/A1, mildly decreased glomerular filtration rate (GFR) between 60-89 mL/min/1.73 square meter and albuminuria creatinine ratio less than 30 mg/g Vascular dementia Exposure to potentially hazardous substance Chronic interstitial cystitis Sleep apnea Urge incontinence Male erectile dysfunction, unspecified Peripheral arterial disease GERD (gastroesophageal reflux disease) Parkinson disease Hypertension Toe avulsion Vocal cord anomaly A-fib High cholesterol Diabetes Surgical History (Updated 06/01/24 @ 09:39 by Lorrie Downs RN) Hx of exploratory laparotomy S/P thyroid biopsy Hx of cardiac catheterization History of amputation of great toe of both feet History of intravascular stent placement Hx of bilateral cataract extraction History of esophagogastroduodenoscopy (EGD) H/O colonoscopy Social History Social History Household Members: Spouse Housing: House Are you a primary healthcare manager to a significant other at home: No Do you presently have visiting nurse or other home services: No Alcohol intake: never Comment: sleeping Patient Tobacco Use Status: Current everyday Tobacco user Tobacco use type: Cigar Years Smoked: 8 Second Hand Smoke Exposure: No Advance Directives: No Advance Directives Information Provided: Yes Advance Directives Date on File: 02/16/20 Do you have a plan to hurt others: No Plan service: No Current occupational status: retired Physical Exam Vital Signs: Vital Signs: Last Vital Signs Temp 97.4 F 11/19/24 15:55 Pulse 48 L 11/19/24 15:55 Resp 15 11/19/24 15:55 BP 164/61 H 11/19/24 15:55 Pulse Ox 98 11/19/24 15:55 O2 Del Method Room Air 11/19/24 15:55 BMI result Body Mass Index 20.2 Const: General: cooperative, comfortable and no acute distress Orientation/consciousness: patient oriented x3 Limitations: no limitations HEENT: Head: Yes normal to inspection, Yes normocephalic and Yes atraumatic Ears: hearing grossly normal bilaterally General nose exam: Normal external nose present Face and sinus: Yes normal facial exam Mouth: Normal oral and palatal mucosa present, oropharynx normal and moist mucous membranes Throat: Yes posterior oropharynx normal Eyes: General: appearance normal, both eyes and all related structures Eyelids: Yes eyelids normal Conjunctivae: conjunctivae normal Sclerae: sclerae normal Pupils: Equal, round and reactive pupils present EOM: EOMs intact bilaterally Neck: Neck: Yes normal visual inspection, Yes full ROM and Yes no lymphadenopathy Lymphatic: no lymphadenopathy noted Chest: Chest palpation & inspection: normal inspection of the chest Resp: Effort & Inspection: normal respiratory effort and able to speak in complete sentences Auscultation: clear to auscultation bilaterally, no crackles, no rales, no rhonchi and no wheezes Cardio: Rate: regular rate Rhythm: regular rhythm Heart sounds: S1 normal heart sound present and S2 normal heart sound present GI: Inspection: Yes normal to inspection Skin: General skin exam: no rashes or lesions noted Trauma: no lacerations or abrasions Wounds: no wounds Neuro: General: patient oriented x3 and moves all extremities Cranial nerves: Yes Equal, round and reactive pupils present Extrem: Other: No lower extremity swelling, no pedal edema General: Yes normal to inspection Right upper extremity: normal to inspection Left upper extremity: normal to inspection Right lower extremity: normal to inspection Left lower extremity: normal to inspection Medical Decision Making Medical Decision Making [facility] Narrative: This is a 79-year-old male, with a past medical history of atrial fibrillation on Eliquis, hyperlipidemia, hypertension, diabetes, PID, Parkinson's disease, who presents emergency department accompanied by his , with concerns of an episode of chest pain. On arrival, patient is well-appearing, is in no current pain. He is alert and oriented x4. primarily doing most of the speaking during the exam as patient does have a history of dementia. Patient is on Eliquis, he has not hypoxic or tachycardic. Given that he does not have any active chest pain, we will continue to monitor on cardiac cath lab manager, will obtain troponin x2, chest x-ray, and basic labs. Plan: Labs, EKG, chest x-ray, further ER evaluation needed. Course: Repeat troponin flat. Overall workup today was reassuring. Patient has been asymptomatic throughout his entire stay here in the emergency department. EKG shows no acute changes. Discussed workup with patient as well as at bedside. Given strict return precautions. Discussed case with Dr. Douglas, patient stable for discharge. Differential Diagnosis Differential Diagnoses: The differential diagnosis associated with the presentation includes ACS, atypical chest pain, arrhythmia, electrolyte derangement Admission/Observation Consideration of admission/observation: Escalation of care including admission/observation considered Lab Data [facility] Lab Attestation statement: I reviewed the patient's lab results. No leukocytosis, H&H stable, creatinine and BUN around his baseline. Troponin x1 is 13.6, will repeat. A very transaminases within normal limits. 11/19/24 11:52 11/19/24 11:52 Labs: Lab Results 11/19/24 11/19/24 Range/Units 11:52 14:38 WBC 8.0 (4.8-10.8) X10*3/uL RBC 4.41 L (4.60-5.80) X10*6/uL Hgb 13.9 L (14.0-18.0) g/dl Hct 42.2 (42.0-52.0) % MCV 95.7 (80.0-98.0) fL MCH 31.5 (27.0-33.0) pg MCHC 32.9 (31.0-36.0) g/dl RDW 12.8 (11.0-16.0) % Plt Count 241 (160-400) X10*3/uL MPV 10.3 (9.4-12.4) fL Immature Gran % (Auto) 0.2 (0.0-0.4) % Neut % (Auto) 71.2 (45-73) % Lymph % (Auto) 19.7 L (20-40) % Isabella % (Auto) 6.9 (2-11) % Eos % (Auto) 1.5 (0-4) % Baso % (Auto) 0.5 (0-2) % Lymph # (Auto) 1.6 (1.2-4.9) X10*3/uL Isabella # (Auto) 0.6 (0.1-1.2) X10*3/uL Eos # (Auto) 0.1 (0.0-0.4) X10*3/uL Baso # (Auto) 0.0 (0.0-0.2) X10*3/uL Abs Immat Gran (auto) 0.02 (0.00-0.03) X10*3/uL Absolute Neuts (auto) 5.7 (2.0-8.3) x10*3/uL Absolute Nucleated RBC 0.000 (0.0-0.012) X10*3/uL Nucleated RBC % (auto) 0.0 (0.0-0.2) /100WBC PT 15.3 H (10.9-12.4) SEC INR 1.3 H (0.9-1.1) Sodium 143 (135-145) mmol/L Potassium 4.0 (3.3-5.1) mmol/L Chloride 109 H (96-108) mmol/L Carbon Dioxide 27 (22-29) mmol/L Anion Gap 11 L (12-20) BUN 24 H (9-16) mg/dL Creatinine 0.97 (0.5-1.4) mg/dL Estim Creat Clear Calc 65.0 Estimated GFR > 60 Random Glucose 203 H (60-115) mg/dL Calcium 8.7 D (8.4-10.2) mg/dL Total Bilirubin 0.4 (0.0-1.0) mg/dL AST 16 (5-37) U/L ALT 15 (0-40) U/L Alkaline Phosphatase 87 (39-117) U/L Troponin I High Sens 13.6 D 11.8 (<3.5-35.0) ng/L Total Protein 6.3 L (6.5-8.0) g/dL Albumin 3.8 (3.5-5.0) g/dL Independent Interpretation I performed an independent interpretation of an: EKG Interpretation: EKG atrial fibrillation at a ventricular rate of 61 beats per minute, there is a right bundle-branch block seen, there is inverted Ts in lead 2, 3, and AVF. Also inverted T seen in V3 through V6. Similar-appearing EKG from previous. Radiology Impression Discussion of test interpretation with radiology: I have reviewed the radiologist's reading. Radiologist Impression: FINDINGS: Two AP portable views of the chest performed at 12:20 PM are submitted. The lungs are expanded and clear. There is no pleural effusion, pneumothorax, or pulmonary vascular congestion. The heart is normal in size. There is degenerative disc disease of the spine. XR/XR chest 1V IMPRESSION: No acute cardiopulmonary abnormality. Electronically signed by: Víctor Lara MD 11/19/2024 12:37 PM EDT RP Dictated By: Víctor Lara MD Independent Historian Clinical information obtained from an independent historian. History obtained from or confirmed by: Spouse Scores Heart Score History: -0- slightly suspicious ECG: -1- non specific repolarization disturbance Age: -2- > or = 65 Risk factory: -2- 3 or more risk factors or treated atherosclerosis Troponin: -0- < or = normal limit Score: 5 Risk: 16.6% Discharge Plan Discharge Clinical Impression: Chest pain Patient Disposition: Home, Self-Care Instructions: Chest Pain (ED) Additional Instructions: Pedro was seen in the emergency department due to an episode of chest pain. His chest x-ray was unremarkable. His troponin testing which is an enzyme that is released into the blood stream when there is damage in the heart. This was normal today. EKG is similar to previous EKGs that we have on file. It is unclear what caused him to have this episode of chest pain however his workup today was reassuring. If any new or worsening symptoms occur including but not limited to return of his chest pain, severe shortness of breath, changes in his behavior, please seek emergent care. Prescriptions: No Action metformin 500 mg Tablet 500 mg PO BID magnesium oxide 420 mg Tablet 420 mg PO DAILY insulin glargine [Lantus U-100 Insulin] 100 unit/mL Solution 4 unit SUBCUT QPM metoprolol succinate 25 mg Tablet Extended Release 24 Hr 25 mg PO DAILY insulin lispro [Humalog U-100 Insulin] 100 unit/mL Solution carbidopa-levodopa 25-100 mg Tablet 1 tab PO TID Eliquis 5 mg Tablet 5 mg PO BID thiamine HCl (vitamin B1) 100 mg Tablet 200 mg PO DAILY aspirin 81 mg Tablet,Delayed Release (Dr/Ec) 81 mg PO DAILY docusate sodium 100 mg Capsule 100 mg PO DAILY clotrimazole 1 % Cream 1 appl TOPICAL BID PRN (Reason: Skin Irritation) memantine 5 mg tablet 10 mg PO DAILY empagliflozin 25 mg Tablet 25 mg PO DAILY Co Q-10 300 mg Capsule 300 mg PO DAILY ascorbic acid (vitamin C) 1,000 mg capsule 1 g PO DAILY 90 Days Qty: 90 1RF finasteride 5 mg tablet 5 mg PO DAILY 90 Days Qty: 90 1RF methenamine hippurate 1 gram tablet 1 g PO DAILY 90 Days Qty: 90 1RF Interventions: ED Discharge Assessment Last Done: 11/19/24 15:55 Discharge Date/Time: 11/19/24 15:56 Print Language: Maori
--- NOTE | 2024-11-19 11:44 | MHC.EDTECH ---
Pt came in via ambulance, pt changed into hospital gown, placed on electronic device monitor, vitals obtained, EKG performed and shown to VICTOR HUGO KIRBY aware.
[2024-11-19 11:59] LABS: MANUAL DIFF FLAG NO
[2024-11-19 12:01] LABS: Hematocrit 42.2 % (42.0-52.0); Hemoglobin 13.9 g/dl (14.0-18.0); Imm Gran Abs Auto 0.02 X10*3/uL (0.00-0.03); Imm Gran Pct Auto 0.2 % (0.0-0.4); Lymphocytes Absolute Auto 1.6 X10*3/uL (1.2-4.9); Mean Corpuscular HGB Conc 32.9 g/dl (31.0-36.0); Mean Corpuscular Hemoglobin 31.5 pg (27.0-33.0); Mean Corpuscular Volume 95.7 fL (80.0-98.0); NRBC Abs Auto 0.000 X10*3/uL (0.0-0.012); NRBC Pct Auto 0.0 /100WBC (0.0-0.2); Platelet Count 241 X10*3/uL (160-400); Red Blood Count 4.41 X10*6/uL (4.60-5.80); White Blood Count 8.0 X10*3/uL (4.8-10.8)
[2024-11-19 12:07] LABS: INTERNATIONAL NORM RATIO 1.3 (0.9-1.1); Prothrombin Time 15.3 SEC (10.9-12.4)
[2024-11-19 12:20] LABS: Alanine Aminotransferase 15 U/L (0-40); Albumin Level 3.8 g/dL (3.5-5.0); Alkaline Phosphatase 87 U/L (39-117); Anion Gap 11 (12-20); Aspartate Amino Transferase 16 U/L (5-37); Blood Urea Nitrogen 24 mg/dL (9-16); Calcium 8.7 mg/dL (8.4-10.2); Carbon Dioxide 27 mmol/L (22-29); Chloride 109 mmol/L (96-108); Creatinine Clr Calc Pharmacy 65.0; Estimated Glomerular Filt Rate > 60; Potassium 4.0 mmol/L (3.3-5.1); Sodium 143 mmol/L (135-145); Total Protein 6.3 g/dL (6.5-8.0)
[2024-11-19 12:27] LABS: Troponin-I High Sensitivity 13.6 ng/L (<3.5-35.0)
--- OUTSIDE RECORDS SUMMARY | 2024-11-19 13:08 | XMS_ITS | Patient Health Record ---
Author Organization [facility] Address [address] [place] [address] Care Team Providers Care Thermal Cutter Hand Name Role Phone Calvin Ireland Primary Care Provider Un available Víctor Sims Unavailable [phone] Allergies No Known Allergies Results Component Value Reference Range Notes Glucose, Whole Blood Reviewed date:06/29/2024 05:19:11 PM Interpretation: Performing Lab:[facility], [address] [place] [id number] Notes/Report: Glucose, Whole Blood 137 60-115 mg/dL METER # : [id number] Pathology Reviewed date:11/17/2024 11:24:56 AM Interpretation: Performing Lab:[facility], [address] [place] [phone] Notes/Report: Reason For Referral Referring Provider First Name Calvin Referring Provider Last Name Haim Referring Provider Speciality Internal M edicine Referred Organization [facility] Referred Provider Víctor Sims Referred Address [address] [place] [address],[address],[place], [place],[address], Referred Provider Specialty Gastroentero logy Referral Priority Routine Medications Medication SIG (Take, Route, Frequency, Duration) Notes Start Date End Date Status Jardiance Active Eliquis Active Omeprazole 40 MG 1 capsule 1/2 to 1 h our before morning meal Orally Once a day for 90 days 07/12/2024 Active metFORMIN HCl ER Act manjinder Omeprazole 40 MG Oral Capsule Delayed Release 07/02/2024 Acti ve Magnesium Active Finasteride 5 MG TAKE 1 TABLET BY EVERY DAY Oral for 90 Active Carbidopa-Levodopa A ctive Memantine HCl 5 MG TAKE 1 TABLET BY CHLOE TH EVERY DAY Oral for 30 Active Omeprazole 20 MG 1 capsule Orally Onc e a day every morning for 90 days 12/15/2013 Active Insulin Glargine Act manjinder Vitamin C 1000 MG TAKE 1 TABLET BY CLHOE TH EVERY DAY X 90 DAYS Oral for 90 Active Lantus Active HumaLOG Active Co Q 10 Active Aspirin 81 Active Metoprolol Tartrate Active Vitamin B1 Active Doxycycline Hyclate 100 MG 1 capsule Ora lly Once a day for 10 day(s) 11/17/2024 Active Immunizations Vaccine Route Administration Date Status Comme nts Influenza Unknown 02/25/2024 Administered Social History Tobacco Use: Social History Observation Description Date Details (start date - stop date) Current Smoker NA - NA Tobacco Control (Standard) Question Answer Notes Tobacco use: Current smoker AUDIT-C (Standard) Question Answer Notes Did you have a drink contain ing alcohol in the past year? Yes How often did you have a dri nk containing alcohol in the past year? 2 to 3 times a week (3 points) How many drinks did you have on a typical day when you were drinking in the past year? 1 or 2 drinks (0 point) How often did you have six o r more drinks on one occasion in the past year? Never (0 point) Points 3 Interpretation Negative Section Notes: 3 cigars daily; occ. beer Occasional cigar; 2 drinks 3 times/week 3 cigars daily; occ. beer Problems Problem Type SNOMED Code ICD Code Onset Dates Problem Status W/U Status Risk Notes Problem Weight loss (239399056) Weight loss (R63.4) Active confirmed Problem Anorexia (R63.0) Active confirmed Problem Early satiety (259613688) Early satiety (R68.81) Active confirmed Problem Erosive esophagitis (14014072) Erosive esophagitis (K22.10) Active confirmed Problem Gastroesophageal reflux disease (790089548) GERD (gastroesophag eal reflux disease) (K21.9) Active confirmed Problem Loss of weight (R63.4) Active confirmed Vital Signs Temperature 98.4 degrees Fahrenheit 11/17/2024 Blood pressure diastolic 01 mm Hg 11/17/2024 Height 73 in 11/17/2024 Blood pressure systolic 001 mm Hg 11/17/2024 Weight 150 lbs 11/17/2024 BMI 19.79 kg/m2 11/17/2024 Encounters Encounter Location Date Provider Diagnosis [facility] [place] [place] Outpatient [address] [place], [place] [id number] 06/29/2024 Víctor Sims Gastro-esophageal reflux disease with esophagitis, without bleeding K21.00 and Hiatal hernia K44.9 [facility] [address] [place] [phone] 11/17/2024 Víctor Sims GERD (gastroesophageal reflux disease) K21.9 and Weight loss R63.4 [facility] [address] [place] [phone] 05/12/2024 Víctor Sims Early satiety R68.81 ; Loss of weight R63.4 and Anorexia R63.0 [facility] [address] [place] [phone] 05/19/2024 Víctor Sims [facility] [address] [place] [phone] 05/29/2024 Víctor Sims [facility] [address] [place] [phone] 07/02/2024 Víctor Sims Erosive esophagitis K22.10 Assessments Encounter Date Diagnosis (ICD Code) Assessment Notes Treatment Notes Treatment Clinical Notes Section Notes 06/29/2024 Hiatal hernia (ICD-10 - K44.9) 06/29/2024 Gastro-esophage al reflux disease with esophagitis, without bleeding (ICD-10 - K21.00) 11/17/2024 Weight loss (ICD-10 - R63.4) Overall, Danny seems to be stable from a GI standpoint in regard to his improved eating. His continued weight loss is of concern but there does not appear to be any active GI issues in that regard. We did review that his underlying Alzheimer's disease, Parkinson's disease, and smoking may be contributing to that. We did review the findings on the upper endoscopy. It does appear that his eating has improved with the use of the PPI. Therefore, I did advise that he should continue that but will lower the dose to 20 mg daily. Hopefully his weight will stabilize. I do not think he needs any further studies from my standpoint given his age and underlying comorbidities. At this point Danny will see me again as needed. I did advise Sneha to certainly call if there are any questions or problems I can be of assistance with. Sneha was comfortable with this plan. Thank you again for allowing me to have participated in Danny's care. I shall continue to keep you advised of his progress as needed. Please do not hesitate to contact me if I can be of any further assistance in the future. 11/17/2024 GERD (gastroesophage al reflux disease) (ICD-10 - K21.9) Continue the omeprazole at 20mg daily Overall, Danny seems to be stable from a GI standpoint in regard to his improved eating. His continued weight loss is of concern but there does not appear to be any active GI issues in that regard. We did review that his underlying Alzheimer's disease, Parkinson's disease, and smoking may be contributing to that. We did review the findings on the upper endoscopy. It does appear that his eating has improved with the use of the PPI. Therefore, I did advise that he should continue that but will lower the dose to 20 mg daily. Hopefully his weight will stabilize. I do not think he needs any further studies from my standpoint given his age and underlying comorbidities. At this point Danny will see me again as needed. I did advise Sneha to certainly call if there are any questions or problems I can be of assistance with. Sneha was comfortable with this plan. Thank you again for allowing me to have participated in Danny's care. I shall continue to keep you advised of his progress as needed. Please do not hesitate to contact me if I can be of any further assistance in the future. 05/12/2024 Early satiety (ICD-10 - R68.81) Do not take Jardiance for three days before the endoscopy Do not take Metformin or Aspirin on the morning of the endoscopy Do not take Eliquis for three days before the endoscopy Take only 1/2 the usual Insulin on the morning of the endoscopy Try to get a clearance note from Dr. Carrington Given Danyn's clinical history of his upper GI symptoms [...] significant comorbidities, including the reported Alzheimer's disease. Dnany and his were both very comfortable with this plan. Thank you again for allowing me to participate in Danny's care. I shall continue to keep you advised of his progress. Plan Of Treatment Future Test Test Name Order Date COLONOSCOPY 12/15/2013 [facility] 05/12/2024 Insurance Providers Payer Name Payer Address Payer Phone Subscriber Number Group Number Insured Name Patient Relationship to Insured Coverage Start Date Coverage End Date [facility] [employer] [address] [place] [address] [id number] DANNY AUSTIN Self - patient is the insured Medical [...] in 2010 Parkinson's disease Alzheimers disease [place] --saw Dt. Carrington at [facility] w ith negative w/u Negative screening colonoscopy in 2013 Atrial fibrillation Vascular disease with stent in the RLE Upper endoscopy in June 2024 revealed a small hiatal hernia, changes of reflux, and some erosive gastritis. Biopsies were negative for Gale's esophagus and H. pylori. He was started on omeprazole at that time. This did seem to help improve his appetite. Surgical History Surgery Date(Month/Year) Amputations of both great toes [phone] Trigger finger Polyp removal from vocal cords
[2024-11-19 15:17] LABS: Troponin-I High Sensitivity 11.8 ng/L (<3.5-35.0)
[2024-11-19 15:35] VITALS: BP 164/61; PULSE 48; RESP 15; TEMP 36.3; O2SAT 98
[2024-11-19 15:55] VITALS: BP 164/61; PULSE 48; RESP 15; TEMP 36.3; O2SAT 98
== END 2024-11-19 15:56 | disposition home or self-care (01) ==
PROVIDERS: Physician Assistant Medical; Emergency Provider Emergency Medicine; PCP Physician Assistant
DX: R07.89 Other chest pain (principal); E78.5 Hyperlipidemia, unspecified; I10 Essential (primary) hypertension; I25.10 Atherosclerotic heart disease of native coronary artery without angina pectoris; E11.9 Type 2 diabetes mellitus without complications; I45.10 Unspecified right bundle-branch block; F17.210 Nicotine dependence, cigarettes, uncomplicated; I48.91 Unspecified atrial fibrillation; Z79.899 Other long term (current) drug therapy; Z79.4 Long term (current) use of insulin; Z79.01 Long term (current) use of anticoagulants
CPT/HCPCS: 36415; 71045; 80053; 84484; 85025; 85610; 93005; 99283; 99285

== ENCOUNTER → 2024-11-19 11:30 | Outpatient (BNV) | payer MEDICARE, SELFPAY | PROVIDERS: Emergency Provider Emergency Medicine; PCP Physician Assistant; Visit Provider Internal Medicine | DX: I45.10 Unspecified right bundle-branch block (principal); I48.91 Unspecified atrial fibrillation | CPT/HCPCS: 93010 ==

== ENCOUNTER → 2024-11-19 12:20 | Outpatient (BNV) | payer MEDICARE, SELFPAY | PROVIDERS: Emergency Provider Emergency Medicine; PCP Physician Assistant; Visit Provider Radiology Diagnostic Radiology | DX: R07.9 Chest pain, unspecified (principal) | CPT/HCPCS: 71045 ==

== ENCOUNTER 2025-03-09 14:14 | Outpatient (AMB) | payer MEDICARE, SELFPAY ==
--- OUTSIDE RECORDS SUMMARY | 2024-06-29 08:20 | XMS_ITS ---
Author Organization [facility] Address [address] [place] [address] Care Team Providers Care Manager Consumer Insights Name Role Phone Calvin Ireland Primary Care Provider Un available Víctor Sims Unavailable [phone] REASON FOR VISIT early satiety, wt loss, Medications Medication SIG (Take, Route, Fr equency, Duration) Notes Start Date End Date Status HumaLOG Active Co Q 10 Active Aspirin 81 Active Metoprolol Tartrate Active Vitamin B1 Active metFORMIN HCl ER Act manjinder Magnesium Active Carbidopa-Levodopa A ctive Jardiance Active Eliquis Active Finasteride 5 MG TAKE 1 TABLET BY CHLOE TH EVERY DAY Oral; Duration: 90 Active Memantine HCl 5 MG TAKE 1 TABLET BY CHLOE TH EVERY DAY Oral; Duration: 30 Active Insulin Glargine Act manjinder Vitamin C 1000 MG TAKE 1 TABLET BY CHLOE TH EVERY DAY X 90 DAYS Oral; Duration: 90 Act manjinder Lantus Active Encounters Encounter Location Date Provider Diagnosis [facility] [address] [place] [address] [id number] 06/29/2024 Víctor Sims Gastro-esophageal reflux disease with esophagitis, without bleeding K21.00 and Hiatal hernia K44.9 Assessments Encounter Date Diagnosis (ICD Code) Assessment Notes Treatment Notes Treatment Clinical Notes Section Notes 06/29/2024 Gastro-esophage al reflux disease with esophagitis, without bleeding (ICD-10 - K21.00) 06/29/2024 Hiatal hernia (ICD-10 - K44.9) Plan Of Treatment No Information Progress Notes * DANNY AUSTINDOB:1944 (80 yo M)Acc No.[id number]:06/29/2024 EGD/MAC Patient: DANNY SHERMAN Provider: Sathya Sims MD :1945 A ge:79 Y S ex:Male Date:06/29/2024 Address:[address] [place] [address] YASMIN JIMENEZ, [id number] Pcp:Patty Thompson Subjective: * Chief Complaints: * 1 . Early satiety, wt loss,. * Medical History: * Medications: T aking Lantus , Taking Insulin Glargine , Taking Carbidopa-Levodopa , Taking Magnesium , Taking metFORMIN HCl ER , Taking Eliquis , Taking Jardiance , Taking Vitamin B1 , Taking Metoprolol Tartrate , Taking Aspirin 81 , Taking Co Q 10 , Taking HumaLOG , Taking Vitamin C 1000 MG Tablet TAKE 1 TABLET BY MOUTH EVERY DAY X 90 DAYS Oral , Taking Memantine HCl 5 MG Tablet TAKE 1 TABLET BY MOUTH EVERY DAY Oral , Taking Finasteride 5 MG Tablet TAKE 1 TABLET BY MOUTH EVERY DAY Oral Objective: * Vitals: Assessment: * Assessment: 1. G zaheer-esophageal reflux disease with esophagitis, without bleeding - K21.00 (Primary) 2 . H iatal hernia - K44.9 Plan: * Treatment: * Procedure Codes: 4 3239 UPPER GI ENDOSCOPY, BIOPSY * * The named appointment provid er may or may not be the originator of this progress note, and it is not deemed complete until electronically signed by the appointment provider. Sign off status: Pending * Provider: Sathya Sims MD Date: 0 06/29/2024 Generated for Maggy schneider/Rajendra/Clsmitting on: 05/09/2024 05:14 PM EST
--- NOTE | 2025-03-09 14:19 | MHC.OFFVIS ---
Intake Visit Reasons: 6 months Allergies No Known Drug Allergies Allergy (Unknown, Verified 11/19/24 11:42) UNKNOWN grass, weeds, dirt, dust mites Allergy (Unknown, Uncoded 10/14/24 08:46) Unknown HPI Comments Details: 80 yo man with HTN, atrial fibb, diabetes mellitus, multifactorial dementia and parkinsonism. He is presenting with cognitive dysfunction and associated hallucinations. His cognitive function is supported with Memantine at a dosage of 10 mg twice daily. The patient experiences periodic hallucinations that involve seeing people over there or in the back seat of the car. These hallucinations have yet to be severe enough to necessitate pharmacological intervention for them directly. The patient's Parkinson?s Disease is managed with Carbidopa-Levodopa, administered three times daily, assisting in maintaining certain levels of mobility. Despite these treatments, his movement is restricted to his home, and while he can walk to the bathroom on his own, his ambulatory limitations are noticeable. The patient is also being treated for Type 2 Diabetes Mellitus and has a scheduled consultation with his manager customer service. He takes a total of 11 medications daily, indicative of a complex medical regimen. [facility] Medical History (Updated 03/09/25 @ 14:32 by Jacqueline Hermosillo MD) History of amputation of great toe of both feet Skin cancer History of headache History of femoral angiogram Myocardial infarction Vocal cord polyps Hyperlipidemia Tremor Hiatal hernia Diverticulosis Colonic polyp Cataract cortical, senile TIA (transient ischemic attack) Thyroid nodule Lumbar radiculopathy PVD (peripheral vascular disease) On anticoagulant therapy Multinodular non-toxic goiter Moderate protein-calorie malnutrition Peripheral neuropathy Chronic kidney disease (CKD) stage G2/A1, mildly decreased glomerular filtration rate (GFR) between 60-89 mL/min/1.73 square meter and albuminuria creatinine ratio less than 30 mg/g Vascular dementia Exposure to potentially hazardous substance Chronic interstitial cystitis Sleep apnea Urge incontinence Male erectile dysfunction, unspecified Peripheral arterial disease GERD (gastroesophageal reflux disease) Parkinson disease Hypertension Toe avulsion Vocal cord anomaly A-fib High cholesterol Diabetes Surgical History (Updated 06/01/24 @ 09:39 by Lorrie Downs RN) Hx of exploratory laparotomy S/P thyroid biopsy Hx of cardiac catheterization History of intravascular stent placement Hx of bilateral cataract extraction History of esophagogastroduodenoscopy (EGD) H/O colonoscopy Social History Household Members: Spouse Housing: House Are you a primary pet caretaker to a significant other at home: No Do you presently have visiting nurse or other home services: No Alcohol intake: never Comment: sleeping Patient Tobacco Use Status: Current everyday Tobacco user Tobacco use type: Cigar Years Smoked: 8 Second Hand Smoke Exposure: No Advance Directives Date on File: 02/16/20 service: No Current occupational status: retired Review of Systems Narrative - Neurologic: Reports inability to walk beyond inside the house; denies season-like episodes. - Psychiatric: Reports hallucinations involving seeing people in certain scenarios. Physical Exam Neuro Other: Mental Status: He is alert and awake able to answer questions if asked. He does not know what year is this. He is not oriented. Cranial Nerves: CN II: Visual niño full to confrontation, visual acuity intact. CN III, IV, : Pupils equal, round, reactive to light and accommodation. Extraocular movements are normal. CN V: Facial sensation is normal. CN VII: Facial movements symmetrical. CN VIII: Hearing intact to bedside conversation is normal. CN IX, X: Palate elevates symmetrically. CN XI: Shoulder shrug and head turn symmetrical. CN XII: Tongue midline without atrophy or fasciculations. Extrapyramidal: Full facial expressions and blinking. No rigidity. Movements are appropriate with no tremor or abnormality. Speech: Normal; no dysarthria or tremor. Assessment & Plan Assessment & Plan (1) Multifactorial dementia: Comment: CT brain WO at [facility] [place] in Jul 2023: Mod to severe diff atrophy, mod to sev MVD. Code(s): F03.90 - Unspecified dementia, unspecified severity, without behavioral disturbance, psychotic disturbance, mood disturbance, and anxiety Category: Medical (2) Parkinsonism: Code(s): G20 - Parkinson's disease Category: Medical Qualifiers: Parkinsonism type: secondary Parkinsonism Secondary Parkinsonism type: vascular Qualified Code(s): G21.4 - Vascular parkinsonism (3) Dementia with Lewy bodies: Code(s): G31.83 - Neurocognitive disorder with Lewy bodies; F02.80 - Dementia in other diseases classified elsewhere, unspecified severity, without behavioral disturbance, psychotic disturbance, mood disturbance, and anxiety Category: Medical Plan 80 years old man with moderately severe dementia affecting him physically and cognitively including mild parkinsonism and behavioral symptoms including hallucinations. This set of features were suggestive of dementia with Lewy body disease. Treatment is symptomatic and conservative. Medications: New memantine 10 mg PO BID 180 tabs 1RF carbidopa-levodopa 25-100 mg 1 tab PO TID 270 tabs 1RF Coding Level of Care Code Est Pt Level 4 (62791) Diagnoses Multifactorial dementia F03.90 Vascular parkinsonism G21.4 Parkinsonism type: secondary Parkinsonism Secondary Parkinsonism type: vascular Dementia with Lewy bodies G31.83; F02.80
--- OUTSIDE RECORDS SUMMARY | 2025-03-09 17:15 | XMS_ITS | Patient Health Record ---
Author Organization [facility] Address [address] [place] [address] Care Team Providers Care Leadlighter Name Role Phone Calvin Ireland Primary Care Provider Un available Víctor Sims Unavailable [phone] Allergies No Known Allergies Results Component Value Reference Range Notes Glucose, Whole Blood Reviewed date:06/29/2024 05:19:11 PM Interpretation: Performing Lab:[facility], [address] [place] [id number] Notes/Report: Glucose, Whole Blood 137 60-115 mg/dL METER # : [id number] Pathology Reviewed date:11/17/2024 11:24:56 AM Interpretation: Performing Lab:[facility], [address] [place] [id number] Notes/Report: Reason For Referral No Information Medications Medication SIG (Take, Route, Frequency, Duration) Notes Start Date End Date Status Jardiance Active Eliquis Active Omeprazole 40 MG 1 capsule 1/2 to 1 h our before morning meal Orally Once a day; Duration: 90 days 07/12/2024 Active metFORMIN HCl ER Act manjinder Omeprazole 40 MG Oral Capsule Delayed Release 07/02/2024 Acti ve Magnesium Active Finasteride 5 MG TAKE 1 TABLET BY CHLOE TH EVERY DAY Oral; Duration: 90 Active Carbidopa-Levodopa A ctive Memantine HCl 5 MG TAKE 1 TABLET BY CHLOE TH EVERY DAY Oral; Duration: 30 Active Omeprazole 20 MG 1 capsule Orally Onc e a day every morning; Duration: 90 days 12/15/2013 Active Insulin Glargine Act manjinder Vitamin C 1000 MG TAKE 1 TABLET BY CHLOE TH EVERY DAY X 90 DAYS Oral; Duration: 90 Active Lantus Active HumaLOG Active Co Q 10 Active Aspirin 81 Active Metoprolol Tartrate Active Vitamin B1 Active Doxycycline Hyclate 100 MG 1 capsule Ora lly Once a day; Duration: 10 day(s) 11/17/2024 Active Immunizations Vaccine Route [...] point) Points 3 Interpretation Negative Section Notes: Occasional cigar; 2 drinks 3 times/week 3 cigars daily; occ. beer 3 cigars daily; occ. beer Problems Problem Type SNOMED Code ICD Code Onset Dates Problem Status W/U Status Risk Notes Problem Weight loss (201628278) Weight loss (R63.4) Active confirmed Problem Anorexia (54993155) Anorexia (R63.0) Active confirmed Problem Early satiety (275946943) Early satiety (R68.81) Active confirmed Problem Erosive esophagitis (58345820) Erosive esophagitis (K22.10) Active confirmed Problem Gastroesophageal reflux disease (508264830) GERD (gastroesophag eal reflux disease) (K21.9) Active confirmed Problem Weight decreased (130071102) Loss of weight (R63.4) Active confirmed Vital Signs Temperature 98.4 degrees Fahrenheit 11/17/2024 Blood pressure diastolic 01 mm Hg 11/17/2024 Height 73 in 11/17/2024 Blood pressure systolic 001 mm Hg 11/17/2024 Weight 150 lbs 11/17/2024 BMI 19.79 kg/m2 11/17/2024 Encounters Encounter Location Date Provider Diagnosis [facility] Outpatient [address] [place] [id number] 06/29/2024 Víctor Sims Gastro-esophageal reflux disease with esophagitis, without bleeding K21.00 and Hiatal hernia K44.9 [facility] [address] [place] [phone] 05/12/2024 Víctor Sims Early satiety R68.81 ; Loss of weight R63.4 and Anorexia R63.0 [facility] [address] [place] [phone] 11/17/2024 Víctor Sims GERD (gastroesophageal reflux disease) K21.9 and Weight loss R63.4 [facility] [address] [place] [phone] 05/19/2024 Víctor Sims [facility] [address] [place] [phone] 05/29/2024 Víctor Sims [facility] [address] [place] [phone] 07/02/2024 Víctor Sims Erosive esophagitis K22.10 [facility] [address] [place] [phone] 11/17/2024 Víctor Sims Assessments Encounter Date Diagnosis (ICD Code) Assessment [...] to keep you advised of his progress. 11/17/2024 Weight loss (ICD-10 - R63.4) Overall, [...] of any further assistance in the future. 07/02/2024 Erosive esophagitis (ICD-10 - K22.10) 05/12/2024 [...] Insured Coverage Start Date Coverage End Date [facility] [employer] [address] [place] [address] [id number] DANNY AUSTIN Self - patient is the [...] in 2010 Parkinson's disease Alzheimers disease [place] --saw [facility] at [facility] w ith negative w/u Negative screening [...] Surgery Date(Month/Year) Amputations of both great toes [phone] Trigger finger Polyp removal from vocal cords
== END 2025-03-09 14:34 | disposition home or self-care (01) ==
LOC: HO.HSM 14:14
PROVIDERS: PCP Physician Assistant; Visit Provider Psychiatry & Neurology Neurology
DX: F03.90 Unspecified dementia, unspecified severity, without behavioral disturbance, psychotic disturbance, mood disturbance, and anxiety (principal); G21.4 Vascular parkinsonism; G31.83 Neurocognitive disorder with Lewy bodies; F02.80 Dementia in other diseases classified elsewhere, unspecified severity, without behavioral disturbance, psychotic disturbance, mood disturbance, and anxiety
CPT/HCPCS: 99214

== ENCOUNTER → 2025-03-09 14:14 | Outpatient (BNVA) | payer MEDICARE, SELFPAY | PROVIDERS: PCP Physician Assistant; Visit Provider Psychiatry & Neurology Neurology | DX: G21.4 Vascular parkinsonism (principal); F02.80 Dementia in other diseases classified elsewhere, unspecified severity, without behavioral disturbance, psychotic disturbance, mood disturbance, and anxiety | CPT/HCPCS: 99212 ==

== ENCOUNTER 2025-04-06 18:44 | Inpatient (IN) | payer MEDICARE, SELFPAY ==
--- NOTE | ~2025-04-06 | CT_ITS ---
CLINICAL HISTORY: syncope CT Brain without contrast Comparison: CT/NH/SR - CT HEAD WITHOUT IV CONTRAST - 12/14/23 11:19 EDT FINDINGS: Cortical sulci: There is diffuse prominence of the cortical sulci compatible with age-related atrophy. Ventricles: Normal for age Brain parenchyma: There is patchy lucency throughout the deep white matter indicating chronic microvascular leukomalacia. Lacunar infarcts of the bilateral basal ganglia. Encephalomalacia of the left frontal lobe and right occipital lobe. Extra axial spaces: Normal Posterior Fossa: Normal Extracranial soft tissues: Normal Additional abnormality: None IMPRESSION: No acute intracranial findings. Encephalomalacia of the left frontal lobe and right occipital lobe is new from prior CT. This document has been electronically signed by: Reinaldo Muñiz MD on 04/06/2025 21:08:47
--- NOTE | ~2025-04-06 | XR_ITS ---
CLINICAL HISTORY: syncope 1 view chest x-ray Comparison: CR/SR - XR CHEST 1 VIEW - 11/19/24 12:20 EDT Findings: No consolidation or effusion. Normal size heart. No acute fracture. IMPRESSION: 1. No acute findings. This document has been electronically signed by: Reinaldo Muñiz MD on 04/06/2025 20:10:24
--- NOTE | ~2025-04-06 | XR_ITS ---
EXAMINATION: XR CERVICAL SPINE CLINICAL INFORMATION: neck pain COMPARISON: Head CT April 06, 2025 TECHNIQUE: AP and lateral views of the cervical spine were obtained. FINDINGS: Limited exam. The C1-C5 vertebral bodies are visualized. The C6 and C7 vertebral bodies are not visualized. The C1 dens articulation is not well assessed on the AP view. There is slight head tilt to the right. Bone alignment is otherwise normal. No fracture or dislocation. Mild degenerative spondylosis from C2-3 to C5-6. Degenerative changes at the C1 dens articulation. Prevertebral soft tissues are normal. There is atherosclerotic disease. XR/XR cervical spine 2V IMPRESSION: Limited exam. Degenerative changes. The C7and C6 vertebral bodies are not visualized and the C1-2 articulation is not visualized on the AP view. Electronically signed by: Joslyn Dugan MD 04/09/2025 01:34 PM JOLEEN
--- NOTE | ~2025-04-06 | US_ITS ---
CLINICAL HISTORY: infected 1st toe amputation revision site Left lower extremity arterial duplex ultrasound Comparison: None Findings: Biphasic and monophasic flow throughout the lower extremity. Waveforms suggest disease in the pelvis. Considerable velocity elevation proximal SFA. This may indicate common femoral artery stenosis. Impression: Proximal SFA velocity elevation Possible CHEMISTRY DEPARTMENT CHAIR stenosis Waveforms suggest disease in pelvis This document has been electronically signed by: Santi Fernandez MD on 04/13/2025 23:20:56
--- NOTE | ~2025-04-06 | CT_ITS ---
CLINICAL HISTORY: let toe amputeted; skin changes CT foot left with IV contrast Comparison: None Findings: There has been a transverse amputation of the distal aspect of the 1st metatarsal and amputation of the great toe. There is a few punctate dots of gas at the amputation site small amount of fluid at the distal amputation site. No lytic bone lesions. Moderate degenerative changes at the 1st tarsometatarsal joint. No ankle effusion. IMPRESSION: Distal transmetatarsal amputation of the 1st metatarsal, without osseous changes to suggest osteomyelitis. There are a few dots of nonspecific gas and a small amount of fluid adjacent to the distal amputation site, which may be postoperative change, but could also represent infection. This document has been electronically signed by: Jeremy Spear MD on 04/10/2025 00:07:56
--- NOTE | 2025-04-06 18:57 | ECG_ITS ---
Test Reason : syncope Blood Pressure : */* mmHG Vent. Rate : 50 BPM Atrial Rate : * BPM P-R Int : * ms QRS Dur : 148 ms QT Int : 484 ms P-R-T Axes : * 269 -12 degrees QTcB Int : 441 ms Atrial fibrillation with slow ventricular response Right bundle branch block Cannot rule out Anterior infarct (cited on or before 19-Nov-2024) Abnormal ECG When compared with ECG of 19-Nov-2024 11:33, Nonspecific T wave abnormality has replaced inverted T waves in Inferior leads T wave inversion no longer evident in Lateral leads Referred By: Generic ED Physician Electronically Signed By: THUAN ALLEN
[2025-04-06 19:05] VITALS: BP 99/57; PULSE 55; RESP 20; TEMP 36.4; O2SAT 97; BMI 22.3
[2025-04-06 19:13] LABS: Hematocrit 39.2 % (42.0-52.0); Hemoglobin 13.3 g/dl (14.0-18.0); Imm Gran Abs Auto 0.05 X10*3/uL (0.00-0.03); Imm Gran Pct Auto 0.3 % (0.0-0.4); Lymphocytes Absolute Auto 2.6 X10*3/uL (1.2-4.9); MANUAL DIFF FLAG SCAN; Mean Corpuscular HGB Conc 33.9 g/dl (31.0-36.0); Mean Corpuscular Hemoglobin 30.9 pg (27.0-33.0); Mean Corpuscular Volume 91.0 fL (80.0-98.0); NRBC Abs Auto 0.000 X10*3/uL (0.0-0.012); NRBC Pct Auto 0.0 /100WBC (0.0-0.2); Platelet Count 219 X10*3/uL (160-400); Red Blood Count 4.31 X10*6/uL (4.60-5.80); SCAN SMEAR FLAG 1; White Blood Count 14.5 X10*3/uL (4.8-10.8)
[2025-04-06 19:25] VITALS: BP 137/76; PULSE 60
--- NOTE | 2025-04-06 19:26 | ED.SYNCOPE ---
HPI - Syncope General Chief Complaint: Syncope Stated Complaint: syncopal & LOC, A&O legarthic L toe amputated 310 Time Seen by Provider: 04/06/25 19:06 Source: patient, family ( spouse, son), EMS and old records reviewed Mode of arrival: EMS Limitations: no limitations History of Present Illness ED Provider: DR. Smith HPI narrative: a 80-year-old male history of complicated diabetes with peripheral vascular disease and multiple toes amputation, s/p left great toe amputation yesterday, brought in by ambulance for evaluation after had a syncopal episode witnessed by his family that the patient has no memory of the events. patient was in the kitchen talking to his niece when suddenly patient lost consciousness and ruled his eyes up was helped by the family from falling and was lower down on the ground, no head injury, no neck injury, patient declined any headache, no blurry vision, no double vision, no CP, no SOB, no abdominal pain. No rectal bleeding, no blood in the urine, no fever, no chills. s/p left great toe amputation yesterday. Related Data Home Medications ?Medication ?Instructions ?Recorded ?Confirmed apixaban 5 mg tablet (Eliquis) 5 mg PO BID 02/16/20 06/01/24 insulin glargine 100 unit/mL 4 unit subcut QPM 02/16/20 06/01/24 subcutaneous solution (Lantus U-100 Insulin) insulin lispro 100 unit/mL 02/16/20 06/01/24 subcutaneous solution (Humalog U-100 Insulin) magnesium oxide 420 mg tablet 420 mg PO DAILY 02/16/20 06/01/24 metformin 500 mg tablet 500 mg PO BID 02/16/20 06/01/24 metoprolol succinate 25 mg 25 mg PO DAILY 02/16/20 06/01/24 tablet,extended release 24 hr aspirin 81 mg tablet,delayed 81 mg PO DAILY 06/01/24 06/01/24 release clotrimazole 1 % topical cream 1 appl topical BID PRN Skin 06/01/24 06/01/24 Irritation coenzyme Q10 300 mg capsule (Co 300 mg PO DAILY 06/01/24 06/01/24 Q-10) docusate sodium 100 mg capsule 100 mg PO DAILY 06/01/24 06/01/24 empagliflozin 25 mg tablet 25 mg PO DAILY 06/01/24 06/01/24 thiamine HCl (vitamin B1) 100 mg 200 mg PO DAILY 06/01/24 06/01/24 tablet Previous Rx's ?Medication ?Instructions ?Recorded ascorbic acid (vitamin C) 1,000 mg 1 g PO DAILY 90 days #90 caps 04/14/24 capsule finasteride 5 mg tablet 5 mg PO DAILY 90 days #90 tabs 04/14/24 methenamine hippurate 1 gram tablet 1 g PO DAILY 90 days #90 tabs 04/14/24 carbidopa 25 mg-levodopa 100 mg 1 tab PO TID #270 tabs 03/09/25 tablet memantine 10 mg tablet 10 mg PO BID #180 tabs 03/09/25 Allergies Allergy/AdvReac Type Severity Reaction Status Date / Time No Known Drug Allergies Allergy Unknown UNKNOWN Verified 04/06/25 19:13 grass, weeds, dirt, dust Allergy Unknown Unknown Uncoded 04/06/25 19:13 mites Review of Systems Review of Systems: All other systems are reviewed and are negative Constitutional: Reports as per HPI and Reports no additional constitutional complaints Eyes: Reports as per HPI and Reports no additional eye complaints Reports system reviewed and no additional complaints, except as documented Cardiovascular: Reports as per HPI and Reports no additional cardiovascular complaints Respiratory: Reports as per HPI and Reports no additional respiratory complaints Gastrointestinal: Reports as per HPI and Reports no additional gastrointestinal complaints Genitourinary: Reports no additional female genitourinary complaints Musculoskeletal: Reports no additional musculoskeletal complaints Skin/Breast: Reports system reviewed and no additional complaints, except as docu Psychiatric: Reports no additional psychiatric complaints Endocrine: Reports no additional endocrine complaints Hematologic/Lymphatic: Reports no additional hematologic/lymphatic complaints Allergic/Immunologic: Reports no additional allergic/immunologic complaints Reports system reviewed and no additional complaints, except as documented and Reports Abnormal speech present REPLACED BY [facility] Past Medical History Medical History Skin cancer History of headache History of femoral angiogram Myocardial infarction Vocal cord polyps Hyperlipidemia Tremor Hiatal hernia Diverticulosis Colonic polyp Cataract cortical, senile TIA (transient ischemic attack) Thyroid nodule Lumbar radiculopathy PVD (peripheral vascular disease) On anticoagulant therapy Multinodular non-toxic goiter Moderate protein-calorie malnutrition Peripheral neuropathy Chronic kidney disease (CKD) stage G2/A1, mildly decreased glomerular filtration rate (GFR) between 60-89 mL/min/1.73 square meter and albuminuria creatinine ratio less than 30 mg/g Vascular dementia Exposure to potentially hazardous substance Chronic interstitial cystitis Sleep apnea Urge incontinence Male erectile dysfunction, unspecified Peripheral arterial disease GERD (gastroesophageal reflux disease) Parkinson disease Hypertension Toe avulsion Vocal cord anomaly A-fib High cholesterol Diabetes Surgical History History of amputation of great toe of both feet Hx of exploratory laparotomy S/P thyroid biopsy Hx of cardiac catheterization History of intravascular stent placement Hx of bilateral cataract extraction History of esophagogastroduodenoscopy (EGD) H/O colonoscopy Social History Social History Household Members: Spouse Housing: House Are you a primary clinical manager home care to a significant other at home: No Do you presently have visiting nurse or other home services: No Alcohol intake: never Comment: sleeping Patient Tobacco Use Status: Current everyday Tobacco user Tobacco use type: Cigar Years Smoked: 8 Second Hand Smoke Exposure: No Advance Directives Date on File: 02/16/20 service: No Current occupational status: retired Physical Exam Vital Signs: Vital Signs: Last Vital Signs Temp 97.6 F 04/06/25 19:05 Pulse 55 04/06/25 19:45 Resp 18 04/06/25 19:45 BP 166/57 H 04/06/25 19:45 Pulse Ox 95 04/06/25 19:45 O2 Del Method Room Air 04/06/25 19:45 BMI result Body Mass Index 22.3 Vital signs have been reviewed and appear to be correct. Blood pressure elevated. Heart rate normal. Respiratory rate normal. Temperature normal. Oxygen saturation normal. Appearance: Alert. Oriented X3. No acute distress. Head: Normal external exam. Normocephalic. Atraumatic. No Terrazas signs noted. No raccoon eyes noted Eyes: PERRLA. EOMI. Conjunctiva and sclera normal. Eyelids normal. ENT: TM's Normal. Pharynx normal. Uvula midline. Moist mucous membranes. No trismus noted. No drooling noted. No muffled voice noted. Neck: Normal inspection. Neck supple. FROM. No adenopathy. Thyroid Normal. No meningeal signs. No neck mass noted. CVS: Normal heart rate and rhythm. Heart sound normal. No murmurs noted. Pulses normal throughout. Respiratory: No respiratory distress. Painless inspiration. Breath sounds normal. No wheezes/rales/rhonchi noted. Chest nontender. No accessory muscle usage noted or decreased air movement noted. Abdomen: Soft and nontender. Bowel sounds normal in all 4 quadrants. No distention noted. No organomegaly noted. No visible injury noted. Back: No CVA tenderness. Full range of motion noted. Skin: Skin warm and dry. Normal skin color. Normal skin turgor. No rashes/lesions/lacerations noted. Extremities: No lower extremity edema. Extremities exhibit normal range of motion. Extremities nontender. Neuro: Oriented X 3. Cranial nerve exam: II-XII are grossly intact No motor deficit. No sensory deficit. Reflexes normal. Course Reevaluation(s) Reevaluation #1: 80-year-old male s/p syncope. Normal neuro exam and negative head CT for acute pathology. Will admit for cardiac monitoring. Hypomagnesemia will replete magnesium Time: 20:30 Medications Administered Generic Name Dose Route Start Last Admin Trade Name Freq PRN Reason Stop Dose Admin Magnesium Sulfate/Dextrose 1 gm in 100 mls @ 100 mls/hr 04/06/25 19:29 04/06/25 19:45 Magnesium Sulfate/D5w IV 04/06/25 20:28 100 mls/hr ONCE ONE Administration Medical Decision Making Differential Diagnosis Differential Diagnoses: The differential diagnosis associated with the presentation includes ( syncope, seizure, dehydration, hypovolemia, electrolyte derangement, severe anemia, dysrhythmia, ACS.) Admission/Observation Consideration of admission/observation: Escalation of care including admission/observation considered Consult Healthcare Provider Management of the patient was discussed with: Hospitalist ( Dr. Lizama) Lab Data MDM Lab Attestation statement: I reviewed the patient's lab results. 04/06/25 19:01 04/06/25 19: Labs: Lab Results 04/06/25 Range/Units 19: WBC 14.5 H (4.8-10.8) X10*3/uL RBC 4.31 L (4.60-5.80) X10*6/uL Hgb 13.3 L (14.0-18.0) g/dl Hct 39.2 L (42.0-52.0) % MCV 91.0 (80.0-98.0) fL MCH 30.9 (27.0-33.0) pg MCHC 33.9 (31.0-36.0) g/dl RDW 11.9 (11.0-16.0) % Plt Count 219 (160-400) X10*3/uL MPV 10.9 (9.4-12.4) fL Immature Gran % (Auto) 0.3 (0.0-0.4) % Neut % (Auto) 68.8 (45-73) % Lymph % (Auto) 17.7 L (20-40) % Sierra % (Auto) 11.7 H (2-11) % Eos % (Auto) 1.0 (0-4) % Baso % (Auto) 0.5 (0-2) % Lymph # (Auto) 2.6 (1.2-4.9) X10*3/uL Sierra # (Auto) 1.7 H (0.1-1.2) X10*3/uL Eos # (Auto) 0.1 (0.0-0.4) X10*3/uL Baso # (Auto) 0.1 (0.0-0.2) X10*3/uL Abs Immat Gran (auto) 0.05 H (0.00-0.03) X10*3/uL Absolute Neuts (auto) 10.0 H (2.0-8.3) x10*3/uL Absolute Nucleated RBC 0.000 (0.0-0.012) X10*3/uL Nucleated RBC % (auto) 0.0 (0.0-0.2) /100WBC Smear Tech's Comments VERIFIED Sodium 137 (135-145) mmol/L Potassium 4.5 (3.3-5.1) mmol/L Chloride 102 (96-108) mmol/L Carbon Dioxide 26 (22-29) mmol/L Anion Gap 14 (12-20) BUN 18 H (9-16) mg/dL Creatinine 0.99 (0.5-1.4) mg/dL Estim Creat Clear Calc 67.5 Estimated GFR > 60 Random Glucose 302 H (60-115) mg/dL Calcium 8.9 (8.4-10.2) mg/dL Magnesium 1.4 L* (1.6-2.6) mg/dL Total Bilirubin 0.6 (0.0-1.0) mg/dL AST 17 (5-37) U/L ALT < 6 (0-40) U/L Alkaline Phosphatase 113 (39-117) U/L Troponin I High Sens 10.4 (<3.5-35.0) ng/L Total Protein 6.5 (6.5-8.0) g/dL Albumin 3.7 (3.5-5.0) g/dL Lipase 23 (8-78) U/L COVID-19 (WILL) Negative (Negative) COVID-19 Clin Com See Note Influenza Type A (SUNDAR) Negative (Negative) Influenza Type B (SUNDAR) Negative (Negative) Influenza A & B Note See Note Independent Interpretation I performed an independent interpretation of an: Plain X-Ray ( Chest: No acute pathology.) and CT Scan ( Head: No acute pathology.) Radiology Impression Discussion of test interpretation with radiology: I have reviewed the radiologist's reading. Discharge Plan Discharge Clinical Impression: Syncope and collapse Prescriptions: No Action metformin 500 mg Tablet 500 mg PO BID magnesium oxide 420 mg Tablet 420 mg PO DAILY insulin glargine [Lantus U-100 Insulin] 100 unit/mL Solution 4 unit SUBCUT QPM metoprolol succinate 25 mg Tablet Extended Release 24 Hr 25 mg PO DAILY insulin lispro [Humalog U-100 Insulin] 100 unit/mL Solution Eliquis 5 mg Tablet 5 mg PO BID thiamine HCl (vitamin B1) 100 mg Tablet 200 mg PO DAILY aspirin 81 mg Tablet,Delayed Release (Dr/Ec) 81 mg PO DAILY docusate sodium 100 mg Capsule 100 mg PO DAILY clotrimazole 1 % Cream 1 appl TOPICAL BID PRN (Reason: Skin Irritation) empagliflozin 25 mg Tablet 25 mg PO DAILY Co Q-10 300 mg Capsule 300 mg PO DAILY ascorbic acid (vitamin C) 1,000 mg capsule 1 g PO DAILY 90 Days Qty: 90 1RF finasteride 5 mg tablet 5 mg PO DAILY 90 Days Qty: 90 1RF methenamine hippurate 1 gram tablet 1 g PO DAILY 90 Days Qty: 90 1RF memantine 10 mg tablet 10 mg PO BID Qty: 180 1RF carbidopa-levodopa 25-100 mg tablet 1 tab PO TID Qty: 270 1RF Print Language: Paraguayan
[2025-04-06 19:29] LABS: Alanine Aminotransferase < 6 U/L (0-40); Albumin Level 3.7 g/dL (3.5-5.0); Alkaline Phosphatase 113 U/L (39-117); Anion Gap 14 (12-20); Aspartate Amino Transferase 17 U/L (5-37); Blood Urea Nitrogen 18 mg/dL (9-16); Calcium 8.9 mg/dL (8.4-10.2); Carbon Dioxide 26 mmol/L (22-29); Chloride 102 mmol/L (96-108); Creatinine Clr Calc Pharmacy 67.5; Estimated Glomerular Filt Rate > 60; Lipase 23 U/L (8-78); Magnesium 1.4 mg/dL (1.6-2.6); Potassium 4.5 mmol/L (3.3-5.1); Sodium 137 mmol/L (135-145); Total Protein 6.5 g/dL (6.5-8.0)
[2025-04-06 19:31] LABS: COVID-19 Test Negative (Negative); IDNOW Serial# 55D5AD1C; IDNOW Serial# 58CA691E; Influenza B2 Negative (Negative)
[2025-04-06 19:34] LABS: Troponin-I High Sensitivity 10.4 ng/L (<3.5-35.0)
[2025-04-06 19:45] VITALS: BP 166/57; PULSE 55; RESP 18; O2SAT 95
[2025-04-06 21:18] VITALS: BP 167/48; PULSE 61; RESP 18; O2SAT 99
[2025-04-06] MEDS: Lactated Ringers 1,000 ML 100 ML IVCONT (21:22)
--- NOTE | 2025-04-06 21:38 | PC.NURSE ---
Unable to complete orthostatic vital signs at this time. Pt is altered and mildly lethargic, high fall risk.
--- NOTE | 2025-04-06 22:57 | P.HPHOSP_ITS ---
History of Present Illness Date of Service: 04/06/25 Chief Complaint: Syncope 80-year-old male with a past medical history of Lewy body dementia, HTN, HLD, dm, diabetic foot infection status post left great toe amputation on 04/05/25; AFib on Eliquis, parkinsonism, peripheral vascular disease presented to the hospital with a chief complaint of syncope. Patient was sitting on the chair with a family member and suddenly patient was not responding; patient family load him to the floor; patient lost consciousness briefly. Denies patient complaining of any chest pain or palpitations. Patient at the time of my interview is alert and awake, denies any complaints. Denies any chest pain palpitations lightheadedness dizziness. Denies any fever chills cough or sputum production. Denies any GI or symptoms. Denies any shortness of breath or dyspnea on exertion. Spoke to the patient's family member at bedside Review of all other systems is negative except mentioned above ER course: Per ER team, patient's exam was benign; left great toe sutures healing. Blood pressure was stable. CT head showed no acute findings. EKG nonischemic. Troponins negative. On labs noted to have mild hypomagnesemia-repleted. [facility] Medical History Skin cancer History of headache History of femoral angiogram Myocardial infarction Vocal cord polyps Hyperlipidemia Tremor Hiatal hernia Diverticulosis Colonic polyp Cataract cortical, senile TIA (transient ischemic attack) Thyroid nodule Lumbar radiculopathy PVD (peripheral vascular disease) On anticoagulant therapy Multinodular non-toxic goiter Moderate protein-calorie malnutrition Peripheral neuropathy Chronic kidney disease (CKD) stage G2/A1, mildly decreased glomerular filtration rate (GFR) between 60-89 mL/min/1.73 square meter and albuminuria creatinine ratio less than 30 mg/g Vascular dementia Exposure to potentially hazardous substance Chronic interstitial cystitis Sleep apnea Urge incontinence Male erectile dysfunction, unspecified Peripheral arterial disease GERD (gastroesophageal reflux disease) Parkinson disease Hypertension Toe avulsion Vocal cord anomaly A-fib High cholesterol Diabetes Surgical History History of amputation of great toe of both feet Hx of exploratory laparotomy S/P thyroid biopsy Hx of cardiac catheterization History of intravascular stent placement Hx of bilateral cataract extraction History of esophagogastroduodenoscopy (EGD) H/O colonoscopy Social History Household Members: Spouse Housing: House Are you a primary menagerie caretaker to a significant other at home: No Do you presently have visiting nurse or other home services: No Alcohol intake: never Comment: sleeping Patient Tobacco Use Status: Current everyday Tobacco user Tobacco use type: Cigar Years Smoked: 8 Second Hand Smoke Exposure: No Advance Directives: No Advance Directives Information Provided: No Advance Directives Date on File: 02/16/20 service: No Current occupational status: retired Meds Allergies Allergy/AdvReac Type Severity Reaction Status Date / Time No Known Drug Allergies Allergy Unknown UNKNOWN Verified 04/06/25 19:13 grass, weeds, dirt, dust Allergy Unknown Unknown Uncoded 04/06/25 19:13 mites Active Medications: Current Medications Acetaminophen (Acetaminophen 325 Mg Tablet) 650 mg PO Q6H PRN PRN Reason: Pain, Mild 1-3,fever,headache Calcium Carbonate (Calcium Carbonate 750 Mg Tab.Chew) 750 mg PO Q4H PRN PRN Reason: Heartburn Lactated Ringer's (Lr) 1,000 mls @ 100 mls/hr IVCONT .Q10H [facility] Last Admin: 04/06/25 21:22 Dose: 100 mls/hr Magnesium Hydroxide (Milk Of Magnesia 30 Ml Oral.Susp) 30 ml PO DAILY PRN PRN Reason: Constipation Melatonin (Melatonin 3 Mg Tablet) 6 mg PO BEDTIME PRN PRN Reason: Insomnia Sodium Chloride (0.9 % Sodium Chloride Flush 3 Ml Syringe) 3 ml IVFLUSH QSHIFT [facility] Last Admin: 04/06/25 21:35 Dose: Not Given Home Medications ?Medication ?Instructions ?Recorded ?Confirmed ?Last Taken ?Type apixaban 5 mg tablet (Eliquis) 5 mg PO BID 02/16/2006/26/24 History insulin glargine 100 unit/mL 4 unit subcut QPM 0 06/01/24 02/16/20 History subcutaneous solution (Lantus U-100 Insulin) insulin lispro 100 unit/mL 02/16/20 06/01/24 02/15/20 History subcutaneous solution (Humalog U-100 Insulin) magnesium oxide 420 mg tablet 420 mg PO DAILY 02/16/20 06/01/24 02/16/20 History metformin 500 mg tablet 500 mg PO BID 02/16/2006/0102/15/20 History metoprolol succinate 25 mg 25 mg PO DAILY 02/16/2006/29/24 History tablet,extended release 24 hr aspirin 81 mg tablet,delayed 81 mg PO DAILY 06/01/24 0 06/01/24 Unknown History release clotrimazole 1 % topical cream 1 appl topical BID PRN Skin 06/01/24 06/01/24 Unknown History Irritation coenzyme Q10 300 mg capsule (Co 300 mg PO DAILY 06/01/24 Unknown History Q-10) docusate sodium 100 mg capsule 100 mg PO DAILY 5 06/01/24 Unknown History empagliflozin 25 mg tablet 25 mg PO DAILY 06/01/2406/26/24 History thiamine HCl (vitamin B1) 100 mg 200 mg PO DAILY 06/0106/01/24 Unknown History tablet Physical Exam 2 Vital Signs and Narrative: Vital Signs: Last Vital Signs Temp 97.6 F 04/06/25 19:05 Pulse 61 04/06/25 21:18 Resp 18 04/06/25 21:18 BP 167/48 H 04/06/25 21:18 Pulse Ox 99 04/06/25 21:18 O2 Del Method Room Air 04/06/25 21:18 BMI result Body Mass Index 22.3 Gen: Appears be in no acute distress HEENT: NCAT, Moist mucosa. Pulmonary: Vesicular breath sounds, fair air entry CVS: Normal S1-S2 Abdomen: BS+, Soft, Nontender Extremities: Warm well perfused; left great toe surgically absent. Wound appears healing. Sutures in place. Neuro: Alert and awake. Results Labs 04/06/25 19:01 04/06/25 19:01 Labs: Laboratory Results - last 24 hr 04/06/25 19:01 MCV 91.0 MCH 30.9 MCHC 33.9 RDW 11.9 Plt Count 219 MPV 10.9 Immature Gran % (Auto) 0.3 Neut % (Auto) 68.8 Lymph % (Auto) 17.7 L Potter % (Auto) 11.7 H Eos % (Auto) 1.0 Baso % (Auto) 0.5 Lymph # (Auto) 2.6 Potter # (Auto) 1.7 H Eos # (Auto) 0.1 Baso # (Auto) 0.1 Abs Immat Gran (auto) 0.05 H Absolute Neuts (auto) 10.0 H Absolute Nucleated RBC 0.000 Nucleated RBC % (auto) 0.0 Smear Tech's Comments VERIFIED Anion Gap 14 Estim Creat Clear Calc 67.5 Estimated GFR > 60 Random Glucose 302 H Calcium 8.9 Magnesium 1.4 L* Total Bilirubin 0.6 AST 17 ALT < 6 Alkaline Phosphatase 113 Troponin I High Sens 10.4 Total Protein 6.5 Albumin 3.7 Lipase 23 COVID-19 (WILL) Negative COVID-19 Clin Com See Note Influenza Type A (SUNDAR) Negative Influenza Type B (SUNDAR) Negative Influenza A & B Note See Note Assessment and Plan (1) Syncope and collapse: Status: Acute Plan 80-year-old male with a past medical history of Lewy body dementia, HTN, HLD, dm, diabetic foot infection status post left great toe amputation on 04/05/25; AFib on Eliquis, parkinsonism, BPH, peripheral vascular disease presented to the hospital with a chief complaint of syncope. Syncope/brief unresponsive episode; EKG nonischemic Troponins negative Orthostatic vitals Telemetry Cardiology consult Echocardiogram PT/OT and ready for discharge Status post left great toe amputation: Sutures in place. Appears healing. Wound consult follow-up. Diabetes: Insulin sliding scale AFib: Rate controlled; continue Eliquis Leukocytosis: Likely reactive. Will monitor Hypomagnesemia: Repleted Dementia: Patient's mental status at baseline at the time of admission. Patient overnight became mildly delirious. Given Zyprexa x1. Delirium precautions Med reconciliation: Resume home medications once med rec completed by pharmacy name DVT prophylaxis: Patient on Eliquis Code status: Full code Quality Stroke Does the patient have a stroke diagnosis?: No VTE Prior VTE?: No VTE Risk Level:: Medical - moderate - high VTE Device Contraindication: Treatment Not Indicated VTE Drug Contraindication: N/A - Med Ordered
--- NOTE | 2025-04-06 23:29 | PC.NURSE ---
pt bed alarm went off, found to be pulling on cardiac leads and had ripped iv out. also incontinent of urine. bed linen changed and tommy care. male purewick replaced. new iv established to L. forearm. bed alarm on. will assess for need for 1:1 sitter if behavior continues.
[2025-04-07] VITALS (12 sets, daily range): BP systolic 139–165; BP diastolic 56–77; PULSE 60–89; RESP 11–20; TEMP 36.3–36.7; O2SAT 94–100
--- NOTE | 2025-04-07 | ECG_ITS ---
Test Reason : TELE CHANGE Blood Pressure : */* mmHG Vent. Rate : 79 BPM Atrial Rate : 326 BPM P-R Int : * ms QRS Dur : 144 ms QT Int : 426 ms P-R-T Axes : * -81 21 degrees QTcB Int : 488 ms Atrial fibrillation Left axis deviation Right bundle branch block Anterior infarct (cited on or before 19-Nov-2024) Abnormal ECG When compared with ECG of 06-Apr-2025 19:18, Nonspecific T wave abnormality, improved in Inferior leads Referred By: Justin Lizama Electronically Signed By: THUAN ALLEN
--- NOTE | 2025-04-07 00:10 | PC.NURSE ---
Late entry: Pt continues to be agitated and ripping at tele leads, IV, and male purewick. Pt is not verbally redirectable. 1:1 sitter at bedside at this time for agitation and redirection when pulling on lines. aware.
--- NOTE | 2025-04-07 00:13 | PC.NURSE ---
Late entry: Pt is extremely agitated, ripping off tele leads, ripped out IV, removed purewick. Pt not verbally redirectable. Provider aware, received new order via [place] for IM Zyprexa 2.5 mg from MD Justin Lizama.
[2025-04-07] MEDS: OLANZapine 10 MG VIAL 2.5 MG IM (00:52)
[2025-04-07 01:15] LABS: Appearance Urine Clear; Glucose Urine UA >=1000 mg/dL (Negative); PH 6.0 (5.0-9.0); Specific Gravity - Urine 1.025 (1.005-1.025); UMIC TRIGGER UACC YES
--- NOTE | 2025-04-07 02:41 | PC.NURSE ---
Pt becoming increasingly agitated and combative. Pt attempted to hit this RN and sitter. Pt now yelling and swearing. Provider aware.
[2025-04-07] MEDS: OLANZapine 10 MG VIAL 5 MG IM (02:49)
--- NOTE | 2025-04-07 02:55 | PC.NURSE ---
Pt attempting to hit this RN and sitter. Very verbally aggressive, swearing and threatening staff.
--- NOTE | 2025-04-07 04:24 | PC.NURSE ---
Pt noted to have some changes on monitoring specialist, more PVCs with some runs. Repeat EKG obtained and provider notified. No new orders at this time.
--- NOTE | 2025-04-07 04:50 | PC.NURSE ---
Late entry: Pt continues to be physically and verbally aggressive. Attempting to hit and kick staff, yelling and swearing. Provider aware.
[2025-04-07] MEDS: diazePAM 10 MG/2 ML CARTRIDGE 5 MG IM (04:53)
[2025-04-07 04:59] LABS: MANUAL DIFF FLAG NO
[2025-04-07 05:05] LABS: Hematocrit 39.9 % (42.0-52.0); Hemoglobin 13.5 g/dl (14.0-18.0); Imm Gran Abs Auto 0.03 X10*3/uL (0.00-0.03); Imm Gran Pct Auto 0.3 % (0.0-0.4); Lymphocytes Absolute Auto 2.4 X10*3/uL (1.2-4.9); Mean Corpuscular HGB Conc 33.8 g/dl (31.0-36.0); Mean Corpuscular Hemoglobin 30.6 pg (27.0-33.0); Mean Corpuscular Volume 90.5 fL (80.0-98.0); NRBC Abs Auto 0.000 X10*3/uL (0.0-0.012); NRBC Pct Auto 0.0 /100WBC (0.0-0.2); Platelet Count 206 X10*3/uL (160-400); Red Blood Count 4.41 X10*6/uL (4.60-5.80); White Blood Count 11.2 X10*3/uL (4.8-10.8)
[2025-04-07 05:14] LABS: Alanine Aminotransferase 17 U/L (0-40); Albumin Level 3.8 g/dL (3.5-5.0); Alkaline Phosphatase 108 U/L (39-117); Anion Gap 12 (12-20); Aspartate Amino Transferase 18 U/L (5-37); Blood Urea Nitrogen 13 mg/dL (9-16); Calcium 9.3 mg/dL (8.4-10.2); Carbon Dioxide 26 mmol/L (22-29); Chloride 106 mmol/L (96-108); Creatinine Clr Calc Pharmacy 94.1; Estimated Glomerular Filt Rate > 60; Potassium 4.1 mmol/L (3.3-5.1); Sodium 140 mmol/L (135-145); Total Protein 6.6 g/dL (6.5-8.0)
[2025-04-07] MEDS: Lactated Ringers 1,000 ML 100 ML IVCONT ×2 (06:11→16:13)
--- NOTE | 2025-04-07 06:32 | HO.NURTONUR ---
Addendum entered by Lo Milan RN 04/07/25 12:18: Pt bladder scanned for 990cc, straight catheterized for 1300cc urine at 1130am. Pt medicated with IV valium for agitation with good effect. Lo Milan RN Original Note: Pt is a 80 y.o. male coming in with syncope. Pt had a witnessed episode of unresponsiveness at home witnessed by family. Pt had no fall or traumatic injury. Significant PMH, see MD note. Most notably pt had left great toe amputation 2 days ago. Sutures in place, no redness or drainage noted. Labs initially remarkable for mag 1.4, given IV replacement. UA neg for UTI. Covid/flu neg. Chest xray neg. Head CT shows Encephalomalacia of the left frontal lobe and right occipital lobe is new from prior CT. VSS, a&o to self. Pt has been very confused and restless overnight. Pt required 3 IM medications, each with little effect. Pt has a 1:1 sitter at bedside for safety. Pt needs constant redirection. Pt is intermittently combative and attempts to kick/hit staff. 20 g left forearm. LR running 100 mL/hr.
--- NOTE | 2025-04-07 07:00 | CA_ITS ---
Transthoracic Echocardiogram Patient (Last, First, Middle): Pedro Laguna T Gender: Male Date of : 1945 Age: 80 Procedure Date: 04/07/2025 Procedure Type: Transthoracic Echocardiogram Location: ER Height: 187.96 cm Weight: 78.47 kg BSA: 2.04 m2 Heart Rate: bpm BP: 151 / 47 mmHg Heating And Cooling Technician: MELINDA Referring MD: Justin Lizama MD Symptoms: syncope Study Quality: Adequate ECG Rhythm: Atrial flutter Conclusions: - The left ventricular systolic function is mild to moderately decreased. The calculated ejection fraction is 42% by biplane method. - The basal inferior and basal inferolateral segments are akinetic. - There is moderate calcification of the aortic valve. There is mild aortic valve stenosis. Findings Procedure Information The quality of the study was technically difficult. The study quality is limited by the patients inability to tolerate the test. Left Ventricle Moderately increased left ventricular cavity size. There is normal left ventricular wall thickness. The left ventricular systolic function is mild to moderately decreased. The calculated ejection fraction is 42% by biplane method. Diastolic function is indeterminate on the basis of available data. Wall Motion Rest Echo Findings The basal inferior and basal inferolateral segments are akinetic. Right Ventricle Mildly increased right ventricular cavity size. There is mildly decreased right ventricular systolic function. Atria The left atrium is severely dilated. The right atrium is moderately dilated. Aortic Valve There is moderate calcification of the aortic valve. There is mild aortic valve stenosis. There is no aortic valve regurgitation. Mitral Valve The mitral valve appears normal. There is trace mitral valve regurgitation. There is no mitral valve stenosis. Pulmonic Valve The pulmonic valve is likely normal. Tricuspid Valve There is mild tricuspid valve regurgitation. There is no evidence of pulmonary hypertension. Great Vessels The sinuses of valsalva is normal in size. Venous The inferior vena cava was not well visualized. Pericardium/Pleural There is no evidence of pericardial effusion. Prior Study Comparison Changes noted compared to prior study dated: 04/10/2019. Decrease in LVEF; see comment on wall motion. Measurements 2D Linear Measurements IVSd: 0.85 0.6-0.9/0.6-1.0 cm LVIDd: 6.21 3.9-5.3/4.2-5.9 cm LVIDd Index: 3.04 2.4-3.2/2.2-3.1 cm/m2 LVIDs: 5.27 2.0-3.6 cm LVPWd: 0.90 0.7-1.1 cm LA Diam: 4.80 2.7-3.8/3.0-4.0 cm LAIDs Index: 2.35 1.5-2.3 cm/m2 LV Mass: 273.50 67-162/88-224 g LV Mass Index: 134.07 43-95/49-115 g/m2 LVOT Diam: 2.60 3.0+(-)1.3 cm 2D Systolic Function EF 4C: 39.40 >55% EF 2C: 42.00 >55% EF BiP: 42.00 >55% Mitral Valve MV Pk E: 0.77 E'Lateral: 7.51 E'Medial: 6.31 E/E' Med: 12.30 E/E' Lat: 10.30 Aortic Valve AoV Pk You: 2.17 AoV Mn You: 1.56 AoV VTI: 0.42 AoV Pk Grad: 19.00 Aov Mn Grad: 11.00 JEF Cont.VTI: 1.47 LVOT LVOT Pk You: 0.56 LVOT Mn You: 0.39 LVOT VTI: 0.12 LVOT Pk Grad: 1.00 LVOT Mn Grad: 1.00 LVOT Diam: 2.60 LVOT Area: 5.31 Diastolic Function MV Pk E: 0.77 E'Medial: 6.31 E/E' Med: 12.30 E' Laterial: 7.51 E/E' Lat: 10.30 Right Ventricle TAPSE (mm): 20.90 TVS' You: 9.79 Tricuspid Valve TR Pk You: 2.70 TR Pk Grad: 29.00 Great Vessels Aorta Sinus of Valsalva: 3.70 2.0-3.5 cm Pulmonary Valve PV Pk You: 1.08 Peak PV Grad: 5.00 Updated in Other Vendor System with Status of Final Samuel Saxena MD electronically signed on 04/07/2025 3:59:58 PM with status of Final
--- NOTE | 2025-04-07 08:57 | PC.NURSE ---
Pt refusing POC glucose check, glucose 197 in labs this am. Pt refusing meal, still intermittently combative and confused. MD Nereyda Molina made aware.
--- NOTE | 2025-04-07 09:45 | PHA.MEDREC ---
Addendum entered by Jacob Hays RPh 04/07/25 10:39: reviewed by [facility] Original Note: Pharmacy Consult ? Medication Reconciliation Pharmacy has completed the medication reconciliation. Received med list from [facility] in [place] and spoke with pt spouse Sneha ([phone]) over the phone and she confirmed pt mediations. Pt just prescribed Povidone Topical, Oxycodone and Doxycyline 50mg; spouse confirmed pt did not start the Providone but did start the Oxycodone and Doxycycline yesterday, pt was taking Doxycycline 100mg BID (pt started 03/23) up until he started the 50mg regimen yesterday (04/06), pt now using his Omeprazole as needed for acid reflux; per spouse he hasn't needed to us it in a bit , pt taking Humalog injecting before meals 5 units in morning, 5 units in the afternoon and 6 units before supper, pt takes Lantus Solostar at bedtime and injects per a sliding scale depending on his Blood Glucose levels; spouse confirmed pt last injected 8 units 2 nights ago (04/05).
--- NOTE | 2025-04-07 10:22 | PC.NURSE ---
Pt agitated, attempting to get OOB, not able to be redirected. MD Dawn made aware.
[2025-04-07] MEDS: diazePAM 10 MG/2 ML CARTRIDGE 2.5 MG IVPUSH ×2 (10:44→20:40)
--- NOTE | 2025-04-07 11:31 | PC.NURSE ---
990 noted on bladder scan. Pt straight catheterized for 1300 cc clear yellow urine, tolerated well.
--- NOTE | 2025-04-07 11:41 | MHC.CM.PN ---
IMM DELIVERED TO [facility] VIA TELEPHONE. PT IS NOT ABLE TO SIGN OR PARTICIPATE IN ASSESSMENT DUE TO COGNITIVE STATUS. PT LIVES WITH SPOUSE AND IS FUNCTIONALLY INDEPENDENT AT BASELINE. USES CANE WHEN OUTSIDE OF HOME. NO SERVICES. + HCP/DPOA, WILL WORK ON FINDING A COPY AND WILL BRING IN. PCP DR. ALVAREZ AT THE [facility]. DP: HOME VS HOME WITH SERVICES IS THE GOAL? [facility] WILL TRANSPORT. CM WILL CONTINUE TO FOLLOW FOR ANY CHANGE TO DC PLAN/NEEDS.
[2025-04-07 12:10] LABS: Glucose, Whole Blood 213 mg/dL (60-115)
--- NOTE | 2025-04-07 12:46 | PC.NURSE ---
Left foot dressing removed by pt. Per pt's (at [facility]), surgeon wants betadine paint with fluffy gauze and large bulky kerlix dressing. Dressing changed.
--- NOTE | 2025-04-07 13:37 | P.PNIM_ITS ---
Subjective Subjective Date of Service: 04/07/25 Interval History: confused, agitated Physical Exam 2 Exam: Exam: Alert, confused, agitated, ill-appearing Vital Signs: Vital Signs: Last Vital Signs Temp 97.9 F 04/07/25 11:06 Pulse 63 04/07/25 11:06 Resp 11 L 04/07/25 11:06 BP 145/63 H 04/07/25 11:06 Pulse Ox 97 04/07/25 06:05 O2 Del Method Room Air 04/07/25 06:05 BMI result Body Mass Index 22.3 Objective Data Active Medications Acetaminophen (Acetaminophen 325 Mg Tablet) 650 mg PO Q6H PRN PRN Reason: Pain, Mild 1-3,fever,headache Apixaban (Apixaban 5 Mg Tablet) 5 mg PO BID [facility] Last Admin: 04/07/25 10:28 Dose: 5 mg Documented By: KATHERINE Comments: Given crushed in applesauce Ascorbic Acid (Ascorbic Acid 500 Mg Tablet) 500 mg PO DAILY [facility] Aspirin (Aspirin Enteric Coated 81 Mg Tablet.Dr) 81 mg PO DAILY [facility] Brimonidine Tartrate (Brimonidine Tartrate 0.2% Oph 5 Ml Bottle) 1 drop EYE- BOTH BID [facility] Calcium Carbonate (Calcium Carbonate 750 Mg Tab.Chew) 750 mg PO Q4H PRN PRN Reason: Heartburn Carbidopa/Levodopa (Carbidopa/Levodopa 25/100 Tablet) 1 tab PO TID [facility] Last Admin: 04/07/25 10:29 Dose: 1 tab Documented By: KATHERINE Comments: Given crushed in applesauce Dextrose (Dextrose 50 % 25 Gm/50 Ml Syringe) 25 gm IVPUSH Q15M PRN; Protocol PRN Reason: per Hypoglycemia Standing Ord. Finasteride (Finasteride 5 Mg Tablet) 5 mg PO DAILY [facility] Glucose (Glucose Gel 15 Gm Gel..Gram.) 15 gm PO Q15M PRN; Protocol PRN Reason: per Hypoglycemia Standing Ord. Lactated Ringer's (Lr) 1,000 mls @ 100 mls/hr IVCONT .Q10H [facility] Last Admin: 04/07/25 06:11 Dose: 100 mls/hr Documented By: TRISTAN Insulin Human Lispro (Insulin Lispro 100 Unit/Ml 3 Ml Vial) 0 unit SUBCUT QIDACHS [facility] DAVID; Protocol Last Admin: 04/07/25 12:50 Dose: 4 unit Documented By: KATHERINE Magnesium Hydroxide (Milk Of Magnesia 30 Ml Oral.Susp) 30 ml PO DAILY PRN PRN Reason: Constipation Melatonin (Melatonin 3 Mg Tablet) 6 mg PO BEDTIME PRN PRN Reason: Insomnia Memantine (Memantine Hcl 10 Mg Tablet) 10 mg PO DAILY [facility] Methenamine Hippurate (Methenamine Hippurate 1 Gm Tablet) 1 gm PO DAILY [facility] Metoprolol Succinate (Metoprolol Succinate Er 25 Mg Tab.Er.24h) 25 mg PO DAILY [facility]; Protocol Omeprazole (Omeprazole 20 Mg Capsule.Dr) 20 mg PO DAILY@0630 PRN PRN Reason: Acid Reflux Sodium Chloride (0.9 % Sodium Chloride Flush 3 Ml Syringe) 3 ml IVFLUSH QSHIFT [facility] Last Admin: 04/07/25 07:16 Dose: Not Given Documented By: KATHERINE Non-Admin Reason: IV Running Thiamine HCl (Thiamine Hcl 100 Mg Tablet) 200 mg PO DAILY [facility] Labs 04/07/25 04:55 04/07/25 04:55 Labs: Laboratory Results - last 24 hr 04/06/25 04/07/25 04/07/25 19:01 01:06 04:55 MCV 91.0 90.5 MCH 30.9 30.6 MCHC 33.9 33.8 RDW 11.9 11.9 Plt Count 219 206 MPV 10.9 10.6 Immature Gran % (Auto) 0.3 0.3 Neut % (Auto) 68.8 64.6 Lymph % (Auto) 17.7 L 21.1 Wallace % (Auto) 11.7 H 12.8 H Eos % (Auto) 1.0 0.8 Baso % (Auto) 0.5 0.4 Lymph # (Auto) 2.6 2.4 Wallace # (Auto) 1.7 H 1.4 H Eos # (Auto) 0.1 0.1 Baso # (Auto) 0.1 0.1 Abs Immat Gran (auto) 0.05 H 0.03 Absolute Neuts (auto) 10.0 H 7.3 Absolute Nucleated RBC 0.000 0.000 Nucleated RBC % (auto) 0.0 0.0 Smear Tech's Comments VERIFIED Anion Gap 14 12 Estim Creat Clear Calc 67.5 94.1 Estimated GFR > 60 > 60 POC Glucose Random Glucose 302 H 197 H Calcium 8.9 9.3 Magnesium 1.4 L* Total Bilirubin 0.6 0.7 AST 17 18 ALT < 6 17 Alkaline Phosphatase 113 108 Troponin I High Sens 10.4 Total Protein 6.5 6.6 Albumin 3.7 3.8 Lipase 23 Urine Color Yellow Urine Appearance Clear Urine pH 6.0 Ur Specific [place] 1.025 Urine Protein 30 (1+) H Urine Glucose (UA) >=1000 H Urine Ketones 15 Urine Blood Negative Urine Nitrite Negative Ur Leukocyte Esterase Negative Urine RBC 0-2 Urine WBC 0-5 Ur Squamous Epith Cells 0-2 Urine Bacteria None Seen Hyaline Casts 0-2 COVID-19 (WILL) Negative COVID-19 Clin Com See Note Influenza Type A (SUNDAR) Negative Influenza Type B (SUNDAR) Negative Influenza A & B Note See Note 04/07/25 12:06 MCV MCH MCHC RDW Plt Count MPV Immature Gran % (Auto) Neut % (Auto) Lymph % (Auto) Wallace % (Auto) Eos % (Auto) Baso % (Auto) Lymph # (Auto) Wallace # (Auto) Eos # (Auto) Baso # (Auto) Abs Immat Gran (auto) Absolute Neuts (auto) Absolute Nucleated RBC Nucleated RBC % (auto) Smear Tech's Comments Anion Gap Estim Creat Clear Calc Estimated GFR POC Glucose 213 H Random Glucose Calcium Magnesium Total Bilirubin AST ALT Alkaline Phosphatase Troponin I High Sens Total Protein Albumin Lipase Urine Color Urine Appearance Urine pH Ur Specific [place] Urine Protein Urine Glucose (UA) Urine Ketones Urine Blood Urine Nitrite Ur Leukocyte Esterase Urine RBC Urine WBC Ur Squamous Epith Cells Urine Bacteria Hyaline Casts COVID-19 (WILL) COVID-19 Clin Com Influenza Type A (SUNDAR) Influenza Type B (SUNDAR) Influenza A & B Note Assessment and Plan (1) A-fib: Status: Acute Plan 80M PMH parkinsons and Lewy body dementia, HTN, HLD, DM, PVD, left great toe amp 04/05/25, chronic afib on eliquis, presented with syncope syncope differential includes orthostatic hypotension due to parkinsons, robyn arythmia, fluid losses and medications from recent surgery montior on tele, check orthostatics urinary retention monitor pvr, straight cath as needed will start flomax acute toxic metabolic encephalopathy/ acute delirium in a patient with Lewy body dementia Multifactorial, urinary retention, pain medication from recent surgery, Orienting strategies Diabetes Insulin Chronic AFib Toprol, Eliquis Acute hypomagnesemia Replace and monitor DVT prophylaxis with Eliquis Full code reason for continued hospitalization: working up syncope, ams Quality Stroke Does the patient have a stroke diagnosis?: No VTE Prior VTE?: No VTE Risk Level:: Medical - moderate - high VTE Device Contraindication: Treatment Not Indicated VTE Drug Contraindication: N/A - Med Ordered
--- NOTE | 2025-04-07 16:33 | PC.NURSE ---
Patient stating he needs to urinate, unable to void, bladder scanned for greater than 700mls, MD aware stating to place brewer.
[2025-04-07 17:33] LABS: Glucose, Whole Blood 225 mg/dL (60-115)
[2025-04-07 20:19] LABS: Glucose, Whole Blood 218 mg/dL (60-115)
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
[2025-04-07] MEDS: diazePAM 10 MG/2 ML CARTRIDGE 5 MG IVPUSH (20:45)
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
[2025-04-08] MEDS: Lactated Ringers 1,000 ML 100 ML IVCONT ×2 (03:21→13:00)
[2025-04-08 04:00] VITALS: BP 156/85; PULSE 87; RESP 16; TEMP 36.7; O2SAT 96
--- NOTE | 2025-04-08 05:59 | PC.NURSE ---
patient has slept for several hours. now calm, sleeping, no signs of distress. sitter and fall prx remains in place
[2025-04-08 07:03] LABS: Glucose, Whole Blood 185 mg/dL (60-115)
[2025-04-08 07:31] VITALS: BP 156/66; PULSE 72; RESP 20; TEMP 36.7; O2SAT 97
[2025-04-08 07:33] LABS: Hematocrit 37.0 % (42.0-52.0); Hemoglobin 12.8 g/dl (14.0-18.0); Mean Corpuscular HGB Conc 34.6 g/dl (31.0-36.0); Mean Corpuscular Hemoglobin 30.6 pg (27.0-33.0); Mean Corpuscular Volume 88.5 fL (80.0-98.0); NRBC Abs Auto 0.000 X10*3/uL (0.0-0.012); NRBC Pct Auto 0.0 /100WBC (0.0-0.2); Platelet Count 194 X10*3/uL (160-400); Red Blood Count 4.18 X10*6/uL (4.60-5.80); White Blood Count 9.4 X10*3/uL (4.8-10.8)
[2025-04-08 07:49] LABS: Anion Gap 11 (12-20); Blood Urea Nitrogen 10 mg/dL (9-16); Calcium 9.0 mg/dL (8.4-10.2); Carbon Dioxide 24 mmol/L (22-29); Chloride 107 mmol/L (96-108); Creatinine Clr Calc Pharmacy 109.5; Estimated Glomerular Filt Rate > 60; Magnesium 1.3 mg/dL (1.6-2.6); Potassium 3.9 mmol/L (3.3-5.1); Sodium 138 mmol/L (135-145)
[2025-04-08] MEDS: Magnesium Sulfate/H2O 2 GM/50 ML PIGGYBACK IV (09:11)
--- NOTE | 2025-04-08 10:36 | PC.NURSE ---
Addendum entered by Mallorie Espinal RN 04/08/25 15:19: pt awake and pulling off tele monitor, MD aware, per MD pt does not need monitor on Original Note: upon assessment pt still somnolent from overnight medication, vitals stable, MD notified. per MD pt will probably be out all day . unable to give morning PO medications
[2025-04-08 10:54] LABS: Glucose, Whole Blood 186 mg/dL (60-115)
[2025-04-08 11:00] VITALS: BP 160/80; PULSE 74; RESP 18; TEMP 36.8; O2SAT 98
--- NOTE | 2025-04-08 12:32 | HO.PM.IMPN ---
Subjective Subjective Date of Service: 04/08/25 Interval History: Received extra doses of Valium and Zyprexa overnight due to agitation now lethargic to obtunded Physical Exam Exam: Exam: Lethargic/obtunded, does occasionally spontaneously open his eyes, not verbalizing, lungs clear abdomen soft Vital Signs: Vital Signs: Last Vital Signs Temp 98.3 F 04/08/25 11:00 Pulse 74 04/08/25 11:00 Resp 18 04/08/25 11:00 BP 160/80 H 04/08/25 11:00 Pulse Ox 98 04/08/25 11:00 O2 Del Method Room Air 04/08/25 11:00 BMI result Body Mass Index 22.3 Objective Data Active Medications Acetaminophen (Acetaminophen 325 Mg Tablet) 650 mg PO Q6H PRN PRN Reason: Pain, Mild 1-3,fever,headache Last Admin: 04/07/25 19:16 Dose: 650 mg Documented By: SHAUNA Apixaban (Apixaban 5 Mg Tablet) 5 mg PO BID [facility] Last Admin: 04/08/25 10:56 Dose: Not Given Documented By: GOLDIE Non-Admin Reason: Patient Asleep Ascorbic Acid (Ascorbic Acid 500 Mg Tablet) 500 mg PO DAILY [facility] Last Admin: 04/08/25 10:56 Dose: Not Given Documented By: GOLDIE Non-Admin Reason: Patient Asleep Aspirin (Aspirin Enteric Coated 81 Mg Tablet.) 81 mg PO DAILY [facility] Last Admin: 04/08/25 10:56 Dose: Not Given Documented By: GOLDIE Non-Admin Reason: Patient Asleep Brimonidine Tartrate (Brimonidine Tartrate 0.2% Oph 5 Ml Bottle) 1 drop EYE-BOTH BID [facility] Last Admin: 04/08/25 10:41 Dose: Not Given Documented By: GOLDIE Non-Admin Reason: Patient Asleep Calcium Carbonate (Calcium Carbonate 750 Mg Tab.Chew) 750 mg PO Q4H PRN PRN Reason: Heartburn Carbidopa/Levodopa (Carbidopa/Levodopa 25/100 Tablet) 1 tab PO TID [facility] Last Admin: 04/08/25 10:56 Dose: Not Given Documented By: GOLDIE Non-Admin Reason: Patient Asleep Dextrose (Dextrose 50 % 25 Gm/50 Ml Syringe) 25 gm IVPUSH Q15M PRN; Protocol PRN Reason: per Hypoglycemia Standing Ord. Finasteride (Finasteride 5 Mg Tablet) 5 mg PO DAILY [facility] Last Admin: 04/08/25 10:56 Dose: Not Given Documented By: GOLDIE Non-Admin Reason: Patient Asleep Glucose (Glucose Gel 15 Gm Gel..Gram.) 15 gm PO Q15M PRN; Protocol PRN Reason: per Hypoglycemia Standing Ord. Lactated Ringer's (Lr) 1,000 mls @ 100 mls/hr IVCONT .Q10H [facility] Last Admin: 04/08/25 03:21 Dose: 100 mls/hr Documented By: LAFLAMTariq Insulin Human Lispro (Insulin Lispro 100 Unit/Ml 3 Ml Vial) 0 unit SUBCUT QIDACHS [facility]; Protocol Last Admin: 04/08/25 11:15 Dose: Not Given Documented By: GOLDIE Non-Admin Reason: pt asleep, not eating, MD aware Magnesium Hydroxide (Milk Of Magnesia 30 Ml Oral.Susp) 30 ml PO DAILY PRN PRN Reason: Constipation Magnesium Oxide (Magnesium Oxide 400 Mg Tablet) 400 mg PO BIDPC [facility] Last Admin: 04/08/25 10:56 Dose: Not Given Documented By: GOLDIE Non-Admin Reason: Patient Asleep Melatonin (Melatonin 3 Mg Tablet) 6 mg PO BEDTIME PRN PRN Reason: Insomnia Memantine (Memantine Hcl 10 Mg Tablet) 10 mg PO DAILY [facility] Last Admin: 04/08/25 10:56 Dose: Not Given Documented By: GOLDIE Non-Admin Reason: Patient Asleep Methenamine Hippurate (Methenamine Hippurate 1 Gm Tablet) 1 gm PO DAILY [facility] Last Admin: 04/08/25 10:56 Dose: Not Given Documented By: GOLDIE Non-Admin Reason: Patient Asleep Metoprolol Succinate (Metoprolol Succinate Er 25 Mg Tab.Er.24h) 25 mg PO DAILY [facility]; Protocol Last Admin: 04/08/25 10:56 Dose: Not Given Documented By: GOLDIE Non-Admin Reason: Patient Asleep Omeprazole (Omeprazole 20 Mg Capsule.Dr) 20 mg PO DAILY@0630 PRN PRN Reason: Acid Reflux Sodium Chloride (0.9 % Sodium Chloride Flush 3 Ml Syringe) 3 ml IVFLUSH QSHIFT [facility] Last Admin: 04/08/25 09:10 Dose: Not Given Documented By: GOLDIE Non-Admin Reason: IV Running Tamsulosin HCl (Tamsulosin Hcl 0.4 Mg Capsule) 0.4 mg PO BEDTIME [facility] Last Admin: 04/07/25 21:00 Dose: Not Given Documented By: JAIDEN Non-Admin Reason: Patient Refused Thiamine HCl (Thiamine Hcl 100 Mg Tablet) 200 mg PO DAILY [facility] Last Admin: 04/08/25 10:57 Dose: Not Given Documented By: GOLDIE Non-Admin Reason: Patient Asleep Labs 04/08/25 07:12 04/08/25 07:12 Labs: Laboratory Results - last 24 hr 04/07/25 04/07/25 04/07/25 04:55 17:29 20:01 MCV MCH MCHC RDW Plt Count MPV Absolute Nucleated RBC Nucleated RBC % (auto) Anion Gap Estim Creat Clear Calc Estimated GFR POC Glucose 225 H 218 H Random Glucose Calcium Magnesium Ethyl Alcohol < 10 04/08/25 04/08/25 04/08/25 06:59 07:12 10:47 MCV 88.5 MCH 30.6 MCHC 34.6 RDW 11.9 Plt Count 194 MPV 11.3 Absolute Nucleated RBC 0.000 Nucleated RBC % (auto) 0.0 Anion Gap 11 L Estim Creat Clear Calc 109.5 Estimated GFR > 60 POC Glucose 185 H 186 H Random Glucose 182 H Calcium 9.0 Magnesium 1.3 L* Ethyl Alcohol Assessment and Plan (1) A-fib: Status: Acute Plan 80M PMH parkinsons and Lewy body dementia, HTN, HLD, DM, PVD, left great toe amp 04/05/25, chronic afib on eliquis, presented with syncope syncope differential includes orthostatic hypotension due to parkinsons, robyn arythmia, fluid losses and oxycodone from recent surgery no events on tele, check orthostatics urinary retention , brewer will start flomax acute toxic metabolic encephalopathy/ acute delirium in a patient with Lewy body and vascular dementia Multifactorial, urinary retention, pain medication from recent surgery, Orienting strategies history of CVA and encephalomalacia seen on CTH conitnue eliquis Diabetes Insulin Chronic AFib Toprol, Eliquis Acute hypomagnesemia Replace and monitor DVT prophylaxis with Eliquis Full code reason for continued hospitalization: working up syncope, ams Quality Stroke Does the patient have a stroke diagnosis?: No VTE Prior VTE?: No VTE Risk Level:: Medical - moderate - high VTE Device Contraindication: Treatment Not Indicated VTE Drug Contraindication: N/A - Med Ordered
[2025-04-08 15:05] VITALS: BP 148/72; PULSE 74; RESP 18; TEMP 36.8; O2SAT 95
--- NOTE | 2025-04-08 15:44 | PM.UROCN ---
History of Present Illness Consult details Consult date: 04/08/25 Narrative: 80-year-old male with a past medical history of Lewy body dementia, HTN, HLD, dm, diabetic foot infection status post left great toe amputation on 04/05/25; AFib on Eliquis, parkinsonism, peripheral vascular disease presented to the hospital with a chief complaint of syncope. H/O neurogenic bladder, followed by urology, pt seen in october, and is on intermittent cath by called to evaluated due to urinary retention. patient home meds include proscar, methanamine. Review of Systems Review of Systems: Yes Unobtainable due to mental status [facility] Past Medical History Medical History Skin cancer History of headache History of femoral angiogram Myocardial infarction Vocal cord polyps Hyperlipidemia Tremor Hiatal hernia Diverticulosis Colonic polyp Cataract cortical, senile TIA (transient ischemic attack) Thyroid nodule Lumbar radiculopathy PVD (peripheral vascular disease) On anticoagulant therapy Multinodular non-toxic goiter Moderate protein-calorie malnutrition Peripheral neuropathy Chronic kidney disease (CKD) stage G2/A1, mildly decreased glomerular filtration rate (GFR) between 60-89 mL/min/1.73 square meter and albuminuria creatinine ratio less than 30 mg/g Vascular dementia Exposure to potentially hazardous substance Chronic interstitial cystitis Sleep apnea Urge incontinence Male erectile dysfunction, unspecified Peripheral arterial disease GERD (gastroesophageal reflux disease) Parkinson disease Hypertension Toe avulsion Vocal cord anomaly A-fib High cholesterol Diabetes Surgical History Surgical History History of amputation of great toe of both feet Hx of exploratory laparotomy S/P thyroid biopsy Hx of cardiac catheterization History of intravascular stent placement Hx of bilateral cataract extraction History of esophagogastroduodenoscopy (EGD) H/O colonoscopy Social History Social History Household Members: Spouse Housing: House Are you a primary rn managed care to a significant other at home: No Alcohol intake: never Comment: sitter Patient Tobacco Use Status: Tobacco use Unknown Tobacco use type: Cigar Years Smoked: 8 Second Hand Smoke Exposure: No Advance Directives Date on File: 02/16/20 service: Yes Current occupational status: retired Meds Allergies Allergy/AdvReac Type Severity Reaction Status Date / Time No Known Drug Allergies Allergy Unknown UNKNOWN Verified 04/06/25 19:13 grass, weeds, dirt, dust Allergy Unknown Unknown Uncoded 04/06/25 19:13 mites Active Medications: Current Medications Acetaminophen (Acetaminophen 325 Mg Tablet) 650 mg PO Q6H PRN PRN Reason: Pain, Mild 1-3,fever,headache Last Admin: 04/07/25 19:16 Dose: 650 mg Apixaban (Apixaban 5 Mg Tablet) 5 mg PO BID [facility] Last Admin: 04/08/25 10:56 Dose: Not Given Ascorbic Acid (Ascorbic Acid 500 Mg Tablet) 500 mg PO DAILY [facility] Last Admin: 04/08/25 10:56 Dose: Not Given Aspirin (Aspirin Enteric Coated 81 Mg Tablet.Dr) 81 mg PO DAILY [facility] Last Admin: 04/08/25 10:56 Dose: Not Given Brimonidine Tartrate (Brimonidine Tartrate 0.2% Oph 5 Ml Bottle) 1 drop EYE-BOTH BID [facility] Last Admin: 04/08/25 10:41 Dose: Not Given Calcium Carbonate (Calcium Carbonate 750 Mg Tab.Chew) 750 mg PO Q4H PRN PRN Reason: Heartburn Carbidopa/Levodopa (Carbidopa/Levodopa 25/100 Tablet) 1 tab PO TID [facility] Last Admin: 04/08/25 10:56 Dose: Not Given Dextrose (Dextrose 50 % 25 Gm/50 Ml Syringe) 25 gm IVPUSH Q15M PRN; Protocol PRN Reason: per Hypoglycemia Standing Ord. Finasteride (Finasteride 5 Mg Tablet) 5 mg PO DAILY [facility] Last Admin: 04/08/25 10:56 Dose: Not Given Glucose (Glucose Gel 15 Gm Gel..Gram.) 15 gm PO Q15M PRN; Protocol PRN Reason: per Hypoglycemia Standing Ord. Lactated Ringer's (Lr) 1,000 mls @ 100 mls/hr IVCONT .Q10H [facility] Last Admin: 04/08/25 13:00 Dose: 100 mls/hr Insulin Human Lispro (Insulin Lispro 100 Unit/Ml 3 Ml Vial) 0 unit SUBCUT QIDACHS [facility]; Protocol Last Admin: 04/08/25 11:15 Dose: Not Given Magnesium Hydroxide (Milk Of Magnesia 30 Ml Oral.Susp) 30 ml PO DAILY PRN PRN Reason: Constipation Magnesium Oxide (Magnesium Oxide 400 Mg Tablet) 400 mg PO BIDPC [facility] Last Admin: 04/08/25 10:56 Dose: Not Given Melatonin (Melatonin 3 Mg Tablet) 6 mg PO BEDTIME PRN PRN Reason: Insomnia Memantine (Memantine Hcl 10 Mg Tablet) 10 mg PO DAILY [facility] Last Admin: 04/08/25 10:56 Dose: Not Given Methenamine Hippurate (Methenamine Hippurate 1 Gm Tablet) 1 gm PO DAILY [facility] Last Admin: 04/08/25 10:56 Dose: Not Given Metoprolol Succinate (Metoprolol Succinate Er 25 Mg Tab.Er.24h) 25 mg PO DAILY [facility]; Protocol Last Admin: 04/08/25 10:56 Dose: Not Given Omeprazole (Omeprazole 20 Mg Capsule.Dr) 20 mg PO DAILY@0630 PRN PRN Reason: Acid Reflux Sodium Chloride (0.9 % Sodium Chloride Flush 3 Ml Syringe) 3 ml IVFLUSH QSHIFT [facility] Last Admin: 04/08/25 09:10 Dose: Not Given Tamsulosin HCl (Tamsulosin Hcl 0.4 Mg Capsule) 0.4 mg PO BEDTIME [facility] Last Admin: 04/07/25 21:00 Dose: Not Given Thiamine HCl (Thiamine Hcl 100 Mg Tablet) 200 mg PO DAILY [facility] Last Admin: 04/08/25 10:57 Dose: Not Given Home Medications ?Medication ?Instructions ?Recorded ?Confirmed ?Last Taken ?Type apixaban 5 mg tablet (Eliquis) 5 mg PO BID 02/16/20 04/07/25 04/06/25 History insulin glargine 100 unit/mL 7 - 20 unit subcut BEDTIME 02/16/20 04/07/25 04/05/25 History subcutaneous solution (Lantus 8 un U-100 Insulin) insulin lispro 100 unit/mL 5 unit subcut BID@0800,1200 02/16/20 04/07/25 04/06/25 History subcutaneous solution (Humalog U-100 Insulin) magnesium oxide 420 mg tablet 420 mg PO DAILY 02/16/20 04/07/25 04/06/25 History metformin 500 mg tablet 500 mg PO DAILY 02/16/20 04/07/25 04/06/25 History metoprolol succinate 25 mg 25 mg PO DAILY 02/16/20 04/07/25 04/06/25 History tablet,extended release 24 hr aspirin 81 mg tablet,delayed 81 mg PO DAILY 06/01/24 04/07/25 04/06/25 History release coenzyme Q10 300 mg capsule (Co 300 mg PO DAILY 06/01/24 04/07/25 04/06/25 History Q-10) docusate sodium 100 mg capsule 100 mg PO BID 06/01/24 04/07/25 04/06/25 History thiamine HCl (vitamin B1) 100 mg 200 mg PO DAILY 06/01/24 04/07/25 04/06/25 History tablet ascorbic acid (vitamin C) 500 mg 500 mg PO DAILY 04/07/25 04/07/25 04/06/25 History tablet (Vitamin C) brimonidine 0.2 % eye drops 1 drp ophthalmic (eye) BID 04/07/25 04/07/25 04/06/25 History doxycycline hyclate 50 mg tablet 50 mg PO BID 04/07/25 04/07/25 04/06/25 History glucagon 3 mg/actuation nasal spray 3 mg intranasal NEEDED PRN Low 04/07/25 04/07/25 04/06/25 History Blood Sugar glucose 4 gram chewable tablet 4 g PO Q15M PRN Low Blood Sugar 04/07/25 04/07/25 Unknown History insulin lispro 100 unit/mL 6 unit subcut DAILY@1700 04/07/25 04/07/25 04/06/25 History subcutaneous solution (Humalog U-100 Insulin) lidocaine 5 % topical ointment 1 appl topical BID PRN Pain 04/07/25 04/07/25 Unknown History memantine 10 mg tablet 10 mg PO DAILY 04/07/25 04/07/25 04/06/25 History nut.tx.gluc.intol,lac-free,soy 1 ea PO BID 04/07/25 04/07/25 04/06/25 History (Glucerna oral liquid) omeprazole 20 mg capsule,delayed 20 mg PO DAILY@0630 PRN Acid Reflux 04/07/25 04/07/25 Unknown History release oxycodone 5 mg tablet 5 mg PO Q6H PRN Pain 04/07/25 04/07/25 Unknown History Physical Exam Vital Signs: Vital Signs: Last Vital Signs Temp 98.2 F 04/08/25 15:05 Pulse 74 04/08/25 15:05 Resp 18 04/08/25 15:05 BP 148/72 H 04/08/25 15:05 Pulse Ox 95 04/08/25 15:05 O2 Del Method Room Air 04/08/25 15:05 BMI result Body Mass Index 22.3 Results Labs 04/08/25 07:12 04/08/25 07:12 Labs: Abnormal lab results 04/07/25 04/07/25 04/08/25 Range/Units 17:29 20:01 06:59 RBC (4.60-5.80) X10*6/uL Hgb (14.0-18.0) g/dl Hct (42.0-52.0) % Anion Gap (12-20) POC Glucose 225 H 218 H 185 H (60-115) mg/dL Random Glucose (60-115) mg/dL Magnesium (1.6-2.6) mg/dL 04/08/25 04/08/25 Range/Units 07:12 10:47 RBC 4.18 L (4.60-5.80) X10*6/uL Hgb 12.8 L (14.0-18.0) g/dl Hct 37.0 L (42.0-52.0) % Anion Gap 11 L (12-20) POC Glucose 186 H (60-115) mg/dL Random Glucose 182 H (60-115) mg/dL Magnesium 1.3 L* (1.6-2.6) mg/dL Short CBC 04/08/25 Range/Units 07:12 WBC 9.4 (4.8-10.8) X10*3/uL Hgb 12.8 L (14.0-18.0) g/dl Hct 37.0 L (42.0-52.0) % Plt Count 194 (160-400) X10*3/uL BMP 04/08/25 07:12 Sodium 138 Potassium 3.9 Chloride 107 Carbon Dioxide 24 BUN 10 Creatinine 0.61 Calcium 9.0 Urine 04/07/25 Range/Units 01:06 Urine Color Yellow Urine Appearance Clear Urine pH 6.0 (5.0-9.0) Ur Specific [place] 1.025 (1.005-1.025) Urine Protein 30 (1+) H (Neg-Trace) mg/dL Urine Glucose (UA) >=1000 H (Negative) mg/dL All other labs normal. Assessment and Plan (1) Multifactorial dementia: Status: Acute (2) Urinary retention: Status: Acute Plan Cont proscar and flomax Neurogenic bladder pt is on CIC by per last urology note in October Cont osman pt has outpatient follow up on 04/13/25, scheduled Procedures Date of Service Date of Service: 04/08/25
[2025-04-08 16:29] LABS: Glucose, Whole Blood 148 mg/dL (60-115)
[2025-04-08 19:16] VITALS: BP 158/69; PULSE 67; RESP 16; TEMP 36.8; O2SAT 98
[2025-04-08 20:24] LABS: Glucose, Whole Blood 200 mg/dL (60-115)
[2025-04-08] MEDS: 0.9 % Sodium Chloride Flush 3 ML SYRINGE IVFLUSH (20:54)
[2025-04-08] MEDS: Brimonidine Tartrate 0.2% Oph 5 ML BOTTLE 1 DROP EYE-BOTH (20:54)
[2025-04-08 23:33] VITALS: BP 158/80; PULSE 81; RESP 18; TEMP 36.5; O2SAT 99
[2025-04-09] VITALS (9 sets, daily range): BP systolic 115–164; BP diastolic 56–80; PULSE 68–94; RESP 16–20; TEMP 36.4–37; O2SAT 94–97
[2025-04-09 07:00] LABS: Glucose, Whole Blood 185 mg/dL (60-115)
[2025-04-09 07:22] LABS: Hematocrit 39.1 % (42.0-52.0); Hemoglobin 13.3 g/dl (14.0-18.0); Mean Corpuscular HGB Conc 34.0 g/dl (31.0-36.0); Mean Corpuscular Hemoglobin 30.8 pg (27.0-33.0); Mean Corpuscular Volume 90.5 fL (80.0-98.0); NRBC Abs Auto 0.000 X10*3/uL (0.0-0.012); NRBC Pct Auto 0.0 /100WBC (0.0-0.2); Platelet Count 219 X10*3/uL (160-400); Red Blood Count 4.32 X10*6/uL (4.60-5.80); White Blood Count 9.4 X10*3/uL (4.8-10.8)
[2025-04-09 07:45] LABS: Anion Gap 13 (12-20); Blood Urea Nitrogen 10 mg/dL (9-16); Calcium 9.1 mg/dL (8.4-10.2); Carbon Dioxide 26 mmol/L (22-29); Chloride 104 mmol/L (96-108); Creatinine Clr Calc Pharmacy 104.4; Estimated Glomerular Filt Rate > 60; Magnesium 1.5 mg/dL (1.6-2.6); Potassium 3.8 mmol/L (3.3-5.1); Sodium 139 mmol/L (135-145)
[2025-04-09] MEDS: Metoprolol Succinate ER 25 MG TAB.ER.24H PO (09:02)
[2025-04-09] MEDS: Aspirin Enteric Coated 81 MG TABLET.DR PO (09:04)
[2025-04-09] MEDS: Brimonidine Tartrate 0.2% Oph 5 ML BOTTLE 1 DROP EYE-BOTH ×2 (09:15→20:36)
--- NOTE | 2025-04-09 09:15 | P.PNIM_ITS ---
Subjective Subjective Date of Service: 04/09/25 Interval History: still fairly obtunded/lethargic, did not need sedatives overnight Physical Exam 2 Exam: Exam: Lethargic/obtunded, does occasionally spontaneously open his eyes, not verbalizing, lungs clear abdomen soft Vital Signs: Vital Signs: Last Vital Signs Temp 98.6 F 04/09/25 06:58 Pulse 94 04/09/25 06:58 Resp 20 04/09/25 06:58 BP 164/66 H 04/09/25 06:58 Pulse Ox 97 04/09/25 06:58 O2 Del Method Room Air 04/09/25 06:58 BMI result Body Mass Index 22.3 Objective Data Active Medications Acetaminophen (Acetaminophen 325 Mg Tablet) 650 mg PO Q6H PRN PRN Reason: Pain, Mild 1-3,fever,headache Last Admin: 04/08/25 23:48 Dose: 650 mg Documented By: JAIDEN Apixaban (Apixaban 5 Mg Tablet) 5 mg PO BID [facility] Last Admin: 04/09/25 09:04 Dose: 5 mg Documented By: GOLDIE Ascorbic Acid (Ascorbic Acid 500 Mg Tablet) 500 mg PO DAILY [facility] Last Admin: 04/09/25 09:04 Dose: 500 mg Documented By: GOLDIE Aspirin (Aspirin Enteric Coated 81 Mg Tablet.) 81 mg PO DAILY [facility] Last Admin: 04/09/25 09:04 Dose: 81 mg Documented By: GOLDIE Brimonidine Tartrate (Brimonidine Tartrate 0.2% Oph 5 Ml Bottle) 1 drop EYE- BOTH BID [facility] Last Admin: 04/09/25 09:15 Dose: 1 drop Documented By: GOLDIE Calcium Carbonate (Calcium Carbonate 750 Mg Tab.Chew) 750 mg PO Q4H PRN PRN Reason: Heartburn Carbidopa/Levodopa (Carbidopa/Levodopa 25/100 Tablet) 1 tab PO TID [facility] Last Admin: 04/09/25 09:04 Dose: 1 tab Documented By: GOLDIE Dextrose (Dextrose 50 % 25 Gm/50 Ml Syringe) 25 gm IVPUSH Q15M PRN; Protocol PRN Reason: per Hypoglycemia Standing Ord. Finasteride (Finasteride 5 Mg Tablet) 5 mg PO DAILY [facility] Last Admin: 04/09/25 09:03 Dose: 5 mg Documented By: GOLDIE Glucose (Glucose Gel 15 Gm Gel..Gram.) 15 gm PO Q15M PRN; Protocol PRN Reason: per Hypoglycemia Standing Ord. Magnesium Sulfate (Magnesium Sulfate/H2o) 2 gm in 50 mls @ 25 mls/hr IV ONCE ONE Stop: 04/09/25 11:13 Insulin Human Lispro (Insulin Lispro 100 Unit/Ml 3 Ml Vial) 0 unit SUBCUT QIDACHS [facility]; Protocol Last Admin: 04/09/25 09:02 Dose: 2 unit Documented By: GOLDIE Magnesium Hydroxide (Milk Of Magnesia 30 Ml Oral.Susp) 30 ml PO DAILY PRN PRN Reason: Constipation Magnesium Oxide (Magnesium Oxide 400 Mg Tablet) 400 mg PO BIDPC [facility] Last Admin: 04/09/25 09:04 Dose: 400 mg Documented By: GOLDIE Melatonin (Melatonin 3 Mg Tablet) 6 mg PO BEDTIME PRN PRN Reason: Insomnia Last Admin: 04/08/25 20:54 Dose: 6 mg Documented By: JAIDEN Memantine (Memantine Hcl 10 Mg Tablet) 10 mg PO DAILY [facility] Last Admin: 04/09/25 09:04 Dose: 10 mg Documented By: GOLDIE Methenamine Hippurate (Methenamine Hippurate 1 Gm Tablet) 1 gm PO DAILY [facility] Last Admin: 04/09/25 09:02 Dose: 1 gm Documented By: GOLDIE Metoprolol Succinate (Metoprolol Succinate Er 25 Mg Tab.Er.24h) 25 mg PO DAILY [facility]; Protocol Last Admin: 04/09/25 09:02 Dose: 25 mg Documented By: GOLDIE Omeprazole (Omeprazole 20 Mg Capsule.Dr) 20 mg PO DAILY@0630 PRN PRN Reason: Acid Reflux Sodium Chloride (0.9 % Sodium Chloride Flush 3 Ml Syringe) 3 ml IVFLUSH QSHIFT [facility] Last Admin: 04/09/25 09:01 Dose: Not Given Documented By: GOLDIE Non-Admin Reason: Previously Administered Tamsulosin HCl (Tamsulosin Hcl 0.4 Mg Capsule) 0.4 mg PO BEDTIME [facility] Last Admin: 04/08/25 20:54 Dose: 0.4 mg Documented By: JAIDEN Thiamine HCl (Thiamine Hcl 100 Mg Tablet) 200 mg PO DAILY [facility] Last Admin: 04/09/25 09:02 Dose: 200 mg Documented By: GOLDIE Labs 04/09/25 06:50 04/09/25 06:50 Labs: Laboratory Results - last 24 hr 04/08/25 04/08/25 04/08/25 10:47 16:25 20:15 MCV MCH MCHC RDW Plt Count MPV Absolute Nucleated RBC Nucleated RBC % (auto) Anion Gap Estim Creat Clear Calc Estimated GFR POC Glucose 186 H 148 H 200 H Random Glucose Calcium Magnesium 04/09/25 04/09/25 06:50 06:56 MCV 90.5 MCH 30.8 MCHC 34.0 RDW 11.6 Plt Count 219 MPV 11.1 Absolute Nucleated RBC 0.000 Nucleated RBC % (auto) 0.0 Anion Gap 13 Estim Creat Clear Calc 104.4 Estimated GFR > 60 POC Glucose 185 H Random Glucose 189 H Calcium 9.1 Magnesium 1.5 L Assessment and Plan (1) A-fib: Status: Acute Plan 80M PMH parkinsons and Lewy body dementia, HTN, HLD, DM, PVD, left great toe amp 04/05/25, chronic afib on eliquis, presented with syncope syncope differential includes orthostatic hypotension due to parkinsons, robyn arythmia, fluid losses and oxycodone from recent surgery no events on tele, check orthostatics when more alert urinary retention appreciated, continue proscar, flomax and brewer acute toxic metabolic encephalopathy/ acute delirium in a patient with Lewy body and vascular dementia Multifactorial, urinary retention, pain medication from recent surgery, Orienting strategies history of CVA and encephalomalacia seen on CTH continue eliquis Diabetes Insulin Chronic AFib Toprol, Eliquis Acute hypomagnesemia Replace and monitor DVT prophylaxis with Eliquis Full code reason for continued hospitalization: ams Quality Stroke Does the patient have a stroke diagnosis?: No VTE Prior VTE?: No VTE Risk Level:: Medical - moderate - high VTE Device Contraindication: Treatment Not Indicated VTE Drug Contraindication: N/A - Med Ordered
[2025-04-09] MEDS: Magnesium Sulfate/H2O 2 GM/50 ML PIGGYBACK IV (09:21)
[2025-04-09 10:56] LABS: Glucose, Whole Blood 288 mg/dL (60-115)
[2025-04-09 15:59] LABS: Glucose, Whole Blood 272 mg/dL (60-115)
[2025-04-09 20:17] LABS: Glucose, Whole Blood 186 mg/dL (60-115)
--- NOTE | 2025-04-09 21:35 | HO.SKINPHOTO ---
Location: Category: Stage: Length: Width: Depth: cm Location: Category: Stage: Length: Width: Depth: cm Location: Category: Stage: Length: Width: Depth: cm Location: Category: Stage: Length: Width: Depth: cm Location: Category: Stage: Length: Width: Depth: cm Location: Category: Stage: Length: Width: Depth: cm
[2025-04-09] MEDS: iohexoL 350 MG/ML 100 ML INFUS..BTL 85 ML IV (22:07)
[2025-04-10] MEDS: diazePAM 10 MG/2 ML CARTRIDGE 2.5 MG IVPUSH ×2 (01:30→03:22)
[2025-04-10 06:45] LABS: Hematocrit 37.2 % (42.0-52.0); Hemoglobin 12.7 g/dl (14.0-18.0); Mean Corpuscular HGB Conc 34.1 g/dl (31.0-36.0); Mean Corpuscular Hemoglobin 30.9 pg (27.0-33.0); Mean Corpuscular Volume 90.5 fL (80.0-98.0); NRBC Abs Auto 0.000 X10*3/uL (0.0-0.012); NRBC Pct Auto 0.0 /100WBC (0.0-0.2); Platelet Count 216 X10*3/uL (160-400); Red Blood Count 4.11 X10*6/uL (4.60-5.80); White Blood Count 10.8 X10*3/uL (4.8-10.8)
[2025-04-10 07:59] LABS: Blood Urea Nitrogen 11 mg/dL (9-16); Calcium 8.9 mg/dL (8.4-10.2); Creatinine Clr Calc Pharmacy 95.4; Estimated Glomerular Filt Rate > 60; Magnesium 1.7 mg/dL (1.6-2.6)
[2025-04-10 08:00] VITALS: BP 142/70; PULSE 79; RESP 20; TEMP 36.7; O2SAT 97
[2025-04-10 09:15] LABS: Anion Gap 17 (12-20); Carbon Dioxide 19 mmol/L (22-29); Chloride 105 mmol/L (96-108); Potassium 3.8 mmol/L (3.3-5.1); Sodium 137 mmol/L (135-145)
[2025-04-10 09:35] LABS: Creatinine Clr Calc Pharmacy 102.8; Estimated Glomerular Filt Rate > 60
[2025-04-10 10:07] LABS: Glucose, Whole Blood 230 mg/dL (60-115)
--- NOTE | 2025-04-10 11:09 | P.PNIM_ITS ---
Subjective Subjective Date of Service: 04/10/25 Interval History: still fairly obtunded/lethargic, received valium overnight Physical Exam 2 Exam: Exam: Lethargic/obtunded, does occasionally spontaneously open his eyes, not verbalizing, lungs clear abdomen soft Vital Signs: Vital Signs: Last Vital Signs Temp 98.0 F 04/10/25 08:00 Pulse 79 04/10/25 08:00 Resp 20 04/10/25 08:00 BP 142/70 H 04/10/25 08:00 Pulse Ox 97 04/10/25 08:00 O2 Del Method Room Air 04/10/25 08:00 BMI result Body Mass Index 22.3 Objective Data Active Medications Acetaminophen (Acetaminophen 325 Mg Tablet) 650 mg PO Q6H PRN PRN Reason: Pain, Mild 1-3,fever,headache Last Admin: 04/09/25 19:36 Dose: 650 mg Documented By: MAKENNA Apixaban (Apixaban 5 Mg Tablet) 5 mg PO BID [facility] Last Admin: 04/09/25 19:36 Dose: 5 mg Documented By: MAKENNA Ascorbic Acid (Ascorbic Acid 500 Mg Tablet) 500 mg PO DAILY [facility] Last Admin: 04/09/25 09:04 Dose: 500 mg Documented By: GOLDIE Aspirin (Aspirin Enteric Coated 81 Mg Tablet.) 81 mg PO DAILY [facility] Last Admin: 04/09/25 09:04 Dose: 81 mg Documented By: GOLDIE Brimonidine Tartrate (Brimonidine Tartrate 0.2% Oph 5 Ml Bottle) 1 drop EYE- BOTH BID [facility] Last Admin: 04/09/25 20:36 Dose: 1 drop Documented By: MAKENNA Calcium Carbonate (Calcium Carbonate 750 Mg Tab.Chew) 750 mg PO Q4H PRN PRN Reason: Heartburn Carbidopa/Levodopa (Carbidopa/Levodopa 25/100 Tablet) 1 tab PO TID [facility] Last Admin: 04/09/25 19:36 Dose: 1 tab Documented By: MAKENNA Dextrose (Dextrose 50 % 25 Gm/50 Ml Syringe) 25 gm IVPUSH Q15M PRN; Protocol PRN Reason: per Hypoglycemia Standing Ord. Finasteride (Finasteride 5 Mg Tablet) 5 mg PO DAILY [facility] Last Admin: 04/09/25 09:03 Dose: 5 mg Documented By: GOLDIE Glucose (Glucose Gel 15 Gm Gel..Gram.) 15 gm PO Q15M PRN; Protocol PRN Reason: per Hypoglycemia Standing Ord. Insulin Human Lispro (Insulin Lispro 100 Unit/Ml 3 Ml Vial) 0 unit SUBCUT QIDACHS [facility]; Protocol Last Admin: 04/09/25 20:37 Dose: 2 unit Documented By: MAKENNA Magnesium Hydroxide (Milk Of Magnesia 30 Ml Oral.Susp) 30 ml PO DAILY PRN PRN Reason: Constipation Magnesium Oxide (Magnesium Oxide 400 Mg Tablet) 400 mg PO BIDPC [facility] Last Admin: 04/09/25 16:39 Dose: Not Given Documented By: GOLDIE Non-Admin Reason: Patient Refused Melatonin (Melatonin 3 Mg Tablet) 6 mg PO BEDTIME PRN PRN Reason: Insomnia Last Admin: 04/09/25 19:36 Dose: 6 mg Documented By: MAKENNA Memantine (Memantine Hcl 10 Mg Tablet) 10 mg PO DAILY [facility] Last Admin: 04/09/25 09:04 Dose: 10 mg Documented By: GOLDIE Methenamine Hippurate (Methenamine Hippurate 1 Gm Tablet) 1 gm PO DAILY [facility] Last Admin: 04/09/25 09:02 Dose: 1 gm Documented By: GOLDIE Metoprolol Succinate (Metoprolol Succinate Er 25 Mg Tab.Er.24h) 25 mg PO DAILY [facility]; Protocol Last Admin: 04/09/25 09:02 Dose: 25 mg Documented By: GOLDIE Omeprazole (Omeprazole 20 Mg Capsule.Dr) 20 mg PO DAILY@0630 PRN PRN Reason: Acid Reflux Sodium Chloride (0.9 % Sodium Chloride Flush 3 Ml Syringe) 3 ml IVFLUSH QSHIFT [facility] Last Admin: 04/10/25 00:56 Dose: Not Given Documented By: MAKENNA Non-Admin Reason: Previously Administered Tamsulosin HCl (Tamsulosin Hcl 0.4 Mg Capsule) 0.4 mg PO BEDTIME [facility] Last Admin: 04/09/25 19:36 Dose: 0.4 mg Documented By: MAKENNA Thiamine HCl (Thiamine Hcl 100 Mg Tablet) 200 mg PO DAILY [facility] Last Admin: 04/09/25 09:02 Dose: 200 mg Documented By: GOLDIE Labs 04/10/25 06:15 04/10/25 09:10 Labs: Laboratory Results - last 24 hr 04/09/25 04/09/25 04/10/25 15:52 20:05 06:15 MCV 90.5 MCH 30.9 MCHC 34.1 RDW 11.7 Plt Count 216 MPV 11.1 Absolute Nucleated RBC 0.000 Nucleated RBC % (auto) 0.0 Anion Gap 17 Estim Creat Clear Calc 95.4 Estimated GFR > 60 POC Glucose 272 H 186 H Random Glucose 211 H Calcium 8.9 Magnesium 1.7 04/10/25 04/10/25 09:10 09:58 MCV MCH MCHC RDW Plt Count MPV Absolute Nucleated RBC Nucleated RBC % (auto) Anion Gap Estim Creat Clear Calc 102.8 Estimated GFR > 60 POC Glucose 230 H Random Glucose Calcium Magnesium Assessment and Plan (1) A-fib: Status: Acute Plan 80M PMH parkinsons and Lewy body dementia, HTN, HLD, DM, PVD, left great toe amp 04/05/25, chronic afib on eliquis, presented with syncope syncope differential includes orthostatic hypotension due to parkinsons, robyn arythmia, fluid losses and oxycodone from recent surgery no events on tele urinary retention appreciated, continue proscar, flomax and brewer acute toxic metabolic encephalopathy/ acute delirium in a patient with Lewy body and vascular dementia Multifactorial, urinary retention, pain medication from recent surgery, Orienting strategies history of CVA and encephalomalacia seen on CTH continue eliquis Diabetes Insulin Chronic AFib Toprol, Eliquis Acute hypomagnesemia Replace and monitor DVT prophylaxis with Eliquis Full code reason for continued hospitalization: [facility] Quality Stroke Does the patient have a stroke diagnosis?: No VTE Prior VTE?: No VTE Risk Level:: Medical - moderate - high VTE Device Contraindication: Treatment Not Indicated VTE Drug Contraindication: N/A - Med Ordered
[2025-04-10 11:47] VITALS: BP 143/67; PULSE 90; RESP 20; TEMP 36.6; O2SAT 94
[2025-04-10] MEDS: Metoprolol Succinate ER 25 MG TAB.ER.24H PO (11:56)
[2025-04-10] MEDS: Aspirin Enteric Coated 81 MG TABLET.DR PO (11:56)
[2025-04-10] MEDS: 0.9 % Sodium Chloride Flush 3 ML SYRINGE IVFLUSH ×3 (12:15→20:28)
[2025-04-10 16:00] VITALS: BP 146/74; PULSE 70; RESP 14; TEMP 37.1; O2SAT 95
[2025-04-10 16:20] LABS: Glucose, Whole Blood 253 mg/dL (60-115)
[2025-04-10 19:30] VITALS: BP 151/79; PULSE 71; RESP 18; TEMP 36.6; O2SAT 97
[2025-04-10 20:11] LABS: Glucose, Whole Blood 164 mg/dL (60-115)
[2025-04-10] MEDS: Brimonidine Tartrate 0.2% Oph 5 ML BOTTLE 1 DROP EYE-BOTH (20:27)
[2025-04-11 07:28] LABS: Glucose, Whole Blood 164 mg/dL (60-115)
[2025-04-11 07:50] VITALS: BP 172/80; PULSE 76; RESP 18; TEMP 36.6; O2SAT 98
[2025-04-11 08:03] LABS: Hematocrit 38.3 % (42.0-52.0); Hemoglobin 12.9 g/dl (14.0-18.0); Mean Corpuscular HGB Conc 33.7 g/dl (31.0-36.0); Mean Corpuscular Hemoglobin 30.8 pg (27.0-33.0); Mean Corpuscular Volume 91.4 fL (80.0-98.0); NRBC Abs Auto 0.000 X10*3/uL (0.0-0.012); NRBC Pct Auto 0.0 /100WBC (0.0-0.2); Platelet Count 249 X10*3/uL (160-400); Red Blood Count 4.19 X10*6/uL (4.60-5.80); White Blood Count 9.2 X10*3/uL (4.8-10.8)
[2025-04-11 08:47] LABS: Blood Urea Nitrogen 16 mg/dL (9-16); Calcium 9.1 mg/dL (8.4-10.2); Creatinine Clr Calc Pharmacy 82.5; Estimated Glomerular Filt Rate > 60
[2025-04-11 09:03] LABS: Anion Gap 14 (12-20); Carbon Dioxide 26 mmol/L (22-29); Chloride 106 mmol/L (96-108); Potassium 4.0 mmol/L (3.3-5.1); Sodium 142 mmol/L (135-145)
[2025-04-11] MEDS: Aspirin Enteric Coated 81 MG TABLET.DR PO (10:31)
[2025-04-11] MEDS: Metoprolol Succinate ER 25 MG TAB.ER.24H PO (10:31)
[2025-04-11] MEDS: 0.9 % Sodium Chloride Flush 3 ML SYRINGE IVFLUSH ×3 (10:43→17:05)
--- NOTE | 2025-04-11 11:10 | HO.PM.IMPN ---
Subjective Subjective Date of Service: 04/11/25 Interval History: did not need sedatives overnight, complaining of throat pain Physical Exam Exam: Exam: At times obtunded other times lethargic, when more awake able to answer simple questions. Diminished young sounds, left 1st toe amputation site with discoloration. Parkinsonism Vital Signs: Vital Signs: Last Vital Signs Temp 97.9 F 04/11/25 07:50 Pulse 76 04/11/25 07:50 Resp 18 04/11/25 07:50 BP 172/80 H 04/11/25 07:50 Pulse Ox 98 04/11/25 07:50 O2 Del Method Room Air 04/11/25 07:50 BMI result Body Mass Index 22.3 Objective Data Active Medications Acetaminophen (Acetaminophen 325 Mg Tablet) 650 mg PO Q6H PRN PRN Reason: Pain, Mild 1-3,fever,headache Last Admin: 04/11/25 00:00 Dose: 650 mg Documented By: CASEY Apixaban (Apixaban 5 Mg Tablet) 5 mg PO BID [facility] Last Admin: 04/11/25 10:31 Dose: 5 mg Documented By: KELLY Ascorbic Acid (Ascorbic Acid 500 Mg Tablet) 500 mg PO DAILY [facility] Last Admin: 04/11/25 10:31 Dose: 500 mg Documented By: KELLY Aspirin (Aspirin Enteric Coated 81 Mg Tablet.) 81 mg PO DAILY [facility] Last Admin: 04/11/25 10:31 Dose: 81 mg Documented By: KELLY Brimonidine Tartrate (Brimonidine Tartrate 0.2% Oph 5 Ml Bottle) 1 drop EYE-BOTH BID [facility] Last Admin: 04/11/25 10:44 Dose: Not Given Documented By: KELLY Non-Admin Reason: Patient Refused Calcium Carbonate (Calcium Carbonate 750 Mg Tab.Chew) 750 mg PO Q4H PRN PRN Reason: Heartburn Carbidopa/Levodopa (Carbidopa/Levodopa 25/100 Tablet) 1 tab PO TID [facility] Last Admin: 04/11/25 10:31 Dose: 1 tab Documented By: KELLY Dextrose (Dextrose 50 % 25 Gm/50 Ml Syringe) 25 gm IVPUSH Q15M PRN; Protocol PRN Reason: per Hypoglycemia Standing Ord. Finasteride (Finasteride 5 Mg Tablet) 5 mg PO DAILY [facility] Last Admin: 04/11/25 10:31 Dose: 5 mg Documented By: KELLY Glucose (Glucose Gel 15 Gm Gel..Gram.) 15 gm PO Q15M PRN; Protocol PRN Reason: per Hypoglycemia Standing Ord. Insulin Human Lispro (Insulin Lispro 100 Unit/Ml 3 Ml Vial) 0 unit SUBCUT QIDACHS [facility]; Protocol Last Admin: 04/11/25 09:46 Dose: Not Given Documented By: KELLY Non-Admin Reason: No Insulin Coverage Magnesium Hydroxide (Milk Of Magnesia 30 Ml Oral.Susp) 30 ml PO DAILY PRN PRN Reason: Constipation Magnesium Oxide (Magnesium Oxide 400 Mg Tablet) 400 mg PO BIDPC [facility] Last Admin: 04/11/25 10:31 Dose: 400 mg Documented By: KELLY Melatonin (Melatonin 3 Mg Tablet) 6 mg PO BEDTIME PRN PRN Reason: Insomnia Last Admin: 04/11/25 00:01 Dose: 6 mg Documented By: CASEY Memantine (Memantine Hcl 10 Mg Tablet) 10 mg PO DAILY [facility] Last Admin: 04/11/25 10:31 Dose: 10 mg Documented By: KELLY Methenamine Hippurate (Methenamine Hippurate 1 Gm Tablet) 1 gm PO DAILY [facility] Last Admin: 04/11/25 10:31 Dose: 1 gm Documented By: KELLY Metoprolol Succinate (Metoprolol Succinate Er 25 Mg Tab.Er.24h) 25 mg PO DAILY [facility]; Protocol Last Admin: 04/11/25 10:31 Dose: 25 mg Documented By: KELLY Nystatin (Nystatin Oral Susp 500,000 Unit/5 Ml Oral.Susp) 200,000 unit PO QID [facility]; Protocol Omeprazole (Omeprazole 20 Mg Capsule.Dr) 20 mg PO DAILY@0630 PRN PRN Reason: Acid Reflux Quetiapine Fumarate (Quetiapine Fumarate 25 Mg Tablet) 25 mg PO BEDTIME [facility] Sodium Chloride (0.9 % Sodium Chloride Flush 3 Ml Syringe) 3 ml IVFLUSH QSHIFT [facility] Last Admin: 04/11/25 10:44 Dose: 3 ml Documented By: KELLY Tamsulosin HCl (Tamsulosin Hcl 0.4 Mg Capsule) 0.4 mg PO BEDTIME [facility] Last Admin: 04/10/25 20:27 Dose: 0.4 mg Documented By: CASEY Thiamine HCl (Thiamine Hcl 100 Mg Tablet) 200 mg PO DAILY [facility] Last Admin: 04/11/25 10:44 Dose: 200 mg Documented By: KELLY Labs 04/11/25 07:05 04/11/25 07:05 Labs: Laboratory Results - last 24 hr 04/10/25 04/10/25 04/11/25 16:13 20:08 07:05 MCV 91.4 MCH 30.8 MCHC 33.7 RDW 11.8 Plt Count 249 MPV 10.9 Absolute Nucleated RBC 0.000 Nucleated RBC % (auto) 0.0 Anion Gap 14 Estim Creat Clear Calc 82.5 Estimated GFR > 60 POC Glucose 253 H 164 H Random Glucose 172 H Calcium 9.1 04/11/25 07:22 MCV MCH MCHC RDW Plt Count MPV Absolute Nucleated RBC Nucleated RBC % (auto) Anion Gap Estim Creat Clear Calc Estimated GFR POC Glucose 164 H Random Glucose Calcium Assessment and Plan (1) A-fib: Status: Acute Plan 80M PMH parkinsons and Lewy body dementia, HTN, HLD, DM, PVD, left great toe amp 04/05/25, chronic afib on eliquis, presented with syncope syncope differential includes orthostatic hypotension due to parkinsons, robyn arythmia, fluid losses and oxycodone from recent surgery no events on tele urinary retention appreciated, continue proscar, flomax and brewer acute toxic metabolic encephalopathy/ acute delirium in a patient with Lewy body and vascular dementia Multifactorial, urinary retention, pain medication from recent surgery, Orienting strategies, scheduled Seroquel at night Left 1st toe amputation site discoloration Amputation revision performed by Dr. Gauthier on 04/05/2025 at [facility] ? Normal healing versus infection General surgery eval Odynophagia Check throat culture, empiric nystatin for possible thrush history of CVA and encephalomalacia seen on CTH continue eliquis Diabetes Insulin Chronic AFib Toprol, Eliquis Acute hypomagnesemia Replaced DVT prophylaxis with Eliquis Full code reason for continued hospitalization: ams Quality Stroke Does the patient have a stroke diagnosis?: No VTE Prior VTE?: No VTE Risk Level:: Medical - moderate - high VTE Device Contraindication: Treatment Not Indicated VTE Drug Contraindication: N/A - Med Ordered
[2025-04-11 11:52] LABS: Glucose, Whole Blood 294 mg/dL (60-115)
[2025-04-11 12:00] VITALS: BP 153/79; PULSE 77; RESP 18; TEMP 36.3; O2SAT 95
[2025-04-11] MEDS: Nystatin Oral Susp 500,000 UNIT/5 ML ORAL.SUSP 200000 UNIT PO ×3 (12:09→20:20)
--- NOTE | 2025-04-11 12:22 | PM.CNGS ---
History of Present Illness Consult details Consult date: 04/11/25 Narrative: Asked by hospitalist service to opine on 1st great toe amputation site of right lower extremity. This procedure was apparently performed by vascular surgery at an outside facility several days ago for an infection. According to the medical record the patient went home after the procedure and subsequently suffered some sort of a syncopal episode. This is what brought him here. [facility] Past Medical History Medical History Skin cancer History of headache History of femoral angiogram Myocardial infarction Vocal cord polyps Hyperlipidemia Tremor Hiatal hernia Diverticulosis Colonic polyp Cataract cortical, senile TIA (transient ischemic attack) Thyroid nodule Lumbar radiculopathy PVD (peripheral vascular disease) On anticoagulant therapy Multinodular non-toxic goiter Moderate protein-calorie malnutrition Peripheral neuropathy Chronic kidney disease (CKD) stage G2/A1, mildly decreased glomerular filtration rate (GFR) between 60-89 mL/min/1.73 square meter and albuminuria creatinine ratio less than 30 mg/g Vascular dementia Exposure to potentially hazardous substance Chronic interstitial cystitis Sleep apnea Urge incontinence Male erectile dysfunction, unspecified Peripheral arterial disease GERD (gastroesophageal reflux disease) Parkinson disease Hypertension Toe avulsion Vocal cord anomaly A-fib High cholesterol Diabetes Surgical History Surgical History History of amputation of great toe of both feet Hx of exploratory laparotomy S/P thyroid biopsy Hx of cardiac catheterization History of intravascular stent placement Hx of bilateral cataract extraction History of esophagogastroduodenoscopy (EGD) H/O colonoscopy Social History Social History Household Members: Spouse Housing: House Are you a primary caretaker to a significant other at home: No Alcohol intake: never Comment: 1:[address] Patient Tobacco Use Status: Tobacco use Unknown Tobacco use type: Cigar Years Smoked: 8 Second Hand Smoke Exposure: No Advance Directives Date on File: 02/16/20 service: Yes Current occupational status: retired Meds Allergies Allergy/AdvReac Type Severity Reaction Status Date / Time No Known Drug Allergies Allergy Unknown UNKNOWN Verified 04/06/25 19:13 grass, weeds, dirt, dust Allergy Unknown Unknown Uncoded 04/06/25 19:13 mites Active Medications: Current Medications Acetaminophen (Acetaminophen 325 Mg Tablet) 650 mg PO Q6H PRN PRN Reason: Pain, Mild 1-3,fever,headache Last Admin: 04/11/25 00:00 Dose: 650 mg Apixaban (Apixaban 5 Mg Tablet) 5 mg PO BID [facility] Last Admin: 04/11/25 10:31 Dose: 5 mg Ascorbic Acid (Ascorbic Acid 500 Mg Tablet) 500 mg PO DAILY [facility] Last Admin: 04/11/25 10:31 Dose: 500 mg Aspirin (Aspirin Enteric Coated 81 Mg Tablet.Dr) 81 mg PO DAILY [facility] Last Admin: 04/11/25 10:31 Dose: 81 mg Brimonidine Tartrate (Brimonidine Tartrate 0.2% Oph 5 Ml Bottle) 1 drop EYE-BOTH BID [facility] Last Admin: 04/11/25 10:44 Dose: Not Given Calcium Carbonate (Calcium Carbonate 750 Mg Tab.Chew) 750 mg PO Q4H PRN PRN Reason: Heartburn Carbidopa/Levodopa (Carbidopa/Levodopa 25/100 Tablet) 1 tab PO TID [facility] Last Admin: 04/11/25 10:31 Dose: 1 tab Dextrose (Dextrose 50 % 25 Gm/50 Ml Syringe) 25 gm IVPUSH Q15M PRN; Protocol PRN Reason: per Hypoglycemia Standing Ord. Finasteride (Finasteride 5 Mg Tablet) 5 mg PO DAILY [facility] Last Admin: 04/11/25 10:31 Dose: 5 mg Glucose (Glucose Gel 15 Gm Gel..Gram.) 15 gm PO Q15M PRN; Protocol PRN Reason: per Hypoglycemia Standing Ord. Insulin Human Lispro (Insulin Lispro 100 Unit/Ml 3 Ml Vial) 0 unit SUBCUT QIDACHS [facility]; Protocol Last Admin: 04/11/25 12:09 Dose: 6 unit Magnesium Hydroxide (Milk Of Magnesia 30 Ml Oral.Susp) 30 ml PO DAILY PRN PRN Reason: Constipation [facility] ([facility] Last Admin: 04/11/25 10:31 Dose: 400 mg Melatonin (Melatonin 3 Mg Tablet) 6 mg PO BEDTIME PRN PRN Reason: Insomnia Last Admin: 04/11/25 00:01 Dose: 6 mg Memantine (Memantine Hcl 10 Mg Tablet) 10 mg PO DAILY [facility] Last Admin: 04/11/25 10:31 Dose: 10 mg Methenamine Hippurate (Methenamine Hippurate 1 Gm Tablet) 1 gm PO DAILY [facility] Last Admin: 04/11/25 10:31 Dose: 1 gm Metoprolol Succinate (Metoprolol Succinate Er 25 Mg Tab.Er.24h) 25 mg PO DAILY [facility]; Protocol Last Admin: 04/11/25 10:31 Dose: 25 mg Nystatin (Nystatin Oral Susp 500,000 Unit/5 Ml Oral.Susp) 200,000 unit PO QID [facility]; Protocol Last Admin: 04/11/25 12:09 Dose: 200,000 unit Omeprazole (Omeprazole 20 Mg Capsule.Dr) 20 mg PO DAILY@0630 PRN PRN Reason: Acid Reflux Quetiapine Fumarate (Quetiapine Fumarate 25 Mg Tablet) 25 mg PO BEDTIME [facility] Sodium Chloride (0.9 % Sodium Chloride Flush 3 Ml Syringe) 3 ml IVFLUSH QSHIFT [facility] Last Admin: 04/11/25 10:44 Dose: 3 ml Tamsulosin HCl (Tamsulosin Hcl 0.4 Mg Capsule) 0.4 mg PO BEDTIME [facility] Last Admin: 04/10/25 20:27 Dose: 0.4 mg Thiamine HCl (Thiamine Hcl 100 Mg Tablet) 200 mg PO DAILY [facility] Last Admin: 04/11/25 10:44 Dose: 200 mg Home Medications ?Medication ?Instructions ?Recorded ?Confirmed ?Last Taken ?Type apixaban 5 mg tablet (Eliquis) 5 mg PO BID 02/16/20 04/07/25 04/06/25 History insulin glargine 100 unit/mL 7 - 20 unit subcut BEDTIME 02/16/20 04/07/25 04/05/25 History subcutaneous solution (Lantus 8 un U-100 Insulin) insulin lispro 100 unit/mL 5 unit subcut BID@0800,1200 02/16/20 04/07/25 04/06/25 History subcutaneous solution (Humalog U-100 Insulin) magnesium oxide 420 mg tablet 420 mg PO DAILY 02/16/20 04/07/25 04/06/25 History metformin 500 mg tablet 500 mg PO DAILY 02/16/20 04/07/25 04/06/25 History metoprolol succinate 25 mg 25 mg PO DAILY 02/16/20 04/07/25 04/06/25 History tablet,extended release 24 hr aspirin 81 mg tablet,delayed 81 mg PO DAILY 06/01/24 04/07/25 04/06/25 History release coenzyme Q10 300 mg capsule (Co 300 mg PO DAILY 06/01/24 04/07/25 04/06/25 History Q-10) docusate sodium 100 mg capsule 100 mg PO BID 06/01/24 04/07/25 04/06/25 History thiamine HCl (vitamin B1) 100 mg 200 mg PO DAILY 06/01/24 04/07/25 04/06/25 History tablet ascorbic acid (vitamin C) 500 mg 500 mg PO DAILY 04/07/25 04/07/25 04/06/25 History tablet (Vitamin C) brimonidine 0.2 % eye drops 1 drp ophthalmic (eye) BID 04/07/25 04/07/25 04/06/25 History doxycycline hyclate 50 mg tablet 50 mg PO BID 04/07/25 04/07/25 04/06/25 History glucagon 3 mg/actuation nasal spray 3 mg intranasal NEEDED PRN Low 04/07/25 04/07/25 04/06/25 History Blood Sugar glucose 4 gram chewable tablet 4 g PO Q15M PRN Low Blood Sugar 04/07/25 04/07/25 Unknown History insulin lispro 100 unit/mL 6 unit subcut DAILY@1700 04/07/25 04/07/25 04/06/25 History subcutaneous solution (Humalog U-100 Insulin) lidocaine 5 % topical ointment 1 appl topical BID PRN Pain 04/07/25 04/07/25 Unknown History memantine 10 mg tablet 10 mg PO DAILY 04/07/25 04/07/25 04/06/25 History nut.tx.gluc.intol,lac-free,soy 1 ea PO BID 04/07/25 04/07/25 04/06/25 History (Glucerna oral liquid) omeprazole 20 mg capsule,delayed 20 mg PO DAILY@0630 PRN Acid Reflux 04/07/25 04/07/25 Unknown History release oxycodone 5 mg tablet 5 mg PO Q6H PRN Pain 04/07/25 04/07/25 Unknown History Physical Exam Vital Signs: Vital Signs: Last Vital Signs Temp 97.4 F 04/11/25 12:00 Pulse 77 04/11/25 12:00 Resp 18 04/11/25 12:00 BP 153/79 H 04/11/25 12:00 Pulse Ox 95 04/11/25 12:00 O2 Del Method Room Air 04/11/25 12:00 BMI result Body Mass Index 22.3 Const: Other: Very somnolent at time of visit. Not participatory in interview. Sleeping upright in bed. Extrem: Other: Left lower extremity examined with nurse. Amputation site of left 1st toe with black discoloration for approximately a cm of the stump. No appreciable erythema progressing up the foot or ankle. I could not palpate pulses however the extremity is warm there is no swelling and no apparent tenderness. Nylon sutures are intact. Results Labs 04/11/25 07:05 04/11/25 07:05 Labs: Abnormal lab results 04/10/25 04/10/25 04/11/25 Range/Units 16:13 20:08 07:05 RBC 4.19 L (4.60-5.80) X10*6/uL Hgb 12.9 L (14.0-18.0) g/dl Hct 38.3 L (42.0-52.0) % POC Glucose 253 H 164 H (60-115) mg/dL Random Glucose 172 H (60-115) mg/dL 04/11/25 04/11/25 Range/Units 07:22 11:47 RBC (4.60-5.80) X10*6/uL Hgb (14.0-18.0) g/dl Hct (42.0-52.0) % POC Glucose 164 H 294 H (60-115) mg/dL Random Glucose (60-115) mg/dL Short CBC 04/11/25 Range/Units 07:05 WBC 9.2 (4.8-10.8) X10*3/uL Hgb 12.9 L (14.0-18.0) g/dl Hct 38.3 L (42.0-52.0) % Plt Count 249 (160-400) X10*3/uL BMP 04/11/25 07:05 Sodium 142 Potassium 4.0 Chloride 106 Carbon Dioxide 26 BUN 16 Creatinine 0.81 Calcium 9.1 Urine 04/07/25 Range/Units 01:06 Urine Color Yellow Urine Appearance Clear Urine pH 6.0 (5.0-9.0) Ur Specific [place] 1.025 (1.005-1.025) Urine Protein 30 (1+) H (Neg-Trace) mg/dL Urine Glucose (UA) >=1000 H (Negative) mg/dL All other labs normal. Assessment and Plan (1) Diabetes mellitus with foot ulcer: Status: Acute Plan Frail 80-year-old gentleman with multiple medical problems and obvious peripheral vascular disease resulting in tissue loss involving the left lower extremity. It is unclear however it is also unlikely that his left lower extremity was in the same condition when he was discharged from the outside facility after undergoing toe amputation. Most likely he has some extent of tissue necrosis involving the stump however it is unclear if it is making him systemically ill. For continuity of care purposes he probably would be best served by being returned to his vascular surgeon for assessment of him and his left lower extremity. Total time managing care of this patient today: 30 minutes. Procedures Date of Service Date of Service: 04/11/25
[2025-04-11 13:23] LABS: IDNOW Serial# 55D5AD1C
[2025-04-11 13:24] LABS: Strep A Nucleic Acid Negative (Negative)
[2025-04-11 15:09] VITALS: BP 126/58; PULSE 57; RESP 16; TEMP 36.7; O2SAT 99
[2025-04-11 16:39] LABS: Glucose, Whole Blood 150 mg/dL (60-115)
[2025-04-11 19:26] VITALS: BP 148/68; PULSE 71; RESP 16; TEMP 36.6; O2SAT 98
[2025-04-11 20:37] LABS: Glucose, Whole Blood 270 mg/dL (60-115)
[2025-04-11 23:19] VITALS: BP 139/67; PULSE 71; RESP 18; TEMP 36.8; O2SAT 95
[2025-04-12 07:39] LABS: Hematocrit 39.0 % (42.0-52.0); Hemoglobin 13.0 g/dl (14.0-18.0); Mean Corpuscular HGB Conc 33.3 g/dl (31.0-36.0); Mean Corpuscular Hemoglobin 30.6 pg (27.0-33.0); Mean Corpuscular Volume 91.8 fL (80.0-98.0); NRBC Abs Auto 0.000 X10*3/uL (0.0-0.012); NRBC Pct Auto 0.0 /100WBC (0.0-0.2); Platelet Count 268 X10*3/uL (160-400); Red Blood Count 4.25 X10*6/uL (4.60-5.80); White Blood Count 9.5 X10*3/uL (4.8-10.8)
[2025-04-12 07:52] LABS: Anion Gap 17 (12-20); Blood Urea Nitrogen 17 mg/dL (9-16); Calcium 9.1 mg/dL (8.4-10.2); Carbon Dioxide 23 mmol/L (22-29); Chloride 105 mmol/L (96-108); Creatinine Clr Calc Pharmacy 89.1; Estimated Glomerular Filt Rate > 60; Magnesium 1.6 mg/dL (1.6-2.6); Potassium 4.0 mmol/L (3.3-5.1); Sodium 141 mmol/L (135-145)
[2025-04-12 08:00] VITALS: BP 152/65; PULSE 80; RESP 18; TEMP 37.2; O2SAT 90
[2025-04-12 08:37] VITALS: BP 137/63; PULSE 65; O2SAT 98
[2025-04-12 08:41] LABS: Glucose, Whole Blood 202 mg/dL (60-115)
[2025-04-12] MEDS: 0.9 % Sodium Chloride Flush 3 ML SYRINGE IVFLUSH ×3 (09:37→21:20)
[2025-04-12] MEDS: Aspirin Enteric Coated 81 MG TABLET.DR PO (09:37)
[2025-04-12] MEDS: Metoprolol Succinate ER 25 MG TAB.ER.24H PO (09:37)
[2025-04-12] MEDS: Nystatin Oral Susp 500,000 UNIT/5 ML ORAL.SUSP 200000 UNIT PO ×4 (09:38→20:14)
[2025-04-12] MEDS: Brimonidine Tartrate 0.2% Oph 5 ML BOTTLE 1 DROP EYE-BOTH (10:57)
--- NOTE | 2025-04-12 11:26 | MHC.SLORD ---
Speech Language Pathology Order Status: Clinical bedside swallow evaluation ordered. Pt currently on regular diet/thin liquid consistencies. MD note indicated odynophagia, question of thrush. RN consulted, nystatin mouth wash ordered. Pt has complex hx of Parkinson's, Lewy Body Dementia, prior CVA. Pt too somnolent for evalution. 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
[2025-04-12 11:42] LABS: Glucose, Whole Blood 220 mg/dL (60-115)
[2025-04-12 12:00] VITALS: BP 137/63; PULSE 65; RESP 18; TEMP 36.6; O2SAT 98
--- NOTE | 2025-04-12 12:21 | PM.PNGS ---
Subjective Subjective Date of Service: 04/12/25 Interval history: Sitting up eating soup with assistance. 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 C/o pain. at bedside who states the discoloration at left toe amputation site has progressively worsened. Per EMR- had history of PAD with hx of right toe ulceration in the past and was evaluated by vascular surgeon at [facility] and is scheduled for Arteriography and possible stenting on 02/23/2020. Unsure if this was performed. Physical Exam Vital Signs: Vital Signs: Last Vital Signs Temp 98.9 F 04/12/25 08:00 Pulse 80 04/12/25 08:00 Resp 18 04/12/25 08:00 BP 152/65 H 04/12/25 08:00 Pulse Ox 90 L 04/12/25 08:00 O2 Del Method Room Air 04/12/25 08:00 BMI result Body Mass Index 22.3 Const: Other: agitated General: no acute distress and alert Resp: Effort & Inspection: normal respiratory effort Skin: Other: warm and dry Extrem: Other: left first toe amputation site with significant discoloration with about 2.5cm circular area necrosis with edema and erythema extending proximally from amp site, more so on plantar aspect, sutures intact, no drainage noted, no fluctuance Objective Data Active Medications Acetaminophen (Acetaminophen 325 Mg Tablet) 650 mg PO Q6H PRN PRN Reason: Pain, Mild 1-3,fever,headache Last Admin: 04/11/25 20:20 Dose: 650 mg Documented By: JUANA Apixaban (Apixaban 5 Mg Tablet) 5 mg PO BID [facility] Last Admin: 04/12/25 09:38 Dose: 5 mg Documented By: WILMER Ascorbic Acid (Ascorbic Acid 500 Mg Tablet) 500 mg PO DAILY [facility] Last Admin: 04/12/25 09:38 Dose: 500 mg Documented By: WILMER Aspirin (Aspirin Enteric Coated 81 Mg Tablet.) 81 mg PO DAILY [facility] Last Admin: 04/12/25 09:37 Dose: 81 mg Documented By: WILMER Brimonidine Tartrate (Brimonidine Tartrate 0.2% Oph 5 Ml Bottle) 1 drop EYE-BOTH BID [facility] Last Admin: 04/12/25 10:57 Dose: 1 drop Documented By: WILMER Calcium Carbonate (Calcium Carbonate 750 Mg Tab.Chew) 750 mg PO Q4H PRN PRN Reason: Heartburn Carbidopa/Levodopa (Carbidopa/Levodopa 25/100 Tablet) 1 tab PO TID [facility] Last Admin: 04/12/25 09:37 Dose: 1 tab Documented By: WILMER Dextrose (Dextrose 50 % 25 Gm/50 Ml Syringe) 25 gm IVPUSH Q15M PRN; Protocol PRN Reason: per Hypoglycemia Standing Ord. Finasteride (Finasteride 5 Mg Tablet) 5 mg PO DAILY [facility] Last Admin: 04/12/25 09:38 Dose: 5 mg Documented By: WILMER Glucose (Glucose Gel 15 Gm Gel..Gram.) 15 gm PO Q15M PRN; Protocol PRN Reason: per Hypoglycemia Standing Ord. Piperacillin Sod/Tazobactam (Sod 3.375 gm/ Sodium Chloride) 50 mls @ 100 mls/hr IV Q6H [facility] Daptomycin 470 mg/ Sodium (Chloride) 59.4 mls @ 100 mls/hr IV Q24H [facility] Insulin Human Lispro (Insulin Lispro 100 Unit/Ml 3 Ml Vial) 0 unit SUBCUT QIDACHS [facility]; Protocol Last Admin: 04/12/25 09:36 Dose: 4 unit Documented By: WILMER Magnesium Hydroxide (Milk Of Magnesia 30 Ml Oral.Susp) 30 ml PO DAILY PRN PRN Reason: Constipation Magnesium Oxide (Magnesium Oxide 400 Mg Tablet) 400 mg PO BIDPC [facility] Last Admin: 04/12/25 09:38 Dose: 400 mg Documented By: WILMER Melatonin (Melatonin 3 Mg Tablet) 6 mg PO BEDTIME PRN PRN Reason: Insomnia Last Admin: 04/11/25 20:19 Dose: 6 mg Documented By: JUANA Memantine (Memantine Hcl 10 Mg Tablet) 10 mg PO DAILY [facility] Last Admin: 04/12/25 09:37 Dose: 10 mg Documented By: WILMER Methenamine Hippurate (Methenamine Hippurate 1 Gm Tablet) 1 gm PO DAILY [facility] Last Admin: 04/12/25 09:38 Dose: 1 gm Documented By: WILMER Metoprolol Succinate (Metoprolol Succinate Er 25 Mg Tab.Er.24h) 25 mg PO DAILY [facility]; Protocol Last Admin: 04/12/25 09:37 Dose: 25 mg Documented By: WILMER Nystatin (Nystatin Oral Susp 500,000 Unit/5 Ml Oral.Susp) 200,000 unit PO QID [facility]; Protocol Last Admin: 04/12/25 09:38 Dose: 200,000 unit Documented By: WILMER Omeprazole (Omeprazole 20 Mg Capsule.Dr) 20 mg PO DAILY@0630 PRN PRN Reason: Acid Reflux Quetiapine Fumarate (Quetiapine Fumarate 25 Mg Tablet) 25 mg PO BEDTIME [facility] Last Admin: 04/11/25 20:20 Dose: 25 mg Documented By: JUANA Sodium Chloride (0.9 % Sodium Chloride Flush 3 Ml Syringe) 3 ml IVFLUSH QSHIFT [facility] Last Admin: 04/12/25 09:37 Dose: 3 ml Documented By: WILMER Tamsulosin HCl (Tamsulosin Hcl 0.4 Mg Capsule) 0.4 mg PO BEDTIME [facility] Last Admin: 04/11/25 20:20 Dose: 0.4 mg Documented By: JUANA Thiamine HCl (Thiamine Hcl 100 Mg Tablet) 200 mg PO DAILY [facility] Last Admin: 04/12/25 09:38 Dose: 200 mg Documented By: WILMER Labs 04/12/25 06:34 04/12/25 06:35 Labs: Laboratory Results - last 24 hr 04/11/25 04/11/25 04/11/25 16:36 20:23 Unknown MCV MCH MCHC RDW Plt Count MPV Absolute Nucleated RBC Nucleated RBC % (auto) Anion Gap Estim Creat Clear Calc Estimated GFR POC Glucose 150 H 270 H Random Glucose Calcium Magnesium S. pyogenes GrpA SUNDAR Negative 04/12/25 04/12/25 04/12/25 06:34 06:35 08:36 MCV 91.8 MCH 30.6 MCHC 33.3 RDW 11.7 Plt Count 268 MPV 11.0 Absolute Nucleated RBC 0.000 Nucleated RBC % (auto) 0.0 Anion Gap 17 Estim Creat Clear Calc 89.1 Estimated GFR > 60 POC Glucose 202 H Random Glucose 170 H Calcium 9.1 Magnesium 1.6 S. pyogenes GrpA SUNDAR 04/12/25 11:35 MCV MCH MCHC RDW Plt Count MPV Absolute Nucleated RBC Nucleated RBC % (auto) Anion Gap Estim Creat Clear Calc Estimated GFR POC Glucose 220 H Random Glucose Calcium Magnesium S. pyogenes GrpA SUNDAR Procedures Date of Service Date of Service: 04/12/25 Progress Note: A&P Assessment and plan (1) Peripheral arterial disease: Status: Acute (2) Status post amputation of left great toe: Status: Acute Plan He does appear to have cellulitis surrounding the amputation site and would agree with antibiotic initiation as well as left leg elevation to reduce edema and allow any further necrotic changes to declare itself. Also has PAD with hx of angiography possible stenting in the past and may benefit from vascular evaluation. agrees with no current surgical intervention. Time Spent With Patient Time: Total time managing care of this patient today ____ minutes. Quality Stroke Does the patient have a stroke diagnosis?: No VTE Prior VTE?: No VTE Risk Level:: Medical - moderate - high VTE Device Contraindication: Treatment Not Indicated VTE Drug Contraindication: N/A - Med Ordered
--- NOTE | 2025-04-12 15:55 | P.PNIM_ITS ---
Subjective Subjective Date of Service: 04/12/25 Interval History: history per pt's less agitated L foot more red, necrotic skin at surgical site Review of Systems Review of Systems: Yes Unobtainable due to mental status Physical Exam 2 Vital Signs: Vital Signs: Last Vital Signs Temp 97.8 F 04/12/25 12:00 Pulse 65 04/12/25 12:00 Resp 18 04/12/25 12:00 BP 137/63 04/12/25 12:00 Pulse Ox 98 04/12/25 12:00 O2 Del Method Room Air 04/12/25 12:00 BMI result Body Mass Index 22.3 Gen: in no acute distress HEENT: sclera anicteric, moist mucus membranes Neck: supple Lungs: clear to auscultation bilaterally Heart: irregular, no murmurs Abd: soft, non-tender, non-distended Ext: no edema, s/p L 1st toe amputation with necrotic bubble at surgical site; proximal redness and warmth; no fluctuance Skin: warm/well-perfused Neuro: lethargic, not answering questions appropriately, tremor, masked facies Psych: imapired insight Objective Data Active Medications Acetaminophen (Acetaminophen 325 Mg Tablet) 650 mg PO Q6H PRN PRN Reason: Pain, Mild 1-3,fever,headache Last Admin: 04/12/25 13:51 Dose: 650 mg Documented By: WILMER Apixaban (Apixaban 5 Mg Tablet) 5 mg PO BID [facility] Last Admin: 04/12/25 09:38 Dose: 5 mg Documented By: WILMER Ascorbic Acid (Ascorbic Acid 500 Mg Tablet) 500 mg PO DAILY [facility] Last Admin: 04/12/25 09:38 Dose: 500 mg Documented By: WILMER Aspirin (Aspirin Enteric Coated 81 Mg Tablet.Dr) 81 mg PO DAILY [facility] Last Admin: 04/12/25 09:37 Dose: 81 mg Documented By: WILMER Brimonidine Tartrate (Brimonidine Tartrate 0.2% Oph 5 Ml Bottle) 1 drop EYE- BOTH BID [facility] Last Admin: 04/12/25 10:57 Dose: 1 drop Documented By: WILMER Calcium Carbonate (Calcium Carbonate 750 Mg Tab.Chew) 750 mg PO Q4H PRN PRN Reason: Heartburn Carbidopa/Levodopa (Carbidopa/Levodopa 25/100 Tablet) 1 tab PO TID [facility] Last Admin: 04/12/25 09:37 Dose: 1 tab Documented By: WILMER Dextrose (Dextrose 50 % 25 Gm/50 Ml Syringe) 25 gm IVPUSH Q15M PRN; Protocol PRN Reason: per Hypoglycemia Standing Ord. Finasteride (Finasteride 5 Mg Tablet) 5 mg PO DAILY [facility] Last Admin: 04/12/25 09:38 Dose: 5 mg Documented By: WILMER Glucose (Glucose Gel 15 Gm Gel..Gram.) 15 gm PO Q15M PRN; Protocol PRN Reason: per Hypoglycemia Standing Ord. Piperacillin Sod/Tazobactam (Sod 3.375 gm/ Sodium Chloride) 50 mls @ 100 mls/hr IV Q6H [facility] Last Infusion: 04/12/25 13:06 Dose: Infused Documented By: WILMER Daptomycin 470 mg/ Sodium (Chloride) 59.4 mls @ 100 mls/hr IV Q24H [facility] Last Infusion: 04/12/25 14:34 Dose: Infused Documented By: WILMER Insulin Human Lispro (Insulin Lispro 100 Unit/Ml 3 Ml Vial) 0 unit SUBCUT QIDACHS [facility]; Protocol Last Admin: 04/12/25 12:27 Dose: 4 unit Documented By: WILMER Magnesium Hydroxide (Milk Of Magnesia 30 Ml Oral.Susp) 30 ml PO DAILY PRN PRN Reason: Constipation Magnesium Oxide (Magnesium Oxide 400 Mg Tablet) 400 mg PO BIDPC [facility] Last Admin: 04/12/25 09:38 Dose: 400 mg Documented By: WILMER Melatonin (Melatonin 3 Mg Tablet) 6 mg PO BEDTIME PRN PRN Reason: Insomnia Last Admin: 04/11/25 20:19 Dose: 6 mg Documented By: JUANA Memantine (Memantine Hcl 10 Mg Tablet) 10 mg PO DAILY [facility] Last Admin: 04/12/25 09:37 Dose: 10 mg Documented By: WILMER Methenamine Hippurate (Methenamine Hippurate 1 Gm Tablet) 1 gm PO DAILY [facility] Last Admin: 04/12/25 09:38 Dose: 1 gm Documented By: WILMER Metoprolol Succinate (Metoprolol Succinate Er 25 Mg Tab.Er.24h) 25 mg PO DAILY [facility]; Protocol Last Admin: 04/12/25 09:37 Dose: 25 mg Documented By: WILMER Nystatin (Nystatin Oral Susp 500,000 Unit/5 Ml Oral.Susp) 200,000 unit PO QID [facility]; Protocol Last Admin: 04/12/25 13:50 Dose: 200,000 unit Documented By: WILMER Omeprazole (Omeprazole 20 Mg Capsule.) 20 mg PO DAILY@0630 PRN PRN Reason: Acid Reflux Quetiapine Fumarate (Quetiapine Fumarate 25 Mg Tablet) 25 mg PO BEDTIME [facility] Last Admin: 04/11/25 20:20 Dose: 25 mg Documented By: JUANA Sodium Chloride (0.9 % Sodium Chloride Flush 3 Ml Syringe) 3 ml IVFLUSH QSHIFT [facility] Last Admin: 04/12/25 09:37 Dose: 3 ml Documented By: WILMER Tamsulosin HCl (Tamsulosin Hcl 0.4 Mg Capsule) 0.4 mg PO BEDTIME [facility] Last Admin: 04/11/25 20:20 Dose: 0.4 mg Documented By: JUANA Thiamine HCl (Thiamine Hcl 100 Mg Tablet) 200 mg PO DAILY [facility] Last Admin: 04/12/25 09:38 Dose: 200 mg Documented By: WILMER Labs 04/12/25 06:34 04/12/25 06:35 Labs: Laboratory Results - last 24 hr 04/11/25 04/11/25 04/12/25 16:36 20:23 06:34 MCV 91.8 MCH 30.6 MCHC 33.3 RDW 11.7 Plt Count 268 MPV 11.0 Absolute Nucleated RBC 0.000 Nucleated RBC % (auto) 0.0 Anion Gap Estim Creat Clear Calc Estimated GFR POC Glucose 150 H 270 H Random Glucose Calcium Magnesium 04/12/25 04/12/25 04/12/25 06:35 08:36 11:35 MCV MCH MCHC RDW Plt Count MPV Absolute Nucleated RBC Nucleated RBC % (auto) Anion Gap 17 Estim Creat Clear Calc 89.1 Estimated GFR > 60 POC Glucose 202 H 220 H Random Glucose 170 H Calcium 9.1 Magnesium 1.6 Assessment and Plan (1) A-fib: Status: Acute Plan d7, 80yo M with Parkinson's + Lewy body dementia, HTN, HLD, DM2, PVD s/p L great toe amputation revision 04/05/25 [after prior partial amputation for benign tumor], chronic AF on apixaban; presented after syncopal episode on POD1 syncopal episode - suspect due to dysautomonia from Parkinson's vs. anesthesia effect vs dehydration; has not recurred; no events on telemetry cellulitis L foot recent L great toe amputation - BCx, start daptomycin + piperacillin-tazobactam 12/8-, Vascular Surgery consultation, arterial Duplex urinary retention - March; Proscar, Flomax acute toxic-metabolic encephalopathy Parkinsons/Lewy body dementia - multifactorial; due to urinary retention, surgery - scheduled quetiapine qhs - Sinemet, memantine thrush - nystatin hypoMg: repleted hx CVA, chronic AF: apixaban, metoprolol succinate VTE ppx: apixaban dispo: TBD In my clinical judgment, the patient requires continued inpatient hospitalization for the following reasons: IV ABX Total time managing care of this patient today: 45 minutes. Quality Stroke Does the patient have a stroke diagnosis?: No VTE Prior VTE?: No VTE Risk Level:: Medical - moderate - high VTE Device Contraindication: Treatment Not Indicated VTE Drug Contraindication: N/A - Med Ordered
[2025-04-12 16:00] VITALS: BP 112/56; PULSE 63; RESP 18; TEMP 36.2; O2SAT 100
--- NOTE | 2025-04-12 16:10 | MHC.CM.PN ---
Pt not DC yet, still AMS, PT rec. home with services, [facility] CM to follow for DC needs.
[2025-04-12 16:15] LABS: Glucose, Whole Blood 177 mg/dL (60-115)
[2025-04-12 20:00] VITALS: BP 135/86; PULSE 86; RESP 18; TEMP 37.2; O2SAT 94
[2025-04-12 20:51] LABS: Glucose, Whole Blood 186 mg/dL (60-115)
[2025-04-13] VITALS: BP 118/51; PULSE 71; RESP 18; TEMP 36.2; O2SAT 97
[2025-04-13 03:46] VITALS: BP 107/64; PULSE 68; RESP 18; TEMP 36.9; O2SAT 94
[2025-04-13 07:31] VITALS: BP 166/72; PULSE 66; RESP 17; TEMP 36.8; O2SAT 97
[2025-04-13 07:51] LABS: Glucose, Whole Blood 195 mg/dL (60-115)
[2025-04-13] MEDS: Metoprolol Succinate ER 25 MG TAB.ER.24H PO (08:14)
[2025-04-13] MEDS: Aspirin Enteric Coated 81 MG TABLET.DR PO (08:15)
[2025-04-13] MEDS: Nystatin Oral Susp 500,000 UNIT/5 ML ORAL.SUSP 200000 UNIT PO ×3 (08:16→16:45)
[2025-04-13] MEDS: 0.9 % Sodium Chloride Flush 3 ML SYRINGE IVFLUSH ×3 (08:17→21:39)
[2025-04-13] MEDS: Brimonidine Tartrate 0.2% Oph 5 ML BOTTLE 1 DROP EYE-BOTH ×2 (08:31→21:53)
[2025-04-13 11:19] LABS: Glucose, Whole Blood 204 mg/dL (60-115)
[2025-04-13 11:28] VITALS: BP 160/82; PULSE 66; RESP 17; TEMP 36.2; O2SAT 100
--- NOTE | 2025-04-13 12:53 | P.CONGS_ITS ---
History of Present Illness Consult details Consult date: 04/13/25 Reason for consult: other (Nonhealing left great toe amputation site) Narrative: Complex 80-year-old gentleman with a history of dementia diabetic foot infection and undergone what appears to be left great toe amputation on April 05 at [facility], [place]. Subsequent to that he had a syncopal episode and was brought to our hospital on the . He has been subsequently worked up for this. At the current time he has been resting comfortably in bed. Somewhat somnolent. Not responding and difficult to obtain a true review of systems. But in general comfortable. Now presents to us for vascular evaluation regarding his left lower extremity. Review of Systems 2 Review of Systems: Yes all other systems are reviewed and are negative Constitutional: Constitutional: Reports no additional constitutional complaints ENT: Reports Normal hearing present Cardiovascular: Cardiovascular: Denies chest pain, Denies chest pain at rest, Denies chest pain with activity and Denies pedal edema Respiratory: Respiratory: Denies cough Gastrointestinal: Gastrointestinal: Denies abdominal pain Musculoskeletal: Musculoskeletal: Denies abnormal gait, Denies muscle cramps and Denies radiating pain into limb Integumentary/Breasts: Skin/Breast: Denies skin ulcer and Denies wounds Neurologic: Reports Normal hearing present and Denies abnormal gait Psychiatric: Psychiatric: Reports no additional psychiatric complaints PMFSH Past Medical History Medical History Skin cancer History of headache History of femoral angiogram Myocardial infarction Vocal cord polyps Hyperlipidemia Tremor Hiatal hernia Diverticulosis Colonic polyp Cataract cortical, senile TIA (transient ischemic attack) Thyroid nodule Lumbar radiculopathy PVD (peripheral vascular disease) On anticoagulant therapy Multinodular non-toxic goiter Moderate protein-calorie malnutrition Peripheral neuropathy Chronic kidney disease (CKD) stage G2/A1, mildly decreased glomerular filtration rate (GFR) between 60-89 mL/min/1.73 square meter and albuminuria creatinine ratio less than 30 mg/g Vascular dementia Exposure to potentially hazardous substance Chronic interstitial cystitis Sleep apnea Urge incontinence Male erectile dysfunction, unspecified Peripheral arterial disease GERD (gastroesophageal reflux disease) Parkinson disease Hypertension Toe avulsion Vocal cord anomaly A-fib High cholesterol Diabetes Surgical History Surgical History History of amputation of great toe of both feet Hx of exploratory laparotomy S/P thyroid biopsy Hx of cardiac catheterization History of intravascular stent placement Hx of bilateral cataract extraction History of esophagogastroduodenoscopy (EGD) H/O colonoscopy Social History Social History Household Members: Spouse Housing: House Are you a primary property caretaker to a significant other at home: No Alcohol intake: never Comment: 1:1 sitter Patient Tobacco Use Status: Tobacco use Unknown Tobacco use type: Cigar Years Smoked: 8 Second Hand Smoke Exposure: No Advance Directives Date on File: 02/16/20 service: Yes Current occupational status: retired Meds Allergies Allergy/AdvReac Type Severity Reaction Status Date / Time No Known Drug Allergies Allergy Unknown UNKNOWN Verified 04/06/25 19:13 grass, weeds, dirt, dust Allergy Unknown Unknown Uncoded 04/06/25 19:13 mites Active Medications: Current Medications Acetaminophen (Acetaminophen 325 Mg Tablet) 650 mg PO Q6H PRN PRN Reason: Pain, Mild 1-3,fever,headache Last Admin: 04/12/25 21:12 Dose: 650 mg Apixaban (Apixaban 5 Mg Tablet) 5 mg PO BID [facility] Last Admin: 04/13/25 08:14 Dose: 5 mg Ascorbic Acid (Ascorbic Acid 500 Mg Tablet) 500 mg PO DAILY [facility] Last Admin: 04/13/25 08:15 Dose: 500 mg Aspirin (Aspirin Enteric Coated 81 Mg Tablet.Dr) 81 mg PO DAILY [facility] Last Admin: 04/13/25 08:15 Dose: 81 mg Brimonidine Tartrate (Brimonidine Tartrate 0.2% Oph 5 Ml Bottle) 1 drop EYE- BOTH BID [facility] Last Admin: 04/13/25 08:31 Dose: 1 drop Calcium Carbonate (Calcium Carbonate 750 Mg Tab.Chew) 750 mg PO Q4H PRN PRN Reason: Heartburn Carbidopa/Levodopa (Carbidopa/Levodopa 25/100 Tablet) 1 tab PO TID [facility] Last Admin: 04/13/25 08:15 Dose: 1 tab Dextrose (Dextrose 50 % 25 Gm/50 Ml Syringe) 25 gm IVPUSH Q15M PRN; Protocol PRN Reason: per Hypoglycemia Standing Ord. Finasteride (Finasteride 5 Mg Tablet) 5 mg PO DAILY [facility] Last Admin: 04/13/25 08:16 Dose: 5 mg Glucose (Glucose Gel 15 Gm Gel..Gram.) 15 gm PO Q15M PRN; Protocol PRN Reason: per Hypoglycemia Standing Ord. Piperacillin Sod/Tazobactam (Sod 3.375 gm/ Sodium Chloride) 50 mls @ 100 mls/hr IV Q6H [facility] Last Infusion: 04/13/25 12:36 Dose: Infused Daptomycin 470 mg/ Sodium (Chloride) 59.4 mls @ 100 mls/hr IV Q24H [facility] Last Infusion: 04/12/25 14:34 Dose: Infused Insulin Human Lispro (Insulin Lispro 100 Unit/Ml 3 Ml Vial) 0 unit SUBCUT QIDACHS [facility]; Protocol Last Admin: 04/13/25 12:00 Dose: 4 unit Magnesium Hydroxide (Milk Of Magnesia 30 Ml Oral.Susp) 30 ml PO DAILY PRN PRN Reason: Constipation Magnesium Oxide (Magnesium Oxide 400 Mg Tablet) 400 mg PO BIDPC [facility] Last Admin: 04/13/25 08:15 Dose: 400 mg Melatonin (Melatonin 3 Mg Tablet) 6 mg PO BEDTIME PRN PRN Reason: Insomnia Last Admin: 04/12/25 21:12 Dose: 6 mg Memantine (Memantine Hcl 10 Mg Tablet) 10 mg PO DAILY [facility] Last Admin: 04/13/25 08:15 Dose: 10 mg Methenamine Hippurate (Methenamine Hippurate 1 Gm Tablet) 1 gm PO DAILY [facility] Last Admin: 04/13/25 08:14 Dose: 1 gm Metoprolol Succinate (Metoprolol Succinate Er 25 Mg Tab.Er.24h) 25 mg PO DAILY [facility]; Protocol Last Admin: 04/13/25 08:14 Dose: 25 mg Nystatin (Nystatin Oral Susp 500,000 Unit/5 Ml Oral.Susp) 200,000 unit PO QID [facility]; Protocol Last Admin: 04/13/25 08:16 Dose: 200,000 unit Omeprazole (Omeprazole 20 Mg Capsule.Dr) 20 mg PO DAILY@0630 PRN PRN Reason: Acid Reflux Quetiapine Fumarate (Quetiapine Fumarate 25 Mg Tablet) 25 mg PO BEDTIME [facility] Last Admin: 04/12/25 20:07 Dose: 25 mg Sodium Chloride (0.9 % Sodium Chloride Flush 3 Ml Syringe) 3 ml IVFLUSH QSHIFT [facility] Last Admin: 04/13/25 08:17 Dose: 3 ml Tamsulosin HCl (Tamsulosin Hcl 0.4 Mg Capsule) 0.4 mg PO BEDTIME [facility] Last Admin: 04/12/25 20:07 Dose: 0.4 mg Thiamine HCl (Thiamine Hcl 100 Mg Tablet) 200 mg PO DAILY [facility] Last Admin: 04/13/25 08:15 Dose: 200 mg Home Medications ?Medication ?Instructions ?Recorded ?Confirmed ?Last Taken ?Type apixaban 5 mg tablet (Eliquis) 5 mg PO BID 02/16/2004/06/25 History insulin glargine 100 unit/mL 7 - 20 unit subcut BEDTIM E 02/16/20 04/07/25 04/05/25 History subcutaneous solution (Lantus 8 un U-100 Insulin) insulin lispro 100 unit/mL 5 unit subcut BID@0800,1200 02/16/20 04/07/25 04/06/25 History subcutaneous solution (Humalog U-100 Insulin) magnesium oxide 420 mg tablet 420 mg PO DAILY 02/16/20 04/07/25 04/06/25 History metformin 500 mg tablet 500 mg PO DAILY 02/16/2007/2804/06/25 History metoprolol succinate 25 mg 25 mg PO DAILY 02/16/2007/2804/06/25 History tablet,extended release 24 hr aspirin 81 mg tablet,delayed 81 mg PO DAILY 06/01/24 1 06/08/24 04/06/25 History release coenzyme Q10 300 mg capsule (Co 300 mg PO DAILY 04/07/25 04/06/25 History Q-10) docusate sodium 100 mg capsule 100 mg PO BID 06/01/24 04/07/25 04/06/25 History thiamine HCl (vitamin B1) 100 mg 200 mg PO DAILY 06/0104/07/25 04/06/25 History tablet ascorbic acid (vitamin C) 500 mg 500 mg PO DAILY 04/0704/07/25 04/06/25 History tablet (Vitamin C) brimonidine 0.2 % eye drops 1 drp ophthalmic (eye) BID 04/07/25 04/07/25 04/06/25 History doxycycline hyclate 50 mg tablet 50 mg PO BID 04/07/25 04/07/25 04/06/25 History glucagon 3 mg/actuation nasal spray 3 mg intranasal NEEDED PRN Low 04/07/25 04/07/25 04/06/25 History Blood Sugar glucose 4 gram chewable tablet 4 g PO Q15M PRN Low Blo od Sugar 04/07/25 04/07/25 Unknown History insulin lispro 100 unit/mL 6 unit subcut DAILY@1700 04/07/25 04/06/25 History subcutaneous solution (Humalog U-100 Insulin) lidocaine 5 % topical ointment 1 appl topical BID PRN Pain 04/07/25 04/07/25 Unknown History memantine 10 mg tablet 10 mg PO DAILY 04/07/2507/2804/06/25 History nut.tx.gluc.intol,lac-free,soy 1 ea PO BID 04/07/2504/06/25 History (Glucerna oral liquid) omeprazole 20 mg capsule,delayed 20 mg PO DAILY@0630 P RN Acid Reflux 04/07/25 04/07/25 Unknown History release oxycodone 5 mg tablet 5 mg PO Q6H PRN Pain 5 04/07/25 Unknown History Physical Exam 2 Vital Signs: Vital Signs: Last Vital Signs Temp 97.2 F 04/13/25 11:28 Pulse 66 04/13/25 11:28 Resp 17 04/13/25 11:28 BP 160/82 H 04/13/25 11:28 Pulse Ox 100 04/13/25 11:28 O2 Del Method Room Air 04/13/25 11:28 BMI result Body Mass Index 22.3 Const: General: cooperative, healthy appearing and comfortable O rientation/consciousness: oriented to person, oriented to place and oriented to time HEENT: Head: Yes normal to inspection Neck: Neck: Yes normal visual inspection Carotids: no bruits Chest: Chest palpation & inspection: normal inspection of the chest Resp: Effort & Inspection: normal respiratory effort and able to speak in complete sentences Auscultation: clear to auscultation bilaterally, no crackles, no rales, no rhonchi and no wheezes Cardio: Rate: regular rate Rhythm: regular rhythm Heart sounds: S1 normal heart sound present and S2 normal heart sound present Bruits: no carotid bruits Peripheral pulses: Peripheral pulses 2+ throughout GI: Inspection: Yes normal to inspection Skin: Other: Left great toe dry. Nonhealing incision site. Wounds: no wounds Hair: normal Neuro: General: oriented to person, oriented to place and oriented to time Cranial nerves: Yes CN's II-XII intact bilaterally and Yes Normal hearing present Cognition (Neuro): normal cognition Motor exam (neuro): 5/5 motor strength present throughout Extrem: Other: venous exam: No significant superficial varicosities or spider telangiectasias, minimal edema General: No clubbing, No cyanosis and No edema Psych: Appearance: grossly normal Mental Status: mental status grossly normal Speech and movement: Normal speech and movement present Results Labs 04/12/25 06:34 04/12/25 06:35 Labs: Abnormal lab results 04/12/25 04/12/25 04/13/25 Range/Units 15:49 20:42 07:47 POC Glucose 177 H 186 H 195 H (60-115) mg/dL 04/13/25 Range/Units 11:15 POC Glucose 204 H (60-115) mg/dL Urine 04/07/25 Range/Units 01:06 Urine Color Yellow Urine Appearance Clear Urine pH 6.0 (5.0-9.0) Ur Specific [place] 1.025 (1.005-1.025) Urine Protein 30 (1+) H (Neg-Trace) mg/dL Urine Glucose (UA) >=1000 H (Negative) mg/dL All other labs normal. Assessment and Plan (1) Peripheral arterial disease: Status: Acute Plan In short patient has nonhealing left foot ulcer. Difficult to ascertain at the current time what is going on from a medical standpoint. The foot appears to be stable. Due to his recent surgery at [facility] [place] would recommend follow-up again at [facility] [place] upon discharge. He will follow up with us on an as-needed basis. No acute intervention required. We will follow on an as-needed basis. Thank you for allowing us to assist in his care. Procedures Date of Service Date of Service: 04/13/25
--- NOTE | 2025-04-13 15:05 | W.PM.IDCN ---
History of Present Illness Data of Consult Service Date: 04/13/25 Requesting physician: Guille Dawn Primary Care Provider: CALEB Tapia HPI Reason for consult: left foot transmet amputation 1st metatarsal He presents with syncope suddenly at home and transferred to [facility] [place]. He left great toe amputation on 04/05 at [facility] and saw Dr Acosta here. He has necrotic discoloration at the amputation site. He has no fever at this time or OM seen on CT Review of Systems Review of Systems: Yes all other systems are reviewed and are negative [facility] Past Medical History Medical History Skin cancer History of headache History of femoral angiogram Myocardial infarction Vocal cord polyps Hyperlipidemia Tremor Hiatal hernia Diverticulosis Colonic polyp Cataract cortical, senile TIA (transient ischemic attack) Thyroid nodule Lumbar radiculopathy PVD (peripheral vascular disease) On anticoagulant therapy Multinodular non-toxic goiter Moderate protein-calorie malnutrition Peripheral neuropathy Chronic kidney disease (CKD) stage G2/A1, mildly decreased glomerular filtration rate (GFR) between 60-89 mL/min/1.73 square meter and albuminuria creatinine ratio less than 30 mg/g Vascular dementia Exposure to potentially hazardous substance Chronic interstitial cystitis Sleep apnea Urge incontinence Male erectile dysfunction, unspecified Peripheral arterial disease GERD (gastroesophageal reflux disease) Parkinson disease Hypertension Toe avulsion Vocal cord anomaly A-fib High cholesterol Diabetes Family History Family history: reviewed and not pertinent Surgical History Surgical History History of amputation of great toe of both feet Hx of exploratory laparotomy S/P thyroid biopsy Hx of cardiac catheterization History of intravascular stent placement Hx of bilateral cataract extraction History of esophagogastroduodenoscopy (EGD) H/O colonoscopy Social History Social History Household Members: Spouse Housing: House Are you a primary acute care nurse to a significant other at home: No Alcohol intake: never Comment: 1:1 sitter Patient Tobacco Use Status: Tobacco use Unknown Tobacco use type: Cigar Years Smoked: 8 Second Hand Smoke Exposure: No Advance Directives Date on File: 02/16/20 service: Yes Current occupational status: retired Meds Allergies Allergy/AdvReac Type Severity Reaction Status Date / Time No Known Drug Allergies Allergy Unknown UNKNOWN Verified 04/06/25 19:13 grass, weeds, dirt, dust Allergy Unknown Unknown Uncoded 04/06/25 19:13 mites Active Medications: Current Medications Acetaminophen (Acetaminophen 325 Mg Tablet) 650 mg PO Q6H PRN PRN Reason: Pain, Mild 1-3,fever,headache Last Admin: 04/12/25 21:12 Dose: 650 mg Apixaban (Apixaban 5 Mg Tablet) 5 mg PO BID [facility] Last Admin: 04/13/25 08:14 Dose: 5 mg Ascorbic Acid (Ascorbic Acid 500 Mg Tablet) 500 mg PO DAILY [facility] Last Admin: 04/13/25 08:15 Dose: 500 mg Aspirin (Aspirin Enteric Coated 81 Mg Tablet.Dr) 81 mg PO DAILY [facility] Last Admin: 04/13/25 08:15 Dose: 81 mg Brimonidine Tartrate (Brimonidine Tartrate 0.2% Oph 5 Ml Bottle) 1 drop EYE-BOTH BID [facility] Last Admin: 04/13/25 08:31 Dose: 1 drop Calcium Carbonate (Calcium Carbonate 750 Mg Tab.Chew) 750 mg PO Q4H PRN PRN Reason: Heartburn Carbidopa/Levodopa (Carbidopa/Levodopa 25/100 Tablet) 1 tab PO TID [facility] Last Admin: 04/13/25 14:52 Dose: 1 tab Dextrose (Dextrose 50 % 25 Gm/50 Ml Syringe) 25 gm IVPUSH Q15M PRN; Protocol PRN Reason: per Hypoglycemia Standing Ord. Finasteride (Finasteride 5 Mg Tablet) 5 mg PO DAILY [facility] Last Admin: 04/13/25 08:16 Dose: 5 mg Glucose (Glucose Gel 15 Gm Gel..Gram.) 15 gm PO Q15M PRN; Protocol PRN Reason: per Hypoglycemia Standing Ord. Piperacillin Sod/Tazobactam (Sod 3.375 gm/ Sodium Chloride) 50 mls @ 100 mls/hr IV Q6H [facility] Last Infusion: 04/13/25 12:36 Dose: Infused Daptomycin 470 mg/ Sodium (Chloride) 59.4 mls @ 100 mls/hr IV Q24H [facility] Last Admin: 04/13/25 14:52 Dose: 100 mls/hr Insulin Human Lispro (Insulin Lispro 100 Unit/Ml 3 Ml Vial) 0 unit SUBCUT QIDACHS [facility]; Protocol Last Admin: 04/13/25 12:00 Dose: 4 unit Magnesium Hydroxide (Milk Of Magnesia 30 Ml Oral.Susp) 30 ml PO DAILY PRN PRN Reason: Constipation Magnesium Oxide (Magnesium Oxide 400 Mg Tablet) 400 mg PO BIDPC [facility] Last Admin: 04/13/25 08:15 Dose: 400 mg Melatonin (Melatonin 3 Mg Tablet) 6 mg PO BEDTIME PRN PRN Reason: Insomnia Last Admin: 04/12/25 21:12 Dose: 6 mg Memantine (Memantine Hcl 10 Mg Tablet) 10 mg PO DAILY [facility] Last Admin: 04/13/25 08:15 Dose: 10 mg Methenamine Hippurate (Methenamine Hippurate 1 Gm Tablet) 1 gm PO DAILY [facility] Last Admin: 04/13/25 08:14 Dose: 1 gm Metoprolol Succinate (Metoprolol Succinate Er 25 Mg Tab.Er.24h) 25 mg PO DAILY [facility]; Protocol Last Admin: 04/13/25 08:14 Dose: 25 mg Nystatin (Nystatin Oral Susp 500,000 Unit/5 Ml Oral.Susp) 200,000 unit PO QID [facility]; Protocol Last Admin: 04/13/25 14:52 Dose: 200,000 unit Omeprazole (Omeprazole 20 Mg Capsule.Dr) 20 mg PO DAILY@0630 PRN PRN Reason: Acid Reflux Quetiapine Fumarate (Quetiapine Fumarate 25 Mg Tablet) 25 mg PO BEDTIME [facility] Last Admin: 04/12/25 20:07 Dose: 25 mg Sodium Chloride (0.9 % Sodium Chloride Flush 3 Ml Syringe) 3 ml IVFLUSH QSHIFT [facility] Last Admin: 04/13/25 08:17 Dose: 3 ml Tamsulosin HCl (Tamsulosin Hcl 0.4 Mg Capsule) 0.4 mg PO BEDTIME [facility] Last Admin: 04/12/25 20:07 Dose: 0.4 mg Thiamine HCl (Thiamine Hcl 100 Mg Tablet) 200 mg PO DAILY [facility] Last Admin: 04/13/25 08:15 Dose: 200 mg Home Medications ?Medication ?Instructions ?Recorded ?Confirmed ?Last Taken ?Type apixaban 5 mg tablet (Eliquis) 5 mg PO BID 02/16/20 04/07/25 04/06/25 History insulin glargine 100 unit/mL 7 - 20 unit subcut BEDTIME 02/16/20 04/07/25 04/05/25 History subcutaneous solution (Lantus 8 un U-100 Insulin) insulin lispro 100 unit/mL 5 unit subcut BID@0800,1200 02/16/20 04/07/25 04/06/25 History subcutaneous solution (Humalog U-100 Insulin) magnesium oxide 420 mg tablet 420 mg PO DAILY 02/16/20 04/07/25 04/06/25 History metformin 500 mg tablet 500 mg PO DAILY 02/16/20 04/07/25 04/06/25 History metoprolol succinate 25 mg 25 mg PO DAILY 02/16/20 04/07/25 04/06/25 History tablet,extended release 24 hr aspirin 81 mg tablet,delayed 81 mg PO DAILY 06/01/24 04/07/25 04/06/25 History release coenzyme Q10 300 mg capsule (Co 300 mg PO DAILY 06/01/24 04/07/25 04/06/25 History Q-10) docusate sodium 100 mg capsule 100 mg PO BID 06/01/24 04/07/25 04/06/25 History thiamine HCl (vitamin B1) 100 mg 200 mg PO DAILY 06/01/24 04/07/25 04/06/25 History tablet ascorbic acid (vitamin C) 500 mg 500 mg PO DAILY 04/07/25 04/07/25 04/06/25 History tablet (Vitamin C) brimonidine 0.2 % eye drops 1 drp ophthalmic (eye) BID 04/07/25 04/07/25 04/06/25 History doxycycline hyclate 50 mg tablet 50 mg PO BID 04/07/25 04/07/25 04/06/25 History glucagon 3 mg/actuation nasal spray 3 mg intranasal NEEDED PRN Low 04/07/25 04/07/25 04/06/25 History Blood Sugar glucose 4 gram chewable tablet 4 g PO Q15M PRN Low Blood Sugar 04/07/25 04/07/25 Unknown History insulin lispro 100 unit/mL 6 unit subcut DAILY@1700 04/07/25 04/07/25 04/06/25 History subcutaneous solution (Humalog U-100 Insulin) lidocaine 5 % topical ointment 1 appl topical BID PRN Pain 04/07/25 04/07/25 Unknown History memantine 10 mg tablet 10 mg PO DAILY 04/07/25 04/07/25 04/06/25 History nut.tx.gluc.intol,lac-free,soy 1 ea PO BID 04/07/25 04/07/25 04/06/25 History (Glucerna oral liquid) omeprazole 20 mg capsule,delayed 20 mg PO DAILY@0630 PRN Acid Reflux 04/07/25 04/07/25 Unknown History release oxycodone 5 mg tablet 5 mg PO Q6H PRN Pain 04/07/25 04/07/25 Unknown History Physical Exam Vital Signs: Vital Signs: Last Vital Signs Temp 97.2 F 04/13/25 11:28 Pulse 66 04/13/25 11:28 Resp 17 04/13/25 11:28 BP 160/82 H 04/13/25 11:28 Pulse Ox 100 04/13/25 11:28 O2 Del Method Room Air 04/13/25 11:28 BMI result Body Mass Index 22.3 Const: General: cooperative HEENT: Head: Yes normal to inspection Face and sinus: Yes normal facial exam Mouth: Normal oral and palatal mucosa present Teeth and gingiva: dentition normal Eyes: General: appearance normal, both eyes and all related structures Pupils: Equal, round and reactive pupils present Resp: Effort & Inspection: normal respiratory effort Cardio: Rate: regular rate Rhythm: regular rhythm GI: Palpation (GI): Soft to palpation and nontender : General: Yes no CVA tenderness Back/Spine/Pelvis: Back: no CVA tenderness Skin: General skin exam: no rashes or lesions noted Neuro: General: moves all extremities Cranial nerves: Yes Equal, round and reactive pupils present Extrem: Other: left dark colored skin at amputation site left great toe Psych: Appearance: grossly normal Results Labs 04/12/25 06:34 04/12/25 06:35 Microbiology Microbiology Results: Microbiology 04/12/25 11:43 Blood - Venous Blood Culture - Preliminary No growth after 24 hours. 04/12/25 11:43 Blood - Venous Blood Culture - Preliminary No growth after 24 hours. Assessment and Plan (1) Peripheral arterial disease: Status: Acute (2) Status post amputation of left great toe: Status: Acute Plan Can continue piperacillin and either Vancomycin (increased risk renal failure) or Daptomycin until blood cultures back and if negative po Augmentin and Doxycycline for a week. Followup with [facility] outpatient.
[2025-04-13 16:00] VITALS: BP 133/78; PULSE 68; RESP 18; TEMP 36.4; O2SAT 97
[2025-04-13 16:45] LABS: Glucose, Whole Blood 213 mg/dL (60-115)
--- NOTE | 2025-04-13 16:45 | MHC.SL.SWA ---
Speech Pathologist Impression: WFL Risk of Aspiration Due to: cognition, oral thrush Dysphasia Diet Status: Recommend CONTINUE Regular/Thin Liquid Consistency and Strategies for Safe Swallow: Liquid Intake Recommendation: Thin Liquid Intake Strategies: Solid Food Consistency: Dietary Recommendations: Regular Additional Modifications to Solid Foods: Oral Medication Intake: Crushed with Puree Please contact the pharmacy regarding appropriate crushable or liquid drug formulations that are available whenever modified delivery is recommended. Compensatory Strategies and Precautions to be Taken for Safe Swallow: Sit Upright Slow self-feeding rate Small sips/bites Alternate liquids/solids Remain upright after meal (30 minutes) Supervision While Eating and Drinking for Safe Swallow: Direct Supervision (1:1) with assistance if needed Foods to Avoid: Swallowing Recommended Treatments: Compensatory strategies Recommendation for Speech: Inpatient Speech Therapy Comment: Patient presents with oropharyngeal swallowing function deemed WFL. Patient with fluctuating reports of odynophagia, poor historian. Patient with intermittent dry coughing. No overt s/sx of penetration/aspiration noted. Patient with hoarse vocal quality; PMHx of vocal cord polyps. Oral thrush improving daily with nystatin mouthwash. Recommend CONTINUE with regular solids, thin liquids, 1:1 supervision with assist as needed and medications CRUSHED in puree. Recommendations communicated with MD, RN, and RD via secure chat. CHIEF INTERNAL AUDITOR to follow-up x1 to ensure tolerance. Frequency/Duration: Follow-up x1 Date Range for Service Req: Timeline to reassess: Buyer Internship Clinican/Clinical Fellow: No Supervisory Statement: I have reviewed and agree with the student/clinical fellow's documentation: N/A Speech Language Pathologist: Julieth Dyer M.A., CCC-CHIEF INTERNAL AUDITOR
--- NOTE | 2025-04-13 17:23 | HO.WOUND ---
Wound Consult: Initial 80yr old?male admitted to [facility] on 04/06/25 20:52- See progress notes and H&P for detailed history.? Wound consult placed for Left Foot topical wound care recommendations by direct care nurse.? Patient agreeable to assessment and photo documentation.? at bedside reports patient follows closely with Abrahan Reyes from [facility] team. She reports she has been sending him pictures of the incision progression. She reports she refuses surgical intervention here at [facility] would prefer to have Dr. Gauthier see patient and continue care. Dr. Aguilera notified. The patient is pleasantly confused at the time of my consult reports pain but was able to allow assessment. Of note no palpable pulses noted - PT pulse able to find with doppler but DP was not able to find. Dr Aguilera notified. The patients showed me a photo of the foot from 04/06/25 day of admission and there appears to be a worsening of the black necrotic area Dr. Aguilera notified and photos sent. Patients reports not interested in wound care as they follow up with Dr. Gauthier for wound care every 3 weeks. Per patient this photo is from 04/06/25. 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 Left foot - with red pink erythema mild warmth noted some swelling noted. Left Plantar view - no concerning erythema noted to plantar area. Left Foot Etiology: ?Vascular Surgical Incision from Outside facility prior to admission Wound Bed: intact suture line no dehiscence noted - no drainage observed. Pigmentation changes noted for black and dark purple Drainage / Odor: None observed Edges: ? well approximated Katie wound: mild swelling and erythema ? mild fluctuance noted at tip of toe site. Pain: reports pain and tenderness to touch Goals of Treatment: ? Betadine to keep dry and gauze covering dressing. Recommendations: 1. Turn and Reposition every 2 hours and as needed for patient comfort.? Use pillows or wedges to support off loading positions. 2. Off Load all bony prominences with use of pillows and heel boots if needed.? Apply Preventative foams where needed. ? 3. Monitor for incontinence and moisture control, use barrier creams when needed for prevention and treatment. 4. Provide adequate and supplemental nutrition.? 5. Order low air loss mattress. 6. When applicable maintain blood glucose levels per Providers order. Left Foot - Elevate foot on pillows. [place] with Betadine cover with dry gauze dressing and wrap. change daily. Defer to providers for advanced care options. Re-consult wound care Nurse for wound deterioration or wound changes.
[2025-04-13 20:00] VITALS: BP 165/75; PULSE 83; RESP 20; TEMP 37.1; O2SAT 98
[2025-04-13 21:10] LABS: Glucose, Whole Blood 178 mg/dL (60-115)
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
[2025-04-14] VITALS (8 sets, daily range): BP systolic 125–174; BP diastolic 56–95; PULSE 57–100; RESP 16–20; TEMP 36.1–36.9; O2SAT 93–98
[2025-04-14 07:50] LABS: Hematocrit 37.3 % (42.0-52.0); Hemoglobin 12.8 g/dl (14.0-18.0); Mean Corpuscular HGB Conc 34.3 g/dl (31.0-36.0); Mean Corpuscular Hemoglobin 30.6 pg (27.0-33.0); Mean Corpuscular Volume 89.2 fL (80.0-98.0); NRBC Abs Auto 0.000 X10*3/uL (0.0-0.012); NRBC Pct Auto 0.0 /100WBC (0.0-0.2); Platelet Count 311 X10*3/uL (160-400); Red Blood Count 4.18 X10*6/uL (4.60-5.80); White Blood Count 8.0 X10*3/uL (4.8-10.8)
--- NOTE | 2025-04-14 08:02 | HO.PM.IMPN ---
Subjective Subjective Date of Service: 04/13/25 Interval History: Late entry for 04/13/25 necrosis at amputation site no fever history limited by dementia Review of Systems Review of Systems: Yes Unobtainable due to mental status Physical Exam Vital Signs: Vital Signs: Last Vital Signs Temp 97.0 F 04/14/25 04:00 Pulse 84 04/14/25 04:00 Resp 20 04/14/25 04:00 BP 125/72 04/14/25 04:00 Pulse Ox 94 04/14/25 04:00 O2 Del Method Room Air 04/14/25 00:00 BMI result Body Mass Index 22.3 Gen: in no acute distress HEENT: sclera anicteric, moist mucus membranes Neck: supple Lungs: clear to auscultation bilaterally Heart: irregular, no murmurs Abd: soft, non-tender, non-distended Ext: no edema, s/p L 1st toe amputation with necrosis; proximal redness and warmth improved; no fluctuance Skin: warm/well-perfused Neuro: lethargic, not answering questions appropriately, tremor, masked facies Psych: imapired insight Objective Data Active Medications Acetaminophen (Acetaminophen 325 Mg Tablet) 650 mg PO Q6H PRN PRN Reason: Pain, Mild 1-3,fever,headache Last Admin: 04/13/25 21:38 Dose: 650 mg Documented By: JAIDEN Apixaban (Apixaban 5 Mg Tablet) 5 mg PO BID [facility] Last Admin: 04/13/25 21:38 Dose: 5 mg Documented By: JAIDEN Ascorbic Acid (Ascorbic Acid 500 Mg Tablet) 500 mg PO DAILY [facility] Last Admin: 04/13/25 08:15 Dose: 500 mg Documented By: WILMER Aspirin (Aspirin Enteric Coated 81 Mg Tablet.) 81 mg PO DAILY [facility] Last Admin: 04/13/25 08:15 Dose: 81 mg Documented By: WILMER Brimonidine Tartrate (Brimonidine Tartrate 0.2% Oph 5 Ml Bottle) 1 drop EYE-BOTH BID [facility] Last Admin: 04/13/25 21:53 Dose: 1 drop Documented By: JAIDEN Calcium Carbonate (Calcium Carbonate 750 Mg Tab.Chew) 750 mg PO Q4H PRN PRN Reason: Heartburn Carbidopa/Levodopa (Carbidopa/Levodopa 25/100 Tablet) 1 tab PO TID [facility] Last Admin: 04/13/25 21:39 Dose: 1 tab Documented By: JAIDEN Dextrose (Dextrose 50 % 25 Gm/50 Ml Syringe) 25 gm IVPUSH Q15M PRN; Protocol PRN Reason: per Hypoglycemia Standing Ord. Finasteride (Finasteride 5 Mg Tablet) 5 mg PO DAILY [facility] Last Admin: 04/13/25 08:16 Dose: 5 mg Documented By: WILMER Glucose (Glucose Gel 15 Gm Gel..Gram.) 15 gm PO Q15M PRN; Protocol PRN Reason: per Hypoglycemia Standing Ord. Piperacillin Sod/Tazobactam (Sod 3.375 gm/ Sodium Chloride) 50 mls @ 100 mls/hr IV Q6H [facility] Last Infusion: 04/14/25 05:59 Dose: Infused Documented By: JAIDEN Daptomycin 470 mg/ Sodium (Chloride) 59.4 mls @ 100 mls/hr IV Q24H [facility] Last Infusion: 04/13/25 15:47 Dose: Infused Documented By: WILMER Insulin Human Lispro (Insulin Lispro 100 Unit/Ml 3 Ml Vial) 0 unit SUBCUT QIDACHS [facility]; Protocol Last Admin: 04/13/25 22:01 Dose: Not Given Documented By: JAIDEN Non-Admin Reason: Patient Refused Magnesium Hydroxide (Milk Of Magnesia 30 Ml Oral.Susp) 30 ml PO DAILY PRN PRN Reason: Constipation Magnesium Oxide (Magnesium Oxide 400 Mg Tablet) 400 mg PO BIDPC [facility] Last Admin: 04/13/25 16:45 Dose: 400 mg Documented By: WILMER Melatonin (Melatonin 3 Mg Tablet) 6 mg PO BEDTIME PRN PRN Reason: Insomnia Last Admin: 04/13/25 21:38 Dose: 6 mg Documented By: JAIDEN Memantine (Memantine Hcl 10 Mg Tablet) 10 mg PO DAILY [facility] Last Admin: 04/13/25 08:15 Dose: 10 mg Documented By: WILMER Methenamine Hippurate (Methenamine Hippurate 1 Gm Tablet) 1 gm PO DAILY [facility] Last Admin: 04/13/25 08:14 Dose: 1 gm Documented By: WILMER Metoprolol Succinate (Metoprolol Succinate Er 25 Mg Tab.Er.24h) 25 mg PO DAILY [facility]; Protocol Last Admin: 04/13/25 08:14 Dose: 25 mg Documented By: WILMER Nystatin (Nystatin Oral Susp 500,000 Unit/5 Ml Oral.Susp) 200,000 unit PO QID [facility]; Protocol Last Admin: 04/13/25 22:01 Dose: Not Given Documented By: JAIDEN Non-Admin Reason: Patient Refused Omeprazole (Omeprazole 20 Mg Capsule.Dr) 20 mg PO DAILY@0630 PRN PRN Reason: Acid Reflux Quetiapine Fumarate (Quetiapine Fumarate 25 Mg Tablet) 25 mg PO BEDTIME [facility] Last Admin: 04/13/25 21:38 Dose: 25 mg Documented By: JAIDEN Sodium Chloride (0.9 % Sodium Chloride Flush 3 Ml Syringe) 3 ml IVFLUSH QSHIFT [facility] Last Admin: 04/13/25 21:39 Dose: 3 ml Documented By: JAIDEN Tamsulosin HCl (Tamsulosin Hcl 0.4 Mg Capsule) 0.4 mg PO BEDTIME [facility] Last Admin: 04/13/25 21:38 Dose: 0.4 mg Documented By: JAIDEN Thiamine HCl (Thiamine Hcl 100 Mg Tablet) 200 mg PO DAILY [facility] Last Admin: 04/13/25 08:15 Dose: 200 mg Documented By: WILMER Labs 04/14/25 07:37 04/12/25 06:35 Labs: Laboratory Results - last 24 hr 04/13/25 04/13/25 04/13/25 11:15 16:17 20:59 MCV MCH MCHC RDW Plt Count MPV Absolute Nucleated RBC Nucleated RBC % (auto) POC Glucose 204 H 213 H 178 H 04/14/25 07:37 MCV 89.2 MCH 30.6 MCHC 34.3 RDW 11.7 Plt Count 311 MPV 10.0 Absolute Nucleated RBC 0.000 Nucleated RBC % (auto) 0.0 POC Glucose Microbiology Microbiology Results: Microbiology 04/12/25 11:43 Blood Culture - Preliminary Blood - Venous No growth after 24 hours. 04/12/25 11:43 Blood Culture - Preliminary Blood - Venous No growth after 24 hours. Assessment and Plan (1) A-fib: Status: Acute Plan d6, 80yo M with Parkinson's + Lewy body dementia, HTN, HLD, DM2, PVD s/p L great toe amputation revision 04/05/25 [after prior partial amputation for benign tumor], chronic AF on apixaban; presented after syncopal episode on POD1 syncopal episode - suspect due to dysautomonia from Parkinson's vs. anesthesia effect vs dehydration; has not recurred; no events on telemetry cellulitis L foot recent L great toe amputation - BCx, started daptomycin + piperacillin-tazobactam 04/12-, ID consultation, Vascular Surgery consultation, arterial Duplex pending urinary retention - March; Proscar, Flomax acute toxic-metabolic encephalopathy Parkinsons/Lewy body dementia - multifactorial; due to urinary retention, surgery - scheduled quetiapine qhs - Sinemet, memantine thrush - nystatin hypoMg: repleted hx CVA, chronic AF: apixaban, metoprolol succinate VTE ppx: apixaban dispo: TBD In my clinical judgment, the patient requires continued inpatient hospitalization for the following reasons: IV ABX Total time managing care of this patient today: 35 minutes. Quality Stroke Does the patient have a stroke diagnosis?: No VTE Prior VTE?: No VTE Risk Level:: Medical - moderate - high VTE Device Contraindication: Treatment Not Indicated VTE Drug Contraindication: N/A - Med Ordered
[2025-04-14 08:11] LABS: Anion Gap 12 (12-20); Blood Urea Nitrogen 13 mg/dL (9-16); Calcium 8.9 mg/dL (8.4-10.2); Carbon Dioxide 26 mmol/L (22-29); Chloride 106 mmol/L (96-108); Creatinine Clr Calc Pharmacy 96.8; Estimated Glomerular Filt Rate > 60; Potassium 3.8 mmol/L (3.3-5.1); Sodium 140 mmol/L (135-145)
[2025-04-14] MEDS: Aspirin Enteric Coated 81 MG TABLET.DR PO (09:14)
[2025-04-14] MEDS: Metoprolol Succinate ER 25 MG TAB.ER.24H PO (09:14)
[2025-04-14] MEDS: Nystatin Oral Susp 500,000 UNIT/5 ML ORAL.SUSP 200000 UNIT PO ×4 (09:14→21:49)
[2025-04-14] MEDS: 0.9 % Sodium Chloride Flush 3 ML SYRINGE IVFLUSH ×3 (09:15→23:57)
[2025-04-14] MEDS: Brimonidine Tartrate 0.2% Oph 5 ML BOTTLE 1 DROP EYE-BOTH ×2 (09:34→22:02)
--- NOTE | 2025-04-14 10:28 | P.PNVS_ITS ---
Subjective Subjective Date of Service: 04/14/25 Patient reports: no new complaints and feels better Interval history: Patient seen and examined. No significant events overnight. Appears to be doing much better today. Less somnolent. Up in bed eating breakfast with the assistance of an aide. Denies any significant pain. Now for follow-up regarding this left toe amputation. Physical Exam 2 Vital Signs: Vital Signs: Last Vital Signs Temp 97.0 F 04/14/25 08:00 Pulse 67 04/14/25 09:18 Resp 18 04/14/25 08:00 BP 143/62 H 04/14/25 08:00 Pulse Ox 97 04/14/25 08:00 O2 Del Method Room Air 04/14/25 08:00 BMI result Body Mass Index 22.3 Const: General: cooperative, healthy appearing and comfortable O rientation/consciousness: oriented to person, oriented to place and oriented to time HEENT: Head: Yes normal to inspection Neck: Neck: Yes normal visual inspection Carotids: no bruits Chest: Chest palpation & inspection: normal inspection of the chest Resp: Effort & Inspection: normal respiratory effort and able to speak in complete sentences Auscultation: clear to auscultation bilaterally, no crackles, no rales, no rhonchi and no wheezes Cardio: Rate: regular rate Rhythm: regular rhythm Heart sounds: S1 normal heart sound present and S2 normal heart sound present Bruits: no carotid bruits Peripheral pulses: Peripheral pulses 2+ throughout GI: Inspection: Yes normal to inspection Skin: Other: Left great toe amp Wounds: no wounds Hair: normal Neuro: General: oriented to person, oriented to place and oriented to time Cranial nerves: Yes CN's II-XII intact bilaterally and Yes Normal hearing present Cognition (Neuro): normal cognition Motor exam (neuro): 5/5 motor strength present throughout Extrem: Other: venous exam: No significant superficial varicosities or spider telangiectasias, minimal edema General: No clubbing, No cyanosis and No edema Psych: Appearance: grossly normal Mental Status: mental status grossly normal Speech and movement: Normal speech and movement present Progress Note: A&P Assessment and plan (1) Status post amputation of left great toe: Status: Acute Assessment and Plan: Overall toe amp site is stable. There is an area of ischemia but it is dry. Minimal erythema associated with it. He does have mild pain. Concern here is unclear what arterial disease he has underlying and what was his previous findings. I did reach out to Dr. Gauthier and awaiting reply from him. Continue antibiotics and workup for his syncopal episode. If discharge stable from my perspective. Would follow up with [facility] vascular where his original surgery was done. Thank you for allowing us to assist in his care. If there are any questions or concerns please do not hesitate to contact us. Time Spent With Patient Time: Total time managing care of this patient today ____ minutes. Procedures Date of Service Date of Service: 04/14/25 Quality Stroke Does the patient have a stroke diagnosis?: No VTE Prior VTE?: No VTE Risk Level:: Medical - moderate - high VTE Device Contraindication: Treatment Not Indicated VTE Drug Contraindication: N/A - Med Ordered
[2025-04-14 10:46] LABS: Glucose, Whole Blood 194 mg/dL (60-115)
--- NOTE | 2025-04-14 11:44 | HO.PM.IMPN ---
Subjective Subjective Date of Service: 04/14/25 Interval History: more awake/alert this AM denies foot pain no fever Review of Systems Review of Systems: Yes all other systems are reviewed and are negative Physical Exam Vital Signs: Vital Signs: Last Vital Signs Temp 97.0 F 04/14/25 08:00 Pulse 67 04/14/25 09:18 Resp 18 04/14/25 08:00 BP 143/62 H 04/14/25 08:00 Pulse Ox 97 04/14/25 08:00 O2 Del Method Room Air 04/14/25 08:00 BMI result Body Mass Index 22.3 Gen: in no acute distress HEENT: sclera anicteric, moist mucus membranes Neck: supple Lungs: clear to auscultation bilaterally Heart: irregular, no murmurs Abd: soft, non-tender, non-distended Ext: no edema, s/p L 1st toe amputation with dry necrosis; proximal redness and warmth improved; no fluctuance Skin: warm/well-perfused Neuro: alert, tremor, masked facies Psych: imapired insight Objective Data Active Medications Acetaminophen (Acetaminophen 325 Mg Tablet) 650 mg PO Q6H PRN PRN Reason: Pain, Mild 1-3,fever,headache Last Admin: 04/14/25 10:27 Dose: 650 mg Documented By: HANY Apixaban (Apixaban 5 Mg Tablet) 5 mg PO BID [facility] Last Admin: 04/14/25 09:14 Dose: 5 mg Documented By: HANY Ascorbic Acid (Ascorbic Acid 500 Mg Tablet) 500 mg PO DAILY [facility] Last Admin: 04/14/25 09:13 Dose: 500 mg Documented By: HANY Aspirin (Aspirin Enteric Coated 81 Mg Tablet.Dr) 81 mg PO DAILY [facility] Last Admin: 04/14/25 09:14 Dose: 81 mg Documented By: HANY Brimonidine Tartrate (Brimonidine Tartrate 0.2% Oph 5 Ml Bottle) 1 drop EYE-BOTH BID [facility] Last Admin: 04/14/25 09:34 Dose: 1 drop Documented By: HANY Calcium Carbonate (Calcium Carbonate 750 Mg Tab.Chew) 750 mg PO Q4H PRN PRN Reason: Heartburn Carbidopa/Levodopa (Carbidopa/Levodopa 25/100 Tablet) 1 tab PO TID [facility] Last Admin: 12/10/25 09:14 Dose: 1 tab Documented By: HANY Dextrose (Dextrose 50 % 25 Gm/50 Ml Syringe) 25 gm IVPUSH Q15M PRN; Protocol PRN Reason: per Hypoglycemia Standing Ord. Finasteride (Finasteride 5 Mg Tablet) 5 mg PO DAILY [facility] Last Admin: 04/14/25 09:14 Dose: 5 mg Documented By: HANY Glucose (Glucose Gel 15 Gm Gel..Gram.) 15 gm PO Q15M PRN; Protocol PRN Reason: per Hypoglycemia Standing Ord. Piperacillin Sod/Tazobactam (Sod 3.375 gm/ Sodium Chloride) 50 mls @ 100 mls/hr IV Q6H [facility] Last Infusion: 04/14/25 05:59 Dose: Infused Documented By: JAIDEN Daptomycin 470 mg/ Sodium (Chloride) 59.4 mls @ 100 mls/hr IV Q24H [facility] Last Infusion: 04/13/25 15:47 Dose: Infused Documented By: WILMER Insulin Human Lispro (Insulin Lispro 100 Unit/Ml 3 Ml Vial) 0 unit SUBCUT QIDACHS [facility]; Protocol Last Admin: 04/14/25 09:15 Dose: 2 unit Documented By: HANY Magnesium Hydroxide (Milk Of Magnesia 30 Ml Oral.Susp) 30 ml PO DAILY PRN PRN Reason: Constipation Magnesium Oxide (Magnesium Oxide 400 Mg Tablet) 400 mg PO BIDPC [facility] Last Admin: 04/14/25 09:14 Dose: 400 mg Documented By: HANY Melatonin (Melatonin 3 Mg Tablet) 6 mg PO BEDTIME PRN PRN Reason: Insomnia Last Admin: 04/13/25 21:38 Dose: 6 mg Documented By: JAIDEN Memantine (Memantine Hcl 10 Mg Tablet) 10 mg PO DAILY [facility] Last Admin: 04/14/25 09:14 Dose: 10 mg Documented By: HANY Methenamine Hippurate (Methenamine Hippurate 1 Gm Tablet) 1 gm PO DAILY [facility] Last Admin: 04/14/25 09:14 Dose: 1 gm Documented By: HANY Metoprolol Succinate (Metoprolol Succinate Er 25 Mg Tab.Er.24h) 25 mg PO DAILY [facility]; Protocol Last Admin: 04/14/25 09:14 Dose: 25 mg Documented By: HANY Nystatin (Nystatin Oral Susp 500,000 Unit/5 Ml Oral.Susp) 200,000 unit PO QID [facility]; Protocol Last Admin: 04/14/25 09:14 Dose: 200,000 unit Documented By: HANY Omeprazole (Omeprazole 20 Mg Capsule.Dr) 20 mg PO DAILY@0630 PRN PRN Reason: Acid Reflux Quetiapine Fumarate (Quetiapine Fumarate 25 Mg Tablet) 25 mg PO BEDTIME [facility] Last Admin: 04/13/25 21:38 Dose: 25 mg Documented By: JAIDEN Sodium Chloride (0.9 % Sodium Chloride Flush 3 Ml Syringe) 3 ml IVFLUSH QSHIFT [facility] Last Admin: 04/14/25 09:15 Dose: 3 ml Documented By: HANY Tamsulosin HCl (Tamsulosin Hcl 0.4 Mg Capsule) 0.4 mg PO BEDTIME [facility] Last Admin: 04/13/25 21:38 Dose: 0.4 mg Documented By: JAIDEN Thiamine HCl (Thiamine Hcl 100 Mg Tablet) 200 mg PO DAILY [facility] Last Admin: 04/14/25 09:13 Dose: 200 mg Documented By: HANY Labs 04/14/25 07:37 04/14/25 07:37 Labs: Laboratory Results - last 24 hr 04/13/25 04/13/25 04/14/25 16:17 20:59 07:37 MCV 89.2 MCH 30.6 MCHC 34.3 RDW 11.7 Plt Count 311 MPV 10.0 Absolute Nucleated RBC 0.000 Nucleated RBC % (auto) 0.0 Anion Gap 12 Estim Creat Clear Calc 96.8 Estimated GFR > 60 POC Glucose 213 H 178 H Random Glucose 179 H Calcium 8.9 Total Creatine Kinase 29 L C-Reactive Protein 10.82 H 04/14/25 07:46 MCV MCH MCHC RDW Plt Count MPV Absolute Nucleated RBC Nucleated RBC % (auto) Anion Gap Estim Creat Clear Calc Estimated GFR POC Glucose 194 H Random Glucose Calcium Total Creatine Kinase C-Reactive Protein Microbiology Microbiology Results: Microbiology 04/12/25 11:43 Blood Culture - Preliminary Blood - Venous No growth after 24 hours. 04/12/25 11:43 Blood Culture - Preliminary Blood - Venous No growth after 24 hours. Assessment and Plan (1) A-fib: Status: Acute Plan d7, 80yo M with Parkinson's + Lewy body dementia, HTN, HLD, DM2, PVD s/p L great toe amputation revision 04/05/25 [after prior partial amputation for benign tumor], chronic AF on apixaban; presented after syncopal episode on POD1 syncopal episode - suspect due to dysautomonia from Parkinson's vs. anesthesia effect vs dehydration; has not recurred; no events on telemetry cellulitis L foot recent L great toe amputation - BCx no growth to date, on daptomycin + piperacillin-tazobactam 04/12-, ID consulted [transition to PO doxy + Augmentin if blood cultures negative], Vascular Surgery consulted and reached out to pt's surgeon Dr Talon Gauthier at [facility]; no urgent intervention indicated; pt should follow-up with Dr Gauthier after discharge urinary retention - March; Proscar, Flomax acute toxic-metabolic encephalopathy Parkinsons/Lewy body dementia - multifactorial; due to urinary retention, surgery - scheduled quetiapine qhs - Sinemet, memantine thrush - nystatin hypoMg: repleted hx CVA, chronic AF: apixaban, metoprolol succinate VTE ppx: apixaban dispo: home with VNA vs STR In my clinical judgment, the patient requires continued inpatient hospitalization for the following reasons: IV ABX Total time managing care of this patient today: 40 minutes. Quality Stroke Does the patient have a stroke diagnosis?: No VTE Prior VTE?: No VTE Risk Level:: Medical - moderate - high VTE Device Contraindication: Treatment Not Indicated VTE Drug Contraindication: N/A - Med Ordered
[2025-04-14 11:52] LABS: Glucose, Whole Blood 299 mg/dL (60-115)
[2025-04-14] MEDS: Milk of Magnesia 30 ML ORAL.SUSP PO (12:31)
--- NOTE | 2025-04-14 13:55 | MHC.CM.PN ---
Per rounds, pt is not ready to DC, he is receiving IV ABX. DCP: home with VNA services.
--- NOTE | 2025-04-14 14:53 | MHC.CLN ---
CONSULT QUESTION MALNUTRITION AND REQUEST FOR ENSURE. DIET RX: DIABETIC 1800 KCALS, 2 GRAM SODIUM. PO INTAKE VARIABLE 0-50%. REVIEW OF WEIGHT HX SHOWS NO SIGNIFICANT WEIGHT CHANGE X 11 MONTHS. NO NUTRITION DX OF MALNUTRITION. ADDED ENSURE MAX BID PER REQUEST FOR SUPPLEMENT. PROVIDES 300 KCALS, 60 G PROTEIN AND IS A LOWER SUGAR PRODUCT. CONTINUE TO MONITOR WEEKLY.
--- NOTE | 2025-04-14 15:49 | MHC.SLORD ---
Speech Language Pathology Order Status: Pt not seen for dysphagia tx today, [employer]IR [employer]SEM[employer]ER following as indicated. Pt remains on regular diet/thin liquids, 1:1 assist, aspiration precautions.
--- NOTE | 2025-04-14 15:50 | MHC.CM.PN ---
CM contacted pt.'s to ask about PT eval and rec for STR. She does not want him to go to STR, she wants him to go home. She had multiple concerns about care and how pt. is doing. Her concerns were relayed to nursing s/v to follow up on. was not sure if she wants VNA, CM let her know that we can cancel it, she then said to keep it in place. She also informed CM that pt. does have an appt. to see the surgeon at that did his toe amputation next Saturday.
[2025-04-14 16:23] LABS: Glucose, Whole Blood 288 mg/dL (60-115)
[2025-04-14 21:14] LABS: Glucose, Whole Blood 181 mg/dL (60-115)
--- NOTE | 2025-04-14 23:14 | P.PNID_ITS ---
Subjective Subjective Date of Service: 04/14/25 Critical Care Time (minutes): 15 Comment: no fever or leukocytosis foot similar Objective Data Labs 04/14/25 07:37 04/14/25 07:37 Labs: Laboratory Results - last 24 hr 04/14/25 04/14/25 04/14/25 07:37 07:46 11:48 WBC 8.0 RBC 4.18 L Hgb 12.8 L Hct 37.3 L MCV 89.2 MCH 30.6 MCHC 34.3 RDW 11.7 Plt Count 311 MPV 10.0 Absolute Nucleated RBC 0.000 Nucleated RBC % (auto) 0.0 Sodium 140 Potassium 3.8 Chloride 106 Carbon Dioxide 26 Anion Gap 12 BUN 13 Creatinine 0.69 Estim Creat Clear Calc 96.8 Estimated GFR > 60 POC Glucose 194 H 299 H Random Glucose 179 H Calcium 8.9 Total Creatine Kinase 29 L C-Reactive Protein 10.82 H 04/14/25 04/14/25 16:04 21:09 WBC RBC Hgb Hct MCV MCH MCHC RDW Plt Count MPV Absolute Nucleated RBC Nucleated RBC % (auto) Sodium Potassium Chloride Carbon Dioxide Anion Gap BUN Creatinine Estim Creat Clear Calc Estimated GFR POC Glucose 288 H 181 H Random Glucose Calcium Total Creatine Kinase C-Reactive Protein Microbiology Microbiology Results: Microbiology 04/12/25 11:43 Blood - Venous Blood Culture - Preliminary No growth after 48 hours. 04/12/25 11:43 Blood - Venous Blood Culture - Preliminary No growth after 48 hours. Physical Exam 2 Vital Signs: Vital Signs: Last Vital Signs Temp 98.1 F 04/14/25 20:00 Pulse 100 04/14/25 21:30 Resp 16 04/14/25 20:00 BP 132/95 H 04/14/25 21:30 Pulse Ox 96 04/14/25 20:00 O2 Del Method Room Air 04/14/25 20:00 BMI result Body Mass Index 22.3 Const: General: cooperative HEENT: Head: Yes normal to inspection Face and sinus: Yes normal facial exam Mouth: Normal oral and palatal mucosa present Teeth and gingiva: d entition normal Eyes: General: appearance normal, both eyes and all related structures P upils: Equal, round and reactive pupils present Resp: Effort & Inspection: normal respiratory effort Cardio: Rate: regular rate Rhythm: regular rhythm GI: Palpation (GI): Soft to palpation and nontender : General: Yes no CVA tenderness Back/Spine/Pelvis: Back: no CVA tenderness Skin: General skin exam: no rashes or lesions noted Neuro: General: moves all extremities Cranial nerves: Yes Equal, round and reactive pupils present Extrem: Other: some darker color foot Psych: Appearance: grossly normal Assessment and Plan Assessment and plan (1) Status post amputation of left great toe: Status: Acute Assessment and Plan: Follow [facility] Dr Gauthier on discharge Plan Foot cellulitis No current changes Po Augmentin and Doxycycline 7-10 d Time Spent With Patient Time: Total time managing care of this patient today ____ minutes.
[2025-04-15] VITALS (10 sets, daily range): BP systolic 111–145; BP diastolic 53–89; PULSE 51–88; RESP 16–18; TEMP 36.2–36.9; O2SAT 94–98
[2025-04-15 07:11] LABS: Glucose, Whole Blood 226 mg/dL (60-115)
[2025-04-15] MEDS: Aspirin Enteric Coated 81 MG TABLET.DR PO (09:07)
[2025-04-15] MEDS: 0.9 % Sodium Chloride Flush 3 ML SYRINGE IVFLUSH ×3 (09:07→20:22)
[2025-04-15] MEDS: Metoprolol Succinate ER 25 MG TAB.ER.24H PO (09:08)
[2025-04-15] MEDS: Nystatin Oral Susp 500,000 UNIT/5 ML ORAL.SUSP 200000 UNIT PO ×3 (09:08→20:20)
[2025-04-15] MEDS: Brimonidine Tartrate 0.2% Oph 5 ML BOTTLE 1 DROP EYE-BOTH ×2 (09:28→20:37)
--- NOTE | 2025-04-15 11:09 | MHC.SL.SWA ---
Speech Pathologist Impression: Oral Phase Dysphagia Risk of Aspiration Due to: Underlying neuro conditions (dementia, PD), reduced cognition, VF pathology (hx polyps) Dysphasia Diet Status: No Change Liquid Consistency and Strategies for Safe Swallow: Liquid Intake Recommendation: Thin Liquid Intake Strategies: Small Sips Solid Food Consistency: Dietary Recommendations: Regular Additional Modifications to Solid Foods: Recc crushed pills in puree when possible or meds in liquid form if available. For pills that must be administered whole, patient tolerates best one at a time in spoonful of juice thickened to pudding thick (vanilla pudding is too thick). Patient has a tendency to pocket food, but is able to clear residue when given sips of liquid. Patient will need 1:1 assistance feeding, periodic oral cavity check, and cues for clearance: dry swallow, alternate with sips of liquid. Please re-refer with any changes or further concern. Oral Medication Intake: Crushed with Puree Please contact the pharmacy regarding appropriate crushable or liquid drug formulations that are available whenever modified delivery is recommended. Compensatory Strategies and Precautions to be Taken for Safe Swallow: Sitting Upright (90 deg) Double Swallow No Straw Small Bites and Sips Alternate Liquids/Solids Rate of Ingestion Change Oral Check Supervision While Eating and Drinking for Safe Swallow: Total Assistance (1:1) Recommendation for Speech: D/C Collaborative Teacher Clinican/Clinical Fellow: No Supervisory Statement: I have reviewed and agree with the student/clinical fellow's documentation: N/A Speech Language Pathologist: Madelyn Kincaid M.A., CCC-CLEARANCE DIVER
[2025-04-15 11:12] LABS: Glucose, Whole Blood 239 mg/dL (60-115)
--- NOTE | 2025-04-15 14:39 | P.PNIM_ITS ---
Subjective Subjective Date of Service: 04/15/25 Interval History: more awake this AM, denies pain of foot, no fever Review of Systems Review of Systems: Yes all other systems are reviewed and are negative Physical Exam 2 Vital Signs: Vital Signs: Last Vital Signs Temp 97.8 F 04/15/25 11:41 Pulse 51 04/15/25 11:41 Resp 18 04/15/25 11:41 BP 120/58 L 04/15/25 11:41 Pulse Ox 94 04/15/25 11:41 O2 Del Method Room Air 04/15/25 11:41 BMI result Body Mass Index 22.3 Gen: in no acute distress HEENT: sclera anicteric, moist mucus membranes Neck: supple Lungs: clear to auscultation bilaterally Heart: irregular, no murmurs Abd: soft, non-tender, non-distended Ext: no edema, s/p L 1st toe amputation with dry necrosis; proximal redness and warmth improved; no fluctuance Skin: warm/well-perfused Neuro: alert, tremor, masked facies Psych: imapired insight Objective Data Active Medications Acetaminophen (Acetaminophen 325 Mg Tablet) 650 mg PO Q6H PRN PRN Reason: Pain, Mild 1-3,fever,headache Last Admin: 04/14/25 10:27 Dose: 650 mg Documented By: HANY Apixaban (Apixaban 5 Mg Tablet) 5 mg PO BID [facility] Last Admin: 04/15/25 09:08 Dose: 5 mg Documented By: JENNI Ascorbic Acid (Ascorbic Acid 500 Mg Tablet) 500 mg PO DAILY [facility] Last Admin: 04/15/25 09:08 Dose: 500 mg Documented By: JENNI Aspirin (Aspirin Enteric Coated 81 Mg Tablet.Dr) 81 mg PO DAILY [facility] [place] Last Admin: 04/15/25 09:07 Dose: 81 mg Documented By: JENNI Bisacodyl (Bisacodyl 10 Mg Supp.Rect) 10 mg [place] BEDTIME [facility] Last Admin: 04/14/25 21:48 Dose: 10 mg Documented By: CINDY Brimonidine Tartrate (Brimonidine Tartrate 0.2% Oph 5 Ml Bottle) 1 drop EYE- BOTH BID [facility] Last Admin: 04/15/25 09:28 Dose: 1 drop Documented By: JENNI Calcium Carbonate (Calcium Carbonate 750 Mg Tab.Chew) 750 mg PO Q4H PRN PRN Reason: Heartburn Carbidopa/Levodopa (Carbidopa/Levodopa 25/100 Tablet) 1 tab PO TID [facility] Last Admin: 04/15/25 09:08 Dose: 1 tab Documented By: JENNI Dextrose (Dextrose 50 % 25 Gm/50 Ml Syringe) 25 gm IVPUSH Q15M PRN; Protocol PRN Reason: per Hypoglycemia Standing Ord. Docusate Sodium (Docusate Sodium 100 Mg Capsule) 100 mg PO BID [facility] Last Admin: 04/15/25 09:08 Dose: 100 mg Documented By: JENNI Finasteride (Finasteride 5 Mg Tablet) 5 mg PO DAILY [facility] [place] Last Admin: 04/15/25 09:07 Dose: 5 mg Documented By: JENNI Glucose (Glucose Gel 15 Gm Gel..Gram.) 15 gm PO Q15M PRN; Protocol PRN Reason: per Hypoglycemia Standing Ord. Piperacillin Sod/Tazobactam (Sod 3.375 gm/ Sodium Chloride) 50 mls @ 100 mls/hr IV Q6H [facility] Last Infusion: 04/15/25 13:22 Dose: Infused Documented By: JENNI Daptomycin 470 mg/ Sodium (Chloride) 59.4 mls @ 100 mls/hr IV Q24H [facility] [place] Last Infusion: 04/15/25 13:59 Dose: Infused Documented By: JENNI Insulin Human Lispro (Insulin Lispro 100 Unit/Ml 3 Ml Vial) 0 unit SUBCUT QIDACHS [facility]; Protocol Last Admin: 04/15/25 12:49 Dose: 4 unit Documented By: JENNI Magnesium Hydroxide (Milk Of Magnesia 30 Ml Oral.Susp) 30 ml PO DAILY PRN PRN Reason: Constipation Last Admin: 04/14/25 12:31 Dose: 30 ml Documented By: HANY Magnesium Oxide ([facility] 400 Mg [facility]t) [facility] Admin: 04/15/25 09:08 Dose: 400 mg Documented By: JENNI Melatonin (Melatonin 3 Mg Tablet) 6 mg PO BEDTIME PRN PRN Reason: Insomnia Last Admin: 04/15/25 00:51 Dose: 6 mg Documented By: CINDY Memantine (Memantine Hcl 10 Mg Tablet) 10 mg PO DAILY [facility] [place] Last Admin: 04/15/25 09:08 Dose: 10 mg Documented By: JENNI Methenamine Hippurate (Methenamine Hippurate 1 Gm Tablet) 1 gm PO DAILY [facility] [place] Last Admin: 04/15/25 09:08 Dose: 1 gm Documented By: JENNI Metoprolol Succinate (Metoprolol Succinate Er 25 Mg Tab.Er.24h) 25 mg PO DAILY [facility]; Protocol Last Admin: 04/15/25 09:08 Dose: 25 mg Documented By: JENNI Nystatin (Nystatin Oral Susp 500,000 Unit/5 Ml Oral.Susp) 200,000 unit PO QID [facility]; Protocol Last Admin: 04/15/25 12:50 Dose: 200,000 unit Documented By: JENNI Omeprazole (Omeprazole 20 Mg Capsule.Dr) 20 mg PO DAILY@0630 PRN PRN Reason: Acid Reflux Quetiapine Fumarate (Quetiapine Fumarate 25 Mg Tablet) 25 mg PO BEDTIME [facility] Last Admin: 04/14/25 21:49 Dose: 25 mg Documented By: CINDY Sodium Chloride (0.9 % Sodium Chloride Flush 3 Ml Syringe) 3 ml IVFLUSH QSHIFT [facility] Last Admin: 04/15/25 09:07 Dose: 3 ml Documented By: JENNI Tamsulosin HCl (Tamsulosin Hcl 0.4 Mg Capsule) 0.4 mg PO BEDTIME [facility] [place] Last Admin: 04/14/25 21:49 Dose: 0.4 mg Documented By: CINDY Thiamine HCl (Thiamine Hcl 100 Mg Tablet) 200 mg PO DAILY [facility] Last Admin: 04/15/25 09:08 Dose: 200 mg Documented By: JENNI Labs 04/14/25 07:37 04/14/25 07:37 Labs: Laboratory Results - last 24 hr 04/14/25 04/14/25 04/15/25 16:04 21:09 07:08 POC Glucose 288 H 181 H 226 H 04/15/25 11:07 POC Glucose 239 H Microbiology Microbiology Results: Microbiology 04/12/25 11:43 Blood Culture - Preliminary Blood - Venous No growth after 48 hours. 04/12/25 11:43 Blood Culture - Preliminary Blood - Venous No growth after 48 hours. Assessment and Plan (1) A-fib: Status: Acute Plan d8, 80yo M with Parkinson's + Lewy body dementia, HTN, HLD, DM2, PVD s/p L great toe amputation revision 04/05/25 [after prior partial amputation for benign tumor], chronic AF on apixaban; presented after syncopal episode on POD1 syncopal episode - suspect due to dysautomonia from Parkinson's vs. anesthesia effect vs dehydration; has not recurred; no events on telemetry cellulitis L foot recent L great toe amputation - BCx no growth to date, on daptomycin + piperacillin-tazobactam 04/12-, ID consulted [transition to PO doxy + Augmentin x7-10d upon discharge], Vascular Surgery consulted and reached out to pt's surgeon Dr Talon [facility]authier at [facility]; no urgent intervention indicated; pt should follow-up with Dr Gauthier after discharge urinary retention - March; Proscar, Flomax acute toxic-metabolic encephalopathy Parkinsons/Lewy body dementia - multifactorial; due to urinary retention, surgery - scheduled quetiapine qhs - Sinemet, memantine thrush - nystatin hypoMg: repleted hx CVA, chronic AF: apixaban, metoprolol succinate VTE ppx: apixaban dispo: home with VNA vs STR, PT re-eval today In my clinical judgment, the patient requires continued inpatient hospitalization for the following reasons: IV ABX, placement Total time managing care of this patient today: 40 minutes. Quality Stroke Does the patient have a stroke diagnosis?: No VTE Prior VTE?: No VTE Risk Level:: Medical - moderate - high VTE Device Contraindication: Treatment Not Indicated VTE Drug Contraindication: N/A - Med Ordered
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
[2025-04-15 17:18] LABS: Glucose, Whole Blood 170 mg/dL (60-115)
[2025-04-15 20:24] LABS: Glucose, Whole Blood 199 mg/dL (60-115)
[2025-04-16 03:04] VITALS: BP 138/65; PULSE 58; RESP 18; TEMP 36.4; O2SAT 95
[2025-04-16 06:14] LABS: Hematocrit 34.9 % (42.0-52.0); Hemoglobin 11.9 g/dl (14.0-18.0); Mean Corpuscular HGB Conc 34.1 g/dl (31.0-36.0); Mean Corpuscular Hemoglobin 30.3 pg (27.0-33.0); Mean Corpuscular Volume 88.8 fL (80.0-98.0); NRBC Abs Auto 0.000 X10*3/uL (0.0-0.012); NRBC Pct Auto 0.0 /100WBC (0.0-0.2); Platelet Count 337 X10*3/uL (160-400); Red Blood Count 3.93 X10*6/uL (4.60-5.80); White Blood Count 8.9 X10*3/uL (4.8-10.8)
[2025-04-16] MEDS: Aspirin Enteric Coated 81 MG TABLET.DR PO (07:41)
[2025-04-16] MEDS: Brimonidine Tartrate 0.2% Oph 5 ML BOTTLE 1 DROP EYE-BOTH (07:42)
[2025-04-16] MEDS: Metoprolol Succinate ER 25 MG TAB.ER.24H PO (07:42)
[2025-04-16 07:48] LABS: Glucose, Whole Blood 179 mg/dL (60-115)
[2025-04-16 08:00] VITALS: BP 129/68; PULSE 63; RESP 18; TEMP 37.1; O2SAT 96
[2025-04-16 11:47] LABS: Glucose, Whole Blood 215 mg/dL (60-115)
[2025-04-16 11:57] VITALS: BP 135/68; PULSE 69; RESP 18; TEMP 36.4; O2SAT 98
--- NOTE | 2025-04-16 13:42 | W.MHC.F2F ---
Service Date Service Date: 04/16/25 Encounter Date of encounter: 04/16/25 Reasons for Services Signs and symptoms assessed: wound custodial PT Reason for half-way: medication management, medication treatment and teach disease management Reason for physical therapy: home safety and mobility, therapeutic exercises, gait/transfer training, assess need for DME, ADL training and energy conservation Reason for occupational therapy: home safety and mobility, therapeutic exercises, gait/transfer training, assess need for DME, ADL training and energy conservation Overseeing Care: Calvin Keen Homebound: Leaving the home is medically contraindicated at this time without the asist of a device and/or another person due th the listed conditions above and below. Reason homebound: unsteady gait / fall risk, poor balance / fall risk, cognitively impaired / unsafe and weakness related to hospital stay Certification: Based on the above findings, I certify that this patient is confined to the home and needs intermittent half-way care, physical therapy and/or speech therapy, or continues to need occupational therapy. The patient is under my care, and I have initiated the establishment of the plan of care. The patient will be followed by a physician who will periodically review the plan of care. Time Spent With Patient Time: Total time managing care of this patient today ____ minutes.
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
[2025-04-16 14:35] VITALS: BP 135/68; PULSE 69; O2SAT 98
--- NOTE | 2025-04-16 14:58 | MHC.CM.PN ---
PT DISCHARGING HOME TODAY WITH RESUMPTION OF FAMILY SUPPORT AND [facility] TO PROVIDE TRANSPORT
== END 2025-04-16 14:35 | disposition home health service (06) | DRG 73 ==
LOC: HO.ED 20:28 → HO.EDOVER 20:56 → HO.IMC 04-07 17:07 → HO.S3 04-15 12:56
PROVIDERS: Internal Medicine; Admitting Provider Hospitalist; Emergency Provider Emergency Medicine; PCP Physician Assistant; Visit Provider Family Medicine
DX: G90.9 Disorder of the autonomic nervous system, unspecified (principal); G92.8 Other toxic encephalopathy; F05 Delirium due to known physiological condition; I48.20 Chronic atrial fibrillation, unspecified; T87.44 Infection of amputation stump, left lower extremity; L03.116 Cellulitis of left lower limb; B37.0 Candidal stomatitis; F02.818 Dementia in other diseases classified elsewhere, unspecified severity, with other behavioral disturbance; E11.42 Type 2 diabetes mellitus with diabetic polyneuropathy; E83.42 Hypomagnesemia; E11.51 Type 2 diabetes mellitus with diabetic peripheral angiopathy without gangrene; G31.83 Neurocognitive disorder with Lewy bodies; F17.210 Nicotine dependence, cigarettes, uncomplicated; Z71.6 Tobacco abuse counseling; R33.9 Retention of urine, unspecified; Y83.5 Amputation of limb(s) as the cause of abnormal reaction of the patient, or of later complication, without mention of misadventure at the time of the procedure; G20.A1 Parkinson's disease without dyskinesia, without mention of fluctuations; R13.11 Dysphagia, oral phase; E86.0 Dehydration; N31.9 Neuromuscular dysfunction of bladder, unspecified; Z20.822 Contact with and (suspected) exposure to COVID-19; Z79.4 Long term (current) use of insulin; Z79.84 Long term (current) use of oral hypoglycemic drugs; Z79.01 Long term (current) use of anticoagulants; Z79.899 Other long term (current) drug therapy
CPT/HCPCS: 36415; 70450; 71045; 72040; 73701; 80048; 80053; 80307; 81001; 82550; 82565; 82947; 83690; 83735; 84484; 85025; 85027; 86140; 87040; 87502; 87635; 87651; 92526; 92610; 93005; 93306; 93926; 97116; 97162; 97530; 99285; J0878; J1630; J2359; J2543; J3360; J3374; J3475; J7120; Q9967

== ENCOUNTER → 2025-04-06 18:57 | Outpatient (BNV) | payer MEDICARE, SELFPAY | PROVIDERS: Admitting Provider Hospitalist; Emergency Provider Emergency Medicine; PCP Physician Assistant; Visit Provider Internal Medicine | DX: I48.91 Unspecified atrial fibrillation (principal); I45.10 Unspecified right bundle-branch block | CPT/HCPCS: 93010 ==

== ENCOUNTER → 2025-04-06 19:37 | Outpatient (BNV) | payer MEDICARE, SELFPAY | PROVIDERS: Admitting Provider Hospitalist; Emergency Provider Emergency Medicine; PCP Physician Assistant; Visit Provider Nuclear Medicine | DX: G93.89 Other specified disorders of brain (principal); R55 Syncope and collapse | CPT/HCPCS: 70450; 71045 ==

== ENCOUNTER 2025-04-06 20:52 | Outpatient (BNV) | payer MEDICARE, SELFPAY | END 2025-04-13 16:50 | PROVIDERS: Admitting Provider Hospitalist; Emergency Provider Emergency Medicine; PCP Physician Assistant; Visit Provider Radiology Diagnostic Radiology | DX: I77.89 Other specified disorders of arteries and arterioles (principal); T87.44 Infection of amputation stump, left lower extremity | CPT/HCPCS: 93926 ==

== ENCOUNTER 2025-04-06 20:52 | Outpatient (BNV) | payer MEDICARE, SELFPAY | END 2025-04-09 12:59 | PROVIDERS: Admitting Provider Hospitalist; Emergency Provider Emergency Medicine; PCP Physician Assistant; Visit Provider Radiology Diagnostic Radiology | DX: S98.112A Complete traumatic amputation of left great toe, initial encounter (principal) | CPT/HCPCS: 72040; 73701 ==

== ENCOUNTER 2025-04-06 20:52 | Outpatient (BNV) | payer MEDICARE, SELFPAY | END 2025-04-07 04:10 | PROVIDERS: Admitting Provider Hospitalist; Emergency Provider Emergency Medicine; PCP Physician Assistant; Visit Provider Internal Medicine | DX: I51.89 Other ill-defined heart diseases (principal); I35.0 Nonrheumatic aortic (valve) stenosis; I48.91 Unspecified atrial fibrillation; I45.10 Unspecified right bundle-branch block; I25.2 Old myocardial infarction | CPT/HCPCS: 93010; 93306 ==

== ENCOUNTER → 2025-04-06 20:52 | Outpatient (BNV) | payer MEDICARE, SELFPAY | PROVIDERS: Admitting Provider Hospitalist; Emergency Provider Emergency Medicine; PCP Physician Assistant; Visit Provider Internal Medicine | DX: R55 Syncope and collapse (principal); I48.91 Unspecified atrial fibrillation; G31.83 Neurocognitive disorder with Lewy bodies; F02.818 Dementia in other diseases classified elsewhere, unspecified severity, with other behavioral disturbance | CPT/HCPCS: 99222; 99232; 99233; 99499 ==

== ENCOUNTER → 2025-04-06 20:52 | Outpatient (BNV) | payer MEDICARE, SELFPAY | PROVIDERS: Admitting Provider Hospitalist; Emergency Provider Emergency Medicine; PCP Physician Assistant; Visit Provider Surgery Vascular Surgery | DX: Z89.412 Acquired absence of left great toe (principal) | CPT/HCPCS: 99232 ==

== ENCOUNTER → 2025-04-06 20:52 | Outpatient (BNV) | payer MEDICARE, SELFPAY | PROVIDERS: Admitting Provider Hospitalist; Emergency Provider Emergency Medicine; PCP Physician Assistant; Visit Provider Urology | DX: F03.90 Unspecified dementia, unspecified severity, without behavioral disturbance, psychotic disturbance, mood disturbance, and anxiety (principal); R33.9 Retention of urine, unspecified | CPT/HCPCS: 99222 ==

== ENCOUNTER → 2025-04-06 20:52 | Outpatient (BNV) | payer MEDICARE, SELFPAY | PROVIDERS: Admitting Provider Hospitalist; Emergency Provider Emergency Medicine; PCP Physician Assistant; Visit Provider Internal Medicine | DX: Z89.412 Acquired absence of left great toe (principal) | CPT/HCPCS: 99222; 99232 ==

== ENCOUNTER → 2025-04-06 20:52 | Outpatient (BNV) | payer MEDICARE, SELFPAY | PROVIDERS: Admitting Provider Hospitalist; Emergency Provider Emergency Medicine; PCP Physician Assistant; Visit Provider Surgery | DX: E11.621 Type 2 diabetes mellitus with foot ulcer (principal); L97.509 Non-pressure chronic ulcer of other part of unspecified foot with unspecified severity | CPT/HCPCS: 99222 ==